=== PATIENT | female | born 1955 | race Caucasian/White ===

== ENCOUNTER → 2020-02-24 | Outpatient (CLI) | payer MEDICARE ==
--- NOTE | 2020-02-24 16:01 | NM ---
EXAMINATION TYPE: NM bone scan whole body DATE OF EXAM: 02/24/2020 COMPARISON: NONE HISTORY: Spondylosis with myelopathy Delayed whole-body scanning was performed following the injection of 23 mCi Tc 99m MDP. Images were acquired 3.5 hours post injection. FINDINGS: Ribs: There is focal uptake within the posterior left 10th rib in the posterior medial right 11th rib . Metastatic lesion should be considered. There is focal uptake within the T10 vertebral level. More focal uptake is present within the L1 and L2 levels posteriorly and within the right aspect of the L4 vertebral body. Findings are suspicious f or metastatic disease There is focal uptake within the anterior right iliac wing. Focal uptake is within the posterior sacr oiliac joints bilaterally. Distribution appears suggestive for metastatic disease. There is focal radiotracer within the left proximal diaphysis and left greater trochanter of the hip. There may be some focal uptake along the left aspect of the proximal sternum. IMPRESSION: 1. Multiple scattered areas of uptake suspicious for metastatic disease. Most prominent Include thora cic and lumbar spine, left proximal femur at the level of the trochanter, posterior lower ribs, and r ight iliac anterior wedging.
== END | disposition home or self-care (01) ==
LOC: RADNMMAIN 10:07
PROVIDERS: ATTEND Physical Medicine & Rehabilitation
DX: R59.0 Localized enlarged lymph nodes (principal); M48.062 Spinal stenosis, lumbar region with neurogenic claudication; M54.5 Low back pain; R20.2 Paresthesia of skin; Z87.19 Personal history of other diseases of the digestive system
CPT/HCPCS: 78306; A9503

== ENCOUNTER 2020-03-01 14:10 | Emergency (ER) | payer MEDICARE ==
[2020-03-01 14:21] VITALS: RESP 18
--- NOTE | 2020-03-01 15:03 | ED ---
General Adult HPI - General Chief complaint: Weakness Stated complaint: Back Pain Time Seen by Provider: 03/01/20 14:32 Source: patient, EMS Mode of arrival: EMS Limitations: no limitations - History of Present Illness Initial comments: Patient is 64-year-old female presenting to the emergency department with a chief complaint of back pain. 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 Patient reports since then she has developed increased back pain. States she is able to ambulate and has full range of motion bilateral upper and lower extremities. States the pain is only exacerbated in a sitting position and when standing for prolonged periods of time. States the pain feels like it is "inside her back". Patient reports seeing multiple times to order an MRI and a recent bone scan. States it month when he prescribed her a steroid pack and tramadol for the pain. Patient reports since the initial incident of the back pain, she's also developed paresthesias in the groin region. But doesn't have any of that at the moment. Patient reports decreased urinary frequency but states that is secondary to not drinking enough fluids. Denies any bowel incontinence. - Related Data Previous Rx's Medication Instructions Recorded Hydrocodone/Acetaminophen [[place] 1 tab PO Q6HR PRN #12 tab 03/01/20 5-325] Allergies Allergy/AdvReac Type Severity Reaction Status Date / Time No Known Allergies Allergy Verified 03/01/20 14:21 Review of Systems ROS Statement: Those systems with pertinent positive or pertinent negative responses have been documented in the HPI. ROS Other: All systems not noted in ROS Statement are negative. Past Medical History Past Medical History: Thyroid Disorder Additional Past Medical History / Comment(s): poor historian: states she used to take thyroid medicine, but doesnt anymore because she hasnt been to a doctor. History of Any Multi-Drug Resistant Organisms: None Reported Past Surgical History: Tonsillectomy Past Psychological History: No Psychological Hx Reported Smoking Status: Former smoker Past Alcohol Use History: Rare Past Drug Use History: None Reported General Exam Limitations: no limitations General appearance: alert, in no apparent distress Head exam: Present: atraumatic, normocephalic, normal inspection Eye exam: Present: normal appearance, PERRL, EOMI Pupils: Present: normal accommodation ENT exam: Present: normal exam, normal oropharynx, mucous membranes moist, TM's normal bilaterally, normal external ear exam Neck exam: Present: normal inspection, full ROM Respiratory exam: Present: normal lung sounds bilaterally. Absent: respiratory distress, wheezes Cardiovascular Exam: Present: regular rate, normal rhythm, normal heart sounds GI/Abdominal exam: Present: soft. Absent: distended Rectal exam: Present: normal inspection, normal rectal tone Extremities exam: Present: normal inspection, full ROM, normal capillary refill, other (Strength 5/5 in bilateral lower extremities with flexion and extension. +2 dorsalis pedis and posterior tibialis bilaterally.) Back exam: Present: normal inspection, full ROM, vertebral tenderness (Sacral tenderness, mild.) Neurological exam: Present: alert, oriented X3 Psychiatric exam: Present: normal affect, normal mood Skin exam: Present: warm, dry, intact, normal color Course Vital Signs 03/01/20 03/01/20 03/01/20 14:17 15:12 16:10 Temperature 98.6 F 98 F Pulse Rate 103 H 104 H 110 H Respiratory 18 18 18 Rate Blood Pressure 135/81 132/64 151/96 O2 Sat by Pulse 96 99 100 Oximetry Medical Decision Making - Medical Decision Making Patient is 64-year-old female presenting to emergency Department with chief complaint of back pain. Symptoms ongoing for the past few months. She is seeing for the back pain who recently ordered a bone scan. A revealed some bone marrow abnormalities suggesting metastatic disease. MRI results were obtained from the franchise specialist that reveal some osseous abnormality suggesting metastatic disease, multiple myeloma or other lymphoid conditions. Low suspicion for cauda equina. UA obtained was suggesting dehydration with +1 ketones. No signs of urinary tract infection. Initial bladder scan revealed 165 mL of urine. Post void residual volume of 29. Patient has good rectal tone. I suspect the possible fainting episodes, which the patient has history of, have increased in frequency secondary to decreased fluid intake. Case was thoroughly discussed with . He suggested the urinalysis and no further workup. Imaging results from the bone scan and MRI were also reviewed with him. He advised discharge. Patient is said to follow- up with her franchise specialist and primary care physician within this a week. Return parameters were thoroughly discussed with patient is understanding and agreeable. Case discussed with physician. - Lab Data Lab Results 03/01/20 Range/Units 15:22 Urine Color Yellow Urine Appearance Clear (Clear) Urine pH 5.5 (5.0-8.0) Ur Specific [place] 1.032 (1.001-1.035) Urine Protein Trace H (Negative) Urine Glucose (UA) Negative (Negative) Urine Ketones 1+ H (Negative) Urine Blood Negative (Negative) Urine Nitrite Negative (Negative) Urine Bilirubin Negative (Negative) Urine Urobilinogen 4.0 (<2.0) mg/dL Ur Leukocyte Esterase Moderate H (Negative) Urine RBC 2 (0-5) /hpf Urine WBC 2 (0-5) /hpf Ur Squamous Epith Cells 1 (0-4) /hpf Urine Mucus Rare H (None) /hpf Disposition Clinical Impression: Back pain Disposition: HOME SELF-CARE Condition: Good Additional Instructions: Take prescribed medication as directed. Follow up with her primary care and orthopedic doctor. Return to emergency department if symptoms worsen. Prescriptions: Hydrocodone/Acetaminophen [[place] 5-325] 1 tab PO Q6HR PRN #12 tab PRN Reason: Pain Is patient prescribed a controlled substance at d/c from ED?: No Referrals: Monica Perez MD [Primary Care Provider] - 1-2 days Time of Disposition: 16:00
[2020-03-01 15:30] LABS: Appearance,Urine Clear (Clear); Bilirubin,Urine Negative (Negative); Blood,Urine Negative (Negative); Color,Urine Yellow; Glucose,Urine (UA) Negative (Negative); Ketones,Urine 1+ (Negative); Leukocyte Esterase,Urine Moderate (Negative); Mucus,Urine Rare /hpf; Nitrite,Urine Negative (Negative); PH, Urine 5.5 (5.0-8.0); Protein,Urine Trace (Negative); RBC,Urine 2 /hpf (0-5); Specific Gravity,Urine 1.032 (1.001-1.035); Squamous Epithelial Cell,Urine 1 /hpf (0-4); WBC,Urine 2 /hpf (0-5)
[2020-03-01] MEDS ORDERED: HYDROcodone/APAP 10-325MG 1 EACH TAB PO ONE (15:56)
[2020-03-01 16:11] VITALS: BP 151/96; PULSE 110; TEMP 98
== END 2020-03-01 16:10 | disposition home or self-care (01) ==
LOC: EC 14:10
DX: M54.9 Dorsalgia, unspecified (principal); M89.9 Disorder of bone, unspecified; R39.198 Other difficulties with micturition; R20.2 Paresthesia of skin; E07.9 Disorder of thyroid, unspecified; Z87.891 Personal history of nicotine dependence
CPT/HCPCS: 51798; 81001; 99285

== ENCOUNTER 2020-03-05 16:17 | Inpatient (IN) | payer MEDICARE ==
[2020-03-05] MEDS ORDERED: SODIUM CHLORIDE 0.9% 500 ML 500 ML IV STA (17:06)
[2020-03-05] MEDS ORDERED: MORPHINE SULFATE 4 MG/ML SYRINGE IVP STA (17:06)
--- NOTE | 2020-03-05 17:32 | ED ---
General Adult HPI - General Chief complaint: Back Pain/Injury Stated complaint: Back Pain Time Seen by Provider: 03/05/20 16:52 Source: patient, EMS, RN notes reviewed Mode of arrival: EMS Limitations: no limitations - History of Present Illness Initial comments: 64-year-old female presents to the emergency department for a chief complaint of back and right leg pain. Patient reports that the symptoms have been ongoing for over 3 months now. Patient reports that she feels fine when lying down however when she has to sit or stand she has significant pain that radiates down the right leg. Patient states she has been seeing paint dipper Dr. Selby for this and has had several imaging studies such as a bone density scan, MRI. She was seen here 4 days ago and had no evidence of urinary retention with postvoid residual testing. She denies weakness in the legs. States she has had numbness of the groin area for several months but that her MRI did not indicate a cauda equina. Patient states today she called her doctor and he told her to come to the emergency department for admission to the hospital. Patient admits to constipation but denies any bladder or bowel changes otherwise. Denies fevers or chills. - Related Data Previous Rx's Medication Instructions Recorded Hydrocodone/Acetaminophen [[place] 1 tab PO Q6HR PRN #12 tab 03/01/20 5-325] Allergies Allergy/AdvReac Type Severity Reaction Status Date / Time No Known Allergies Allergy Verified 03/01/20 14:21 Review of Systems ROS Statement: Those systems with pertinent positive or pertinent negative responses have been documented in the HPI. ROS Other: All systems not noted in ROS Statement are negative. Past Medical History Past Medical History: Thyroid Disorder Additional Past Medical History / Comment(s): poor historian: states she used to take thyroid medicine, but doesnt anymore because she hasnt been to a doctor. History of Any Multi-Drug Resistant Organisms: None Reported Past Surgical History: Tonsillectomy Past Psychological History: No Psychological Hx Reported Smoking Status: Former smoker Past Alcohol Use History: Rare Past Drug Use History: None Reported General Exam Limitations: no limitations General appearance: alert, in no apparent distress Head exam: Present: atraumatic, normocephalic, normal inspection Eye exam: Present: normal appearance, PERRL, EOMI. Absent: scleral icterus, conjunctival injection, periorbital swelling ENT exam: Present: normal exam, mucous membranes moist Neck exam: Present: normal inspection, full ROM. Absent: tenderness, meningismus, lymphadenopathy Respiratory exam: Present: normal lung sounds bilaterally. Absent: respiratory distress, wheezes, rales, rhonchi, stridor Cardiovascular Exam: Present: regular rate GI/Abdominal exam: Present: soft, normal bowel sounds. Absent: distended, ten derness, guarding, rebound, rigid Extremities exam: Present: full ROM (Full range of motion of the right leg), normal capillary refill (Capillary refill less than 2 seconds, DP pulse 2+ in the right lower capm knee. Skin is dry and warm.) Back exam: Absent: paraspinal tenderness, vertebral tenderness Neurological exam: Absent: normal gait (Patient is able to ambulate but does so with antalgic gait.) Course Vital Signs 03/05/20 16:26 Temperature 98.6 F Pulse Rate 111 H Respiratory 18 Rate Blood Pressure 119/60 O2 Sat by Pulse 95 Oximetry Medical Decision Making - Medical Decision Making Patient presents for ongoing back pain for 3-4 months. States it is very painful to sit or stand. Neurovascular status intact in the right lower extremity. Patient has been following with Dr. Selby for this. Dr. Perez would like patient admitted. Patient recently had an MRI and bone scan. I do have the bone scan report which showed multiple scattered areas of uptake suspicious for metastatic disease most prominently including the thoracic and lumbar spine as well as the left proximal femur posterior lower ribs and right iliac anterior wedging. I did obtain laboratory evaluation. Patient is anemic with a hemoglobin of 8.3. Occult blood pending. This could be anemia of chronic disease. CMP is unremarkable. Patient will be admitted for further management. - Lab Data Result diagrams: 03/05/20 17:32 03/05/20 17:05 Lab Results 03/05/20 03/05/20 Range/Units 17:05 17:32 WBC 11.6 H (3.8-10.6) k/uL RBC 4.16 (3.80-5.40) m/uL Hgb 8.3 L (11.4-16.0) gm/dL Hct 28.2 L (34.0-46.0) % MCV 67.8 L (80.0-100.0) fL MCH 20.0 L (25.0-35.0) pg MCHC 29.5 L (31.0-37.0) g/dL RDW 16.5 H (11.5-15.5) % Plt Count 394 (150-450) k/uL Neutrophils % 73 % Lymphocytes % 14 % Monocytes % 6 % Eosinophils % 5 % Basophils % 0 % Neutrophils # 8.5 H (1.3-7.7) k/uL Lymphocytes # 1.6 (1.0-4.8) k/uL Monocytes # 0.7 (0-1.0) k/uL Eosinophils # 0.6 (0-0.7) k/uL Basophils # 0.0 (0-0.2) k/uL Hypochromasia Marked Poikilocytosis Slight Anisocytosis Slight Microcytosis Marked Sodium 136 L (137-145) mmol/L Potassium 4.2 (3.5-5.1) mmol/L Chloride 99 (98-107) mmol/L Carbon Dioxide 26 (22-30) mmol/L Anion Gap 11 mmol/L BUN 11 (7-17) mg/dL Creatinine 0.65 (0.52-1.04) mg/dL Est GFR (CKD-EPI)AfAm >90 (>60 ml/min/1.73 sqM) Est GFR (CKD-EPI)NonAf >90 (>60 ml/min/1.73 sqM) Glucose 105 H (74-99) mg/dL Calcium 9.2 (8.4-10.2) mg/dL Total Bilirubin 0.5 (0.2-1.3) mg/dL AST 27 (14-36) U/L ALT 15 (4-34) U/L Alkaline Phosphatase 176 H (38-126) U/L Total Protein 6.5 (6.3-8.2) g/dL Albumin 3.6 (3.5-5.0) g/dL Disposition Clinical Impression: Multiple lesions of metastatic malignancy, Back pain Disposition: ADMITTED IP TO THIS HOSP Condition: Fair Is patient prescribed a controlled substance at d/c from ED?: No Referrals: Monica Perez MD [Primary Care Provider] - 1-2 days Time of Disposition: 19:10
[2020-03-05 17:59] LABS: ALT 15 U/L (4-34); AST 27 U/L (14-36); African American GFR (CKD) >90 (>60 ml/min/1.73 sqM); Albumin 3.6 g/dL (3.5-5.0); Alkaline Phosphatase 176 U/L (38-126); Anion Gap 11 mmol/L; Blood Urea Nitrogen 11 mg/dL (7-17); Calcium 9.2 mg/dL (8.4-10.2); Carbon Dioxide 26 mmol/L (22-30); Chloride 99 mmol/L (98-107); Glucose 105 mg/dL (74-99); Non-African American GFR(CKD) >90 (>60 ml/min/1.73 sqM); Potassium 4.2 mmol/L (3.5-5.1); Sodium 136 mmol/L (137-145); Total Bilirubin 0.5 mg/dL (0.2-1.3); Total Protein 6.5 g/dL (6.3-8.2)
[2020-03-05 18:24] LABS: Anisocytosis Slight; Basophils % (A) 0 %; Eosinophils # (A) 0.6 k/uL (0-0.7); Eosinophils % (A) 5 %; HCT 28.2 % (34.0-46.0); HGB 8.3 gm/dL (11.4-16.0); Hypochromasia Marked; Lymphocytes # (A) 1.6 k/uL (1.0-4.8); Lymphocytes % (A) 14 %; MCHC 29.5 g/dL (31.0-37.0); MCV 67.8 fL (80.0-100.0); Mean Platelet Volume 7.1; Microcytosis Marked; Monocytes # (A) 0.7 k/uL (0-1.0); Monocytes % (A) 6 %; Neutrophils # (A) 8.5 k/uL (1.3-7.7); Neutrophils % (A) 73 %; Platelet Count 394 k/uL (150-450); Poikilocytosis Slight; RBC 4.16 m/uL (3.80-5.40); RDW 16.5 % (11.5-15.5); WBC 11.6 k/uL (3.8-10.6)
[2020-03-05] MEDS ORDERED: NALOXONE 0.4 MG/ML 1 ML VIAL IV PRN (19:10)
[2020-03-05] MEDS ORDERED: ONDANSETRON 4 MG/2 ML VIAL IVP PRN (19:10)
[2020-03-05] MEDS: SODIUM CHLORIDE 0.9% 1,000 ML IV SCH (19:29)
[2020-03-05] MEDS: MORPHINE SULFATE 4 MG/ML SYRINGE IV PRN (23:53)
[2020-03-06] MEDS: MORPHINE SULFATE 4 MG/ML SYRINGE IV PRN (05:07)
[2020-03-06 05:33] LABS: Appearance,Urine Clear (Clear); Bacteria,Urine Rare /hpf; Bilirubin,Urine Negative (Negative); Blood,Urine Negative (Negative); Color,Urine Yellow; Glucose,Urine (UA) Negative (Negative); Hyaline Casts,Urine 5 /lpf (0-2); Ketones,Urine Trace (Negative); Leukocyte Esterase,Urine Large (Negative); Mucus,Urine Rare /hpf; Nitrite,Urine Negative (Negative); Protein,Urine Negative (Negative); RBC,Urine 3 /hpf (0-5); Specific Gravity,Urine 1.013 (1.001-1.035); Squamous Epithelial Cell,Urine 2 /hpf (0-4); WBC,Urine 28 /hpf (0-5)
[2020-03-06] MEDS ORDERED: NAPROXEN 250 MG TAB PO PRN (07:50)
[2020-03-06] MEDS: PANTOPRAZOLE 40 MG TABLET PO SCH (08:49)
[2020-03-06] MEDS: ENOXAPARIN 40 MG/0.4 ML SYRINGE SQ SCH (08:49)
[2020-03-06] MEDS: SODIUM CHLORIDE 0.9% 1,000 ML IV SCH ×2 (08:50→20:59)
[2020-03-06] MEDS: IOPAMIDOL CONTRAST (ORAL USE) VIAL PO PRN ×2 (08:59→10:11)
--- NOTE | 2020-03-06 09:56 | P.HPIM ---
History of Present Illness H&P Date: 03/06/20 Chief Complaint: Back pain This is a 64-year-old patient with no primary care physician. She had previously been seen by Dr. Rausch but it has been seen in greater than 1 year and has requested to be established with Dr. Perez. She states that she has not had a full workup since she was 49 years old and at that time had a Pap smear and mammogram but no repeat testing since that time. She denies ever having a colonoscopy. Patient gives history of having hypothyroidism but stopped taking her medication as she could not get the prescription refilled. She gives history of lifting something onto a shelf and heard a pop in her lower back area in October of this year. She denied any numbness at that time down her legs. She states it has progressively worsened and she does have leg involvement including pain in her groin. She has numbness as well. She has difficulty initiating urination and difficulty with bowel movements possibly constipation versus dif ficulty defecating. She rates the pain as a 8-10 out of 10 with any movement which includes walking, sitting or standing. At rest pain is fairly well controlled. Patient also relates possible fainting episodes. Patient also complains of a constricted sensation around her chest but no significant rib pain. She denies any bloody or tarry stools. No vaginal bleeding. No hematuria. Patient has been under the care of Dr. Selby as she was initially planning to go to a chiropractor but her sister insisted that she go to [facility]. She did have an MRI bone scan and nerve testing done with Dr. Selby. Dr. Selby did give her a course of steroids and tramadol for pain. She came into [facility] emergency center on March 01 due to severe back pain. Her urinalysis was negative for UTI. Bladder scan showed 165 ML's. Post void residual 29. The patient was given a prescription for [place] and instructed to follow-up with PCP. She can return to [facility] emergency center on March 05 with continued back pain with radiation down the right leg along with numbness and tingling. She was afebrile, heart rate 111, blood pressure 119/60, pulse ox 95% on room air. WBC 11.6, hemoglobin 8.3, platelet count 394. Sodium 136, potassium 4.2, chloride 99, CO2 26, BUN 11 and creatinine 0.65. Blood sugar 105. Alkaline phosphatase 176. Patient admitted to the [facility] floor and consult requested with oncology, CAT scan of the chest abdomen and pelvis and cancer markers have been ordered. MRI of the lumbar spine revealed marked abnormal bone marrow throughout the axial skeleton with most significant involvement of the sacrum, L5, L1 and L3 vertebral bodies. Findings may represent a marrow infiltrative process such as metastatic disease, multiple myeloma or lymphoproliferative disorder. Suspect minor nondisplaced S1 sacral element fracture. L5/S1 level shallow left-sided disc protrusion/herniation and mild facet arthropathy. No substantial spinal canal nor foraminal stenosis. Nonspecific hepatic and right renal lesion as well as a 2.5 cm left adrenal mass. EMG revealed sensory nerve responses absent suggesting possible generalized peripheral neuropathy with paresthesia and numbness in the bilateral feet. Bone scan showed multiple scattered areas of uptake suspicious for metastatic disease most prominently including the thoracic and lumbar spine as well as the left proximal femur posterior lower ribs and right iliac anterior wedging. Review of Systems Constitutional: Reports chronic pain, Reports fatigue, Reports poor appetite, Reports weakness, Denies anorexia, Denies chills, Denies fever Eyes: denies blurred vision, denies pain Ears, nose, mouth and throat: Reports vertigo, Denies dysphagia, Denies headache, Denies nasal congestion, Denies nasal discharge, Denies sore throat Cardiovascular: Denies chest pain, Denies edema, Denies leg edema, Denies shortness of breath Respiratory: Denies cough, Denies cough with sputum, Denies dyspnea, Denies excessive sputum, Denies hemoptysis, Denies home oxygen, Denies respiratory infections, Denies wheezing Gastrointestinal: Reports abdominal pain, Reports constipation, Denies BRBPR, Denies coffee ground emesis, Denies diarrhea, Denies hematemesis, Denies hematochezia, Denies melena, Denies nausea, Denies vomiting Genitourinary: Reports difficulty voiding, Denies hematuria, Denies urinary frequency Menstruation: Reports postmenopausal, Denies post hysterectomy Musculoskeletal: Reports gait dysfunction, Reports leg numbness/tingling, Reports low back pain, Reports muscle weakness, Denies myalgias Integumentary: Denies pruritus, Denies rash, Denies wounds Neurological: Reports gait dysfunction, Denies change in mentation, Denies change in speech, Denies head injury, Denies seizures Psychiatric: Denies anxiety, Denies depression Endocrine: Denies fatigue, Denies weight change Past Medical History Past Medical History: Thyroid Disorder Additional Past Medical History / Comment(s): Hypothyroidism. History of Any Multi-Drug Resistant Organisms: None Reported Past Surgical History: Tonsillectomy Past Anesthesia/Blood Transfusion Reactions: No Reported Reaction Past Psychological History: No Psychological Hx Reported Smoking Status: Former smoker Past Alcohol Use History: Rare Additional Past Alcohol Use History / Comment(s): Patient was a smoker of one and half packs per day for 22 years and quit approximately 20 years ago. She has rare alcohol intake. She denies any marijuana or street drug use. Past Drug Use History: None Reported - Past Family History Mother Family Medical History: Cancer, CVA/TIA Additional Family Medical History / Comment(s): Mother at age 75 from some type of cancer outside the colon. Sister(s) Family Medical History: Cancer Additional Family Medical History / Comment(s): Patient has one sister with history of breast cancer, atrial fibrillation and hypertension. Father Additional Family Medical History / Comment(s): Father is alive at age 92 with history of coronary artery disease, hypertension, hyperlipidemia, benign prostatic hypertrophy. Brother(s) Additional Family Medical History / Comment(s): Patient has 2 brothers with no m ajor medical problems. Patient has 2 children: One son with hypothyroidism and one daughter with no major medical problems. Medications and Allergies Home Medications Medication Instructions Recorded Confirmed Type Hydrocodone/Acetaminophen [[place] 1 tab PO Q6HR PRN #12 tab 03/01/20 03/05/20 Rx 5-325] Acetaminophen [Tylenol Arthritis] 1,300 mg PO BID PRN 03/05/20 03/05/20 History Naproxen Sodium [Aleve] 440 mg PO BID PRN 03/05/20 03/05/20 History Pantoprazole [Protonix] 40 mg PO DAILY 03/05/20 03/05/20 History Allergies Allergy/AdvReac Type Severity Reaction Status Date / Time No Known Allergies Allergy Verified 03/05/20 19:27 Physical Exam Vitals: Vital Signs Temp Pulse Pulse Resp BP BP Pulse Ox 03/06/20 05:00 98.1 F 99 18 145/76 96 03/06/20 00:00 12 03/05/20 20:38 98.6 F 94 12 137/78 94 L 03/05/20 20:23 12 03/05/20 16:26 98.6 F 111 H 18 119/60 95 Intake and Output 03/05/20 03/06/20 03/06/20 22:59 06:59 14:59 Intake Total 250 600 Output Total 350 Balance 250 250 Intake: Intake, IV Titration 150 600 Amount Sodium Chloride 0.9% 1, 150 600 000 ml @ 75 mls/hr IV . [id number] [facility] Rx#:[id number] Oral 100 Output: Urine 350 Other: Voiding Method Bedside Commode Bedside Commode Weight 86.183 kg Physical Examination Gen: This is a 64-year-old female. Patient is resting in bed appears to be comfortable at rest. She does experience lumbar pain with minimal movement in bed. HEENT: Head is atraumatic, normocephalic. Pupils equal, round. Sclerae is anicteric. NECK: Supple. No JVD. No lymphadenopathy. No thyromegaly. LUNGS: Clear to auscultation. No wheezes or rhonchi. No intercostal retractions. HEART: Regular rate and rhythm. No murmur. ABDOMEN: Soft. Bowel sounds are present. No masses. Bilateral lower quadrant pain most severe at the right lower quadrant with palpable mass right lower quadrant. EXTREMITIES: No pedal edema. No calf tenderness. Dorsalis pedis +2 bilaterally. NEUROLOGICAL: Patient is awake, alert and oriented x3. Cranial nerves 2 through 12 are grossly intact. Results CBC & Chem 7: 03/05/20 17:32 03/05/20 17:05 Labs: Abnormal Lab Results - Last 24 Hours (Table) 03/05/20 03/05/20 03/06/20 Range/Units 17:05 17:32 05:10 WBC 11.6 H (3.8-10.6) k/uL Hgb 8.3 L (11.4-16.0) gm/dL Hct 28.2 L (34.0-46.0) % MCV 67.8 L (80.0-100.0) fL MCH 20.0 L (25.0-35.0) pg MCHC 29.5 L (31.0-37.0) g/dL RDW 16.5 H (11.5-15.5) % Neutrophils # 8.5 H (1.3-7.7) k/uL Sodium 136 L (137-145) mmol/L Glucose 105 H (74-99) mg/dL Alkaline Phosphatase 176 H (38-126) U/L Urine Ketones Trace H (Negative) Ur Leukocyte Esterase Large H (Negative) Urine WBC 28 H (0-5) /hpf Urine Bacteria Rare H (None) /hpf Hyaline Casts 5 H (0-2) /lpf Urine Mucus Rare H (None) /hpf Thrombosis Risk Factor Assmnt - DVT/VTE Prophylaxis DVT/VTE Prophylaxis: Pharmacologic Prophylaxis ordered - Choose All That Apply Any of the Below Risk Factors Present?: Yes Each Factor Represents 1 point: Medical pt on bed rest Other Risk Factors: Yes Each Risk Factor Represents 2 Points: Age 61-74 years Other congenital or acquired thrombophilia - If yes, enter type in comment: No Thrombosis Risk Factor Assessment Total Risk Factor Score: 3 Thrombosis Risk Factor Assessment Level: Moderate Risk Assessment and Plan Plan: 1. Metastatic disease to the thoracic and lumbar spine as well as the left proximal femur, posterior lower ribs and right iliac of unknown primary source. CAT scan of the chest abdomen and pelvis with contrast ordered. Consult with Dr. Alberts. CEA 125, CA 199, CEA ordered. Continue Dilaudid or morphine for pain. Patient will be resumed on [place] as well. Zofran for nausea. 2. History of hypothyroidism. TSH and free T4 ordered. 3. Anemia of unclear etiology. Stool for occult blood was negative. Most likely anemia of chronic disease. 4. Elevated alkaline phosphatase. Await CAT scan report. 5. Right lower quadrant pain with palpable mass. Possible colon cancer. Await CAT scan. Patient has never had a colonoscopy. 6. UTI. Patient will be started on ceftriaxone, await urine culture report. 7. Adrenal mass on MRI. 8. DVT prophylaxis. Lovenox 40 mg subcu daily. 9. GI prophylaxis. Protonix 40 mg daily. 10. COVID-19 infection not present. Patient will be admitted to the hospital for a minimum of 2 night stay. Discharge plan: Most likely subacute rehab. Will add and PT and OT evaluation. Impression and plan of care have been directed as dictated by the signing physician. Natalie Arango nurse practitioner acting as scribe for signing physician.
[2020-03-06 10:07] LABS: T4, Free (Free Thyroxine) 0.74 ng/dL (0.78-2.19)
[2020-03-06] MEDS: HYDROmorphone 0.5 MG/0.5 ML SYRINGE IVP PRN ×3 (10:10→21:41)
--- NOTE | 2020-03-06 12:39 | CT ---
EXAMINATION TYPE: CT ChestAbdPelvis w con DATE OF EXAM: 03/06/2020 COMPARISON: Correlation nuclear medicine bone scan 02/24/2020 HISTORY: 64-year-old male Metastatic bone disease. TECHNIQUE: Contiguous axial scanning of the chest, abdomen, and pelvis performed with IV Contrast, pa tient injected with 100 mL of Isovue M300. Delayed images through the kidneys were obtained. Coronal/ sagittal reconstructions performed. CT DLP: 854.4 mGycm Automated exposure control for dose reduction was used. FINDINGS: CHEST: Are normal size without pericardial effusion. Borderline size 9 mm right paratracheal lymph node. Otherwise, no thoracic lymphadenopathy by CT size criteria. There is abnormal soft tissue extending from the right suprahilar region towards the right apex incre asing segmental upper lobe bronchi measuring up to 6.6 cm craniocaudal, coronal image 51, 5.6 cm AP b y 6.5 cm wide. Additional focal satellite nodularity is present such as at the anterior right upper lobe measuring 2 .1 x 1.2 cm. 3 mm peripheral left lower lobe pulmonary nodule, axial image 43 is nonspecific. Otherwise, biapical pleural-parenchymal scarring. Trace right pleural effusion. ABDOMEN: Moderate sized hernia. Prominent contrast column within the esophagus could reflect dysmotility or ga stroesophageal reflux. Wedge-shaped hyper enhancement along the peripheral right hepatic dome likely vascular shunting as th ere is equilibration on the delayed kidney images. 1.4 cm gallstone is suspected and additional 1.7 cm gallstone, axial image 64. No biliary ductal dila tation. Portal venous system is patent. Right adrenal gland, kidneys, spleen, and pancreas appear within normal limits. Abnormal mass of the left adrenal gland measuring 3.3 x 2.5 cm. No dilated small bowel, free fluid, or free air. No mesenteric or retroperitoneal lymphadenopathy. Nonspecific soft tissue nodularity right inferior pararenal fat measuring 7 mm, axial image 90. Normal appendix. Oral contrast progressed into the cecum. Mild overall stool burden. Left-sided colon ic diverticulosis without acute diverticulitis. PELVIS: Prominent distention of the urinary bladder. Uterus anteverted. Both ovaries are visualized. No abnor mal fluid collection the pelvis or pelvic lymphadenopathy. Soft tissue nodule in the right perineum subcutaneous adipose, axial image 136. Tiny 6 mm nodule in t he right gluteal subcutaneous fat, axial image 138. BONES: Evaluation of the osseous structures shows permeative destruction of the right sacral ala. Soft tissu e infiltration involves the right S1-S2 neuroforamen. Lesser degree of permeative lucency within the left sacral ala. Some abnormal heterogeneity of the body of the sacrum and findings suspected to repr esent pathologic zone 2 sacral fractures on both sides. Permeative lucency involving the left L3 transverse process. Subtle lytic lesion involving the left T 12 posterior vertebral body. Abnormal soft tissue left paraspinal region extending into left T9-T10 neuroforamen and on the left l ateral spinal canal, reference axial image 44 and sagittal image 73. IMPRESSION: 1. LARGE RIGHT UPPER LOBE MASS WITH OPACITY MEASURING UP TO 6.6 CM EXTENDING FROM THE RIGHT SUPRAHILA R REGION UP TO THE LATERAL APEX. SOME SATELLITE NODULARITY MEASURING UP TO 2.1 CM. TRACE RIGHT PLEURA L EFFUSION. 2. NONSPECIFIC 3 MM LEFT LOWER LOBE PULMONARY NODULE. 3. METASTATIC DISEASE WITH A 3.3 CM LEFT ADRENAL MASS AND OSSEOUS METASTATIC DISEASE TO THE SACRUM (W ITH PERMEATIVE DESTRUCTION AND BILATERAL PATHOLOGIC ZONE 2 SACRAL ALAR FRACTURES), LYTIC SOFT TISSUE DESTRUCTION LEFT L3 TRANSVERSE PROCESS, LEFT T12 VERTEBRAL BODY. ALSO INVOLVING THE LEFT PARASPINAL R EGION WITH SOFT TISSUE EXTENDING INTO THE T9-T10 NEUROFORAMEN AND LATERAL LEFT SPINAL CANAL. 4. SCATTERED SOFT TISSUE NODULES SUCH IN THE INFERIOR RIGHT PERIRENAL SPACE, RIGHT PERINEUM, AND R IGHT GLUTEAL SUBCUTANEOUS ADIPOSE MEASURING UP TO 7 MM MAY REPRESENT METASTATIC DEPOSITS. 5. CHOLELITHIASIS, LEFT-SIDED COLONIC DIVERTICULOSIS, AND MODERATE-SIZED HILAR HERNIA. PROMINENT CONT RAST COLUMN IN THE ESOPHAGUS COULD REFLECT DYSMOTILITY OR GASTROESOPHAGEAL REFLUX DISEASE.
[2020-03-06] MEDS: dexAMETHasone 4 MG TAB PO SCH ×3 (15:01→21:33)
[2020-03-06 16:55] LABS: Carcinoembryonic Antigen 9.6 ng/mL (0.0-4.9)
[2020-03-06 17:25] LABS: Cancer Antigen 19-9 14.9 U/mL (0.0-34.9)
--- NOTE | 2020-03-06 17:30 | P.CONS ---
History of Present Illness - Reason for Consult Consult date: 03/06/20 bone lesions Requesting physician: Natalie Arango - Chief Complaint back pain - History of Present Illness Mrs. Beaulieu is a very pleasant 64-year-old female patient who we've been asked to see because of abnormalities noted on nuclear medicine bone scan 02/24/20. Pt states she had been having low back pain since about November, this was progressive, right hip became involved and was impacting her activity. She noted some groin numbness as well as changes in sensation regarding elimination "hard time going", denied any incontinence. She had initially been worked up with an MRI of the spine at which showed abnormalities which led to the rece nt bone scan. Patient denies a personal history of cancer, last mammogram was 15 years ago, she never had a colonoscopy, denied fevers, sweats, she has lost weight but not sure how much, she quit smoking more than 20 years ago, denies new cough or chest pain, she has had difficulty swallowing, denies nausea, vomiting, abdominal bloating, pain or cramping, no blood in the urine or stool. She had a sister with breast cancer. Review of Systems 14 point review of systems is negative except as stated in HPI Past Medical History Past Medical History: Thyroid Disorder Additional Past Medical History / Comment(s): Hypothyroidism. History of Any Multi-Drug Resistant Organisms: None Reported Past Surgical History: Tonsillectomy Past Anesthesia/Blood Transfusion Reactions: No Reported Reaction Past Psychological History: No Psychological Hx Reported Smoking Status: Former smoker Past Alcohol Use History: Rare Additional Past Alcohol Use History / Comment(s): Patient was a smoker of one and half packs per day for 22 years and quit approximately 20 years ago. She has rare alcohol intake. She denies any marijuana or street drug use. Past Drug Use History: None Reported - Past Family History Mother Family Medical History: Cancer, CVA/TIA Additional Family Medical History / Comment(s): Mother at age 75 from some type of cancer outside the colon. Sister(s) Family Medical History: Cancer Additional Family Medical History / Comment(s): Patient has one sister with history of breast cancer, atrial fibrillation and hypertension. Father Additional Family Medical History / Comment(s): Father is alive at age 92 with history of coronary artery disease, hypertension, hyperlipidemia, benign prostatic hypertrophy. Brother(s) Additional Family Medical History / Comment(s): Patient has 2 brothers with no major medical problems. Patient has 2 children: One son with hypothyroidism and one daughter with no major medical problems. Medications and Allergies Home Medications Medication Instructions Recorded Confirmed Type Hydrocodone/Acetaminophen [[place] 1 tab PO Q6HR PRN #12 tab 03/01/20 03/05/20 Rx 5-325] Acetaminophen [Tylenol Arthritis] 1,300 mg PO BID PRN 03/05/20 03/05/20 History Naproxen Sodium [Aleve] 440 mg PO BID PRN 03/05/20 03/05/20 History Pantoprazole [Protonix] 40 mg PO DAILY 03/05/20 03/05/20 History Allergies Allergy/AdvReac Type Severity Reaction Status Date / Time No Known Allergies Allergy Verified 03/05/20 19:27 Physical Exam Vitals: Vital Signs Temp Pulse Pulse Resp BP BP Pulse Ox 03/06/20 12:27 98.8 F 95 16 121/73 95 03/06/20 05:00 98.1 F 99 18 145/76 96 03/06/20 00:00 12 03/05/20 20:38 98.6 F 94 12 137/78 94 L 03/05/20 20:23 12 03/05/20 16:26 98.6 F 111 H 18 119/60 95 Intake and Output 03/05/20 03/06/20 03/06/20 22:59 06:59 14:59 Intake Total 250 600 Output Total 350 Balance 250 250 Intake: Intake, IV Titration 150 600 Amount Sodium Chloride 0.9% 1, 150 600 000 ml @ 75 mls/hr IV . [id number] [facility] Rx#:[id number] Oral 100 Output: Urine 350 Other: Voiding Method Bedside Commode Bedside Commode Weight 86.183 kg - Constitutional General appearance: average body habitus, cooperative, no acute distress - EENT Eyes: anicteric sclerae, EOMI ENT: hearing grossly normal, normal oropharynx - Neck Neck: lymphadenopathy (left axilla) - Respiratory Respiratory: bilateral: CTA - Cardiovascular Rhythm: regular Heart sounds: normal: S1, S2 Abnormal Heart Sounds: no systolic murmur, no diastolic murmur, no rub, no S3 Gallop, no S4 Gallop, no click, no other leg Peripheral Edema: bilateral: None - Gastrointestinal General gastrointestinal: no absent bowel sounds, no decreased bowel sounds, no distended, no hepatomegaly, no hyperactive bowel sounds, normal bowel sounds, no organomegaly, no rigid, no scaphoid, soft, no splenomegaly, no tenderness, no umbilical hernia, no ventral hernia - Integumentary Integumentary: pale - Neurologic Decreased perineal sensation to touch, right hip flexion weakness - Musculoskeletal Musculoskeletal: generalized weakness - Psychiatric Psychiatric: A&O x's 3, appropriate affect, intact judgment & insight Bilateral breast exam did not reveal any masses, skin changes, nipple inversion or drainage. Left axillary lymph node palpated Results CBC & Chem 7: 03/05/20 17:32 03/05/20 17:05 Labs: Abnormal Lab Results - Last 24 Hours (Table) 03/05/20 03/05/20 03/05/20 Range/Units 17:05 17:05 17:32 WBC 11.6 H (3.8-10.6) k/uL Hgb 8.3 L (11.4-16.0) gm/dL Hct 28.2 L (34.0-46.0) % MCV 67.8 L (80.0-100.0) fL MCH 20.0 L (25.0-35.0) pg MCHC 29.5 L (31.0-37.0) g/dL RDW 16.5 H (11.5-15.5) % Neutrophils # 8.5 H (1.3-7.7) k/uL Sodium 136 L (137-145) mmol/L Glucose 105 H (74-99) mg/dL Alkaline Phosphatase 176 H (38-126) U/L TSH 36.600 H (0.465-4.680) mIU/L Free T4 0.74 L (0.78-2.19) ng/dL Urine Ketones (Negative) Ur Leukocyte Esterase (Negative) Urine WBC (0-5) /hpf Urine Bacteria (None) /hpf Hyaline Casts (0-2) /lpf Urine Mucus (None) /hpf 03/06/20 Range/Units 05:10 WBC (3.8-10.6) k/uL Hgb (11.4-16.0) gm/dL Hct (34.0-46.0) % MCV (80.0-100.0) fL MCH (25.0-35.0) pg MCHC (31.0-37.0) g/dL RDW (11.5-15.5) % Neutrophils # (1.3-7.7) k/uL Sodium (137-145) mmol/L Glucose (74-99) mg/dL Alkaline Phosphatase (38-126) U/L TSH (0.465-4.680) mIU/L Free T4 (0.78-2.19) ng/dL Urine Ketones Trace H (Negative) Ur Leukocyte Esterase Large H (Negative) Urine WBC 28 H (0-5) /hpf Urine Bacteria Rare H (None) /hpf Hyaline Casts 5 H (0-2) /lpf Urine Mucus Rare H (None) /hpf Comments: nuclear medicine bone scan report reviewed abnormal MRI report reviewed last week Assessment and Plan (1) Bone lesion Narrative/Plan: Multiple bone lesions noted on nuclear medicine bone scan 02/24/20. MRI was performed last week and was abnormal. CT of the chest abdomen and pelvis has been ordered to see if there are any masses for biopsy target. Dr. Alberts did find a left axillary lymph node. He did review with the patient high concern for malignancy. It was also explained that a biopsy is necessary before a cancer diagnosis can be given or treatment can be discussed. Patient's decreased perineal sensation, started on 4 mg of dexamethasone every 6 hours. Will follow up. Current Visit: Yes Status: Acute Priority: High Code(s): M89.9 - DISORDER OF BONE, UNSPECIFIED SNOMED Code(s): 86422090 (2) Microcytic hypochromic anemia Narrative/Plan: Workup ordered. Transfusion for hemoglobin less than 7 or if symptomatic. If iron deficient, Gastroenterology consultation for endoscopy would be most appropriate to be done sooner then later. Patient has never had these age- related cancer screenings. Current Visit: Yes Status: Acute Priority: High Code(s): D50.9 - IRON DEFICIENCY ANEMIA, UNSPECIFIED SNOMED Code(s): 29193038 Plan: Doctor attests: I performed a history and physical examination of this patient, developed impression and plan of care, discussed with dictator. I agree with dictators note, documented as a scribe.
[2020-03-07] MEDS: HYDROmorphone 0.5 MG/0.5 ML SYRINGE IVP PRN ×3 (03:30→13:46)
[2020-03-07] MEDS: SODIUM CHLORIDE 0.9% 1,000 ML IV SCH (03:32)
[2020-03-07] MEDS ORDERED: LEVOTHYROXINE 25 MCG TAB PO SCH (06:30)
[2020-03-07 07:13] LABS: Anisocytosis Slight; HCT 26.1 % (34.0-46.0); HGB 7.6 gm/dL (11.4-16.0); Hypochromasia Marked; MCH 19.6 pg (25.0-35.0); MCHC 29.1 g/dL (31.0-37.0); MCV 67.5 fL (80.0-100.0); Mean Platelet Volume 6.7; Microcytosis Marked; Platelet Count 426 k/uL (150-450); Poikilocytosis Slight; RBC 3.87 m/uL (3.80-5.40); RDW 17.1 % (11.5-15.5); WBC 12.6 k/uL (3.8-10.6)
[2020-03-07 07:35] LABS: ALT 16 U/L (4-34); AST 22 U/L (14-36); African American GFR (CKD) >90 (>60 ml/min/1.73 sqM); Albumin 3.4 g/dL (3.5-5.0); Alkaline Phosphatase 172 U/L (38-126); Anion Gap 9 mmol/L; Blood Urea Nitrogen 10 mg/dL (7-17); Calcium 9.1 mg/dL (8.4-10.2); Carbon Dioxide 24 mmol/L (22-30); Chloride 105 mmol/L (98-107); Glucose 119 mg/dL (74-99); Non-African American GFR(CKD) >90 (>60 ml/min/1.73 sqM); Potassium 4.7 mmol/L (3.5-5.1); Sodium 138 mmol/L (137-145); Total Bilirubin 0.4 mg/dL (0.2-1.3); Total Protein 6.3 g/dL (6.3-8.2)
[2020-03-07] MEDS: dexAMETHasone 4 MG TAB PO SCH ×4 (08:10→21:10)
[2020-03-07] MEDS: PANTOPRAZOLE 40 MG TABLET PO SCH (08:10)
[2020-03-07] MEDS: ENOXAPARIN 40 MG/0.4 ML SYRINGE SQ SCH (08:10)
[2020-03-07 12:01] LABS: Ferritin 54.8 ng/mL (10.0-291.0)
[2020-03-07 12:39] LABS: Cancer Antigen 153 49.5 U/mL (0.0-32.3)
[2020-03-07 12:42] LABS: % Iron Saturation 5.94 (12.00-45.00); Iron 17 ug/dL (50-170); Total Iron Binding Capacity 286 ug/dL (228-460)
[2020-03-07] MEDS ORDERED: diazePAM 5 MG TAB PO STA (14:35)
--- NOTE | 2020-03-07 15:11 | P.PN ---
Subjective Progress Note Date: 03/07/20 This is a 64-year-old patient with no primary care physician. She had previously been seen by Dr. Rausch but it has been seen in greater than 1 year and has requested to be established with Dr. Perez. She states that she has not had a full workup since she was 49 years old and at that time had a Pap smear and mammogram but no repeat testing since that time. She denies ever having a colonoscopy. Patient gives history of having hypothyroidism but stopped taking her medication as she could not get the prescription refilled. She gives history of lifting something onto a shelf and heard a pop in her lower back area in October of this year. She denied any numbness at that time down her legs. She states it has progressively worsened and she does have leg involvement including pain in her groin. She has numbness as well. She has difficulty initiating urination and difficulty with bowel movements possibly constipation versus difficulty defecating. She rates the pain as a 8-10 out of 10 with any movement which includes walking, sitting or standing. At rest pain is fairly well contro lled. Patient also relates possible fainting episodes. Patient also complains of a constricted sensation around her chest but no significant rib pain. She denies any bloody or tarry stools. No vaginal bleeding. No hematuria. Patient has been under the care of Dr. Selby as she was initially planning to go to a chiropractor but her sister insisted that she go to [facility]. She did have an MRI bone scan and nerve testing done with Dr. Selby. Dr. Selby did give her a course of steroids and tramadol for pain. She came into [facility] emergency center on March 01 due to severe back pain. Her urinalysis was negative for UTI. Bladder scan showed 165 ML's. Post void residual 29. The patient was given a prescription for Dwight and instructed to follow-up with PCP. She can return to [facility] emergency center on March 05 with continued back pain with radiation down the right leg along with numbness and tingling. She was afebrile, heart rate 111, blood pressure 119/60, pulse ox 95% on room air. WBC 11.6, hemoglobin 8.3, platelet count 394. Sodium 136, potassium 4.2, chloride 99, CO2 26, BUN 11 and creatinine 0.65. Blood sugar 105. Alkaline phosphatase 176. Patient admitted to the [facility] floor and consult requested with oncology, CAT scan of the chest abdomen and pelvis and cancer markers have been ordered. MRI of the lumbar spine revealed marked abnormal bone marrow throughout the axial skeleton with most significant involvement of the sacrum, L5, L1 and L3 vertebral bodies. Findings may represent a marrow infiltrative process such as metastatic disease, multiple myeloma or lymphoproliferative disorder. Suspect minor nondisplaced S1 sacral element fracture. L5/S1 level shallow left-sided disc protrusion/herniation and mild facet arthropathy. No substantial spinal canal nor foraminal stenosis. Nonspecific hepatic and right renal lesion as well as a 2.5 cm left adrenal mass. EMG revealed sensory nerve responses absent suggesting possible generalized peripheral neuropathy with paresthesia and numbness in the bilateral feet. Bone scan showed multiple scattered areas of uptake suspicious for metastatic disease most prominently including the thoracic and lumbar spine as well as the left proximal femur posterior lower ribs and right iliac anterior wedging. 03/07: Patient has been evaluated by oncology and started on dexamethasone. CAT scan of the chest abdomen and pelvis with contrast revealed large right upper lobe mass with obesity measuring up to 6.6 cm extending from the right suprahilar region up to the lateral apex. Some satellite nodularity measuring up to 2.1 cm. Trace right pleural effusion. Nonspecific 3 mm left lower lobe pulmonary nodule. Metastatic disease with a 3.3 cm left adrenal mass and osseous metastasis to the sacrum, lytic soft tissue destruction left L3 transverse process, left T12 vertebral body. Also involving the left paraspinal region with soft tissue extending into T9/T10 neural foramen and lateral left spinal canal. Scattered soft tissue nodule such as in the inferior right perire nal space, right perineum, right gluteal subcutaneous adipose measuring up to 7 mm may reflect metastatic deposits. Cholelithiasis, left-sided colonic diverticulosis and moderate sized hilar hernia. Prominent contrast in the esophagus could reflect dysmotility or gastroesophageal reflux disease. We have added a consult with Dr. Coobs as we do need a biopsy. It appears primary source is most likely pulmonary. Patient denies having any cough, no bloody sputum. She did have a loose stool yesterday after contrast. No bowel movement today. Pain is improved and at rest its 2 out of 10. She has significant pain increased with movement. CA 153 is elevated at 49.5, CA 199 is 14.9, CA 2729 elevated at 80.2, CA-125 elevated at 106.6. Vitamin B-12 195. Renal function. Iron 17, TIBC 286, iron saturation 5.94, ferritin 54.8. Alkaline phosphatase 172. Oncology has ordered MRI of the brain and thoracic spine as well as methylmalonic acid and folate RBC. Consult with Dr. Caruso was added. Objective - Vital Signs Vital signs: Vital Signs Temp 97.6 F 03/07/20 05:00 Pulse 103 H 03/07/20 05:00 Resp 18 03/07/20 05:00 BP 129/72 03/07/20 05:00 Pulse Ox 95 03/07/20 05:00 Intake & Output 03/06/20 03/07/20 03/07/20 18:59 06:59 18:59 Intake Total 900 1770 Balance 900 1770 Intake: Intake, IV Titration 850 Amount Sodium Chloride 0.9% 1, 850 000 ml @ 75 mls/hr IV . [id number] [facility] Rx#:[id number] Oral 900 920 Other: Voiding Method Toilet Toilet Bedside Commode Bedside Commode # Voids 2 2 # Bowel Movements 1 - Exam Review of Systems Constitutional: Reports chronic pain, Reports fatigue, Reports poor appetite, Reports weakness, Denies anorexia, Denies chills, Denies fever Eyes: denies blurred vision, denies pain Ears, nose, mouth and throat: Reports vertigo, Denies dysphagia, Denies headach e, Denies nasal congestion, Denies nasal discharge, Denies sore throat Cardiovascular: Denies chest pain, Denies edema, Denies leg edema, Denies shortness of breath Respiratory: Denies cough, Denies cough with sputum, Denies dyspnea, Denies excessive sputum, Denies hemoptysis, Denies home oxygen, Denies respiratory infections, Denies wheezing Gastrointestinal: Reports abdominal pain, Reports constipation, Denies BRBPR, De nies coffee ground emesis, reports 1 episode of diarrhea, Denies hematemesis, Denies hematochezia, Denies melena, Denies nausea, Denies vomiting Genitourinary: Reports difficulty voiding, Denies hematuria, Denies urinary frequency Menstruation: Reports postmenopausal, Denies post hysterectomy Musculoskeletal: Reports gait dysfunction, Reports leg numbness/tingling, Reports low back pain, Reports muscle weakness, Denies myalgias Integumentary: Denies pruritus, Denies rash, Denies wounds Neurological: Reports gait dysfunction, Denies change in mentation, Denies change in speech, Denies head injury, Denies seizures Psychiatric: Denies anxiety, Denies depression Endocrine: Denies fatigue, Denies weight change Physical Examination Gen: This is a 64-year-old female. Patient is resting in bed appears to be comfortable at rest. HEENT: Head is atraumatic, normocephalic. Pupils equal, round. Sclerae is anicteric. NECK: Supple. No JVD. No lymphadenopathy. No thyromegaly. LUNGS: Clear to auscultation. No wheezes or rhonchi. No intercostal retractions. HEART: Regular rate and rhythm. No murmur. ABDOMEN: Soft. Bowel sounds are present. No masses. Bilateral lower quadrant tenderness improved. EXTREMITIES: No pedal edema. No calf tenderness. Dorsalis pedis +2 bilaterally. NEUROLOGICAL: Patient is awake, alert and oriented x3. Cranial nerves 2 through 12 are grossly intact. - Labs CBC & Chem 7: 03/07/20 06:26 03/07/20 06:26 Labs: Abnormal Lab Results - Last 24 Hours (Table) 03/05/20 03/05/20 03/05/20 Range/Units 17:05 17:05 17:05 WBC (3.8-10.6) k/uL Hgb (11.4-16.0) gm/dL Hct (34.0-46.0) % MCV (80.0-100.0) fL MCH (25.0-35.0) pg MCHC (31.0-37.0) g/dL RDW (11.5-15.5) % Carcinoembryonic Ag 9.6 H (0.0-4.9) ng/mL CA 125 Antigen 106.6 H (0.0-30.1) U/mL TSH 36.600 H (0.465-4.680) mIU/L Free T4 0.74 L (0.78-2.19) ng/dL 03/07/20 Range/Units 06:26 WBC 12.6 H (3.8-10.6) k/uL Hgb 7.6 L (11.4-16.0) gm/dL Hct 26.1 L (34.0-46.0) % MCV 67.5 L (80.0-100.0) fL MCH 19.6 L (25.0-35.0) pg MCHC 29.1 L (31.0-37.0) g/dL RDW 17.1 H (11.5-15.5) % Carcinoembryonic Ag (0.0-4.9) ng/mL CA 125 Antigen (0.0-30.1) U/mL TSH (0.465-4.680) mIU/L Free T4 (0.78-2.19) ng/dL Microbiology - Last 24 Hours (Table) 03/06/20 05:10 Urine Culture - Preliminary Urine,Clean Catch Assessment and Plan Plan: 1. Metastatic disease to the thoracic and lumbar spine as well as the left proximal femur, posterior lower ribs and right iliac of unknown primary source. CAT scan of the chest abdomen and pelvis as above. Consult with oncology appreciated. Dexamethasone was added Continue Dilaudid pain. Patient will be resumed on Dwight as well. Zofran for nausea. MRI of the brain and thoracic spine, methylmalonic acid and folate RBC ordered. Consult with radiation oncology. 2. History of hypothyroidism. Patient started on levothyroxine 50 g daily. 3. Anemia of unclear etiology. Stool for occult blood was negative. Most likely anemia of chronic disease. 4. Elevated alkaline phosphatase. 5. Right lower quadrant pain most likely secondary to referred pain, constipation. Patient has never had a colonoscopy. 6. UTI. Patient will be started on ceftriaxone, await urine culture report. 7. Adrenal mass most likely secondary to metastatic disease. 8. DVT prophylaxis. Lovenox 40 mg subcu daily. 9. GI prophylaxis. Protonix 40 mg daily. 10. COVID-19 infection not present. Discharge plan: Most likely subacute rehab. Will add and PT and OT evaluation. Impression and plan of care have been directed as dictated by the signing physician. Natalie Arango nurse practitioner acting as scribe for signing physician.
--- NOTE | 2020-03-07 15:27 | P.PN ---
Subjective Progress Note Date: 03/07/20 Principal diagnosis: bone lesions Pt denies any significant changes in her condition since admit, she was incontinent of stool last night, she had urinary urgency today. Pain in controlled Objective - Vital Signs Vital signs: Vital Signs Temp 98.8 F 03/07/20 13:00 Pulse 113 H 03/07/20 13:00 Resp 16 03/07/20 13:00 BP 148/69 03/07/20 13:00 Pulse Ox 96 03/07/20 13:00 Intake & Output 03/06/20 03/07/20 03/07/20 18:59 06:59 18:59 Intake Total 900 1770 Balance 900 1770 Intake: Intake, IV Titration 850 Amount Sodium Chloride 0.9% 1, 850 000 ml @ 75 mls/hr IV . [id number] [facility] Rx#:[id number] Oral 900 920 Other: Voiding Method Toilet Toilet Toilet Bedside Commode Bedside Commode Bedside Commode # Voids 2 2 # Bowel Movements 1 - Constitutional General appearance: Present: average body habitus, cooperative, mild distress - EENT Eyes: Present: anicteric sclerae, EOMI ENT: Present: hearing grossly normal - Respiratory Respiratory: bilateral: CTA - Cardiovascular Heart sounds: normal: S1, S2 - Peripheral edema leg Peripheral Edema: bilateral: None - Gastrointestinal General gastrointestinal: Present: normal bowel sounds - Neurologic Neurologic Comment(s): decreased perineal sensation, BLE weakness/unsteady - Psychiatric Psychiatric Comment(s): Alert, oriented to self, place and time. Her recall and response to questions is a bit slower then I would anticipate in her age group - Labs CBC & Chem 7: 03/07/20 06:26 03/07/20 06:26 Labs: Abnormal Lab Results - Last 24 Hours (Table) 03/05/20 03/05/20 03/07/20 Range/Units 17:05 17:05 06:26 WBC (3.8-10.6) k/uL Hgb (11.4-16.0) gm/dL Hct (34.0-46.0) % MCV (80.0-100.0) fL MCH (25.0-35.0) pg MCHC (31.0-37.0) g/dL RDW (11.5-15.5) % Glucose 119 H (74-99) mg/dL Iron 17 L (50-170) ug/dL % Saturation 5.94 L (12.00-45.00) Alkaline Phosphatase 172 H (38-126) U/L Albumin 3.4 L (3.5-5.0) g/dL Carcinoembryonic Ag 9.6 H (0.0-4.9) ng/mL CA 15-3 Antigen 49.5 H (0.0-32.3) U/mL CA 27-29 (0.0-38.5) U/mL CA 125 Antigen 106.6 H (0.0-30.1) U/mL Vitamin B12 1952.0 H (200.0-944.0) pg/mL 03/07/20 03/07/20 Range/Units 06:26 06:26 WBC 12.6 H (3.8-10.6) k/uL Hgb 7.6 L (11.4-16.0) gm/dL Hct 26.1 L (34.0-46.0) % MCV 67.5 L (80.0-100.0) fL MCH 19.6 L (25.0-35.0) pg MCHC 29.1 L (31.0-37.0) g/dL RDW 17.1 H (11.5-15.5) % Glucose (74-99) mg/dL Iron (50-170) ug/dL % Saturation (12.00-45.00) Alkaline Phosphatase (38-126) U/L Albumin (3.5-5.0) g/dL Carcinoembryonic Ag (0.0-4.9) ng/mL CA 15-3 Antigen (0.0-32.3) U/mL CA 27-29 80.2 H (0.0-38.5) U/mL CA 125 Antigen (0.0-30.1) U/mL Vitamin B12 (200.0-944.0) pg/mL Microbiology - Last 24 Hours (Table) 03/06/20 05:10 Urine Culture - Final Urine,Clean Catch - Imaging and Cardiology CT scan - abdomen: report reviewed CT scan - chest: report reviewed CT scan - pelvis: report reviewed Assessment and Plan (1) Bone lesion Narrative/Plan: Multiple bone lesions noted on nuclear medicine bone scan 6/26/20. MRI was performed last week and was abnormal. CT CAP showing lung and adrenal mass. Discussed case with Pulmonary and IR-adrenal mass is going to be biopsied. MRI of brain and thoracic spine ordered for neuro symptoms. Patient's decreased perineal sensation, 4 mg of dexamethasone every 6 hours, not progressive but not improved. Case discussed with Rad Onc, consult placed. Current Visit: Yes Status: Acute Priority: High Code(s): M89.9 - DISORDER OF BONE, UNSPECIFIED SNOMED Code(s): 28068631 (2) Microcytic hypochromic anemia Narrative/Plan: Iron deficiency-pareneteral iron ordered. Transfusion for hemoglobin less than 7 or if symptomatic. Iron deficient, dysphagia and pt has never had these age-related GI cancer screen. Will consult GI for their evaluation, opinion and recommendations. Current Visit: Yes Status: Acute Priority: High Code(s): D50.9 - IRON DEFI CIENCY ANEMIA, UNSPECIFIED SNOMED Code(s): 97583991 Plan: Doctor attests: I performed a history and physical examination of this patient, developed impression and plan of care, discussed with dictator. I agree with dictators note, documented as a scribe.
[2020-03-07] MEDS ORDERED: MAGNESIUM HYDROXIDE 2,400 MG/10 ML CUP PO PRN ×2 (15:28→18:02)
[2020-03-07] MEDS ORDERED: SODIUM FERRIC GLUCONAT-SUCROSE 125 MG in SODIUM CHLORIDE 0.9% 100 ML IVPB SCH (15:30)
--- NOTE | 2020-03-07 17:27 | CONS ---
CONSULTATION PULMONARY/CRITICAL CARE CONSULTATION: DATE OF SERVICE: 03/07/2020 This is a 64-year-old female who apparently presented to the emergency department on March 05 with complaints of back and leg pain. Apparently been going on for some time now. The patient states that her pain is better when she is lying down, but the pain is worse when she sits or stands or has significant movement. The pain seems to radiate down the right leg. She has been apparently seeing a pain specialist in the form of Dr. Rod and has had several imaging studies including bone density scan, MRI, etc. She apparently was recently told to come to the hospital to be evaluated and admitted to the hospital. She does complain of constipation and some abdominal issues as well. She was seen in the ER initially by one of the PAs. She was admitted to Dr. Perez's service. She subsequently saw their service as well as Medical Oncology with Dr. Alberts. Her CAT scan of the chest shows a significant lesion in the right upper lobe. It looks to be lung cancer. The patient also had a bone scan which showed multiple metastatic deposits and also she has a lesion in her adrenal gland as well. I did talk to the nurse practitioner working with Oncology about a biopsy of the adrenal gland to give us both a diagnosis and a stage. HOME MEDICATIONS: Reviewed. The only thing she really takes is [place] for pain and she does not have any allergies. At one point, she was taking thyroid hormone, but has not taken it recently. MEDICAL HISTORY: Includes hypothyroidism. She was to be taking thyroid replacement, but does not take it currently. PAST SURGICAL HISTORY: Positive for tonsillectomy. SOCIAL HISTORY: Positive for 27 years of tobacco use at 1 pack a day. She quit 20 years ago. She admits to rare alcohol use and no illicit drug use. FAMILY HISTORY: Noncontributory. Her typical primary care physician is Dr. Rausch. REVIEW OF SYSTEMS: CONSTITUTIONAL: Negative. NEUROLOGIC: Negative. HEENT: Negative. CARDIOVASCULAR Negative. PULMONARY: Negative. GI: Abdominal discomfort. : Urinary retention. RHEUMATOLOGIC: Diffuse bony pain and back pain. IMMUNOLOGIC: Negative. ENDOCRINOLOGIC: Negative. DERMATOLOGIC: Negative. Vital signs are reviewed, temperature is 98.4, heart rate is 82, respiratory rate 18, blood pressure 120/60, mean saturation on room air is 96%. Appears in no acute distress. HEENT: Examination is grossly unremarkable. No supplemental oxygen. NECK: Supple full range of motion. No adenopathy. CARDIOVASCULAR: Examination reveals regular rhythm and rate. S1, S2 normal. Heart rate about mid 70s. No murmur. LUNGS: Reveal clear breath sounds equal. ABDOMEN: Soft, bowel sounds are heard. No masses or tenderness. EXTREMITIES: Intact. She apparently does have a right axillary lymph node. It was apparently discovered by Oncology. I did not palpate for it. Extremities reveal no cyanosis, clubbing, or edema. SKIN: Without rash. NEUROLOGIC: Examination is nonfocal. Currently, white count 11.6, hemoglobin 8.3, hematocrit 28.2, platelet count 394,000, sodium 136, potassium 4.2, chloride 99, CO2 is 26, anion gap is 11. BUN and creatinine were 11 and 0.65, glucose 105. White count 11.6, hemoglobin 8.3, hematocrit 28.2, platelet count normal. Alkaline phosphatase 176, glucose 105, albumin 3.6. CT scanning of the chest, abdomen, and pelvis as well as a bone scan show a number of different abnormalities including a large right upper lobe mass with opacity measuring up to 6.6 cm extending from the right suprahilar region up to the lateral apex. Some satellite nodularity measuring up to 1 1 cm are noted as well. There is also trace right pleural effusion. There is nonspecific 3 mm left lower lobe pulmonary nodule. There is significant metastatic disease and a 3.3 cm left adrenal mass and osseous metastatic disease to the sacrum, left L3 transverse process, left T12 vertebral body, left paraspinal region and T9-T10 neuroforamen and lateral left spinal canal. In addition, there is scattered soft tissue nodules in the perineum and gluteal regions as well as other findings on CT scan. ASSESSMENT: 1. Suspected lung cancer involving the right lung with multiple metastatic lesions in the spine as well as a 3.3 cm left adrenal lesion. 2. History of hypothyroidism although patient has been noncompliant with thyroid hormone. 3. Prior history of tobacco use, 27 years of 1 pack a day, quit 20 years ago. 4. Acute on chronic back pain, likely related to metastatic spinal deposits. PLAN: I have talked to Oncology about interventional radiology doing a fine-needle biopsy of the left adrenal mass. In addition, apparently they are going to evaluate the lesion in the right axilla. If neither of these prove to be beneficial diagnostically, I would be happy to do a biopsy of the right upper lobe lesion. Biopsy in the adrenal gland would give us both a diagnosis and stage. Additional recommendations and suggestions are forthcoming. She should have a TSH. MMCECILIOL / IJN: [id number] /
[2020-03-07] MEDS ORDERED: diazePAM 5 MG TAB PO ONE (18:15)
[2020-03-07] MEDS: SODIUM FERRIC GLUCONAT-SUCROSE 125 MG in SODIUM CHLORIDE 0.9% 100 ML IVPB SCH (19:07)
[2020-03-07] MEDS ORDERED: SENNOSIDES-DOCUSATE SODIUM 1 EACH TAB PO SCH (21:00)
[2020-03-07] MEDS: SENNOSIDES-DOCUSATE SODIUM 1 EACH TAB PO SCH (21:10)
[2020-03-07] MEDS ORDERED: dexAMETHasone 4 MG TAB ONE ×2 (21:17)
[2020-03-07] MEDS ORDERED: HYDROmorphone 0.5 MG/0.5 ML SYRINGE ONE (21:17)
[2020-03-08] MEDS ORDERED: HYDROmorphone 0.5 MG/0.5 ML SYRINGE ONE (01:11)
[2020-03-08] MEDS: HYDROmorphone 0.5 MG/0.5 ML SYRINGE IVP PRN ×6 (06:08→23:07)
[2020-03-08] MEDS: LEVOTHYROXINE 50 MCG TAB PO SCH (06:10)
[2020-03-08] MEDS ORDERED: LEVOTHYROXINE 25 MCG TAB PO SCH (06:30)
[2020-03-08] MEDS: ENOXAPARIN 40 MG/0.4 ML SYRINGE SQ SCH (07:50)
[2020-03-08] MEDS: dexAMETHasone 4 MG TAB PO SCH ×4 (07:57→21:28)
[2020-03-08] MEDS: PANTOPRAZOLE 40 MG TABLET PO SCH (07:57)
--- NOTE | 2020-03-08 09:24 | P.PN ---
Subjective Progress Note Date: 03/08/20 This is a 64-year-old patient with no primary care physician. She had previously been seen by Dr. Rausch but it has been seen in greater than 1 year and has requested to be established with Dr. Perez. She states that she has not had a full workup since she was 49 years old and at that time had a Pap smear and mammogram but no repeat testing since that time. She denies ever having a colonoscopy. Patient gives history of having hypothyroidism but stopped taking her medication as she could not get the prescription refilled. She gives history of lifting something onto a shelf and heard a pop in her lower back area in October of this year. She denied any numbness at that time down her legs. She states it has progressively worsened and she does have leg involvement including pain in her groin. She has numbness as well. She has difficulty initiating urination and difficulty with bowel movements possibly constipation versus difficulty defecating. She rates the pain as a 8-10 out of 10 with any movement which includes walking, sitting or standing. At rest pain is fairly well contro lled. Patient also relates possible fainting episodes. Patient also complains of a constricted sensation around her chest but no significant rib pain. She denies any bloody or tarry stools. No vaginal bleeding. No hematuria. Patient has been under the care of Dr. Selby as she was initially planning to go to a chiropractor but her sister insisted that she go to [facility]. She did have an MRI bone scan and nerve testing done with Dr. Selby. Dr. Selby did give her a course of steroids and tramadol for pain. She came into [facility] emergency center on March 01 due to severe back pain. Her urinalysis was negative for UTI. Bladder scan showed 165 ML's. Post void residual 29. The patient was given a prescription for Sarcoxie and instructed to follow-up with PCP. She can return to [facility] emergency center on March 05 with continued back pain with radiation down the right leg along with numbness and tingling. She was afebrile, heart rate 111, blood pressure 119/60, pulse ox 95% on room air. WBC 11.6, hemoglobin 8.3, platelet count 394. Sodium 136, potassium 4.2, chloride 99, CO2 26, BUN 11 and creatinine 0.65. Blood sugar 105. Alkaline phosphatase 176. Patient admitted to the [facility] floor and consult requested with oncology, CAT scan of the chest abdomen and pelvis and cancer markers have been ordered. MRI of the lumbar spine revealed marked abnormal bone marrow throughout the axial skeleton with most significant involvement of the sacrum, L5, L1 and L3 vertebral bodies. Findings may represent a marrow infiltrative process such as metastatic disease, multiple myeloma or lymphoproliferative disorder. Suspect minor nondisplaced S1 sacral element fracture. L5/S1 level shallow left-sided disc protrusion/herniation and mild facet arthropathy. No substantial spinal canal nor foraminal stenosis. Nonspecific hepatic and right renal lesion as well as a 2.5 cm left adrenal mass. EMG revealed sensory nerve responses absent suggesting possible generalized peripheral neuropathy with paresthesia and numbness in the bilateral feet. Bone scan showed multiple scattered areas of uptake suspicious for metastatic disease most prominently including the thoracic and lumbar spine as well as the left proximal femur posterior lower ribs and right iliac anterior wedging. 03/07: Patient has been evaluated by oncology and started on dexamethasone. CAT scan of the chest abdomen and pelvis with contrast revealed large right upper lobe mass with obesity measuring up to 6.6 cm extending from the right suprahilar region up to the lateral apex. Some satellite nodularity measuring up to 2.1 cm. Trace right pleural effusion. Nonspecific 3 mm left lower lobe pulmonary nodule. Metastatic disease with a 3.3 cm left adrenal mass and osseous metastasis to the sacrum, lytic soft tissue destruction left L3 transverse process, left T12 vertebral body. Also involving the left paraspinal region with soft tissue extending into T9/T10 neural foramen and lateral left spinal canal. Scattered soft tissue nodule such as in the inferior right perire nal space, right perineum, right gluteal subcutaneous adipose measuring up to 7 mm may reflect metastatic deposits. Cholelithiasis, left-sided colonic diverticulosis and moderate sized hilar hernia. Prominent contrast in the esophagus could reflect dysmotility or gastroesophageal reflux disease. We have added a consult with Dr. Cobos as we do need a biopsy. It appears primary source is most likely pulmonary. Patient denies having any cough, no bloody sputum. She did have a loose stool yesterday after contrast. No bowel movement today. Pain is improved and at rest its 2 out of 10. She has significant pain increased with movement. CA 153 is elevated at 49.5, CA 199 is 14.9, CA 2729 elevated at 80.2, CA-125 elevated at 106.6. Vitamin B-12 1951. Renal function. Iron 17, TIBC 286, iron saturation 5.94, ferritin 54.8. Alkaline phosphatase 172. Oncology has ordered MRI of the brain and thoracic spine as well as methylmalonic acid and folate RBC. Consult with Dr. Caruso was added. 03/08: Patient is followed by oncology and pulmonary medicine. They have decided that adrenal mass will be biopsied. Interventional radiology consult has been added. We will also add in GI consult for possible colonoscopy. Patient states she has not had a bowel movement last 24 hours. She is able to control her urine. Numbness in the groin area is improved. She continues to have pain on the bilateral legs. She continues to have tenderness in the right lower quadrant abdominal. Patient has been started on Senokot and we will also and in lactulose for constipation. Discussed discharge planning with the patient. PT has recommended subacute rehab. Patient is reluctant but her father has been MR with and she may agreed to go to [facility] at the time of discharge. Patient has been afebrile, heart rate 79, blood pressure 148/81, pulse ox 95% on room air. Urine culture has been finalized with no growth after 18 hours. Objective - Vital Signs Vital signs: Vital Signs Temp 97.5 F L 03/08/20 05:20 Pulse 79 03/08/20 05:20 Resp 14 03/08/20 05:20 BP 148/81 03/08/20 05:20 Pulse Ox 95 03/08/20 05:20 Intake & Output 03/07/20 03/08/20 03/08/20 18:59 06:59 18:59 Intake Total 100 600 Balance 100 600 Intake: Intake, IV Titration 100 100 Amount Sodium Ferric Gluconat- 100 Sucrose 125 mg In Sodium Chloride 0.9% 100 ml @ 100 mls/hr IVPB DAILY [facility] Rx#:[id number] cefTRIAXone 1 gm In 100 Sodium Chloride 0.9% 50 ml @ 100 mls/hr IVPB Q24HR [facility] Rx#:[id number] Oral 0 500 Other: Voiding Method Toilet Bedside Commode Bedside Commode # Voids 3 1 - Exam Review of Systems Constitutional: Reports chronic pain, Reports fatigue, Reports poor appetite, Reports weakness, Denies anorexia, Denies chills, Denies fever Eyes: denies blurred vision, denies pain Ears, nose, mouth and throat: Reports vertigo, Denies dysphagia, Denies headache, Denies nasal congestion, Denies nasal discharge, Denies sore throat Cardiovascular: Denies chest pain, Denies edema, Denies leg edema, Denies shortness of breath Respiratory: Denies cough, Denies cough with sputum, Denies dyspnea, Denies excessive sputum, Denies hemoptysis, Denies home oxygen, Denies respiratory infections, Denies wheezing Gastrointestinal: Reports abdominal pain, Reports constipation, Denies BRBPR, Denies coffee ground emesis, reports 1 episode of diarrhea, Denies hematemesis, Denies hematochezia, Denies melena, Denies nausea, Denies vomiting Genitourinary: Reports difficulty voiding, Denies hematuria, Denies urinary frequency Menstruation: Reports postmenopausal, Denies post hysterectomy Musculoskeletal: Reports gait dysfunction, Reports groin numbness/tingling, Reports low back pain, Reports muscle weakness, Denies myalgias Integumentary: Denies pruritus, Denies rash, Denies wounds Neurological: Reports gait dysfunction, Denies change in mentation, Denies change in speech, Denies head injury, Denies seizures Psychiatric: Denies anxiety, Denies depression Endocrine: Denies fatigue, Denies weight change Physical Examination Gen: This is a 64-year-old female. Patient is resting in bed appears to be comfortable at rest. HEENT: Head is atraumatic, normocephalic. Pupils equal, round. Sclerae is anicteric. NECK: Supple. No JVD. No lymphadenopathy. No thyromegaly. LUNGS: Clear to auscultation. No wheezes or rhonchi. No intercostal retractions. HEART: Regular rate and rhythm. No murmur. ABDOMEN: Soft. Bowel sounds are present. No masses. Bilateral lower quadrant tenderness most significant in the right lower quadrant. EXTREMITIES: No pedal edema. No calf tenderness. Dorsalis pedis +2 bilaterally. NEUROLOGICAL: Patient is awake, alert and oriented x3. Cranial nerves 2 through 12 are grossly intact. - Labs CBC & Chem 7: 03/07/20 06:26 03/07/20 06:26 Labs: Abnormal Lab Results - Last 24 Hours (Table) 03/05/20 03/07/20 03/07/20 Range/Units 17:05 06:26 06:26 Glucose 119 H (74-99) mg/dL Iron 17 L (50-170) ug/dL % Saturation 5.94 L (12.00-45.00) Alkaline Phosphatase 172 H (38-126) U/L Albumin 3.4 L (3.5-5.0) g/dL CA 15-3 Antigen 49.5 H (0.0-32.3) U/mL CA 27-29 80.2 H (0.0-38.5) U/mL Vitamin B12 1952.0 H (200.0-944.0) pg/mL TSH 36.600 H (0.465-4.680) mIU/L Free T4 0.74 L (0.78-2.19) ng/dL Microbiology - Last 24 Hours (Table) 03/06/20 05:10 Urine Culture - Final Urine,Clean Catch Assessment and Plan Plan: 1. Metastatic disease to the thoracic and lumbar spine as well as the left proximal femur, posterior lower ribs and right iliac of unknown primary source. CAT scan of the chest abdomen and pelvis as above. Consult with oncology appre ciated. Dexamethasone was added Continue Dilaudid pain. Patient will be resumed on Sarcoxie as well. Zofran for nausea. MRI of the brain and thoracic spine, methylmalonic acid and folate RBC remain pending. Consult with radiation oncology. Consult with interventional radiology for adrenal mass biopsy. GI consult for colonoscopy. 2. History of hypothyroidism. Patient started on levothyroxine 50 g daily. 3. Anemia of unclear etiology. Stool for occult blood was negative. Most likely anemia of chronic disease. GI consult. 4. Elevated alkaline phosphatase. 5. Right lower quadrant pain most likely secondary to referred pain, constipation. Patient has never had a colonoscopy. 6. UTI. Continue ceftriaxone. 7. Adrenal mass most likely secondary to metastatic disease. Adrenal mass biopsy. 8. DVT prophylaxis. Lovenox 40 mg subcu daily. 9. GI prophylaxis. Protonix 40 mg daily. 10. COVID-19 infection not present. Discharge plan: Most likely subacute rehab. Will add and PT and OT evaluation. Patient may agree to subacute rehab at [facility]. Impression and plan of care have been directed as dictated by the signing physician. Natalie Arango nurse practitioner acting as scribe for signing physician.
--- NOTE | 2020-03-08 10:59 | P.PN ---
Subjective Progress Note Date: 03/08/20 Principal diagnosis: Suspected lung cancer involving the right lung with multiple metastatic lesions in the spine as well as 3.3 cm left adrenal lesion On 03/08/2020 patient seen in follow-up on medical oncology unit. She is awake and alert, in no acute distress, she is resting comfortably in bed, no complete shortness of breath, still having some pain in bilateral lower extremities, and numbness in the groin area. No loss of bowel or bladder control. Lung sounds are clear, patient is on room air, pulse ox is 95%, vital signs are stable. Patient is afebrile. Patient is awaiting biopsy by interventional radiology of the adrenal mass. She is going for MRI of the brain and the thoracic spine to rule out possibility of brain and spine metastasis. Patient is currently on oral dexamethasone at 4 mg 4 times daily, empiric antibiotics with Rocephin. Today's labs have been reviewed, showing white blood cell count of 12.6, hemoglobin of 7.6, electrolytes and renal profile were within normal limits. Coronavirus PCR was not detected, 2 for occult blood was negative, urinalysis showed possibility of UTI, with large amount of leuks, white blood cells and bacteria, however urine culture showed no growth. Patient is having no reports of dysuria. Objective - Vital Signs Vital signs: Vital Signs Temp 97.5 F L 03/08/20 05:20 Pulse 79 03/08/20 08:00 Resp 14 03/08/20 08:00 BP 148/81 03/08/20 05:20 Pulse Ox 95 03/08/20 05:20 Intake & Output 03/07/20 03/08/20 03/08/20 18:59 06:59 18:59 Intake Total 100 600 Balance 100 600 Intake: Intake, IV Titration 100 100 Amount Sodium Ferric Gluconat- 100 Sucrose 125 mg In Sodium Chloride 0.9% 100 ml @ 100 mls/hr IVPB DAILY [facility] Rx#:[id number] cefTRIAXone 1 gm In 100 Sodium Chloride 0.9% 50 ml @ 100 mls/hr IVPB Q24HR [facility] Rx#:[id number] Oral 0 500 Other: Voiding Method Toilet Bedside Commode Bedside Commode Bedside Commode # Voids 3 1 - Exam GENERAL EXAM: Alert, very pleasant, 64-year-old white female, on room air, with a pulse ox of 95% comfortable in no apparent distress. HEAD: Normocephalic/atraumatic. EYES: Normal reaction of pupils, equal size. Conjunctiva pink, sclera white. NOSE: Clear with pink turbinates. THROAT: No erythema or exudates. NECK: No masses, no JVD, no thyroid enlargement, no adenopathy. CHEST: No chest wall deformity. Symmetrical expansion. LUNGS: Equal air entry with no crackles, wheeze, rhonchi or dullness. CVS: Regular rate and rhythm, normal S1 and S2, no gallops, no murmurs, no rubs ABDOMEN: Soft, nontender. No hepatosplenomegaly, normal bowel sounds, no guarding or rigidity. EXTREMITIES: No clubbing, no edema, no cyanosis, 2+ pulses and upper and lower extremities. MUSCULOSKELETAL: Muscle strength and tone normal. SPINE: No scoliosis or deformity SKIN: No rashes CENTRAL NERVOUS SYSTEM: Alert and oriented -3. No focal deficits, tone is normal in all 4 extremities. PSYCHIATRIC: Alert and oriented -3. Appropriate affect. Intact judgment and insight. - Labs CBC & Chem 7: 03/07/20 06:26 03/07/20 06:26 Labs: Abnormal Lab Results - Last 24 Hours (Table) 03/05/20 03/07/20 03/07/20 Range/Units 17:05 06:26 06:26 Iron 17 L (50-170) ug/dL % Saturation 5.94 L (12.00-45.00) CA 15-3 Antigen 49.5 H (0.0-32.3) U/mL CA 27-29 80.2 H (0.0-38.5) U/mL Vitamin B12 1952.0 H (200.0-944.0) pg/mL TSH 36.600 H (0.465-4.680) mIU/L Free T4 0.74 L (0.78-2.19) ng/dL Microbiology - Last 24 Hours (Table) 03/06/20 05:10 Urine Culture - Final Urine,Clean Catch Assessment and Plan Plan: Assessment: #1. Suspected lung cancer involving the right lung with multiple metastatic lesions in the spine as well as a 3.3 cm left adrenal lesion #2. History of hypothyroidism, not on any thyroid hormone related to medical noncompliance #3. 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 Acute on chronic back pain, possibly related to metastatic spinal deposits #5. Anemia, of unclear etiology, GI consultation is pending #6. Possible urinary tract infection, urine culture showed no growth Plan: Patient is going for MRI of the brain and thoracic spine to rule out possibility of brain and spine metastasis. After that patient is going to have adrenal mass biopsy by interventional radiology. From pulmonary perspective patient denies any loss of breath, she is maintaining stable oxygenation on room air, no pulmonary complaints. We will follow for results of the biopsy. I performed a history & physical examination of the patient and discussed their management with my nurse practitioner, Jeanine Wilburn. I reviewed the nurse practitioner's note and agree with the documented findings and plan of care. Lung sounds are positive for clear breath sounds. The findings and the impression was discussed with the patient. I attest to the documentation by the nurse practitioner. Time with Patient: Less than 30
[2020-03-08 11:27] LABS: Mean Platelet Volume 6.7; Platelet Count 492 k/uL (150-450)
[2020-03-08 11:34] LABS: Prothrombin Time 10.6 sec (9.0-12.0)
[2020-03-08] MEDS: HYDROcodone/APAP 5-325MG 1 EACH TAB PO PRN ×2 (14:46→21:27)
--- NOTE | 2020-03-08 14:53 | P.PCN ---
Date of Procedure: 03/08/20 Preoperative Diagnosis: adrenal mass left Procedure(s) Performed: ct biopsy Anesthesia: local Estimated Blood Loss (ml): 0 Pathology: other (2 passes in formalin) Operative Findings: 2 x 20 ga core biopsy
[2020-03-08] MEDS: LACTULOSE 20 GM/30 ML CUP PO SCH ×2 (14:54→19:49)
[2020-03-08] MEDS ORDERED: PEG 3350-NA SULF,BICARB,CL/KCL 4,000 ML BOTTLE PO ONE (14:54)
[2020-03-08] MEDS: SENNOSIDES-DOCUSATE SODIUM 1 EACH TAB PO SCH ×2 (14:55→19:49)
--- NOTE | 2020-03-08 14:57 | CT ---
EXAMINATION TYPE: CT biopsy adrenal gland DATE OF EXAM: 03/08/2020 HISTORY: Left adrenal mass, lung mass COMPARISON: CT 03/06/2020 Maximal barrier technique was utilized, hand hygiene obtained with soap and water. The skin overlyin g a suitable path to the left adrenal mass was localized using CT and the overlying skin was prepped and draped. Lidocaine used for local anesthesia. A skin brayden made with a scalpel. Using CT guidanc e, access was gained to the lesion with a 19-gauge guide, coaxial placement of a 20-gauge core needle . Core specimen submitted to cytology. 2 pass(es) performed in all. Following the procedure no imm ediate complications. The patient is discharged in stable condition. Hemostasis achieved. IMPRESSION: SUCCESSFUL CT GUIDED LEFT ADRENAL MASS BIOPSY. PATHOLOGY PENDING. THIS PROCEDURE WAS PERFORMED BY Chelsi COREA[facility].
--- NOTE | 2020-03-08 16:49 | P.CONS ---
History of Present Illness - Reason for Consult Consult date: 03/08/20 low back pain, radiculopathy Requesting physician: Javi Alberts - Chief Complaint right leg pain, inability to walk - History of Present Illness The patient is a 64-year-old female with a 60-ynys-xtra smoking history presenting with progressive lower back pain and right lower extremity radicular symptoms. Imaging shows evidence of osseous metastatic disease involving the sa cassandra, and likely lung primary in the right upper lobe. The patient's oncologic history began this past November, when she noticed new- onset pain in her low back. She initially thought she had pulled a muscle, but this did not improve over time. She gradually developed significant right lower extremity pain. She noted this pain was relieved when lying flat, but exacerbated when sitting or standing. She also reports having some numbness along the perineum. She also reported having the urge to urinate frequently, but only being able to pass a small amount of urine each time. She also has had some difficulty with constipation. During outpatient workup, a bone scan performed on February 23 showed scattered uptake within multiple bones consistent with metastatic disease including the thoracic and lumbar spine, left proximal femur, right iliac bone and ribs. The patient's primary care recommended she proceed to the ER for further evaluation on March 05. She underwent a CT scan of the chest, abdomen and pelvis on March 06 revealing a 6.6 cm right suprahilar mass with a focal 2 cm satellite nodule. There is a 3 cm left adrenal mass, a lesion in the right sacral alar with significant destruction and soft tissue invasion of S1 and 2. There was also disease found in the T12 vertebral body on the left, as well as a paraspinal lesion along T9 to 10 and at the L3 transverse process. The patient denies headaches, but has noted some complaints of dizziness. Since her hospital stay, the patient is still complaining of severe back pain. She has been initiated on Decadron 4 mg 4 times a day. She reports she is having less numbness along the perineum. She did try to ambulate with physical therapy, but reported significant increase in pain after using a walker for several steps. She feels she may be emptying the bladder slightly better. Review of Systems Constitutional: Denies chills, Denies chronic headaches, Denies fever Eyes: denies blurred vision Cardiovascular: Denies chest pain, Denies dyspnea on exertion Respiratory: Denies cough Gastrointestinal: Reports change in bowel habits, Denies BRBPR Genitourinary: Denies flank pain Musculoskeletal: Reports low back pain, Denies arm numbness/tingling, Denies atrophy, Denies frequent falls, Denies leg numbness/tingling Integumentary: Denies rash Neurological: Denies aphasia, Denies confusion, Denies headaches Past Medical History Past Medical History: Thyroid Disorder Additional Past Medical History / Comment(s): Hypothyroidism. History of Any Multi-Drug Resistant Organisms: None Reported Past Surgical History: Tonsillectomy Past Anesthesia/Blood Transfusion Reactions: No Reported Reaction Past Psychological History: No Psychological Hx Reported Smoking Status: Former smoker Past Alcohol Use History: Rare Additional Past Alcohol Use History / Comment(s): Patient was a smoker of one and half packs per day for 22 years and quit approximately 20 years ago. She has rare alcohol intake. She denies any marijuana or street drug use. Past Drug Use History: None Reported - Past Family History Mother Family Medical History: Cancer, CVA/TIA Additional Family Medical History / Comment(s): Mother at age 75 from some type of cancer outside the colon. Sister(s) Family Medical History: Cancer Additional Family Medical History / Comment(s): Patient has one sister with his tory of breast cancer, atrial fibrillation and hypertension. Father Additional Family Medical History / Comment(s): Father is alive at age 92 with history of coronary artery disease, hypertension, hyperlipidemia, benign prostatic hypertrophy. Brother(s) Additional Family Medical History / Comment(s): Patient has 2 brothers with no major medical problems. Patient has 2 children: One son with hypothyroidism and one daughter with no major medical problems. Medications and Allergies Home Medications Medication Instructions Recorded Confirmed Type Hydrocodone/Acetaminophen [[place] 1 tab PO Q6HR PRN #12 tab 03/01/20 03/05/20 Rx 5-325] Acetaminophen [Tylenol Arthritis] 1,300 mg PO BID PRN 03/05/20 03/05/20 History Naproxen Sodium [Aleve] 440 mg PO BID PRN 03/05/20 03/05/20 History Pantoprazole [Protonix] 40 mg PO DAILY 03/05/20 03/05/20 History Allergies Allergy/AdvReac Type Severity Reaction Status Date / Time No Known Allergies Allergy Verified 03/05/20 19:27 Physical Exam Vitals: Vital Signs Temp Pulse Resp BP Pulse Ox 03/08/20 16:00 74 18 03/08/20 15:38 97.5 F L 70 18 122/70 98 03/08/20 15:23 98.0 F 74 18 120/67 96 03/08/20 15:08 98.0 F 78 18 121/67 98 03/08/20 14:53 98.2 F 64 18 119/75 98 03/08/20 14:10 76 18 163/88 03/08/20 12:27 97.8 F 74 16 137/71 95 03/08/20 08:00 79 14 03/08/20 05:20 97.5 F L 79 14 148/81 95 03/07/20 21:20 97.8 F 87 16 121/70 93 L Intake and Output 03/08/20 03/08/20 03/08/20 06:59 14:59 22:59 Intake Total 200 0 Output Total 400 600 Balance 200 -400 -600 Intake: Oral 200 0 Output: Urine 400 600 Other: Voiding Method Bedside Commode Bedside Commode Bedside Commode # Voids 1 Results CBC & Chem 7: 03/08/20 11:00 03/07/20 06:26 Labs: Abnormal Lab Results - Last 24 Hours (Table) 03/05/20 03/07/20 03/08/20 Range/Units 17:05 06:26 11:00 Plt Count 492 H (150-450) k/uL RBC Folate 1,107 H (280 - 791) ng/mL TSH 36.600 H (0.465-4.680) mIU/L Free T4 0.74 L (0.78-2.19) ng/dL Microbiology - Last 24 Hours (Table) 03/06/20 05:10 Urine Culture - Final Urine,Clean Catch CT scan - abdomen: report reviewed, image reviewed CT scan - chest: report reviewed, image reviewed CT scan - pelvis: report reviewed, image reviewed Assessment and Plan Plan: The patient is a 64-year-old female with a [id number]-[id number] smoking history presenting with progressive lower back pain and right lower extremity radicular symptoms. Imaging shows evidence of osseous metastatic disease involving the sacrum, and likely lung primary in the right upper lobe. 1. Right lower extremity/low back pain: I explained to the patient that her significant pain in the right lower extremity and low back likely relates to a large destructive lesion within the right tony-sacrum. I explained that this lesion is compressing the sacral nerves resulting in the symptoms, as well as likely her urinary difficulties. Agree with continuing 4 mg Decadron 3 times a day. I discussed with the patient that I would recommend she initiate an urgent course of radiation. I discussed that radiotherapy may help with these symptoms, but that typically it may take some time to have the full effect of radiation realized. I explained that possible side effects of this treatment include, but are not limited to; fatigue, skin irritation, alterations in bowel or bladder habit, and low risk of long-term toxicity. I discussed with the patient that I would like to move forward with radiotherapy even if her final pathology is not resulted. We will look to bring her down for CT simulation tomorrow AM after her MRI. 2. New metastatic malignancy - likely non-small cell lung cancer: The patient underwent adrenal biopsy today. Await final pathology. The patient is sched uled to undergo MRI of the brain tomorrow, and she has had some symptoms worrisome for brain metastases which will need to be ruled out. Unsure how much benefit EGD/Colonoscopy will be considering high likelihood of lung primary cancer. Time with Patient: Greater than 30
[2020-03-08] MEDS: SODIUM FERRIC GLUCONAT-SUCROSE 125 MG in SODIUM CHLORIDE 0.9% 100 ML IVPB SCH (17:54)
[2020-03-09] MEDS: HYDROmorphone 0.5 MG/0.5 ML SYRINGE IVP PRN ×6 (02:32→22:55)
[2020-03-09] MEDS: LEVOTHYROXINE 50 MCG TAB PO SCH (05:42)
[2020-03-09] MEDS ORDERED: diazePAM 5 MG TAB PO ONE (05:45)
--- NOTE | 2020-03-09 06:25 | P.CONS ---
History of Present Illness - Reason for Consult Consult date: 03/08/20 Endoscopic evaluation Requesting physician: Monica Perez - Chief Complaint Back pain - History of Present Illness 64-year-old female with a medical history significant for hypothyroidism and tobacco abuse who presented to the hospital for evaluation of worsening abdominal pain. Patient reports symptoms of lower back pain and worsening over the past few months. She reports associated right lower extremity pain. The patient's workup including extensive imaging studies has been suggestive of metastatic disease with suspected lung primary. GI service was consult as the patient has not had endoscopic evaluation in the past. She is status post adrenal biopsy today with pathology pending. She denies any change in bowel habits but does report some constipation. She also reports some vague abdominal discomfort. She is tolerating a diet with no nausea and vomiting. Review of Systems REVIEW OF SYSTEMS: CONSTITUTIONAL: Denies any fevers, chills, but she does report fatigue. CARDIOVASCULAR: Denies any chest pain, palpitations high or low blood pressures RESPIRATORY: Denies any shortness of breath, hemoptysis or cough. GENITOURINARY: No dysuria or hematuria, but the patient does report urinary urgency. MUSCULOSKELETAL: Patient does report lower back and right lower extremity pain SKIN: Denies any new rashes or lesions, jaundice or pallor. PSYCHIATRIC: Denies any depression or anxiety. NEUROLOGY: Denies headache, denies any new focal deficits. EARS/NOSE/THROAT: No recent hearing change, congestion, nasal discharge or sore throat. EYES: No pain in eyes, discharge or change in vision. GASTROINTESTINAL: As per HPI. Past Medical History Past Medical History: Thyroid Disorder Additional Past Medical History / Comment(s): Hypothyroidism. History of Any Multi-Drug Resistant Organisms: None Reported Past Surgical History: Tonsillectomy Past Anesthesia/Blood Transfusion Reactions: No Reported Reaction Past Psychological History: No Psychological Hx Reported Smoking Status: Former smoker Past Alcohol Use History: Rare Additional Past Alcohol Use History / Comment(s): Patient was a smoker of one and half packs per day for 22 years and quit approximately 20 years ago. She has rare alcohol intake. She denies any marijuana or street drug use. Past Drug Use History: None Reported - Past Family History Mother Family Medical History: Cancer, CVA/TIA Additional Family Medical History / Comment(s): Mother at age 75 from some type of cancer outside the colon. Sister(s) Family Medical History: Cancer Additional Family Medical History / Comment(s): Patient has one sister with h istory of breast cancer, atrial fibrillation and hypertension. Father Additional Family Medical History / Comment(s): Father is alive at age 92 with history of coronary artery disease, hypertension, hyperlipidemia, benign prostatic hypertrophy. Brother(s) Additional Family Medical History / Comment(s): Patient has 2 brothers with no major medical problems. Patient has 2 children: One son with hypothyroidism and one daughter with no major medical problems. Medications and Allergies Home Medications Medication Instructions Recorded Confirmed Type Hydrocodone/Acetaminophen [[place] 1 tab PO Q6HR PRN #12 tab 03/01/20 03/05/20 Rx 5-325] Acetaminophen [Tylenol Arthritis] 1,300 mg PO BID PRN 03/05/20 03/05/20 History Naproxen Sodium [Aleve] 440 mg PO BID PRN 03/05/20 03/05/20 History Pantoprazole [Protonix] 40 mg PO DAILY 03/05/20 03/05/20 History Allergies Allergy/AdvReac Type Severity Reaction Status Date / Time No Known Allergies Allergy Verified 03/05/20 19:27 Physical Exam Vitals: Vital Signs Temp Pulse Resp BP Pulse Ox 03/08/20 14:10 76 18 163/88 03/08/20 12:27 97.8 F 74 16 137/71 95 03/08/20 08:00 79 14 03/08/20 05:20 97.5 F L 79 14 148/81 95 03/07/20 21:20 97.8 F 87 16 121/70 93 L Intake and Output 03/07/20 03/08/20 03/08/20 22:59 06:59 14:59 Intake Total 400 200 0 Output Total 400 Balance 400 200 -400 Intake: Intake, IV Titration 100 Amount Sodium Ferric Gluconat- 100 Sucrose 125 mg In Sodium Chloride 0.9% 100 ml @ 100 mls/hr IVPB DAILY [facility] Rx#:[id number] Oral 300 200 0 Output: Urine 400 Other: Voiding Method Bedside Commode Bedside Commode # Voids 1 On physical examination, patient appears comfortable in no apparent distress. HEAD: Normocephalic, atraumatic. EYES: No scleral icterus. No conjunctival injection. MOUTH: No lesions, tongue midline. NECK: Trachea midline, no gross abnormalities. CHEST: Decreased air entry in all lung santos. HEART: Regular rate and rhythm. ABDOMEN: Soft, mildly tender to palpation. Bowel sounds are positive. No organomegaly. No guarding or rigidity. EXTREMITIES: No pedal edema. SKIN: No rashes, no jaundice. NEUROLOGIC: Alert and oriented x3. Results CBC & Chem 7: 03/08/20 11:00 03/07/20 06:26 Labs: Abnormal Lab Results - Last 24 Hours (Table) 03/05/20 03/07/20 03/08/20 Range/Units 17:05 06:26 11:00 Plt Count 492 H (150-450) k/uL RBC Folate 1,107 H (280 - 791) ng/mL TSH 36.600 H (0.465-4.680) mIU/L Free T4 0.74 L (0.78-2.19) ng/dL Microbiology - Last 24 Hours (Table) 03/06/20 05:10 Urine Culture - Final Urine,Clean Catch CT scan - chest: report reviewed Assessment and Plan (1) Multiple lesions of metastatic malignancy Narrative/Plan: 64-year-old female with a medical history of hypothyroidism and tobacco abuse who presented with lower back pain found on imaging to have diffusely metastatic disease with a lung primary felt to be most likely. She is status post adrenal biopsy with results pending. No prior endoscopic history. Does report some constipation. Denies any signs or symptoms of GI bleeding. She was noted to have a microcytic anemia, which is likely secondary to her metastatic disease. GI was consult is for endoscopic evaluation. Current Visit: Yes Status: Acute Code(s): C79.9 - SECONDARY MALIGNANT SANTIAGO PLASM OF UNSPECIFIED SITE SNOMED Code(s): 620125275 (2) Back pain Current Visit: Yes Status: Acute Code(s): M54.9 - DORSALGIA, UNSPECIFIED SNOMED Code(s): 655281029 (3) Microcytic hypochromic anemia Current Visit: Yes Status: Acute Priority: High Code(s): D50.9 - IRON DEFICIENCY ANEMIA, UNSPECIFIED SNOMED Code(s): 64737372 Plan: Supportive care Oncology and radiation oncology services consult to see the patient Okay for liquid diet Nothing by mouth after midnight Bowel prep ordered Plan for EGD and colonoscopy for evaluation tomorrow Continue IV fluid hydration Continue pain control Thank you for allowing us to participate in the care of the patient
[2020-03-09 06:28] LABS: Anisocytosis Slight; HCT 25.9 % (34.0-46.0); HGB 7.5 gm/dL (11.4-16.0); Hypochromasia Marked; MCH 19.2 pg (25.0-35.0); MCHC 28.8 g/dL (31.0-37.0); MCV 66.6 fL (80.0-100.0); Mean Platelet Volume 6.9; Microcytosis Marked; Platelet Count 468 k/uL (150-450); Poikilocytosis Slight; RBC 3.89 m/uL (3.80-5.40); WBC 16.2 k/uL (3.8-10.6)
[2020-03-09 06:37] LABS: ALT 16 U/L (4-34); AST 22 U/L (14-36); African American GFR (CKD) >90 (>60 ml/min/1.73 sqM); Albumin 3.2 g/dL (3.5-5.0); Alkaline Phosphatase 180 U/L (38-126); Anion Gap 6 mmol/L; Blood Urea Nitrogen 13 mg/dL (7-17); Calcium 8.9 mg/dL (8.4-10.2); Carbon Dioxide 29 mmol/L (22-30); Chloride 101 mmol/L (98-107); Glucose 100 mg/dL (74-99); Non-African American GFR(CKD) >90 (>60 ml/min/1.73 sqM); Sodium 136 mmol/L (137-145); Total Bilirubin 0.4 mg/dL (0.2-1.3); Total Protein 5.8 g/dL (6.3-8.2)
[2020-03-09] MEDS: ENOXAPARIN 40 MG/0.4 ML SYRINGE SQ SCH (07:12)
--- NOTE | 2020-03-09 08:23 | MR ---
EXAMINATION TYPE: MR brain wo/w con DATE OF EXAM: 03/09/2020 COMPARISON: None HISTORY: Gait dysfunction, perineal numbness, incontinence, Known Mets CONTRAST: Performed utilizing 8.5 mL intravenous Gadavist gadolinium contrast. TECHNIQUE: Multiplanar, multiecho imaging on a 3.0 Mandi magnet is performed through the brain. Stud y is performed within 24 hours of arrival to the hospital. The craniovertebral junction is normal. The pituitary is normal. Diffusion-weighted imaging is performed. No abnormal hyperintensity is present to suggest an acute i ntracranial infarct or acute ischemic change. There are couple of scattered punctate subcortical white matter changes which are nonspecific. Microv ascular ischemic change could be considered within the differential. Ventricles and sulci are appropriate for the patient age. Calvarium as visualized appears within normal limits. Some mucosal thickenings within ethmoid air ana ls. Remaining paranasal sinuses and mastoid air cells are clear. IMPRESSIONS: 1. No suspicious changes to suggest metastatic disease. 2. Few nonspecific deep white matter changes not out of proportion to the patient age. Microvascular ischemic change is within the differential.
--- NOTE | 2020-03-09 09:08 | MR ---
EXAMINATION TYPE: MR thoracic spine wo/w con DATE OF EXAM: 03/09/2020 COMPARISON: CT chest abdomen pelvis 03/06/2020 HISTORY: Gait dysfunction, perineal numbness, incontinence, Known Mets CONTRAST: Performed utilizing 8.5 mL intravenous Gadavist gadolinium contrast. TECHNIQUE: Multiplanar, multiecho imaging on a 3.0 Mandi magnet is performed through the thoracic spi ne. Spinal cord maintains normal signal through its visualized course. Vertebral body alignment is normal. Vertebral body heights are preserved. There appears to be a hemangioma present in the posterior T5 level. Disc heights are preserved. Disc desiccation is present throughout the thoracic spine. There are multiple areas suspicious for metastatic disease throughout the thoracic spine. This is bet ter visualized on the postcontrast T1-weighted images. This would include an anterior superior T6 les ion. There is diffuse involvement of the entire T9 vertebral body. T11 involvement is present anterio rly. At T12 vertebral body involvement extends into the right pedicle. More subtle smaller vertebral body involvement with enhancing lesions includes T8 and T9. There is some subtle left paracentral thecal sac compression from some soft tissue posterior to the T 9 and T10 levels. This appears to extend out of the left T9-10 foramen. Some left foraminal stenosis appears to be present on the sagittal plane images. This soft tissue has mild to moderate left parace ntral thecal sac compression. Some cord contact is evident without cord deformity. No spinal canal st enosis is present. The soft tissue has some mild enhancement Right foraminal stenosis at T10-11 appears to be present although soft tissue findings are not as ibeth dily apparent. No spinal canal stenosis is evident. IMPRESSIONS: 1. Soft tissue metastasis along the left paracentral region at T9-10 extending through the foramen ca using foraminal stenosis. No spinal canal stenosis or cord involvement is evident. 2. Extensive osseous metastasis throughout the thoracic spine best appreciated on postcontrast T1 ramez ges. Greatest involvement appears to be at T9.
[2020-03-09] MEDS: PANTOPRAZOLE 40 MG TABLET PO SCH (09:23)
[2020-03-09] MEDS: dexAMETHasone 4 MG TAB PO SCH ×4 (09:23→20:59)
[2020-03-09] MEDS: SENNOSIDES-DOCUSATE SODIUM 1 EACH TAB PO SCH ×2 (09:23→20:59)
[2020-03-09] MEDS: LACTULOSE 20 GM/30 ML CUP PO SCH ×2 (09:23→20:58)
[2020-03-09 09:38] LABS: Methylmalonic Acid 0.21 umol/L (<0.40)
[2020-03-09] MEDS ORDERED: HYDROmorphone 0.5 MG/0.5 ML SYRINGE IVP STA (10:31)
[2020-03-09] MEDS ORDERED: IV FLUID CONTINUATION 950 ML IV ONE (13:15)
[2020-03-09] MEDS ORDERED: PROPOFOL 10 MG/ML 20 ML VIAL IV ONE (13:15)
--- NOTE | 2020-03-09 13:37 | P.PCN ---
Date of Procedure: 03/09/20 Procedure(s) Performed: Brief history: Patient is a pleasant 64-year-old white female admitted hospital with abdominal pain and back pain. CT of the chest abdomen and pelvis revealed multiple lesions in the bone, right lung and abdominal and suspicious for metastasis. She'll also noted to have microcytic hypothermic anemia and hence scheduled for an elective upper endoscopy as well as colonoscopy. Procedure performed: Esophagogastroduodenoscopy Colonoscopy Preoperative diagnosis: Microcytic hypochromic anemia Anesthesia: MAC Procedure: After informed consent was obtained from the patient was brought into the endoscopy unit and IV sedation was administered by anesthesia under continuous monitoring. Initially upper endoscopy was done. The Olympus GF 160 video endoscope was inserted inserted into the mouth and esophagus intubated without any difficulty and was gradually advanced into the stomach and duodenum and carefully examined. The bulb and second part of the duodenum appeared normal. The scope was then withdrawn into the stomach adequately insufflated with air and upon careful examination the antrum and body, cardia and fundus appeared normal. The scope was then withdrawn into the esophagus. Small sliding type hiatal hernia noted. The GE junction was located at 40 cm to the incisors. It appeared regular with no erythema erosions or ulcerations. Rest of the esophagus appeared normal. Patient tolerated the procedure well. At this time the patient continued to remain sedation. Initial digital rectal examination was normal. Olympus CF 160 video colonoscope was then inserted into the rectum and gradually advanced to the cecum without any difficulty. Careful examination was performed as the scope was gradually being withdrawn. The prep was excellent. The cecum, ascending colon, transverse colon, descending colon, sigmoid colon and rectum appeared normal. Scattered sigmoidal mucosa seen. Retroflexion was performed in the rectum and no lesions were noted. Patient tolerated the procedure well. Impression: 1. Upper endoscopy revealed small hiatal hernia 2. Colonoscopy revealed scattered sigmoidal diverticulosis but no evidence of colorectal neoplasia Recommendations: Findings of this examination were discussed with the patient. Diet will be a dvanced as tolerated.
[2020-03-09] MEDS: HYDROcodone/APAP 5-325MG 1 EACH TAB PO PRN (14:04)
--- NOTE | 2020-03-09 14:17 | P.PN ---
Subjective Progress Note Date: 03/09/20 This is a 64-year-old patient with no primary care physician. She had previously been seen by Dr. Rausch but it has been seen in greater than 1 year and has requested to be established with Dr. Perez. She states that she has not had a full workup since she was 49 years old and at that time had a Pap smear and mammogram but no repeat testing since that time. She denies ever having a colonoscopy. Patient gives history of having hypothyroidism but stopped taking her medication as she could not get the prescription refilled. She gives history of lifting something onto a shelf and heard a pop in her lower back area in October of this year. She denied any numbness at that time down her legs. She states it has progressively worsened and she does have leg involvement including pain in her groin. She has numbness as well. She has difficulty initiating urination and difficulty with bowel movements possibly constipation versus difficulty defecating. She rates the pain as a 8-10 out of 10 with any movement which includes walking, sitting or standing. At rest pain is fairly well contro lled. Patient also relates possible fainting episodes. Patient also complains of a constricted sensation around her chest but no significant rib pain. She denies any bloody or tarry stools. No vaginal bleeding. No hematuria. Patient has been under the care of Dr. Selby as she was initially planning to go to a chiropractor but her sister insisted that she go to [facility]. She did have an MRI bone scan and nerve testing done with Dr. Selby. Dr. Selby did give her a course of steroids and tramadol for pain. She came into [facility] emergency center on March 01 due to severe back pain. Her urinalysis was negative for UTI. Bladder scan showed 165 ML's. Post void residual 29. The patient was given a prescription for [place] and instructed to follow-up with PCP. She can return to [facility] emergency center on March 05 with continued back pain with radiation down the right leg along with numbness and tingling. She was afebrile, heart rate 111, blood pressure 119/60, pulse ox 95% on room air. WBC 11.6, hemoglobin 8.3, platelet count 394. Sodium 136, potassium 4.2, chloride 99, CO2 26, BUN 11 and creatinine 0.65. Blood sugar 105. Alkaline phosphatase 176. [facility] floor and consult requested with oncology, CAT scan of the chest abdomen and pelvis and cancer markers have been ordered. MRI of the lumbar spine revealed marked abnormal bone marrow throughout the axial skeleton with most significant involvement of the sacrum, L5, L1 and L3 vertebral bodies. Findings may represent a marrow infiltrative process such as metastatic disease, multiple myeloma or lymphoproliferative disorder. Suspect minor nondisplaced S1 sacral element fracture. L5/S1 level shallow left-sided disc protrusion/herniation and mild facet arthropathy. No substantial spinal canal nor foraminal stenosis. Nonspecific hepatic and right renal lesion as well as a 2.5 cm left adrenal mass. EMG revealed sensory nerve responses absent suggesting possible generalized peripheral neuropathy with paresthesia and numbness in the bilateral feet. Bone scan showed multiple scattered areas of uptake suspicious for metastatic disease most prominently including the thoracic and lumbar spine as well as the left proximal femur posterior lower ribs and right iliac anterior wedging. 03/07: Patient has been evaluated by oncology and started on dexamethasone. CAT scan of the chest abdomen and pelvis with contrast revealed large right upper lobe mass with obesity measuring up to 6.6 cm extending from the right suprahilar region up to the lateral apex. Some satellite nodularity measuring up to 2.1 cm. Trace right pleural effusion. Nonspecific 3 mm left lower lobe pulmonary nodule. Metastatic disease with a 3.3 cm left adrenal mass and osseous metastasis to the sacrum, lytic soft tissue destruction left L3 transverse process, left T12 vertebral body. Also involving the left paraspinal region with soft tissue extending into T9/T10 neural foramen and lateral left spinal canal. Scattered soft tissue nodule such as in the inferior right perire nal space, right perineum, right gluteal subcutaneous adipose measuring up to 7 mm may reflect metastatic deposits. Cholelithiasis, left-sided colonic diverticulosis and moderate sized hilar hernia. Prominent contrast in the esophagus could reflect dysmotility or gastroesophageal reflux disease. We have added a consult with Dr. Cobos as we do need a biopsy. It appears primary source is most likely pulmonary. Patient denies having any cough, no bloody sputum. She did have a loose stool yesterday after contrast. No bowel movement today. Pain is improved and at rest its 2 out of 10. She has significant pain increased with movement. CA 153 is elevated at 49.5, CA 199 is 14.9, CA 2729 elevated at 80.2, CA-125 elevated at 106.6. Vitamin B-12 1951. Renal function. Iron 17, TIBC 286, iron saturation 5.94, ferritin 54.8. Alkaline phosphatase 172. Oncology has ordered MRI of the brain and thoracic spine as well as methylmalonic acid and folate RBC. Consult with Dr. Caruso was added. 03/08: Patient is followed by oncology and pulmonary medicine. They have decided that adrenal mass will be biopsied. Interventional radiology consult has been added. We will also add in GI consult for possible colonoscopy. Patient states she has not had a bowel movement last 24 hours. She is able to control her urine. Numbness in the groin area is improved. She continues to have pain on the bilateral legs. She continues to have tenderness in the right lower quadrant abdominal. Patient has been started on Senokot and we will also and in lactulose for constipation. Discussed discharge planning with the patient. PT has recommended subacute rehab. Patient is reluctant but her father has been MR with and she may agreed to go to [facility] at the time of discharge. Patient has been afebrile, heart rate 79, blood pressure 148/81, pulse ox 95% on room air. Urine culture has been finalized with no growth after 18 hours. 03/09: Left adrenal mass biopsy was performed yesterday by interventional radiology. Patient was seen yesterday by Dr. Caruso with plan for CAT scan simulation. MRI of the thoracic spine revealed soft tissue metastatic this along the left paracentral region at 18 910 extending through foramen causing foraminal stenosis. No spinal canal stenosis or cord involvement. Extensive osseous metastasis throughout the thoracic spine best appreciated at T1 images greatest involvement appears to be at T9. MRI of the brain revealed no suspicious changes to suggest metastatic disease. Few nonspecific deep white matter changes not out of proportion to patient's age. Microvascular ischemic change is within the differential. Patient underwent EGD that revealed small hiatal hernia and colonoscopy which revealed scattered sigmoidal diverticulosis but no evidence of colorectal neoplasia with Dr. Trujillo. Physical therapy is recommended subacute rehab. Patient is not sure that she would do this but has been extremely weak and will consider. She has been afebrile, heart rate 89, blood pressure 175/83, pulse ox 95% on room air. Repeat blood work reveals WBC 16.2, hemoglobin 7.5 and platelet count 468. Sodium 136 otherwise BMP is unremarkable. Alkaline phosphatase remains elevated at 180. Objective - Vital Signs Vital signs: Vital Signs Temp 98.2 F 03/09/20 04:59 Pulse 89 03/09/20 04:59 Resp 18 03/09/20 04:59 BP 175/83 03/09/20 04:59 Pulse Ox 95 03/09/20 04:59 Intake & Output 03/08/20 03/09/20 03/09/20 18:59 06:59 18:59 Intake Total 0 0 Output Total 1000 Balance -1000 0 Intake: Oral 0 0 Output: Urine 1000 Other: Voiding Method Bedside Commode Bedside Commode # Voids 1 2 # Bowel Movements 2 - Exam Review of Systems Constitutional: Reports chronic pain, Reports fatigue, Reports poor appetite, Reports weakness, Denies anorexia, Denies chills, Denies fever Eyes: denies blurred vision, denies pain Ears, nose, mouth and throat: Reports vertigo, Denies dysphagia, Denies headache, Denies nasal congestion, Denies nasal discharge, Denies sore throat Cardiovascular: Denies chest pain, Denies edema, Denies leg edema, Denies shortness of breath Respiratory: Denies cough, Denies cough with sputum, Denies dyspnea, Denies excessive sputum, Denies hemoptysis, Denies home oxygen, Denies respiratory infections, Denies wheezing Gastrointestinal: Reports abdominal pain, Reports constipation, Denies BRBPR, Denies coffee ground emesis, reports 1 episode of diarrhea, Denies hematemesis, Denies hematochezia, Denies melena, Denies nausea, Denies vomiting Genitourinary: Reports difficulty voiding, Denies hematuria, Denies urinary frequency Menstruation: Reports postmenopausal, Denies post hysterectomy Musculoskeletal: Reports gait dysfunction, Reports groin numbness/tingling- improved, Reports low back pain, Reports muscle weakness, Denies myalgias Integumentary: Denies pruritus, Denies rash, Denies wounds Neurological: Reports gait dysfunction, Denies change in mentation, Denies change in speech, Denies head injury, Denies seizures Psychiatric: Denies anxiety, Denies depression Endocrine: Denies fatigue, Denies weight change Physical Examination Gen: This is a 64-year-old female. Patient is resting in bed appears to be comfortable at rest. HEENT: Head is atraumatic, normocephalic. Pupils equal, round. Sclerae is anicteric. NECK: Supple. No JVD. No lymphadenopathy. No thyromegaly. LUNGS: Clear to auscultation. No wheezes or rhonchi. No intercostal retractions. HEART: Regular rate and rhythm. No murmur. ABDOMEN: Soft. Bowel sounds are present. No masses. Bilateral lower quadrant tenderness most significant in the right lower quadrant. EXTREMITIES: No pedal edema. No calf tenderness. Dorsalis pedis +2 bilaterally. NEUROLOGICAL: Patient is awake, alert and oriented x3. Cranial nerves 2 through 12 are grossly intact. - Labs CBC & Chem 7: 03/09/20 06:02 03/09/20 06:02 Labs: Abnormal Lab Results - Last 24 Hours (Table) 03/07/20 03/08/20 03/09/20 Range/Units 06:26 11:00 06:02 WBC 16.2 H (3.8-10.6) k/uL Hgb 7.5 L (11.4-16.0) gm/dL Hct 25.9 L (34.0-46.0) % MCV 66.6 L (80.0-100.0) fL MCH 19.2 L (25.0-35.0) pg MCHC 28.8 L (31.0-37.0) g/dL RDW 18.0 H (11.5-15.5) % Plt Count 492 H 468 H (150-450) k/uL Sodium (137-145) mmol/L Glucose (74-99) mg/dL Alkaline Phosphatase (38-126) U/L Total Protein (6.3-8.2) g/dL Albumin (3.5-5.0) g/dL RBC Folate 1,107 H (280 - 791) ng/mL 03/09/20 Range/Units 06:02 WBC (3.8-10.6) k/uL Hgb (11.4-16.0) gm/dL Hct (34.0-46.0) % MCV (80.0-100.0) fL MCH (25.0-35.0) pg MCHC (31.0-37.0) g/dL RDW (11.5-15.5) % Plt Count (150-450) k/uL Sodium 136 L (137-145) mmol/L Glucose 100 H (74-99) mg/dL Alkaline Phosphatase 180 H (38-126) U/L Total Protein 5.8 L (6.3-8.2) g/dL Albumin 3.2 L (3.5-5.0) g/dL RBC Folate (280 - 791) ng/mL Assessment and Plan Plan: 1. Metastatic disease to the thoracic and lumbar spine as well as the left proximal femur, posterior lower ribs and right iliac with primary most likely non-small cell lung cancer. CAT scan of the chest abdomen and pelvis as above. Consult with oncology and radiation oncology appreciated. Continue Dexamethasone and Dilaudid for pain. Patient will be resumed on [place] as well. Zofran for nausea. MRI of the brain and thoracic spine as above. She is status post adrenal mass biopsy. GI consult completed with EGD and colonoscopy. 2. History of hypothyroidism. Patient started on levothyroxine 50 g daily. 3. Anemia of unclear etiology. Stool for occult blood was negative. Most likely anemia of chronic disease. GI consult. 4. Elevated alkaline phosphatase. 5. Right lower quadrant pain most likely secondary to referred pain, constipation. Patient has never had a colonoscopy. 6. UTI. Continue ceftriaxone. 7. Adrenal mass most likely secondary to metastatic disease. Adrenal mass biopsy. 8. DVT prophylaxis. Lovenox 40 mg subcu daily. 9. GI prophylaxis. Protonix 40 mg daily. 10. COVID-19 infection not present. Discharge plan: Most likely subacute rehab or home care. Will add and PT and OT evaluation. Patient may agree to subacute rehab at [facility]. Impression and plan of care have been directed as dictated by the signing phys ician. Natalie Arango nurse practitioner acting as scribe for signing physician.
--- NOTE | 2020-03-09 16:21 | P.PN ---
Subjective Progress Note Date: 03/09/20 Principal diagnosis: metastatic picture Pain RLE, Reviewed consult note from radiation oncology Objective - Vital Signs Vital signs: Vital Signs Temp 98.2 F 03/09/20 04:59 Pulse 75 03/09/20 14:50 Resp 18 03/09/20 04:59 BP 145/77 03/09/20 14:50 Pulse Ox 95 03/09/20 04:59 Intake & Output 03/08/20 03/09/20 03/09/20 18:59 06:59 18:59 Intake Total 0 0 200 Output Total 1000 2 Balance -1000 0 198 Intake: IV 200 Oral 0 0 Output: Urine 1000 2 Other: Voiding Method Bedside Commode Bedside Commode Bedside Commode # Voids 1 2 # Bowel Movements 2 - Exam - Constitutional General appearance: Present: average body habitus, cooperative, mild distress - EENT Eyes: Present: anicteric sclerae, EOMI ENT: Present: hearing grossly normal - Respiratory Respiratory: bilateral: CTA - Cardiovascular Heart sounds: normal: S1, S2 - Peripheral edema leg Peripheral Edema: bilateral: None - Gastrointestinal General gastrointestinal: Present: normal bowel sounds - Neurologic Neurologic Comment(s): decreased perineal sensation, BLE weakness/unsteady - Psychiatric Psychiatric Comment(s): Alert, oriented to self, place and time. Her recall and response to questions is a bit slower then I would anticipate in her age group - Labs CBC & Chem 7: 03/09/20 06:02 03/09/20 06:02 Labs: Abnormal Lab Results - Last 24 Hours (Table) 03/09/20 03/09/20 Range/Units 06:02 06:02 WBC 16.2 H (3.8-10.6) k/uL Hgb 7.5 L (11.4-16.0) gm/dL Hct 25.9 L (34.0-46.0) % MCV 66.6 L (80.0-100.0) fL MCH 19.2 L (25.0-35.0) pg MCHC 28.8 L (31.0-37.0) g/dL RDW 18.0 H (11.5-15.5) % Plt Count 468 H (150-450) k/uL Sodium 136 L (137-145) mmol/L Glucose 100 H (74-99) mg/dL Alkaline Phosphatase 180 H (38-126) U/L Total Protein 5.8 L (6.3-8.2) g/dL Albumin 3.2 L (3.5-5.0) g/dL Assessment and Plan Plan: Comments: nuclear medicine bone scan report reviewed abnormal MRI report reviewed last week Assessment and Plan Bone lesion - Multiple bone lesions noted on nuclear medicine bone scan 02/24/20. MRI was performed last week and was abnormal. CT of the chest abdomen and pelvis has been ordered to see if there are any masses for biopsy target. - Dr. Alberts did find a left axillary lymph node. - He did review with the patient high concern for malignancy. - Status post biopsy - Pending - Patient's decreased perineal sensation, started on 4 mg of dexamethasone every 6 hours. Will follow up. Soft Tissue Mass Extending T9-T10: - Continue Dex AND ppi - Radiation Oncology on Consult Microcytic hypochromic anemia: - Workup ordered. Transfusion for hemoglobin less than 7 or if symptomatic. - If iron deficient, Gastroenterology consultation for endoscopy would be most appropriate to be done sooner then later. - Patient has never had these age-related cancer screenings. - Parental Iron Ordered x5 days for evidence of iron deficiency PLan: - Overall picture concerning for metastatic cancer - Await Biopsy - Daily CBC, CMP - Parental Iron - BLE Doppler - Status Post EGD and COlonoscopy, no mass identified per procedure note - MRI Brain reviewed no suspicious metastatic lesions Doctor attests: I performed a history and physical examination of this patient, developed impression and plan of care, discussed with dictator. I agree with dictators note, documented as a scribe.
--- NOTE | 2020-03-09 17:23 | US ---
EXAMINATION TYPE: US venous doppler duplex LE DATE OF EXAM: 03/09/2020 4:20 PM COMPARISON: NONE CLINICAL HISTORY: hypercoagulable and edema. SIDE PERFORMED: Bilateral TECHNIQUE: The lower extremity deep venous system is examined utilizing real time linear array sonog jackie with graded compression, doppler sonography and color-flow sonography. VESSELS IMAGED: External Iliac Vein (EIV) Common Femoral Vein Deep Femoral Vein Greater Saphenous Vein * Femoral Vein Popliteal Vein Small Saphenous Vein * Proximal Calf Veins (* superficial vessels) There is normal flow, compressibility, vascular waveforms. Right Leg: Negative for DVT Left Leg: Negative for DVT IMPRESSION: No evident deep venous thrombosis at or above the knees.
[2020-03-09] MEDS: SODIUM FERRIC GLUCONAT-SUCROSE 125 MG in SODIUM CHLORIDE 0.9% 100 ML IVPB SCH (20:15)
[2020-03-10] MEDS: HYDROmorphone 0.5 MG/0.5 ML SYRINGE IVP PRN ×2 (01:29→17:11)
[2020-03-10] MEDS: HYDROcodone/APAP 5-325MG 1 EACH TAB PO PRN ×2 (04:52→11:47)
[2020-03-10] MEDS: LEVOTHYROXINE 50 MCG TAB PO SCH (06:18)
[2020-03-10 07:35] LABS: ALT 15 U/L (4-34); AST 19 U/L (14-36); African American GFR (CKD) >90 (>60 ml/min/1.73 sqM); Albumin 3.3 g/dL (3.5-5.0); Alkaline Phosphatase 201 U/L (38-126); Anion Gap 9 mmol/L; Blood Urea Nitrogen 13 mg/dL (7-17); Calcium 8.7 mg/dL (8.4-10.2); Carbon Dioxide 26 mmol/L (22-30); Chloride 102 mmol/L (98-107); Glucose 110 mg/dL (74-99); LDH 711 U/L (313-618); Non-African American GFR(CKD) >90 (>60 ml/min/1.73 sqM); Potassium 4.5 mmol/L (3.5-5.1); Sodium 137 mmol/L (137-145); Total Bilirubin 0.4 mg/dL (0.2-1.3)
[2020-03-10 07:41] LABS: Anisocytosis Slight; HGB 8.3 gm/dL (11.4-16.0); Hypochromasia Marked; MCH 19.8 pg (25.0-35.0); MCHC 29.6 g/dL (31.0-37.0); MCV 66.9 fL (80.0-100.0); Mean Platelet Volume 6.9; Microcytosis Marked; Platelet Count 470 k/uL (150-450); Poikilocytosis Slight; RBC 4.19 m/uL (3.80-5.40); RDW 18.1 % (11.5-15.5)
[2020-03-10] MEDS: dexAMETHasone 4 MG TAB PO SCH ×4 (09:02→21:20)
[2020-03-10] MEDS: PANTOPRAZOLE 40 MG TABLET PO SCH (09:02)
[2020-03-10] MEDS: ENOXAPARIN 40 MG/0.4 ML SYRINGE SQ SCH (09:04)
[2020-03-10 09:21] LABS: Band Neutrophils % 1 %; Metamyelocytes % 3 %; Myelocytes % 4 %; Neutrophils % (M) 79 %; Nucleated Red Blood Cells 2 /100 WBC (0-0); Total Cells Counted 200
[2020-03-10 09:22] LABS: Lymphocytes # (M) 1.34 k/uL (1.0-4.8); Monocytes # (M) 0.54 k/uL (0-1.0); Myelocytes # (M) 0.54 k/uL (0); WBC 13.4 k/uL (3.8-10.6)
[2020-03-10] MEDS: LACTULOSE 20 GM/30 ML CUP PO SCH (09:34)
[2020-03-10] MEDS: SENNOSIDES-DOCUSATE SODIUM 1 EACH TAB PO SCH ×2 (09:34→19:29)
--- NOTE | 2020-03-10 11:47 | P.PN ---
Subjective Progress Note Date: 03/10/20 This is a 64-year-old patient with no primary care physician. She had previously been seen by Dr. Rausch but it has been seen in greater than 1 year and has requested to be established with Dr. Perez. She states that she has not had a full workup since she was 49 years old and at that time had a Pap smear and mammogram but no repeat testing since that time. She denies ever having a colonoscopy. Patient gives history of having hypothyroidism but stopped taking her medication as she could not get the prescription refilled. She gives history of lifting something onto a shelf and heard a pop in her lower back area in October of this year. She denied any numbness at that time down her legs. She states it has progressively worsened and she does have leg involvement including pain in her groin. She has numbness as well. She has difficulty initiating urination and difficulty with bowel movements possibly constipation versus difficulty defecating. She rates the pain as a 8-10 out of 10 with any movement which includes walking, sitting or standing. At rest pain is fairly well contro lled. Patient also relates possible fainting episodes. Patient also complains of a constricted sensation around her chest but no significant rib pain. She denies any bloody or tarry stools. No vaginal bleeding. No hematuria. Patient has been under the care of Dr. Selby as she was initially planning to go to a chiropractor but her sister insisted that she go to [facility]. She did have an MRI bone scan and nerve testing done with Dr. Selby. Dr. Selby did give her a course of steroids and tramadol for pain. She came into [facility] emergency center on March 01 due to severe back pain. Her urinalysis was negative for UTI. Bladder scan showed 165 ML's. Post void residual 29. The patient was given a prescription for Elrama and instructed to follow-up with PCP. She can return to [facility] emergency center on March 05 with continued back pain with radiation down the right leg along with numbness and tingling. She was afebrile, heart rate 111, blood pressure 119/60, pulse ox 95% on room air. WBC 11.6, hemoglobin 8.3, platelet count 394. Sodium 136, potassium 4.2, chloride 99, CO2 26, BUN 11 and creatinine 0.65. Blood sugar 105. Alkaline phosphatase 176. Patient admitted to the [facility] floor and consult requested with oncology, CAT scan of the chest abdomen and pelvis and cancer markers have been ordered. MRI of the lumbar spine revealed marked abnormal bone marrow throughout the axial skeleton with most significant involvement of the sacrum, L5, L1 and L3 vertebral bodies. Findings may represent a marrow infiltrative process such as metastatic disease, multiple myeloma or lymphoproliferative disorder. Suspect minor nondisplaced S1 sacral element fracture. L5/S1 level shallow left-sided disc protrusion/herniation and mild facet arthropathy. No substantial spinal canal nor foraminal stenosis. Nonspecific hepatic and right renal lesion as well as a 2.5 cm left adrenal mass. EMG revealed sensory nerve responses absent suggesting possible generalized peripheral neuropathy with paresthesia and numbness in the bilateral feet. Bone scan showed multiple scattered areas of uptake suspicious for metastatic disease most prominently including the thoracic and lumbar spine as well as the left proximal femur posterior lower ribs and right iliac anterior wedging. 03/07: Patient has been evaluated by oncology and started on dexamethasone. CAT scan of the chest abdomen and pelvis with contrast revealed large right upper lobe mass with obesity measuring up to 6.6 cm extending from the right suprahilar region up to the lateral apex. Some satellite nodularity measuring up to 2.1 cm. Trace right pleural effusion. Nonspecific 3 mm left lower lobe pulmonary nodule. Metastatic disease with a 3.3 cm left adrenal mass and osseous metastasis to the sacrum, lytic soft tissue destruction left L3 transverse process, left T12 vertebral body. Also involving the left paraspinal region with soft tissue extending into T9/T10 neural foramen and lateral left spinal canal. Scattered soft tissue nodule such as in the inferior right perire nal space, right perineum, right gluteal subcutaneous adipose measuring up to 7 mm may reflect metastatic deposits. Cholelithiasis, left-sided colonic diverticulosis and moderate sized hilar hernia. Prominent contrast in the esophagus could reflect dysmotility or gastroesophageal reflux disease. We have added a consult with Dr. Cobos as we do need a biopsy. It appears primary source is most likely pulmonary. Patient denies having any cough, no bloody sputum. She did have a loose stool yesterday after contrast. No bowel movement today. Pain is improved and at rest its 2 out of 10. She has significant pain increased with movement. CA 153 is elevated at 49.5, CA 199 is 14.9, CA 2729 elevated at 80.2, CA-125 elevated at 106.6. Vitamin B-12 1951. Renal function. Iron 17, TIBC 286, iron saturation 5.94, ferritin 54.8. Alkaline phosphatase 172. Oncology has ordered MRI of the brain and thoracic spine as well as methylmalonic acid and folate RBC. Consult with Dr. Caruso was added. 03/08: Patient is followed by oncology and pulmonary medicine. They have decided that adrenal mass will be biopsied. Interventional radiology consult has been added. We will also add in GI consult for possible colonoscopy. Patient states she has not had a bowel movement last 24 hours. She is able to control her urine. Numbness in the groin area is improved. She continues to have pain on the bilateral legs. She continues to have tenderness in the right lower quadrant abdominal. Patient has been started on Senokot and we will also and in lactulose for constipation. Discussed discharge planning with the patient. PT has recommended subacute rehab. Patient is reluctant but her father has been MR with and she may agreed to go to [facility] at the time of discharge. Patient has been afebrile, heart rate 79, blood pressure 148/81, pulse ox 95% on room air. Urine culture has been finalized with no growth after 18 hours. 03/09: Left adrenal mass biopsy was performed yesterday by interventional radiology. Patient was seen yesterday by Dr. Caruso with plan for CAT scan simulation. MRI of the thoracic spine revealed soft tissue metastatic this along the left paracentral region at 18 910 extending through foramen causing foraminal stenosis. No spinal canal stenosis or cord involvement. Extensive osseous metastasis throughout the thoracic spine best appreciated at T1 images greatest involvement appears to be at T9. MRI of the brain revealed no suspicious changes to suggest metastatic disease. Few nonspecific deep white matter changes not out of proportion to patient's age. Microvascular ischemic change is within the differential. Patient underwent EGD that revealed small hiatal hernia and colonoscopy which revealed scattered sigmoidal diverticulosis but no evidence of colorectal neoplasia with Dr. Trujillo. Physical therapy is recommended subacute rehab. Patient is not sure that she would do this but has been extremely weak and will consider. She has been afebrile, heart rate 89, blood pressure 175/83, pulse ox 95% on room air. Repeat blood work reveals WBC 16.2, hemoglobin 7.5 and platelet count 468. Sodium 136 otherwise BMP is unremarkable. Alkaline phosphatase remains elevated at 180. 03/10: Patient is laying down in bed she continues to have pain in her back, she continues to have some numbness around the groin area as well as the right lower extremity, we will adjust her pain management we will add the fentanyl patch 25 g every 72 hours, we will increase her Elrama 7.5/325 one every 4 hours as needed, patient underwent left adrenal mass biopsy by interventional radiology, she is maintained on Decadron as well as the receive 1 radiation yesterday, she will be maintained on same management, we will have deformity plan for the patie nt to continue with the radiation as well as chemotherapy and possible physical therapy and rehabilitation hopefully she will be able to accomplish all of these duties over the next 24-48 hours. Objective - Vital Signs Vital signs: Vital Signs Temp 98.1 F 03/10/20 05:10 Pulse 86 03/10/20 05:10 Resp 18 03/10/20 05:10 BP 149/79 03/10/20 05:10 Pulse Ox 94 L 03/10/20 05:10 Intake & Output 03/09/20 03/10/20 03/10/20 18:59 06:59 18:59 Intake Total 200 100 Output Total 2 Balance 198 100 Intake: IV 200 Intake, IV Titration 100 Amount Sodium Ferric Gluconat- 100 Sucrose 125 mg In Sodium Chloride 0.9% 100 ml @ 100 mls/hr IVPB Q24H [facility] Rx#:[id number] Output: Urine 2 Other: Voiding Method Bedside Commode Bedside Commode # Voids 2 1 - Exam - Exam Review of Systems Constitutional: Reports chronic pain, Reports fatigue, Reports poor appetite, Reports weakness, Denies anorexia, Denies chills, Denies fever Eyes: denies blurred vision, denies pain Ears, nose, mouth and throat: Reports vertigo, Denies dysphagia, Denies headache, Denies nasal congestion, Denies nasal discharge, Denies sore throat Cardiovascular: Denies chest pain, Denies edema, Denies leg edema, Denies shortness of breath Respiratory: Denies cough, Denies cough with sputum, Denies dyspnea, Denies excessive sputum, Denies hemoptysis, Denies home oxygen, Denies respiratory infections, Denies wheezing Gastrointestinal: Reports abdominal pain, Reports constipation, Denies BRBPR, Denies coffee ground emesis, reports 1 episode of diarrhea, Denies hematemesis, Denies hematochezia, Denies melena, Denies nausea, Denies vomiting Genitourinary: Reports difficulty voiding, Denies hematuria, Denies urinary frequency Menstruation: Reports postmenopausal, Denies post hysterectomy Musculoskeletal: Reports gait dysfunction, Reports groin numbness/tingling- improved, Reports low back pain, Reports muscle weakness, Denies myalgias Integumentary: Denies pruritus, Denies rash, Denies wounds Neurological: Reports gait dysfunction, Denies change in mentation, Denies change in speech, Denies head injury, Denies seizures Psychiatric: Denies anxiety, Denies depression Endocrine: Denies fatigue, Denies weight change Physical Examination Gen: This is a 64-year-old female. Patient is resting in bed appears to be comfortable at rest. HEENT: Head is atraumatic, normocephalic. Pupils equal, round. Sclerae is anicteric. NECK: Supple. No JVD. No lymphadenopathy. No thyromegaly. LUNGS: Clear to auscultation. No wheezes or rhonchi. No intercostal retractions. HEART: Regular rate and rhythm. No murmur. ABDOMEN: Soft. Bowel sounds are present. No masses. Bilateral lower quadrant tenderness most significant in the right lower quadrant. EXTREMITIES: No pedal edema. No calf tenderness. Dorsalis pedis +2 bilaterally. NEUROLOGICAL: Patient is awake, alert and oriented x3. Cranial nerves 2 through 12 are grossly intact. - Labs CBC & Chem 7: 03/10/20 06:31 03/10/20 06:31 Labs: Abnormal Lab Results - Last 24 Hours (Table) 03/10/20 03/10/20 Range/Units 06:31 06:31 WBC 13.4 H (3.8-10.6) k/uL Hgb 8.3 L (11.4-16.0) gm/dL Hct 28.0 L (34.0-46.0) % MCV 66.9 L (80.0-100.0) fL MCH 19.8 L (25.0-35.0) pg MCHC 29.6 L (31.0-37.0) g/dL RDW 18.1 H (11.5-15.5) % Plt Count 470 H (150-450) k/uL Neutrophils # (Manual) 10.70 H (1.3-7.7) k/uL Metamyelocytes # (Man) 0.40 H (0) k/uL Myelocytes # (Manual) 0.54 H (0) k/uL Nucleated RBCs 2 H (0-0) /100 WBC Glucose 110 H (74-99) mg/dL Alkaline Phosphatase 201 H (38-126) U/L Lactate Dehydrogenase 711 H (313-618) U/L Total Protein 6.0 L (6.3-8.2) g/dL Albumin 3.3 L (3.5-5.0) g/dL Assessment and Plan Assessment: Assessment and Plan Plan: 1. Metastatic disease to the thoracic and lumbar spine as well as the left proximal femur, posterior lower ribs and right iliac with primary most likely non-small cell lung cancer. CAT scan of the chest abdomen and pelvis as above. Consult with oncology and radiation oncology appreciated. Continue Dexamethasone and Dilaudid for pain we will adjust Elrama and add fentanyl patch for pain control.. Zofran for nausea. MRI of the brain and thoracic spine as a adriana. She is status post adrenal mass biopsy. GI consult completed with EGD and colonoscopy that was negative for colorectal neoplasia. 2. History of hypothyroidism. Patient started on levothyroxine 50 g daily. 3. Anemia of unclear etiology. Stool for occult blood was negative. Most likely anemia due to metastatic cancer. 4. Elevated alkaline phosphatase due to Bone mets. 5. Right lower quadrant pain most likely secondary to referred pain, constipation we will continue with current bowel regimen with Lactulose and Senokot-S. 6. UTI. Continue ceftriaxone, the culture so far is negative. 7. Adrenal mass most likely secondary to metastatic disease. Status post left adrenal mass biopsy. Results pending at the time of dictation. 8. DVT prophylaxis. Lovenox 40 mg subcu daily. 9. GI prophylaxis. Protonix 40 mg daily. 10. COVID-19 infection not present. 11. Medical debility. PT and OT consults likely will require subacute rehabilitation. 12. Overall prognosis is guarded. 13. Pain control. Start fentanyl patch 25 g every 72 hours, increase her Elrama to 7.5/325 one tablet every 4 hours as needed. 14. Diarrhea. Change lactulose to as needed.
--- NOTE | 2020-03-10 12:11 | PN ---
PROGRESS NOTE DATE OF SERVICE: 03/10/2020 INTERVAL HISTORY: This is a 64-year-old female with suspected lung cancer. She has a mass involving the right lung. She also was found to have multiple lesions, metastatically in the spine and also in the left adrenal gland. She is status post fine-needle aspiration of the left adrenal gland for both diagnosis and staging. Those results are currently pending. She has had a number of different procedures done including a number of different scans. In addition, she did receive radiation to the spine. She had a Doppler of the lower extremities which were negative for DVT. PHYSICAL EXAMINATION: GENERAL: Currently, she is resting comfortably. Appears in no acute distress. VITAL SIGNS: Current vital signs revealed a temperature 98.1, heart rate 86, respiratory rate 18, blood pressure 149/79, mean 102, room air saturation 94%. HEENT: Examination is grossly unremarkable. Neck is supple. Full range of motion. No adenopathy. Neck veins are flat. CARDIOVASCULAR: Examination reveals regular rhythm rate. Heart rate 75 beats per minute. S1, S2 normal. LUNGS: Lungs are clear, breath sounds equal. ABDOMEN: Soft, bowel sounds are heard. EXTREMITIES: Intact. No cyanosis, clubbing, or edema. SKIN: Without rash. NEUROLOGIC: Examination is brief but nonfocal. LABORATORY DATA: White count 13.4, hemoglobin 8.3, hematocrit 28.0, platelet count 470,000. Sodium, potassium, chloride and CO2 all normal. Anion gap is 9. BUN and creatinine were 13 and 0.69, alkaline phosphatase 201, LDH 711, total protein 6, albumin 3.3. Urine is noted. Microbiology is currently negative. Adrenal biopsy, CT, brain MRI, thoracic spine MRI, and venous Doppler studies were all reviewed. MEDICATIONS: Medications are reviewed. ASSESSMENT: 1. Suspected lung cancer involving the right lung, with multiple metastatic lesions in the spine as well as a 3.3 cm left adrenal lesion, status post fine-needle aspiration of the left adrenal lesion, currently pathology is pending. 2. History of hypothyroidism, but noncompliant with thyroid hormone medication. 3. Prior history of tobacco use for 27 years at 1-1/2 packs per day. 4. Acute on chronic back pain, likely related to metastatic spinal deposits. 5. Anemia of unclear etiology. 6. Possible urinary tract infection. PLAN: Currently, the patient is resting relatively comfortably. She is awaiting a biopsy. She did have radiation therapy to the spine yesterday by Dr. Davian Caruso. Additional recommendations and suggestions are forthcoming. Prognosis is guarded. Await pathology report. MMODL / IJN: [id number] /
[2020-03-10] MEDS: SODIUM FERRIC GLUCONAT-SUCROSE 125 MG in SODIUM CHLORIDE 0.9% 100 ML IVPB SCH (19:29)
[2020-03-10] MEDS: HYDROcodone/APAP 7.5-325MG 1 EACH TAB PO PRN (21:20)
--- NOTE | 2020-03-10 21:40 | PN ---
PROGRESS NOTE DATE OF SERVICE: 03/10/2020 Patient is a 64-year-old pleasant white female admitted to the hospital with severe abdominal pain and back pain. Underwent adrenal biopsy which is still pending. CT scan of the chest, abdomen and pelvis showed several lesions suspicious for metastases with a lung primary. She underwent EGD/colonoscopy yesterday because of macrocytic/hypochromic anemia which revealed antral gastritis but otherwise unremarkable. She denies any symptoms today except for severe cramping in the right lower extremity. PHYSICAL EXAMINATION: Appears comfortable, no apparent distress. VITAL SIGNS: Stable. Blood pressure is 112/77, pulse rate 80, temperature 97.7. HEENT examination unremarkable. Conjunctivae pink. Sclerae anicteric. Oral cavity no lesions. NECK: No JVD or lymph node enlargement. CHEST: Clear auscultation. HEART: Regular rate and rhythm. ABDOMEN: Soft. Bowel sounds are positive. No organomegaly. EXTREMITIES; No pedal edema. SKIN: No rashes. NEURO: She is alert and oriented x3. No focal deficits. LABS: WBC 13.4, hemoglobin 8.3, platelets 470. AST and ALT are normal. Alkaline phosphatase is 201, LDH is 7 1. IMPRESSION: 1. Microcytic, hypochromic anemia secondary to iron deficiency. She is status post EGD/colonoscopy yesterday which revealed mild gastritis, otherwise unremarkable. 2. Lung mass with multiple metastases, status post adrenal biopsy, results still pending. 3. History of hypothyroidism. 4. History of chronic smoker in the past. RECOMMENDATIONS: The findings of the EGD/colonoscopy were discussed with the patient yesterday. At this time we will continue to await the biopsy results. Will sign off. Please call us if needed. Thank you for this consultation. MMODL / IJN: [id number] /
[2020-03-11] MEDS: HYDROcodone/APAP 7.5-325MG 1 EACH TAB PO PRN ×3 (05:31→17:30)
[2020-03-11] MEDS: LEVOTHYROXINE 50 MCG TAB PO SCH (05:31)
[2020-03-11 07:10] LABS: ALT 18 U/L (4-34); AST 24 U/L (14-36); African American GFR (CKD) >90 (>60 ml/min/1.73 sqM); Albumin 3.7 g/dL (3.5-5.0); Alkaline Phosphatase 255 U/L (38-126); Anion Gap 12 mmol/L; Blood Urea Nitrogen 14 mg/dL (7-17); Carbon Dioxide 25 mmol/L (22-30); Chloride 102 mmol/L (98-107); Glucose 125 mg/dL (74-99); Non-African American GFR(CKD) >90 (>60 ml/min/1.73 sqM); Potassium 4.1 mmol/L (3.5-5.1); Sodium 139 mmol/L (137-145); Total Bilirubin 0.5 mg/dL (0.2-1.3); Total Protein 6.5 g/dL (6.3-8.2)
[2020-03-11 07:14] LABS: Anisocytosis Slight; HCT 31.1 % (34.0-46.0); HGB 9.2 gm/dL (11.4-16.0); Hypochromasia Marked; MCHC 29.6 g/dL (31.0-37.0); MCV 67.7 fL (80.0-100.0); Mean Platelet Volume 7.1; Microcytosis Marked; Platelet Count 527 k/uL (150-450); Poikilocytosis Slight; RDW 19.1 % (11.5-15.5)
[2020-03-11] MEDS: ENOXAPARIN 40 MG/0.4 ML SYRINGE SQ SCH (08:15)
[2020-03-11] MEDS: dexAMETHasone 4 MG TAB PO SCH ×4 (08:16→21:35)
[2020-03-11] MEDS: PANTOPRAZOLE 40 MG TABLET PO SCH (08:16)
[2020-03-11 08:20] LABS: Band Neutrophils % 1 %; Metamyelocytes # (M) 0.16 k/uL (0); Metamyelocytes % 1 %; Monocytes # (M) 0.64 k/uL (0-1.0); Myelocytes # (M) 0.64 k/uL (0); Myelocytes % 4 %; Neutrophils % (M) 79 %; Nucleated Red Blood Cells 1 /100 WBC (0-0); Total Cells Counted 200
[2020-03-11] MEDS: SENNOSIDES-DOCUSATE SODIUM 1 EACH TAB PO SCH ×2 (08:20→19:20)
[2020-03-11 08:21] LABS: Lymphocytes # (M) 1.91 k/uL (1.0-4.8); WBC 15.9 k/uL (3.8-10.6)
[2020-03-11 08:23] LABS: Polychromasia Present
--- NOTE | 2020-03-11 10:45 | P.PN ---
Subjective Progress Note Date: 03/11/20 This is a 64-year-old patient with no primary care physician. She had previously been seen by Dr. Rausch but it has been seen in greater than 1 year and has requested to be established with Dr. Perez. She states that she has not had a full workup since she was 49 years old and at that time had a Pap smear and mammogram but no repeat testing since that time. She denies ever having a colonoscopy. Patient gives history of having hypothyroidism but stopped taking her medication as she could not get the prescription refilled. She gives history of lifting something onto a shelf and heard a pop in her lower back area in October of this year. She denied any numbness at that time down her legs. She states it has progressively worsened and she does have leg involvement including pain in her groin. She has numbness as well. She has difficulty initiating urination and difficulty with bowel movements possibly constipation versus difficulty defecating. She rates the pain as a 8-10 out of 10 with any movement which includes walking, sitting or standing. At rest pain is fairly well contro lled. Patient also relates possible fainting episodes. Patient also complains of a constricted sensation around her chest but no significant rib pain. She denies any bloody or tarry stools. No vaginal bleeding. No hematuria. Patient has been under the care of Dr. Selby as she was initially planning to go to a chiropractor but her sister insisted that she go to [facility]. She did have an MRI bone scan and nerve testing done with Dr. Selby. Dr. Selby did give her a course of steroids and tramadol for pain. She came into [facility] emergency center on March 01 due to severe back pain. Her urinalysis was negative for UTI. Bladder scan showed 165 ML's. Post void residual 29. The patient was given a prescription for Ionia and instructed to follow-up with PCP. She can return to [facility] emergency center on March 05 with continued back pain with radiation down the right leg along with numbness and tingling. She was afebrile, heart rate 111, blood pressure 119/60, pulse ox 95% on room air. WBC 11.6, hemoglobin 8.3, platelet count 394. Sodium 136, potassium 4.2, chloride 99, CO2 26, BUN 11 and creatinine 0.65. Blood sugar 105. Alkaline phosphatase 176. Patient admitted to the [facility] floor and consult requested with oncology, CAT scan of the chest abdomen and pelvis and cancer markers have been ordered. MRI of the lumbar spine revealed marked abnormal bone marrow throughout the axial skeleton with most significant involvement of the sacrum, L5, L1 and L3 vertebral bodies. Findings may represent a marrow infiltrative process such as metastatic disease, multiple myeloma or lymphoproliferative disorder. Suspect minor nondisplaced S1 sacral element fracture. L5/S1 level shallow left-sided disc protrusion/herniation and mild facet arthropathy. No substantial spinal canal nor foraminal stenosis. Nonspecific hepatic and right renal lesion as well as a 2.5 cm left adrenal mass. EMG revealed sensory nerve responses absent suggesting possible generalized peripheral neuropathy with paresthesia and numbness in the bilateral feet. Bone scan showed multiple scattered areas of uptake suspicious for metastatic disease most prominently including the thoracic and lumbar spine as well as the left proximal femur posterior lower ribs and right iliac anterior wedging. 03/07: Patient has been evaluated by oncology and started on dexamethasone. CAT scan of the chest abdomen and pelvis with contrast revealed large right upper lobe mass with obesity measuring up to 6.6 cm extending from the right suprahilar region up to the lateral apex. Some satellite nodularity measuring up to 2.1 cm. Trace right pleural effusion. Nonspecific 3 mm left lower lobe pulmonary nodule. Metastatic disease with a 3.3 cm left adrenal mass and osseous metastasis to the sacrum, lytic soft tissue destruction left L3 transverse process, left T12 vertebral body. Also involving the left paraspinal region with soft tissue extending into T9/T10 neural foramen and lateral left spinal canal. Scattered soft tissue nodule such as in the inferior right perire nal space, right perineum, right gluteal subcutaneous adipose measuring up to 7 mm may reflect metastatic deposits. Cholelithiasis, left-sided colonic diverticulosis and moderate sized hilar hernia. Prominent contrast in the esophagus could reflect dysmotility or gastroesophageal reflux disease. We have added a consult with Dr. Cobos as we do need a biopsy. It appears primary source is most likely pulmonary. Patient denies having any cough, no bloody sputum. She did have a loose stool yesterday after contrast. No bowel movement today. Pain is improved and at rest its 2 out of 10. She has significant pain increased with movement. CA 153 is elevated at 49.5, CA 199 is 14.9, CA 2729 elevated at 80.2, CA-125 elevated at 106.6. Vitamin B-12 1951. Renal function. Iron 17, TIBC 286, iron saturation 5.94, ferritin 54.8. Alkaline phosphatase 172. Oncology has ordered MRI of the brain and thoracic spine as well as methylmalonic acid and folate RBC. Consult with Dr. Caruso was added. 03/08: Patient is followed by oncology and pulmonary medicine. They have decided that adrenal mass will be biopsied. Interventional radiology consult has been added. We will also add in GI consult for possible colonoscopy. Patient states she has not had a bowel movement last 24 hours. She is able to control her urine. Numbness in the groin area is improved. She continues to have pain on the bilateral legs. She continues to have tenderness in the right lower quadrant abdominal. Patient has been started on Senokot and we will also and in lactulose for constipation. Discussed discharge planning with the patient. PT has recommended subacute rehab. Patient is reluctant but her father has been MR with and she may agreed to go to [facility] at the time of discharge. Patient has been afebrile, heart rate 79, blood pressure 148/81, pulse ox 95% on room air. Urine culture has been finalized with no growth after 18 hours. 03/09: Left adrenal mass biopsy was performed yesterday by interventional radiology. Patient was seen yesterday by Dr. Caruso with plan for CAT scan simulation. MRI of the thoracic spine revealed soft tissue metastatic this along the left paracentral region at 18 910 extending through foramen causing foraminal stenosis. No spinal canal stenosis or cord involvement. Extensive osseous metastasis throughout the thoracic spine best appreciated at T1 images greatest involvement appears to be at T9. MRI of the brain revealed no suspicious changes to suggest metastatic disease. Few nonspecific deep white matter changes not out of proportion to patient's age. Microvascular ischemic change is within the differential. Patient underwent EGD that revealed small hiatal hernia and colonoscopy which revealed scattered sigmoidal diverticulosis but no evidence of colorectal neoplasia with Dr. Trujillo. Physical therapy is recommended subacute rehab. Patient is not sure that she would do this but has been extremely weak and will consider. She has been afebrile, heart rate 89, blood pressure 175/83, pulse ox 95% on room air. Repeat blood work reveals WBC 16.2, hemoglobin 7.5 and platelet count 468. Sodium 136 otherwise BMP is unremarkable. Alkaline phosphatase remains elevated at 180. 03/10: Patient is laying down in bed she continues to have pain in her back, she continues to have some numbness around the groin area as well as the right lower extremity, we will adjust her pain management we will add the fentanyl patch 25 g every 72 hours, we will increase her Ionia 7.5/325 one every 4 hours as needed, patient underwent left adrenal mass biopsy by interventional radiology, she is maintained on Decadron as well as the receive 1 radiation yesterday, she will be maintained on same management, we will have deformity plan for the patie nt to continue with the radiation as well as chemotherapy and possible physical therapy and rehabilitation hopefully she will be able to accomplish all of these duties over the next 24-48 hours. 03/11: Patient is laying down in bed she is feeling a bit better she continues to have some pain associated with the moving around, she denies any chest pain, shortness breath, she has no abdominal pain, nausea or vomiting, she tolerates her treatment as well as her medication very well, she is scheduled to go for radiation therapy tomorrow morning, we'll discuss with social problems specialist disposition plan for her hopefully subacute rehab versus home with home health care. Objective - Vital Signs Vital signs: Vital Signs Temp 98.1 F 03/11/20 04:18 Pulse 77 03/11/20 04:18 Resp 16 03/11/20 04:18 BP 160/76 03/11/20 04:18 Pulse Ox 96 03/11/20 04:18 Intake & Output 03/10/20 03/11/20 03/11/20 18:59 06:59 18:59 Intake Total 600 260 Balance 600 260 Intake: IV 160 ns@20 160 Intake, IV Titration 100 Amount Sodium Ferric Gluconat- 100 Sucrose 125 mg In Sodium Chloride 0.9% 100 ml @ 100 mls/hr IVPB Q24H [facility] Rx#:[id number] Oral 600 Other: Voiding Method Bedside Commode Bedside Commode # Voids 2 - Exam - Exam Review of Systems Constitutional: Reports chronic pain, Reports fatigue, Reports poor appetite, Reports weakness, Denies anorexia, Denies chills, Denies fever Eyes: denies blurred vision, denies pain Ears, nose, mouth and throat: Reports vertigo, Denies dysphagia, Denies headache, Denies nasal congestion, Denies nasal discharge, Denies sore throat Cardiovascular: Denies chest pain, Denies edema, Denies leg edema, Denies shortness of breath Respiratory: Denies cough, Denies cough with sputum, Denies dyspnea, Denies excessive sputum, Denies hemoptysis, Denies home oxygen, Denies respiratory infections, Denies wheezing Gastrointestinal: Reports abdominal pain, Reports constipation, Denies BRBPR, Denies coffee ground emesis, reports 1 episode of diarrhea, Denies hematemesis, Denies hematochezia, Denies melena, Denies nausea, Denies vomiting Genitourinary: Reports difficulty voiding, Denies hematuria, Denies urinary frequency Menstruation: Reports postmenopausal, Denies post hysterectomy Musculoskeletal: Reports gait dysfunction, Reports groin numbness/tingling- improved, Reports low back pain, Reports muscle weakness, Denies myalgias Integumentary: Denies pruritus, Denies rash, Denies wounds Neurological: Reports gait dysfunction, Denies change in mentation, Denies change in speech, Denies head injury, Denies seizures Psychiatric: Denies anxiety, Denies depression Endocrine: Denies fatigue, Denies weight change Physical Examination Gen: This is a 64-year-old female. Patient is resting in bed appears to be comfortable at rest. HEENT: Head is atraumatic, normocephalic. Pupils equal, round. Sclerae is anicteric. NECK: Supple. No JVD. No lymphadenopathy. No thyromegaly. LUNGS: Clear to auscultation. No wheezes or rhonchi. No intercostal retra ctions. HEART: Regular rate and rhythm. No murmur. ABDOMEN: Soft. Bowel sounds are present. No masses. Bilateral lower quadrant tenderness most significant in the right lower quadrant. EXTREMITIES: No pedal edema. No calf tenderness. Dorsalis pedis +2 bilaterally. NEUROLOGICAL: Patient is awake, alert and oriented x3. Cranial nerves 2 through 12 are grossly intact. - Labs CBC & Chem 7: 03/11/20 06:26 03/11/20 06:26 Labs: Abnormal Lab Results - Last 24 Hours (Table) 03/11/20 03/11/20 Range/Units 06:26 06:26 WBC 15.9 H (3.8-10.6) k/uL Hgb 9.2 L (11.4-16.0) gm/dL Hct 31.1 L (34.0-46.0) % MCV 67.7 L (80.0-100.0) fL MCH 20.0 L (25.0-35.0) pg MCHC 29.6 L (31.0-37.0) g/dL RDW 19.1 H (11.5-15.5) % Plt Count 527 H (150-450) k/uL Neutrophils # (Manual) 12.70 H (1.3-7.7) k/uL Metamyelocytes # (Man) 0.16 H (0) k/uL Myelocytes # (Manual) 0.64 H (0) k/uL Nucleated RBCs 1 H (0-0) /100 WBC Glucose 125 H (74-99) mg/dL Alkaline Phosphatase 255 H (38-126) U/L Assessment and Plan Assessment: Assessment and Plan Plan: 1. Metastatic disease to the thoracic and lumbar spine as well as the left proximal femur, posterior lower ribs and right iliac with primary most likely non-small cell lung cancer. CAT scan of the chest abdomen and pelvis as above. Consult with oncology and radiation oncology appreciated. Continue Dexamethasone and Dilaudid for pain along with Ionia and fentanyl patch, Zofran for nausea. MRI of the brain and thoracic spine as above. She is status post adrenal mass biopsy. GI consult completed with EGD and colonoscopy that was negative for colorectal neoplasia. 2. History of hypothyroidism. Patient started on levothyroxine 50 g daily. 3. Anemia of unclear etiology. Stool for occult blood was negative. Most l ikely anemia due to metastatic cancer. 4. Elevated alkaline phosphatase due to Bone mets. 5. Right lower quadrant pain most likely secondary to referred pain, constipation we will continue with current bowel regimen with Lactulose and Senokot-S. 6. UTI. Continue ceftriaxone, the culture so far is negative. 7. Adrenal mass most likely secondary to metastatic disease. Status post left adrenal mass biopsy. Results pending at the time of dictation. 8. DVT prophylaxis. Lovenox 40 mg subcu daily. 9. GI prophylaxis. Protonix 40 mg daily. 10. COVID-19 infection not present. 11. Medical debility. PT and OT consults likely will require subacute rehabilitation. 12. Overall prognosis is guarded. 13. Pain control. Start fentanyl patch 25 g every 72 hours, increase her Ionia to 7.5/325 one tablet every 4 hours as needed. 14. Diarrhea. Change lactulose to as needed. 15. Disposition subacute rehab Vs home with [facility].
--- NOTE | 2020-03-11 11:57 | P.PN ---
Subjective Progress Note Date: 03/11/20 Principal diagnosis: Suspected lung cancer involving the right lung with multiple metastatic lesions in the spine as well as left adrenal lesion The patient is seen today 03/11/2020 in follow-up on the oncology unit. She is currently resting flat in bed. Still having some ongoing pain issues with her lower back and right lower extremity. She currently denies any worsening s hortness of breath, cough or congestion. No hemoptysis. She is maintaining O2 saturations in the 90s on room air. She did receive one radiation treatment and the plan is to continue treatments tomorrow, MRI of the spine had revealed extensive osseous metastasis throughout the thoracic spine best appreciated on postcontrast T1 images. Greatest involvement appears to be at T9. Pathology from the biopsy of the left adrenal mass still pending. Objective - Vital Signs Vital signs: Vital Signs Temp 98.1 F 03/11/20 04:18 Pulse 77 03/11/20 04:18 Resp 16 03/11/20 04:18 BP 160/76 03/11/20 04:18 Pulse Ox 96 03/11/20 04:18 Intake & Output 03/10/20 03/11/20 03/11/20 18:59 06:59 18:59 Intake Total 600 260 Balance 600 260 Intake: IV 160 ns@20 160 Intake, IV Titration 100 Amount Sodium Ferric Gluconat- 100 Sucrose 125 mg In Sodium Chloride 0.9% 100 ml @ 100 mls/hr IVPB Q24H [facility] Rx#:[id number] Oral 600 Other: Voiding Method Bedside Commode Bedside Commode Bedside Commode # Voids 2 1 - Exam GENERAL EXAM: Alert, pleasant 64-year-old female patient, on room air, comfort able in no apparent distress. HEAD: Normocephalic. EYES: Normal reaction of pupils, equal size. NOSE: Clear with pink turbinates. THROAT: No erythema or exudates. NECK: No masses, no JVD. CHEST: No chest wall deformity. LUNGS: Equal air entry with no crackles, wheeze, rhonchi or dullness. CVS: S1 and S2 normal with no audible murmur, regular rhythm. ABDOMEN: No hepatosplenomegaly, normal bowel sounds, no guarding or rigidity. SPINE: No scoliosis or deformity SKIN: No rashes CENTRAL NERVOUS SYSTEM: No focal deficits, tone is normal in all 4 extremities. EXTREMITIES: There is no peripheral edema. No clubbing, no cyanosis. Peripheral pulses are intact. - Labs CBC & Chem 7: 03/11/20 06:26 03/11/20 06:26 Labs: Abnormal Lab Results - Last 24 Hours (Table) 03/11/20 03/11/20 Range/Units 06:26 06:26 WBC 15.9 H (3.8-10.6) k/uL Hgb 9.2 L (11.4-16.0) gm/dL Hct 31.1 L (34.0-46.0) % MCV 67.7 L (80.0-100.0) fL MCH 20.0 L (25.0-35.0) pg MCHC 29.6 L (31.0-37.0) g/dL RDW 19.1 H (11.5-15.5) % Plt Count 527 H (150-450) k/uL Neutrophils # (Manual) 12.70 H (1.3-7.7) k/uL Metamyelocytes # (Man) 0.16 H (0) k/uL Myelocytes # (Manual) 0.64 H (0) k/uL Nucleated RBCs 1 H (0-0) /100 WBC Glucose 125 H (74-99) mg/dL Alkaline Phosphatase 255 H (38-126) U/L Assessment and Plan Assessment: #1. Suspected lung cancer involving the right lung with multiple metastatic lesions in the spine as well as a 3.3 cm left adrenal lesion and is status post biopsy, pathology pending #2. History of hypothyroidism, not on any thyroid hormone related to medical noncompliance #3. 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 Acute on chronic back pain, related to metastatic spinal deposits #5. Anemia, of unclear etiology, GI consultation is pending #6. Possible urinary tract infection, urine culture showed no growth Plan: The patient was seen and evaluated by Dr. Cobos She remains stable from the pulmonary standpoint Left adrenal mass biopsy pathology results pending Receiving radiation to metastatic lesions of the spine We'll continue to follow I, the cosigning physician, performed a history & physical examination of the patient. Lungs sounds are clear. Maintaining good O2 saturations in the 90s on room air. I discussed the assessment and plan of care with my nurse practitioner, Polly Pham. I attest to the above note as dictated by her.
[2020-03-12] MEDS: HYDROcodone/APAP 7.5-325MG 1 EACH TAB PO PRN ×4 (00:31→18:13)
[2020-03-12 05:28] LABS: Anisocytosis Moderate; Basophils % (A) 0 %; Eosinophils # (A) 0.1 k/uL (0-0.7); Eosinophils % (A) 1 %; HCT 32.3 % (34.0-46.0); HGB 9.7 gm/dL (11.4-16.0); Hypochromasia Marked; Lymphocytes # (A) 1.2 k/uL (1.0-4.8); Lymphocytes % (A) 7 %; MCH 20.8 pg (25.0-35.0); MCHC 29.9 g/dL (31.0-37.0); MCV 69.4 fL (80.0-100.0); Mean Platelet Volume 6.9; Microcytosis Marked; Monocytes # (A) 0.6 k/uL (0-1.0); Monocytes % (A) 4 %; Neutrophils # (A) 15.1 k/uL (1.3-7.7); Neutrophils % (A) 88 %; Platelet Count 499 k/uL (150-450); Poikilocytosis Slight; RBC 4.65 m/uL (3.80-5.40); RDW 20.5 % (11.5-15.5); WBC 17.2 k/uL (3.8-10.6)
[2020-03-12] MEDS: LEVOTHYROXINE 50 MCG TAB PO SCH (05:58)
[2020-03-12 06:40] LABS: African American GFR (CKD) >90 (>60 ml/min/1.73 sqM); Anion Gap 9 mmol/L; Blood Urea Nitrogen 18 mg/dL (7-17); Calcium 9.2 mg/dL (8.4-10.2); Carbon Dioxide 26 mmol/L (22-30); Chloride 100 mmol/L (98-107); Glucose 123 mg/dL (74-99); Non-African American GFR(CKD) >90 (>60 ml/min/1.73 sqM); Potassium 5.2 mmol/L (3.5-5.1); Sodium 135 mmol/L (137-145)
[2020-03-12] MEDS: ENOXAPARIN 40 MG/0.4 ML SYRINGE SQ SCH (08:32)
[2020-03-12] MEDS: PANTOPRAZOLE 40 MG TABLET PO SCH (08:33)
[2020-03-12] MEDS: dexAMETHasone 4 MG TAB PO SCH ×4 (08:33→21:15)
[2020-03-12] MEDS: HYDROmorphone 0.5 MG/0.5 ML SYRINGE IVP PRN (08:33)
[2020-03-12 10:24] VITALS: BMI 28.8
[2020-03-12] MEDS: SENNOSIDES-DOCUSATE SODIUM 1 EACH TAB PO SCH ×2 (10:31→21:15)
--- NOTE | 2020-03-12 10:46 | P.DS ---
Providers Date of admission: 03/05/20 18:49 Expected date of discharge: 03/15/20 Attending physician: Monica Perez Consults: 03/06/20 07:53 Consult Physician Routine Consulting Provider: Javi Alberts Consult Reason/Comments: metastatic disease Do you want consulting provider notified?: Yes 03/07/20 07:41 Consult Physician Routine Consulting Provider: Fernando Cobos Consult Reason/Comments: Lung mass, mets, need biopsy Do you want consulting provider notified?: Yes 03/07/20 13:22 Consult Physician Routine Consulting Provider: Fernando Cobos Consult Reason/Comments: Lung mass, mets, need bx Do you want consulting provider notified?: Yes 03/07/20 14:30 Consult Physician Routine Consulting Provider: Davian Caruso Consult Reason/Comments: painful,symptomatic bone lesions Do you want consulting provider notified?: Already Contacted 03/08/20 07:34 Consult Physician Routine Consulting Provider: Casey Magallon Consult Reason/Comments: Colonscopy eval, metastatic disease Do you want consulting provider notified?: Yes Primary care physician: Monica Perez [facility] Course: This is a 64-year-old patient with no primary care physician. She had previously been seen by Dr. Rausch but it has been seen in greater than 1 year and has requested to be established with Dr. Perez. She states that she has not had a full workup since she was 49 years old and at that time had a Pap smear and mammogram but no repeat testing since that time. She denies ever having a colonoscopy. Patient gives history of having hypothyroidism but stopped taking her medication as she could not get the prescription refilled. She gives history of lifting something onto a shelf and heard a pop in her lower back area in October of this year. She denied any numbness at that time down her legs. She states it has progressively worsened and she does have leg involvement including pain in her groin. She has numbness as well. She has difficulty initiating urination and difficulty with bowel movements possibly constipation versus difficulty defecating. She rates the pain as a 8-10 out of 10 with any movement which includes walking, sitting or standing. At rest pain is fairly well controlled. Patient also relates possible fainting episodes. Patient also complains of a constricted sensation around her chest but no significant rib pain. She denies any bloody or tarry stools. No vaginal bleeding. No hematuria. Patient has been under the care of Dr. Selby as she was initially planning to go to a chiropractor but her sister insisted that she go to [facility]. She did have an MRI bone scan and nerve testing done with Dr. Selby. Dr. Selby did give her a course of steroids and tramadol for pain. She came into [facility] emergency center on March 01 due to severe back pain. Her urinalysis was negative for UTI. Bladder scan showed 165 ML's. Post void residual 29. The patient was given a prescription for [place] and instructed to follow-up with PCP. She can return to [facility] emergency center on March 05 with continued back pain with radiation down the right leg along with numbness and tingling. She was afebrile, heart rate 111, blood pressure 119/60, pulse ox 95% on room air. WBC 11.6, hemoglobin 8.3, platelet count 394. Sodium 136, potassium 4.2, chloride 99, CO2 26, BUN 11 and creatinine 0.65. Blood sugar 105. Alkaline phosphatase 176. Patient admitted to the [facility] floor and consult requested with oncology, CAT scan of the chest abdomen and pelvis and cancer markers have been ordered. MRI of the lumbar spine revealed marked abnormal bone marrow throughout the axial skeleton with most significant involvement of the sacrum, L5, L1 and L3 vertebral bodies. Findings may represent a marrow infiltrative process such as metastatic disease, multiple myeloma or lymphoproliferative disorder. Suspect minor nondisplaced S1 sacral element fracture. L5/S1 level shallow left-sided disc protrusion/herniation and mild facet arthropathy. No substantial spinal canal nor foraminal stenosis. Nonspecific hepatic and right renal lesion as well as a 2.5 cm left adrenal mass. EMG revealed sensory nerve responses absent suggesting possible generalized peripheral neuropathy with paresthesia and numbness in the bilateral feet. Bone scan showed multiple scattered areas of uptake suspicious for metastatic disease most prominently including the thoracic and lumbar spine as well as the left proximal femur posterior lower ribs and right iliac anterior wedging. 03/07: Patient has been evaluated by oncology and started on dexamethasone. CAT scan of the chest abdomen and pelvis with contrast revealed large right upper lobe mass with obesity measuring up to 6.6 cm extending from the right suprahilar region up to the lateral apex. Some satellite nodularity measuring up to 2.1 cm. Trace right pleural effusion. Nonspecific 3 mm left lower lobe pulmonary nodule. Metastatic disease with a 3.3 cm left adrenal mass and osseous metastasis to the sacrum, lytic soft tissue destruction left L3 transverse process, left T12 vertebral body. Also involving the left paraspinal region with soft tissue extending into T9/T10 neural foramen and lateral left spinal canal. Scattered soft tissue nodule such as in the inferior right perirenal space, right perineum, right gluteal subcutaneous adipose measuring up to 7 mm may reflect metastatic deposits. Cholelithiasis, left-sided colonic diverticulosis and moderate sized hilar hernia. Prominent contrast in the esophagus could reflect dysmotility or gastroesophageal reflux disease. We have added a consult with Dr. Cobos as we do need a biopsy. It appears primary source is most likely pulmonary. Patient denies having any cough, no bloody sputum. She did have a loose stool yesterday after contrast. No bowel movement today. Pain is improved and at rest its 2 out of 10. She has significant pain increased with movement. CA 153 is elevated at 49.5, CA 199 is 14.9, CA 2729 elevated at 80.2, CA-125 elevated at 106.6. Vitamin B-12 1952. Renal function. Iron 17, TIBC 286, iron saturation 5.94, ferritin 54.8. Alkaline phosphatase 172. Oncology has ordered MRI of the brain and thoracic spine as well as methylmalonic acid and folate RBC. Consult with Dr. Caruso was added. 03/08: Patient is followed by oncology and pulmonary medicine. They have decided that adrenal mass will be biopsied. Interventional radiology consult has been added. We will also add in GI consult for possible colonoscopy. Patient states she has not had a bowel movement last 24 hours. She is able to control her urine. Numbness in the groin area is improved. She continues to have pain on the bilateral legs. She continues to have tenderness in the right lower quadrant abdominal. Patient has been started on Senokot and we will also and in lactulose for constipation. Discussed discharge planning with the patient. PT has recommended subacute rehab. Patient is reluctant but her father has been MR with and she may agreed to go to [facility] at the time of discharge. Patient has been afebrile, heart rate 79, blood pressure 148/81, pulse ox 95% on room air. Urine culture has been finalized with no growth after 18 hours. 03/09: Left adrenal mass biopsy was performed yesterday by interventional radiology. Patient was seen yesterday by Dr. Caruso with plan for CAT scan simulation. MRI of the thoracic spine revealed soft tissue metastatic this along the left paracentral region at 18 910 extending through foramen causing foraminal stenosis. No spinal canal stenosis or cord involvement. Extensive osseous metastasis throughout the thoracic spine best appreciated at T1 images greatest involvement appears to be at T9. MRI of the brain revealed no suspicious changes to suggest metastatic disease. Few nonspecific deep white matter changes not out of proportion to patient's age. Microvascular ischemic change is within the differential. Patient underwent EGD that revealed small hiatal hernia and colonoscopy which revealed scattered sigmoidal diverticulosis but no evidence of colorectal neoplasia with Dr. Trujillo. Physical therapy is recommended subacute rehab. Patient is not sure that she would do this but has been extremely weak and will consider. She has been afebrile, heart rate 89, blood pressure 175/83, pulse ox 95% on room air. Repeat blood work reveals WBC 16.2, hemoglobin 7.5 and platelet count 468. Sodium 136 otherwise BMP is unremarkable. Alkaline phosphatase remains elevated at 180. 03/10: Patient is laying down in bed she continues to have pain in her back, she continues to have some numbness around the groin area as well as the right lower extremity, we will adjust her pain management we will add the fentanyl patch 25 g every 72 hours, we will increase her [place] 7.5/325 one every 4 hours as needed, patient underwent left adrenal mass biopsy by interventional radiology, she is maintained on Decadron as well as the receive 1 radiation yesterday, she will be maintained on same management, we will have deformity plan for the patient to continue with the radiation as well as chemotherapy and possible physical therapy and rehabilitation hopefully she will be able to accomplish all of these duties over the next 24-48 hours. 03/11: Patient is laying down in bed she is feeling a bit better she continues to have some pain associated with the moving around, she denies any chest pain, shortness breath, she has no abdominal pain, nausea or vomiting, she tolerates her treatment as well as her medication very well, she is scheduled to go for radiation therapy tomorrow morning, we'll discuss with social service technician disposition plan for her hopefully subacute rehab versus home with home health care. 03/12: Patient was started on a fentanyl patch over the weekend with improvement of her pain but is still present in the lower back and right leg. She is scheduled for radiation therapy today. Patient has been afebrile, heart rate 84, blood pressure 128/61, pulse ox 96% on room air. WBC 17.2, platelet count 987, platelet count 499. Sodium 135, potassium 5.2, chloride 100, CO2 26, BUN 18 creatinine 0.63 Pathology of the biopsy of the left adrenal mass remains pending. 03/13: Patient was given options yesterday of either rehab with no treatment for cancer, home with home care or hospice. Patient declined hospice immediately. At this point [facility] would not accept her. She does not really want to go home and she does not think she'll have enough help but her daughter who will be helping her. We will order a hospital bed which she will require with side rails as she has difficulty with any mobility. She is unable to move in bed without side rails. Pain is still quite excruciating and patient is requiring IV Dilaudid. Fentanyl patch will be increased to 50 g per hour. A walker is also been ordered by case management for home. Oncology has ordered Ferrlecit for 3 doses and will be completed tomorrow. She is continuing on radiation therapy. Patient has been afebrile, heart rate 79, blood pressure 132/78, pulse ox 98% on room air. Repeat blood work will be ordered for tomorrow. Pathology report is pending. 03/14: air export logistics manager and social work has developed plan for discharge home with [facility] care, hospital bed and walker are arranged. We increased her fentanyl patch to 50 g yesterday. 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 Possible primary sites include upper GI, breast or lung primary. Await further recommendations from oncology. Patient has been afebrile, heart rate 88, blood pressure 144/75, pulse ox 94% on room air. WBC 21.7, hemoglobin 10.2, platelet count 460. Sodium 135, potassium 5.6, chloride 98, CO2 27, BUN 25 and creatinine 0.68. AST 47, ALT 96, alkaline phosphatase 309. Patient's pain is improving and decreased numbness in the groin area. She states she can tolerate pain with ambulating or standing but becomes severe with sitting. She is complaining of constipation for which lactulose will be added once daily. Plan to monitor overnight and discharged home tomorrow. 03/15: Patient has been seen by orthopedist [facility] and recommended x-ray of the left hip. Patient initially refused but is agreeable after discussing this morning. LSO brace has been ordered and is at the patient's bedside. Patient understands she is to wear this when she is out of bed sitting or ambulating. Mostly her pain is now controlled but worse with any movement. Patient is rarely asking for pain pill. Patient has been instructed to take pain medication before pain is uncontrolled. She is requesting a commode chair for home which will be ordered and will be arranged by counseling case manager. Hospital bed is to be delivered today as well as patient has a walker already delivered. Patient is afebrile, heart rate 84, blood pressure 138/75, pulse ox 96% on room air. We will plan to discharge patient home today once all arrangements are completed and patient is cleared by oncology. Patient started talking form has been completed and patient understands items listed on the form. Discharge diagnoses: 1. Metastatic disease to the thoracic and lumbar spine as well as the left proximal femur, posterior lower ribs and right iliac with primary most likely non-small cell lung cancer. 2. Hypothyroidism. 3. Anemia secondary to cancer. 4. Elevated alkaline phosphatase due to Bone mets. 5. Right lower quadrant pain most likely secondary to referred pain, constipation. 6. UTI, treated. 7. Adrenal mass most likely secondary to metastatic disease. 8. COVID-19 infection not present. 9. Medical debility. 10. Pain control. 11. Diarrhea, secondary to lactulose. Discharge plan: Home with [facility] Impression and plan of care have been directed as dictated by the signing physician. Natalie Arango nurse practitioner acting as scribe for signing physician. Patient Condition at Discharge: Fair Plan - Discharge Summary Discharge Rx Participant: No New Discharge Prescriptions: New Dexamethasone [Hexadrol] 4 mg PO QID #120 tab Magnesium Hydroxide [Milk of Magnesia Concentrate] 2,400 mg PO ONCE PRN ml PRN Reason: CONSTIPATION HYDROcodone/APAP 7.5-325MG [[place] 7.5-325] 1 each PO Q6H PRN #12 tab PRN Reason: Pain Sennosides-Docusate Sodium [Senokot-S] 2 each PO BID tab Levothyroxine Sodium [Synthroid] 50 mcg PO DAILY@0630 #30 tab fentaNYL 50MCG/HR PATCH [Duragesic 50MCG/HR] 1 patch TRANSDERM Q72H 3 Days #1 patch Continue Pantoprazole [Protonix] 40 mg PO DAILY Naproxen Sodium [Aleve] 440 mg PO BID PRN PRN Reason: Pain Discontinued Hydrocodone/Acetaminophen [[place] 5-325] 1 tab PO Q6HR PRN #12 tab PRN Reason: Pain Acetaminophen [Tylenol Arthritis] 1,300 mg PO BID PRN PRN Reason: Pain Discharge Medication List Naproxen Sodium [Aleve] 440 mg PO BID PRN 03/05/20 [History] Pantoprazole [Protonix] 40 mg PO DAILY 03/05/20 [History] Dexamethasone [Hexadrol] 4 mg PO QID #120 tab 03/12/20 [Rx] HYDROcodone/APAP 7.5-325MG [[place] 7.5-325] 1 each PO Q6H PRN #12 tab 03/12/20 [Rx] Levothyroxine Sodium [Synthroid] 50 mcg PO DAILY@0630 #30 tab 03/12/20 [Rx] Magnesium Hydroxide [Milk of Magnesia Concentrate] 2,400 mg PO ONCE PRN ml 03/12/20 [Rx] Sennosides-Docusate Sodium [Senokot-S] 2 each PO BID tab 03/12/20 [Rx] fentaNYL 50MCG/HR PATCH [Duragesic 50MCG/HR] 1 patch TRANSDERM Q72H 3 Days #1 patch 03/15/20 [Rx] Follow up Appointment(s)/Referral(s): Javi Alberts MD [STAFF PHYSICIAN] - 1 Week Monica Perez MD [Primary Care Provider] - 1 Week (At [facility]) [facility] [NON-STAFF] - (Supplied bed and commode) Roberto Henriquez PAC [PHYSICIAN POWER TRANSFORMER REPAIRER] - 2 Weeks (Patient may follow-up with Roberto Henriquez PA-C or Dr. Buddy Kramer at [facility] in 2-3 weeks following discharge. ) Davian Caruso MD [STAFF PHYSICIAN] - (Schedule for Radiation Treatments are: , March 15, 2020 at 11:45am and Monday, March 16, 2020 at 11:45am. Last treatment is 03/16) Dolores Dimas [NON-STAFF] - As Needed (LSO back brace) Activity/Diet/Wound Care/Special Instructions: 1. Patient may wear LSO brace for comfort support during sitting upright, ambulation, and during activities as needed 2. Brace does not have to be worn while lying in bed or bathing 3. Patient should avoid excessive activities with her thoracic and lumbar spine; avoid heavy lifting Discharge Disposition: HOME WITH HOME HEALTH SERVICES
--- NOTE | 2020-03-12 11:57 | P.PN ---
Subjective Progress Note Date: 03/12/20 Principal diagnosis: Suspected lung cancer involving the right lung with multiple metastatic lesions in the spine as well as 3.3 cm left adrenal lesion On 03/08/2020 patient seen in follow-up on medical oncology unit. She is awake and alert, in no acute distress, she is resting comfortably in bed, no complete shortness of breath, still having some pain in bilateral lower extremities, and numbness in the groin area. No loss of bowel or bladder control. Lung sounds are clear, patient is on room air, pulse ox is 95%, vital signs are stable. Patient is afebrile. Patient is awaiting biopsy by interventional radiology of the adrenal mass. She is going for MRI of the brain and the thoracic spine to rule out possibility of brain and spine metastasis. Patient is currently on oral dexamethasone at 4 mg 4 times daily, empiric antibiotics with Rocephin. Today's labs have been reviewed, showing white blood cell count of 12.6, hemoglobin of 7.6, electrolytes and renal profile were within normal limits. Coronavirus PCR was not detected, 2 for occult blood was negative, urinalysis showed possibility of UTI, with large amount of leuks, white blood cells and bacteria, however urine culture showed no growth. Patient is having no reports of dysuria. On 03/12/2020 patient seen in follow-up on medical oncology floor. She is resting comfortably in bed, in no acute distress, she does complain of right hip pain especially with ambulation. Seems to be comfortable at the moment, no complaints of difficulty breathing, no cough, no hemoptysis, no congestion. Patient has started radiation treatments to the thoracic and lumbar spine as well as the left proximal femur last Thursday on 03/09/2020. Patient is status post left adrenal mass biopsy, still awaiting results of the biopsy. Room air pulse ox 96%, no fever or chills, vital signs are stable, lung sounds are clear. Patient is receiving pain medications controlled the back pain, and right hip pain. Patient is on oral, IV and transdermal narcotics, she also has been started on oral Decadron. His labs have been reviewed, showing white blood cell count of 17.2, hemoglobin of 9.7, sodium is 135, potassium is 5.2, chloride is 100, BUN is 18, creatinine 0.63. Objective - Vital Signs Vital signs: Vital Signs Temp 94.7 F L 03/12/20 05:00 Pulse 84 03/12/20 05:00 Resp 20 03/12/20 05:00 BP 128/71 03/12/20 05:00 Pulse Ox 96 03/12/20 05:00 Intake & Output 03/11/20 03/12/20 03/12/20 18:59 06:59 18:59 Intake Total 140 690 Balance 140 690 Weight 86.183 kg Intake: IV 140 ns@20 140 Oral 690 Other: Voiding Method Bedside Commode Bedside Commode Toilet Bedside Commode # Voids 1 1 - Exam GENERAL EXAM: Alert, very pleasant, 64-year-old white female, on room air, with a pulse ox of 96% comfortable in no apparent distress. HEAD: Normocephalic/atraumatic. EYES: Normal reaction of pupils, equal size. Conjunctiva pink, sclera white. NOSE: Clear with pink turbinates. THROAT: No erythema or exudates. NECK: No masses, no JVD, no thyroid enlargement, no adenopathy. CHEST: No chest wall deformity. Symmetrical expansion. LUNGS: Equal air entry with no crackles, wheeze, rhonchi or dullness. CVS: Regular rate and rhythm, normal S1 and S2, no gallops, no murmurs, no rubs ABDOMEN: Soft, nontender. No hepatosplenomegaly, normal bowel sounds, no guarding or rigidity. EXTREMITIES: No clubbing, no edema, no cyanosis, 2+ pulses and upper and lower extremities. MUSCULOSKELETAL: Muscle strength and tone normal. SPINE: No scoliosis or deformity SKIN: No rashes CENTRAL NERVOUS SYSTEM: Alert and oriented -3. No focal deficits, tone is normal in all 4 extremities. PSYCHIATRIC: Alert and oriented -3. Appropriate affect. Intact judgment and insight. - Labs CBC & Chem 7: 03/12/20 05:04 03/12/20 05:04 Labs: Abnormal Lab Results - Last 24 Hours (Table) 03/12/20 03/12/20 Range/Units 05:04 05:04 WBC 17.2 H (3.8-10.6) k/uL Hgb 9.7 L (11.4-16.0) gm/dL Hct 32.3 L (34.0-46.0) % MCV 69.4 L (80.0-100.0) fL MCH 20.8 L (25.0-35.0) pg MCHC 29.9 L (31.0-37.0) g/dL RDW 20.5 H (11.5-15.5) % Plt Count 499 H (150-450) k/uL Neutrophils # 15.1 H (1.3-7.7) k/uL Sodium 135 L (137-145) mmol/L Potassium 5.2 H (3.5-5.1) mmol/L BUN 18 H (7-17) mg/dL Glucose 123 H (74-99) mg/dL Assessment and Plan Plan: Assessment: #1. Suspected lung cancer involving the right lung with multiple metastatic lesions in the spine as well as a 3.3 cm left adrenal lesion, and posterior lower ribs and right iliac #2. Back and right hip pain related to metastatic disease #2. History of hypothyroidism, not on any thyroid hormone related to medical noncompliance #3. 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 Acute on chronic back pain, possibly related to metastatic spinal deposits #5. Anemia, of unclear etiology, GI consultation is pending #6. Possible urinary tract infection, urine culture showed no growth Plan: Denies any pulmonary complaints, stilll awaiting results of the adrenal mass biopsy, patient is on room air, denies shortness of breath or chest pain. She h as been started on radiation therapy last Thursday, she is on pain medications to control her pain, no acute events overnight, patient is being discharged to [facility] nursing and rehab. Patient will follow-up with pulmonary service as needed, if unable to obtain a diagnosis from the adrenal mass biopsy, patient will require bronchoscopy with biopsies I performed a history & physical examination of the patient and discussed their management with my nurse practitioner, Jeanine Wilburn. I reviewed the nurse practitioner's note and agree with the documented findings and plan of care. Lung sounds are positive for clear breath sounds. The findings and the impression was discussed with the patient. I attest to the documentation by the nurse practitioner. Time with Patient: Less than 30
--- NOTE | 2020-03-12 13:19 | P.PN ---
Subjective Progress Note Date: 03/12/20 This is a 64-year-old patient with no primary care physician. She had previously been seen by Dr. Rausch but it has been seen in greater than 1 year and has requested to be established with Dr. Perez. She states that she has not had a full workup since she was 49 years old and at that time had a Pap smear and mammogram but no repeat testing since that time. She denies ever having a colonoscopy. Patient gives history of having hypothyroidism but stopped taking her medication as she could not get the prescription refilled. She gives history of lifting something onto a shelf and heard a pop in her lower back area in October of this year. She denied any numbness at that time down her legs. She states it has progressively worsened and she does have leg involvement including pain in her groin. She has numbness as well. She has difficulty initiating urination and difficulty with bowel movements possibly constipation versus difficulty defecating. She rates the pain as a 8-10 out of 10 with any movement which includes walking, sitting or standing. At rest pain is fairly well contro lled. Patient also relates possible fainting episodes. Patient also complains of a constricted sensation around her chest but no significant rib pain. She denies any bloody or tarry stools. No vaginal bleeding. No hematuria. Patient has been under the care of Dr. Selby as she was initially planning to go to a chiropractor but her sister insisted that she go to [facility]. She did have an MRI bone scan and nerve testing done with Dr. Selby. Dr. Selby did give her a course of steroids and tramadol for pain. She came into [facility] emergency center on March 01 due to severe back pain. Her urinalysis was negative for UTI. Bladder scan showed 165 ML's. Post void residual 29. The patient was given a prescription for [place] and instructed to follow-up with PCP. She can return to [facility] emergency center on March 05 with continued back pain with radiation down the right leg along with numbness and tingling. She was afebrile, heart rate 111, blood pressure 119/60, pulse ox 95% on room air. WBC 11.6, hemoglobin 8.3, platelet count 394. Sodium 136, potassium 4.2, chloride 99, CO2 26, BUN 11 and creatinine 0.65. Blood sugar 105. Alkaline phosphatase 176. Patient admitted to the [facility] floor and consult requested with oncology, CAT scan of the chest abdomen and pelvis and cancer markers have been ordered. MRI of the lumbar spine revealed marked abnormal bone marrow throughout the axial skeleton with most significant involvement of the sacrum, L5, L1 and L3 vertebral bodies. Findings may represent a marrow infiltrative process such as metastatic disease, multiple myeloma or lymphoproliferative disorder. Suspect minor nondisplaced S1 sacral element fracture. L5/S1 level shallow left-sided disc protrusion/herniation and mild facet arthropathy. No substantial spinal canal nor foraminal stenosis. Nonspecific hepatic and right renal lesion as well as a 2.5 cm left adrenal mass. EMG revealed sensory nerve responses absent suggesting possible generalized peripheral neuropathy with paresthesia and numbness in the bilateral feet. Bone scan showed multiple scattered areas of uptake suspicious for metastatic disease most prominently including the thoracic and lumbar spine as well as the left proximal femur posterior lower ribs and right iliac anterior wedging. 03/07: Patient has been evaluated by oncology and started on dexamethasone. CAT scan of the chest abdomen and pelvis with contrast revealed large right upper lobe mass with obesity measuring up to 6.6 cm extending from the right suprahilar region up to the lateral apex. Some satellite nodularity measuring up to 2.1 cm. Trace right pleural effusion. Nonspecific 3 mm left lower lobe pulmonary nodule. Metastatic disease with a 3.3 cm left adrenal mass and osseous metastasis to the sacrum, lytic soft tissue destruction left L3 transverse process, left T12 vertebral body. Also involving the left paraspinal region with soft tissue extending into T9/T10 neural foramen and lateral left spinal canal. Scattered soft tissue nodule such as in the inferior right perire nal space, right perineum, right gluteal subcutaneous adipose measuring up to 7 mm may reflect metastatic deposits. Cholelithiasis, left-sided colonic diverticulosis and moderate sized hilar hernia. Prominent contrast in the esophagus could reflect dysmotility or gastroesophageal reflux disease. We have added a consult with Dr. Cobos as we do need a biopsy. It appears primary source is most likely pulmonary. Patient denies having any cough, no bloody sputum. She did have a loose stool yesterday after contrast. No bowel movement today. Pain is improved and at rest its 2 out of 10. She has significant pain increased with movement. CA 153 is elevated at 49.5, CA 199 is 14.9, CA 2729 elevated at 80.2, CA-125 elevated at 106.6. Vitamin B-12 1951. Renal function. Iron 17, TIBC 286, iron saturation 5.94, ferritin 54.8. Alkaline phosphatase 172. Oncology has ordered MRI of the brain and thoracic spine as well as methylmalonic acid and folate RBC. Consult with Dr. Caruso was added. 03/08: Patient is followed by oncology and pulmonary medicine. They have decided that adrenal mass will be biopsied. Interventional radiology consult has been added. We will also add in GI consult for possible colonoscopy. Patient states she has not had a bowel movement last 24 hours. She is able to control her urine. Numbness in the groin area is improved. She continues to have pain on the bilateral legs. She continues to have tenderness in the right lower quadrant abdominal. Patient has been started on Senokot and we will also and in lactulose for constipation. Discussed discharge planning with the patient. PT has recommended subacute rehab. Patient is reluctant but her father has been MR with and she may agreed to go to [facility] at the time of discharge. Patient has been afebrile, heart rate 79, blood pressure 148/81, pulse ox 95% on room air. Urine culture has been finalized with no growth after 18 hours. 03/09: Left adrenal mass biopsy was performed yesterday by interventional radiology. Patient was seen yesterday by Dr. Caruso with plan for CAT scan simulation. MRI of the thoracic spine revealed soft tissue metastatic this along the left paracentral region at 18 910 extending through foramen causing foraminal stenosis. No spinal canal stenosis or cord involvement. Extensive osseous metastasis throughout the thoracic spine best appreciated at T1 images greatest involvement appears to be at T9. MRI of the brain revealed no suspicious changes to suggest metastatic disease. Few nonspecific deep white matter changes not out of proportion to patient's age. Microvascular ischemic change is within the differential. Patient underwent EGD that revealed small hiatal hernia and colonoscopy which revealed scattered sigmoidal diverticulosis but no evidence of colorectal neoplasia with Dr. Trujillo. Physical therapy is recommended subacute rehab. Patient is not sure that she would do this but has been extremely weak and will consider. She has been afebrile, heart rate 89, blood pressure 175/83, pulse ox 95% on room air. Repeat blood work reveals WBC 16.2, hemoglobin 7.5 and platelet count 468. Sodium 136 otherwise BMP is unremarkable. Alkaline phosphatase remains elevated at 180. 03/10: Patient is laying down in bed she continues to have pain in her back, she continues to have some numbness around the groin area as well as the right lower extremity, we will adjust her pain management we will add the fentanyl patch 25 g every 72 hours, we will increase her [place] 7.5/325 one every 4 hours as needed, patient underwent left adrenal mass biopsy by interventional radiology, she is maintained on Decadron as well as the receive 1 radiation yesterday, she will be maintained on same management, we will have deformity plan for the patie nt to continue with the radiation as well as chemotherapy and possible physical therapy and rehabilitation hopefully she will be able to accomplish all of these duties over the next 24-48 hours. 03/11: Patient is laying down in bed she is feeling a bit better she continues to have some pain associated with the moving around, she denies any chest pain, shortness breath, she has no abdominal pain, nausea or vomiting, she tolerates her treatment as well as her medication very well, she is scheduled to go for radiation therapy tomorrow morning, we'll discuss with certified social workers in health care disposition plan for her hopefully subacute rehab versus home with home health care. 03/12: Patient was started on a fentanyl patch over the weekend with improvement of her pain but is still present in the lower back and right leg. She is scheduled for radiation therapy today. Patient has been afebrile, heart rate 84 , blood pressure 128/61, pulse ox 96% on room air. WBC 17.2, platelet count 987, platelet count 499. Sodium 135, potassium 5.2, chloride 100, CO2 26, BUN 18 creatinine 0.63 Pathology of the biopsy of the left adrenal mass remains pending. Objective - Vital Signs Vital signs: Vital Signs Temp 94.7 F L 03/12/20 05:00 Pulse 84 03/12/20 05:00 Resp 20 03/12/20 05:00 BP 128/71 03/12/20 05:00 Pulse Ox 96 03/12/20 05:00 Intake & Output 03/11/20 03/12/20 03/12/20 18:59 06:59 18:59 Intake Total 140 690 Balance 140 690 Intake: IV 140 ns@20 140 Oral 690 Other: Voiding Method Bedside Commode Bedside Commode # Voids 1 1 - Exam Review of Systems Constitutional: Reports chronic pain, Reports fatigue, Reports poor appetite, Reports weakness, Denies anorexia, Denies chills, Denies fever Eyes: denies blurred vision, denies pain Ears, nose, mouth and throat: Reports vertigo, Denies dysphagia, Denies headache, Denies nasal congestion, Denies nasal discharge, Denies sore throat Cardiovascular: Denies chest pain, Denies edema, Denies leg edema, Denies shortness of breath Respiratory: Denies cough, Denies cough with sputum, Denies dyspnea, Denies excessive sputum, Denies hemoptysis, Denies home oxygen, Denies respiratory infections, Denies wheezing Gastrointestinal: Reports abdominal pain, Reports constipation, Denies BRBPR, Denies coffee ground emesis, reports 1 episode of diarrhea, Denies hematemesis, Denies hematochezia, Denies melena, Denies nausea, Denies vomiting Genitourinary: Reports difficulty voiding, Denies hematuria, Denies urinary frequency Menstruation: Reports postmenopausal, Denies post hysterectomy Musculoskeletal: Reports gait dysfunction, Reports groin numbness/tingling- improved, Reports low back pain, Reports muscle weakness, Denies myalgias Integumentary: Denies pruritus, Denies rash, Denies wounds Neurological: Reports gait dysfunction, Denies change in mentation, Denies change in speech, Denies head injury, Denies seizures Psychiatric: Denies anxiety, Denies depression Endocrine: Reports fatigue, Denies weight change Physical Examination Gen: This is a 64-year-old female. Patient is resting in bed appears to be comfortable at rest. HEENT: Head is atraumatic, normocephalic. Pupils equal, round. Sclerae is anicteric. NECK: Supple. No JVD. No lymphadenopathy. No thyromegaly. LUNGS: Clear to auscultation. No wheezes or rhonchi. No intercostal retractions. HEART: Regular rate and rhythm. No murmur. ABDOMEN: Soft. Bowel sounds are present. No masses. Bilateral lower quadrant tenderness most significant in the right lower quadrant. Lumbar back tenderness. EXTREMITIES: No pedal edema. No calf tenderness. Dorsalis pedis +2 bilaterally. NEUROLOGICAL: Patient is awake, alert and oriented x3. Cranial nerves 2 through 12 are grossly intact. - Labs CBC & Chem 7: 03/12/20 05:04 03/12/20 05:04 Labs: Abnormal Lab Results - Last 24 Hours (Table) 03/11/20 03/12/20 03/12/20 Range/Units 06:26 05:04 05:04 WBC 15.9 H 17.2 H (3.8-10.6) k/uL Hgb 9.7 L (11.4-16.0) gm/dL Hct 32.3 L (34.0-46.0) % MCV 69.4 L (80.0-100.0) fL MCH 20.8 L (25.0-35.0) pg MCHC 29.9 L (31.0-37.0) g/dL RDW 20.5 H (11.5-15.5) % Plt Count 499 H (150-450) k/uL Neutrophils # 15.1 H (1.3-7.7) k/uL Neutrophils # (Manual) 12.70 H (1.3-7.7) k/uL Metamyelocytes # (Man) 0.16 H (0) k/uL Myelocytes # (Manual) 0.64 H (0) k/uL Nucleated RBCs 1 H (0-0) /100 WBC Sodium 135 L (137-145) mmol/L Potassium 5.2 H (3.5-5.1) mmol/L BUN 18 H (7-17) mg/dL Glucose 123 H (74-99) mg/dL Assessment and Plan Plan: 1. Metastatic disease to the thoracic and lumbar spine as well as the left proximal femur, posterior lower ribs and right iliac with primary most likely non-small cell lung cancer. CAT scan of the chest abdomen and pelvis as above. Consult with oncology and radiation oncology appreciated. Continue Dexamethasone and Dilaudid for pain. Patient will be resumed on [place] as well. Zofran for nausea. MRI of the brain and thoracic spine as above. She is status post adrenal mass biopsy. GI consult completed with EGD and colonoscopy. 2. History of hypothyroidism. Patient started on levothyroxine 50 g daily. 3. Anemia of unclear etiology. Stool for occult blood was negative. Most likely anemia of chronic disease. GI consult. 4. Elevated alkaline phosphatase secondary to bone metastasis. 5. Right lower quadrant pain most likely secondary to referred pain, constipation. Patient has never had a colonoscopy. 6. UTI. Continue ceftriaxone. 7. Adrenal mass most likely secondary to metastatic disease. Adrenal mass biopsy. 8. DVT prophylaxis. Lovenox 40 mg subcu daily. 9. GI prophylaxis. Protonix 40 mg daily. 10. COVID-19 infection not present. 11. Medical debility. PT and OT consults. 12. Overall prognosis is guarded. 13. Pain control. Start fentanyl patch 25 g every 72 hours, increase her [place] to 7.5/325 one tablet every 4 hours as needed. 14. Diarrhea. Change lactulose to as needed. Discharge plan: home care. Impression and plan of care have been directed as dictated by the signing physician. Natalie Arango nurse practitioner acting as scribe for signing physician.
--- NOTE | 2020-03-12 19:57 | P.PN ---
Subjective Progress Note Date: 03/12/20 Principal diagnosis: metastatic picture Reviewed Iron Studies and Still awaiting path, pain improved on fentanyl, and xrt to begin today Objective - Vital Signs Vital signs: Vital Signs Temp 98.0 F 03/12/20 13:00 Pulse 81 03/12/20 13:00 Resp 16 03/12/20 13:00 BP 128/71 03/12/20 05:00 Pulse Ox 95 03/12/20 13:00 Intake & Output 03/12/20 03/12/20 03/13/20 06:59 18:59 06:59 Intake Total 690 Balance 690 Weight 86.183 kg Intake: Oral 690 Other: Voiding Method Bedside Commode Toilet Bedside Commode # Voids 1 2 - Exam - Constitutional General appearance: Present: average body habitus, cooperative, mild distress - EENT Eyes: Present: anicteric sclerae, EOMI ENT: Present: hearing grossly normal - Respiratory Respiratory: bilateral: CTA - Cardiovascular Heart sounds: normal: S1, S2 - Peripheral edema leg Peripheral Edema: bilateral: None - Gastrointestinal General gastrointestinal: Present: normal bowel sounds - Neurologic Neurologic Comment(s): decreased perineal sensation, BLE weakness/unsteady - Psychiatric Psychiatric Comment(s): Alert, oriented to self, place and time. Her recall and response to questions is a bit slower then I would anticipate in her age group - Labs CBC & Chem 7: 03/12/20 05:04 03/12/20 05:04 Labs: Abnormal Lab Results - Last 24 Hours (Table) 03/12/20 03/12/20 Range/Units 05:04 05:04 WBC 17.2 H (3.8-10.6) k/uL Hgb 9.7 L (11.4-16.0) gm/dL Hct 32.3 L (34.0-46.0) % MCV 69.4 L (80.0-100.0) fL MCH 20.8 L (25.0-35.0) pg MCHC 29.9 L (31.0-37.0) g/dL RDW 20.5 H (11.5-15.5) % Plt Count 499 H (150-450) k/uL Neutrophils # 15.1 H (1.3-7.7) k/uL Sodium 135 L (137-145) mmol/L Potassium 5.2 H (3.5-5.1) mmol/L BUN 18 H (7-17) mg/dL Glucose 123 H (74-99) mg/dL Assessment and Plan Plan: Comments: nuclear medicine bone scan report reviewed abnormal MRI report reviewed last week Assessment and Plan Bone lesion - Multiple bone lesions noted on nuclear medicine bone scan 02/24/20. MRI was performed last week and was abnormal. CT of the chest abdomen and pelvis has been ordered to see if there are any masses for biopsy target. - Dr. Alberts did find a left axillary lymph node. - He did review with the patient high concern for malignancy. - Status post biopsy - Pending - Patient's decreased perineal sensation, started on 4 mg of dexamethasone every 6 hours. Will follow up. Soft Tissue Mass Extending T9-T10: - Continue Dex AND ppi - Radiation Oncology on Consult - Status Post EGD and COlonoscopy, no mass identified per procedure note - MRI Brain reviewed no suspicious metastatic lesions Microcytic hypochromic anemia: - Workup ordered. Transfusion for hemoglobin less than 7 or if symptomatic. - If iron deficient, Gastroenterology consultation for endoscopy would be most appropriate to be done sooner then later. - Patient has never had these age-related cancer screenings. - Parental Iron Ordered x5 days for evidence of iron deficiency PLan: - Overall picture concerning for metastatic cancer - Await Biopsy - Daily CBC, CMP - Continue Parental Iron - Still awaiting Path, further recs when path returns
[2020-03-12] MEDS: SODIUM FERRIC GLUCONAT-SUCROSE 125 MG in SODIUM CHLORIDE 0.9% 100 ML IVPB SCH (21:15)
[2020-03-13] MEDS: HYDROcodone/APAP 7.5-325MG 1 EACH TAB PO PRN ×4 (02:21→21:58)
[2020-03-13] MEDS: LEVOTHYROXINE 50 MCG TAB PO SCH (05:47)
[2020-03-13] MEDS: PANTOPRAZOLE 40 MG TABLET PO SCH (08:09)
[2020-03-13] MEDS: ENOXAPARIN 40 MG/0.4 ML SYRINGE SQ SCH (08:09)
[2020-03-13] MEDS: dexAMETHasone 4 MG TAB PO SCH ×4 (08:09→21:58)
[2020-03-13] MEDS: SENNOSIDES-DOCUSATE SODIUM 1 EACH TAB PO SCH ×2 (08:09→21:58)
[2020-03-13] MEDS: HYDROmorphone 0.5 MG/0.5 ML SYRINGE IVP PRN ×2 (08:09→11:34)
[2020-03-13] MEDS: SODIUM FERRIC GLUCONAT-SUCROSE 125 MG in SODIUM CHLORIDE 0.9% 100 ML IVPB SCH (11:34)
--- NOTE | 2020-03-13 11:52 | P.PN ---
Subjective Progress Note Date: 03/13/20 This is a 64-year-old patient with no primary care physician. She had previously been seen by Dr. Rausch but it has been seen in greater than 1 year and has requested to be established with Dr. Perez. She states that she has not had a full workup since she was 49 years old and at that time had a Pap smear and mammogram but no repeat testing since that time. She denies ever having a colonoscopy. Patient gives history of having hypothyroidism but stopped taking her medication as she could not get the prescription refilled. She gives history of lifting something onto a shelf and heard a pop in her lower back area in October of this year. She denied any numbness at that time down her legs. She states it has progressively worsened and she does have leg involvement including pain in her groin. She has numbness as well. She has difficulty initiating urination and difficulty with bowel movements possibly constipation versus difficulty defecating. She rates the pain as a 8-10 out of 10 with any movement which includes walking, sitting or standing. At rest pain is fairly well contro lled. Patient also relates possible fainting episodes. Patient also complains of a constricted sensation around her chest but no significant rib pain. She denies any bloody or tarry stools. No vaginal bleeding. No hematuria. Patient has been under the care of Dr. Selby as she was initially planning to go to a chiropractor but her sister insisted that she go to [facility]. She did have an MRI bone scan and nerve testing done with Dr. Selby. Dr. Selby did give her a course of steroids and tramadol for pain. She came into [facility] emergency center on March 01 due to severe back pain. Her urinalysis was negative for UTI. Bladder scan showed 165 ML's. Post void residual 29. The patient was given a prescription for Abington and instructed to follow-up with PCP. She can return to [facility] emergency center on March 05 with continued back pain with radiation down the right leg along with numbness and tingling. She was afebrile, heart rate 111, blood pressure 119/60, pulse ox 95% on room air. WBC 11.6, hemoglobin 8.3, platelet count 394. Sodium 136, potassium 4.2, chloride 99, CO2 26, BUN 11 and creatinine 0.65. Blood sugar 105. Alkaline phosphatase 176. Patient admitted to the [facility] floor and consult requested with oncology, CAT scan of the chest abdomen and pelvis and cancer markers have been ordered. MRI of the lumbar spine revealed marked abnormal bone marrow throughout the axial skeleton with most significant involvement of the sacrum, L5, L1 and L3 vertebral bodies. Findings may represent a marrow infiltrative process such as metastatic disease, multiple myeloma or lymphoproliferative disorder. Suspect minor nondisplaced S1 sacral element fracture. L5/S1 level shallow left-sided disc protrusion/herniation and mild facet arthropathy. No substantial spinal canal nor foraminal stenosis. Nonspecific hepatic and right renal lesion as well as a 2.5 cm left adrenal mass. EMG revealed sensory nerve responses absent suggesting possible generalized peripheral neuropathy with paresthesia and numbness in the bilateral feet. Bone scan showed multiple scattered areas of uptake suspicious for metastatic disease most prominently including the thoracic and lumbar spine as well as the left proximal femur posterior lower ribs and right iliac anterior wedging. 03/07: Patient has been evaluated by oncology and started on dexamethasone. CAT scan of the chest abdomen and pelvis with contrast revealed large right upper lobe mass with obesity measuring up to 6.6 cm extending from the right suprahilar region up to the lateral apex. Some satellite nodularity measuring up to 2.1 cm. Trace right pleural effusion. Nonspecific 3 mm left lower lobe pulmonary nodule. Metastatic disease with a 3.3 cm left adrenal mass and osseous metastasis to the sacrum, lytic soft tissue destruction left L3 transverse process, left T12 vertebral body. Also involving the left paraspinal region with soft tissue extending into T9/T10 neural foramen and lateral left spinal canal. Scattered soft tissue nodule such as in the inferior right perire nal space, right perineum, right gluteal subcutaneous adipose measuring up to 7 mm may reflect metastatic deposits. Cholelithiasis, left-sided colonic diverticulosis and moderate sized hilar hernia. Prominent contrast in the esophagus could reflect dysmotility or gastroesophageal reflux disease. We have added a consult with Dr. Cobos as we do need a biopsy. It appears primary source is most likely pulmonary. Patient denies having any cough, no bloody sputum. She did have a loose stool yesterday after contrast. No bowel movement today. Pain is improved and at rest its 2 out of 10. She has significant pain increased with movement. CA 153 is elevated at 49.5, CA 199 is 14.9, CA 2729 elevated at 80.2, CA-125 elevated at 106.6. Vitamin B-12 1951. Renal function. Iron 17, TIBC 286, iron saturation 5.94, ferritin 54.8. Alkaline phosphatase 172. Oncology has ordered MRI of the brain and thoracic spine as well as methylmalonic acid and folate RBC. Consult with Dr. Caruso was added. 03/08: Patient is followed by oncology and pulmonary medicine. They have decided that adrenal mass will be biopsied. Interventional radiology consult has been added. We will also add in GI consult for possible colonoscopy. Patient states she has not had a bowel movement last 24 hours. She is able to control her urine. Numbness in the groin area is improved. She continues to have pain on the bilateral legs. She continues to have tenderness in the right lower quadrant abdominal. Patient has been started on Senokot and we will also and in lactulose for constipation. Discussed discharge planning with the patient. PT has recommended subacute rehab. Patient is reluctant but her father has been MR with and she may agreed to go to [facility] at the time of discharge. Patient has been afebrile, heart rate 79, blood pressure 148/81, pulse ox 95% on room air. Urine culture has been finalized with no growth after 18 hours. 03/09: Left adrenal mass biopsy was performed yesterday by interventional radiology. Patient was seen yesterday by Dr. Caruso with plan for CAT scan simulation. MRI of the thoracic spine revealed soft tissue metastatic this along the left paracentral region at 18 910 extending through foramen causing foraminal stenosis. No spinal canal stenosis or cord involvement. Extensive osseous metastasis throughout the thoracic spine best appreciated at T1 images greatest involvement appears to be at T9. MRI of the brain revealed no suspicious changes to suggest metastatic disease. Few nonspecific deep white matter changes not out of proportion to patient's age. Microvascular ischemic change is within the differential. Patient underwent EGD that revealed small hiatal hernia and colonoscopy which revealed scattered sigmoidal diverticulosis but no evidence of colorectal neoplasia with Dr. Trujillo. Physical therapy is recommended subacute rehab. Patient is not sure that she would do this but has been extremely weak and will consider. She has been afebrile, heart rate 89, blood pressure 175/83, pulse ox 95% on room air. Repeat blood work reveals WBC 16.2, hemoglobin 7.5 and platelet count 468. Sodium 136 otherwise BMP is unremarkable. Alkaline phosphatase remains elevated at 180. 03/10: Patient is laying down in bed she continues to have pain in her back, she continues to have some numbness around the groin area as well as the right lower extremity, we will adjust her pain management we will add the fentanyl patch 25 g every 72 hours, we will increase her Abington 7.5/325 one every 4 hours as needed, patient underwent left adrenal mass biopsy by interventional radiology, she is maintained on Decadron as well as the receive 1 radiation yesterday, she will be maintained on same management, we will have deformity plan for the patie nt to continue with the radiation as well as chemotherapy and possible physical therapy and rehabilitation hopefully she will be able to accomplish all of these duties over the next 24-48 hours. 03/11: Patient is laying down in bed she is feeling a bit better she continues to have some pain associated with the moving around, she denies any chest pain, shortness breath, she has no abdominal pain, nausea or vomiting, she tolerates her treatment as well as her medication very well, she is scheduled to go for radiation therapy tomorrow morning, we'll discuss with social service coordinator disposition plan for her hopefully subacute rehab versus home with home health care. 03/12: Patient was started on a fentanyl patch over the weekend with improvement of her pain but is still present in the lower back and right leg. She is scheduled for radiation therapy today. Patient has been afebrile, heart rate 84 , blood pressure 128/61, pulse ox 96% on room air. WBC 17.2, platelet count 987, platelet count 499. Sodium 135, potassium 5.2, chloride 100, CO2 26, BUN 18 creatinine 0.63 Pathology of the biopsy of the left adrenal mass remains pending. 03/13: Patient was given options yesterday of either rehab with no treatment for cancer, home with home care or hospice. Patient declined hospice immediately. At this point [facility] would not accept her. She does not really want to go home and she does not think she'll have enough help but her daughter who will be helping her. We will order a hospital bed which she will require with side rails as she has difficulty with any mobility. She is unable to move in bed without side rails. Pain is still quite excruciating and patient is requiring IV Dilaudid. Fentanyl patch will be increased to 50 g per hour. A walker is also been ordered by case management for home. Oncology has ordered Ferrlecit for 3 doses and will be completed tomorrow. She is continuing on radiation therapy. Patient has been afebrile, heart rate 79, blood pressure 132/78, pulse ox 98% on room air. Repeat blood work will be ordered for tomorrow. Pathology report is pending. Objective - Vital Signs Vital signs: Vital Signs Temp 97.8 F 03/13/20 05:00 Pulse 79 03/13/20 05:00 Resp 18 03/13/20 05:00 BP 132/78 03/13/20 05:00 Pulse Ox 98 03/13/20 05:00 Intake & Output 03/12/20 03/13/20 03/13/20 18:59 06:59 18:59 Intake Total 850 Balance 850 Weight 86.183 kg Intake: Oral 850 Other: Voiding Method Toilet Toilet Toilet Bedside Commode Bedside Commode Bedside Commode # Voids 2 3 - Exam Review of Systems Constitutional: Reports chronic pain, Reports fatigue, Reports poor appetite, Reports weakness, Denies anorexia, Denies chills, Denies fever. Severe pain with any movement, generalized weakness Eyes: denies blurred vision, denies pain Ears, nose, mouth and throat: Reports vertigo, Denies dysphagia, Denies headache, Denies nasal congestion, Denies nasal discharge, Denies sore throat Cardiovascular: Denies chest pain, Denies edema, Denies leg edema, Denies shortness of breath Respiratory: Denies cough, Denies cough with sputum, Denies dyspnea, Denies excessive sputum, Denies hemoptysis, Denies home oxygen, Denies respiratory infections, Denies wheezing Gastrointestinal: Reports abdominal pain, Reports constipation, Denies BRBPR, Denies coffee ground emesis, reports 1 episode of diarrhea, Denies hematemesis, Denies hematochezia, Denies melena, Denies nausea, Denies vomiting Genitourinary: Reports difficulty voiding, Denies hematuria, Denies urinary frequency Menstruation: Reports postmenopausal, Denies post hysterectomy Musculoskeletal: Reports gait dysfunction, Reports groin numbness/tingling- improved, Reports low back pain, Reports muscle weakness, Denies myalgias Integumentary: Denies pruritus, Denies rash, Denies wounds Neurological: Reports gait dysfunction, Denies change in mentation, Denies change in speech, Denies head injury, Denies seizures Psychiatric: Denies anxiety, Denies depression Endocrine: Reports fatigue, Denies weight change Physical Examination Gen: This is a 64-year-old female. Patient is resting in bed appears to be comfortable at rest. HEENT: Head is atraumatic, normocephalic. Pupils equal, round. Sclerae is anicteric. NECK: Supple. No JVD. No lymphadenopathy. No thyromegaly. LUNGS: Clear to auscultation. No wheezes or rhonchi. No intercostal retractions. HEART: Regular rate and rhythm. No murmur. ABDOMEN: Soft. Bowel sounds are present. No masses. Lumbar back tenderness. EXTREMITIES: No pedal edema. No calf tenderness. Dorsalis pedis +2 bilaterally. NEUROLOGICAL: Patient is awake, alert and oriented x3. Cranial nerves 2 through 12 are grossly intact. - Labs CBC & Chem 7: 03/12/20 05:04 03/12/20 05:04 Assessment and Plan Plan: 1. Metastatic disease to the thoracic and lumbar spine as well as the left proximal femur, posterior lower ribs and right iliac with primary most likely non-small cell lung cancer. CAT scan of the chest abdomen and pelvis as above. Consult with oncology and radiation oncology appreciated. Continue Dexamethasone and Dilaudid for pain. Patient will be resumed on Abington as well. Zofran for nausea. MRI of the brain and thoracic spine as above. She is status post adrenal mass biopsy. GI consult completed with EGD and colonoscopy. 2. History of hypothyroidism. Patient started on levothyroxine 50 g daily. 3. Anemia of unclear etiology. Stool for occult blood was negative. Most likely anemia of chronic disease. GI consult. 4. Elevated alkaline phosphatase secondary to bone metastasis. 5. Right lower quadrant pain most likely secondary to referred pain, constipation. Patient has never had a colonoscopy. 6. UTI. Continue ceftriaxone. 7. Adrenal mass most likely secondary to metastatic disease. Adrenal mass biopsy. 8. DVT prophylaxis. Lovenox 40 mg subcu daily. 9. GI prophylaxis. Protonix 40 mg daily. 10. COVID-19 infection not present. 11. Medical debility. PT and OT consults. 12. Overall prognosis is guarded. 13. Pain control. Increase fentanyl patch to 50 g every 72 hours, continue Abington 7.5/325 one tablet every 4 hours as needed. 14. Diarrhea. Change lactulose to as needed. Discharge plan: Home with home care on Thursday. Hospital bed and walker have been ordered by wrapper caser. Impression and plan of care have been directed as dictated by the signing physician. Natalie Arango nurse practitioner acting as scribe for signing physician.
--- NOTE | 2020-03-13 13:01 | P.PN ---
Subjective Progress Note Date: 03/13/20 Principal diagnosis: Suspected lung cancer involving the right lung with multiple metastatic lesions in the spine as well as 3.3 cm left adrenal lesion On 03/08/2020 patient seen in follow-up on medical oncology unit. She is awake and alert, in no acute distress, she is resting comfortably in bed, no complete shortness of breath, still having some pain in bilateral lower extremities, and numbness in the groin area. No loss of bowel or bladder control. Lung sounds are clear, patient is on room air, pulse ox is 95%, vital signs are stable. Patient is afebrile. Patient is awaiting biopsy by interventional radiology of the adrenal mass. She is going for MRI of the brain and the thoracic spine to rule out possibility of brain and spine metastasis. Patient is currently on oral dexamethasone at 4 mg 4 times daily, empiric antibiotics with Rocephin. Today's labs have been reviewed, showing white blood cell count of 12.6, hemoglobin of 7.6, electrolytes and renal profile were within normal limits. Coronavirus PCR was not detected, 2 for occult blood was negative, urinalysis showed possibility of UTI, with large amount of leuks, white blood cells and bacteria, however urine culture showed no growth. Patient is having no reports of dysuria. On 03/12/2020 patient seen in follow-up on medical oncology floor. She is resting comfortably in bed, in no acute distress, she does complain of right hip pain especially with ambulation. Seems to be comfortable at the moment, no complaints of difficulty breathing, no cough, no hemoptysis, no congestion. Patient has started radiation treatments to the thoracic and lumbar spine as well as the left proximal femur last Thursday on 03/09/2020. Patient is status post left adrenal mass biopsy, still awaiting results of the biopsy. Room air pulse ox 96%, no fever or chills, vital signs are stable, lung sounds are clear. Patient is receiving pain medications controlled the back pain, and right hip pain. Patient is on oral, IV and transdermal narcotics, she also has been started on oral Decadron. His labs have been reviewed, showing white blood cell count of 17.2, hemoglobin of 9.7, sodium is 135, potassium is 5.2, chloride is 100, BUN is 18, creatinine 0.63. On 03/13/2020 patient seen in follow-up on general medical oncology floor. She is laying in bed, in no acute distress, she still has back pain and right hip pain, she states as long as she is laying flat in bed she is comfortable, but if she sits up or bears weight the pain becomes much worse. She started radiation treatments, she is on oral dexamethasone and Dilantin as well as Oxford for pain. She is receiving Zofran for nausea. From pulmonary perspective she denies any pulmonary complaints, no chest pain, no cough or congestion, she is on room air, lung sounds are clear. Surgical biopsy from the adrenal mass is still pending at this time. Discharge planning is in progress for discharge home, apparently ECF placement was not possible because ECF declined an admission of a patient on radiation therapy. It is planned that the patient will go home with her daughter who will be providing transportation and necessary support at home. Objective - Vital Signs Vital signs: Vital Signs Temp 97.8 F 03/13/20 05:00 Pulse 79 03/13/20 05:00 Resp 18 03/13/20 05:00 BP 132/78 03/13/20 05:00 Pulse Ox 98 03/13/20 05:00 Intake & Output 03/12/20 03/13/20 03/13/20 18:59 06:59 18:59 Intake Total 850 Balance 850 Weight 86.183 kg Intake: Oral 850 Other: Voiding Method Toilet Toilet Toilet Bedside Commode Bedside Commode Bedside Commode # Voids 2 3 - Exam GENERAL EXAM: Alert, very pleasant, 64-year-old white female, on room air, with a pulse ox of 98% comfortable in no apparent distress. Patient is lying flat in bed, due to increased back and right hip pain HEAD: Normocephalic/atraumatic. EYES: Normal reaction of pupils, equal size. Conjunctiva pink, sclera white. NOSE: Clear with pink turbinates. THROAT: No erythema or exudates. NECK: No masses, no JVD, no thyroid enlargement, no adenopathy. CHEST: No chest wall deformity. Symmetrical expansion. LUNGS: Equal air entry with no crackles, wheeze, rhonchi or dullness. CVS: Regular rate and rhythm, normal S1 and S2, no gallops, no murmurs, no rubs ABDOMEN: Soft, nontender. No hepatosplenomegaly, normal bowel sounds, no guarding or rigidity. EXTREMITIES: No clubbing, no edema, no cyanosis, 2+ pulses and upper and lower extremities. MUSCULOSKELETAL: Muscle strength and tone normal. SPINE: No scoliosis or deformity SKIN: No rashes CENTRAL NERVOUS SYSTEM: Alert and oriented -3. No focal deficits, tone is normal in all 4 extremities. PSYCHIATRIC: Alert and oriented -3. Appropriate affect. Intact judgment and insight. - Labs CBC & Chem 7: 03/12/20 05:04 03/12/20 05:04 Assessment and Plan Plan: Assessment: #1. Suspected lung cancer involving the right lung with multiple metastatic lesions in the spine as well as a 3.3 cm left adrenal lesion, and posterior lower ribs and right iliac #2. Back and right hip pain related to metastatic disease, patient started on radiation treatments, patient is also on dexamethasone oral Oxford and Dilaudid #2. History of hypothyroidism, not on any thyroid hormone related to medical noncompliance #3. 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 Acute on chronic back pain, possibly related to metastatic spinal deposits #5. Anemia, of unclear etiology, GI consultation is pending #6. Possible urinary tract infection, urine culture showed no growth Plan: Adrenal mass biopsy results are still pending at this time, patient continues on radiation therapy, she is receiving combination of dexamethasone Dilaudid and Oxford for pain control. Denies any pulmonary complaints at this time, she is anticipated to be discharged home today today or possibly tomorrow with her daughter who will be providing transportation and support at home. If diagnosis is not achieved through the adrenal mass biopsy, pulmonary service is on standby for bronchoscopy with biopsies I performed a history & physical examination of the patient and discussed their management with my nurse practitioner, Jeanine Wilburn. I reviewed the nurse practitioner's note and agree with the documented findings and plan of care. Lung sounds are positive for clear breath sounds. The findings and the impression was discussed with the patient. I attest to the documentation by the nurse practitioner. Time with Patient: Less than 30
--- NOTE | 2020-03-13 14:38 | P.PN ---
Subjective Progress Note Date: 03/13/20 Principal diagnosis: metastatic picture Continuing to await on path, pain is still difficulot to tolerate especially with any movement. Fentanyl increased to 50mcg today. Receiving palliative radiation day 2 Objective - Vital Signs Vital signs: Vital Signs Temp 97.9 F 03/13/20 13:00 Pulse 83 03/13/20 13:00 Resp 16 03/13/20 13:00 BP 116/58 03/13/20 13:00 Pulse Ox 97 03/13/20 13:00 Intake & Output 03/12/20 03/13/20 03/13/20 18:59 06:59 18:59 Intake Total 850 Balance 850 Weight 86.183 kg Intake: Oral 850 Other: Voiding Method Toilet Toilet Toilet Bedside Commode Bedside Commode Bedside Commode # Voids 2 3 - Exam - Constitutional General appearance: Present: average body habitus, cooperative, mild distress - EENT Eyes: Present: anicteric sclerae, EOMI ENT: Present: hearing grossly normal - Respiratory Respiratory: bilateral: CTA - Cardiovascular Heart sounds: normal: S1, S2 - Peripheral edema leg Peripheral Edema: bilateral: None - Gastrointestinal General gastrointestinal: Present: normal bowel sounds - Neurologic Neurologic Comment(s): decreased perineal sensation, BLE weakness/unsteady - Psychiatric Psychiatric Comment(s): Alert, oriented to self, place and time. Her recall and response to questions is a bit slower then I would anticipate in her age group - Labs CBC & Chem 7: 03/12/20 05:04 03/12/20 05:04 Assessment and Plan Plan: Comments: nuclear medicine bone scan report reviewed abnormal MRI report reviewed last week Assessment and Plan Bone lesion - Multiple bone lesions noted on nuclear medicine bone scan 02/24/20. MRI was performed last week and was abnormal. CT of the chest abdomen and pelvis has been ordered to see if there are any masses for biopsy target. - Dr. Alberts did find a left axillary lymph node. - He did review with the patient high concern for malignancy. - Status post biopsy - Pending - Patient's decreased perineal sensation, started on 4 mg of dexamethasone every 6 hours. Will follow up. Soft Tissue Mass Extending T9-T10: - Continue Dex AND ppi - Radiation Oncology on Consult - Status Post EGD and COlonoscopy, no mass identified per procedure note - MRI Brain reviewed no suspicious metastatic lesions Microcytic hypochromic anemia: - Workup ordered. Transfusion for hemoglobin less than 7 or if symptomatic. - If iron deficient, Gastroenterology consultation for endoscopy would be most appropriate to be done sooner then later. - Patient has never had these age-related cancer screenings. - Parental Iron Ordered x5 days for evidence of iron deficiency Neoplastic related pain: - Increase fentanyl patch 50mcg - Continue prn norco and dilaudid - Bowel protocol for narcotic induced constipation PLan: - Overall picture concerning for metastatic cancer - Await Biopsypath to result - COntinue radiation - Increased fentanyl - Agree
[2020-03-14] MEDS: LEVOTHYROXINE 50 MCG TAB PO SCH (05:46)
[2020-03-14] MEDS: HYDROcodone/APAP 7.5-325MG 1 EACH TAB PO PRN (05:55)
[2020-03-14 08:13] LABS: Anisocytosis Moderate; HCT 34.4 % (34.0-46.0); HGB 10.2 gm/dL (11.4-16.0); Hypochromasia Marked; MCH 21.4 pg (25.0-35.0); MCHC 29.8 g/dL (31.0-37.0); MCV 71.9 fL (80.0-100.0); Mean Platelet Volume 6.7; Microcytosis Marked; Platelet Count 460 k/uL (150-450); Poikilocytosis Slight; RBC 4.79 m/uL (3.80-5.40); RDW 23.9 % (11.5-15.5); WBC 21.7 k/uL (3.8-10.6)
[2020-03-14 08:18] LABS: ALT 96 U/L (4-34); AST 47 U/L (14-36); African American GFR (CKD) >90 (>60 ml/min/1.73 sqM); Albumin 3.9 g/dL (3.5-5.0); Alkaline Phosphatase 309 U/L (38-126); Anion Gap 10 mmol/L; Blood Urea Nitrogen 25 mg/dL (7-17); Calcium 9.3 mg/dL (8.4-10.2); Carbon Dioxide 27 mmol/L (22-30); Chloride 98 mmol/L (98-107); Glucose 108 mg/dL (74-99); Non-African American GFR(CKD) >90 (>60 ml/min/1.73 sqM); Potassium 5.6 mmol/L (3.5-5.1); Sodium 135 mmol/L (137-145); Total Bilirubin 0.4 mg/dL (0.2-1.3); Total Protein 6.7 g/dL (6.3-8.2)
[2020-03-14] MEDS: SENNOSIDES-DOCUSATE SODIUM 1 EACH TAB PO SCH ×2 (08:43→19:50)
[2020-03-14] MEDS: PANTOPRAZOLE 40 MG TABLET PO SCH (08:43)
[2020-03-14] MEDS: ENOXAPARIN 40 MG/0.4 ML SYRINGE SQ SCH (08:43)
[2020-03-14] MEDS: dexAMETHasone 4 MG TAB PO SCH ×4 (08:43→19:49)
[2020-03-14] MEDS: HYDROmorphone 0.5 MG/0.5 ML SYRINGE IVP PRN (11:04)
[2020-03-14] MEDS: SODIUM FERRIC GLUCONAT-SUCROSE 125 MG in SODIUM CHLORIDE 0.9% 100 ML IVPB SCH (12:23)
[2020-03-14] MEDS ORDERED: LACTULOSE 20 GM/30 ML CUP PO SCH (13:15)
--- NOTE | 2020-03-14 14:16 | P.PN ---
Subjective Progress Note Date: 03/14/20 This is a 64-year-old patient with no primary care physician. She had previously been seen by Dr. Rausch but it has been seen in greater than 1 year and has requested to be established with Dr. Perez. She states that she has not had a full workup since she was 49 years old and at that time had a Pap smear and mammogram but no repeat testing since that time. She denies ever having a colonoscopy. Patient gives history of having hypothyroidism but stopped taking her medication as she could not get the prescription refilled. She gives history of lifting something onto a shelf and heard a pop in her lower back area in October of this year. She denied any numbness at that time down her legs. She states it has progressively worsened and she does have leg involvement including pain in her groin. She has numbness as well. She has difficulty initiating urination and difficulty with bowel movements possibly constipation versus difficulty defecating. She rates the pain as a 8-10 out of 10 with any movement which includes walking, sitting or standing. At rest pain is fairly well contro lled. Patient also relates possible fainting episodes. Patient also complains of a constricted sensation around her chest but no significant rib pain. She denies any bloody or tarry stools. No vaginal bleeding. No hematuria. Patient has been under the care of Dr. Selby as she was initially planning to go to a chiropractor but her sister insisted that she go to [facility]. She did have an MRI bone scan and nerve testing done with Dr. Selby. Dr. Selby did give her a course of steroids and tramadol for pain. She came into [facility] emergency center on March 01 due to severe back pain. Her urinalysis was negative for UTI. Bladder scan showed 165 ML's. Post void residual 29. The patient was given a prescription for Atlantic and instructed to follow-up with PCP. She can return to [facility] emergency center on March 05 with continued back pain with radiation down the right leg along with numbness and tingling. She was afebrile, heart rate 111, blood pressure 119/60, pulse ox 95% on room air. WBC 11.6, hemoglobin 8.3, platelet count 394. Sodium 136, potassium 4.2, chloride 99, CO2 26, BUN 11 and creatinine 0.65. Blood sugar 105. Alkaline phosphatase 176. Patient admitted to the [facility] floor and consult requested with oncology, CAT scan of the chest abdomen and pelvis and cancer markers have been ordered. MRI of the lumbar spine revealed marked abnormal bone marrow throughout the axial skeleton with most significant involvement of the sacrum, L5, L1 and L3 vertebral bodies. Findings may represent a marrow infiltrative process such as metastatic disease, multiple myeloma or lymphoproliferative disorder. Suspect minor nondisplaced S1 sacral element fracture. L5/S1 level shallow left-sided disc protrusion/herniation and mild facet arthropathy. No substantial spinal canal nor foraminal stenosis. Nonspecific hepatic and right renal lesion as well as a 2.5 cm left adrenal mass. EMG revealed sensory nerve responses absent suggesting possible generalized peripheral neuropathy with paresthesia and numbness in the bilateral feet. Bone scan showed multiple scattered areas of uptake suspicious for metastatic disease most prominently including the thoracic and lumbar spine as well as the left proximal femur posterior lower ribs and right iliac anterior wedging. 03/07: Patient has been evaluated by oncology and started on dexamethasone. CAT scan of the chest abdomen and pelvis with contrast revealed large right upper lobe mass with obesity measuring up to 6.6 cm extending from the right suprahilar region up to the lateral apex. Some satellite nodularity measuring up to 2.1 cm. Trace right pleural effusion. Nonspecific 3 mm left lower lobe pulmonary nodule. Metastatic disease with a 3.3 cm left adrenal mass and osseous metastasis to the sacrum, lytic soft tissue destruction left L3 transverse process, left T12 vertebral body. Also involving the left paraspinal region with soft tissue extending into T9/T10 neural foramen and lateral left spinal canal. Scattered soft tissue nodule such as in the inferior right perire nal space, right perineum, right gluteal subcutaneous adipose measuring up to 7 mm may reflect metastatic deposits. Cholelithiasis, left-sided colonic diverticulosis and moderate sized hilar hernia. Prominent contrast in the esophagus could reflect dysmotility or gastroesophageal reflux disease. We have added a consult with Dr. Cobos as we do need a biopsy. It appears primary source is most likely pulmonary. Patient denies having any cough, no bloody sputum. She did have a loose stool yesterday after contrast. No bowel movement today. Pain is improved and at rest its 2 out of 10. She has significant pain increased with movement. CA 153 is elevated at 49.5, CA 199 is 14.9, CA 2729 elevated at 80.2, CA-125 elevated at 106.6. Vitamin B-12 1951. Renal function. Iron 17, TIBC 286, iron saturation 5.94, ferritin 54.8. Alkaline phosphatase 172. Oncology has ordered MRI of the brain and thoracic spine as well as methylmalonic acid and folate RBC. Consult with Dr. Caruso was added. 03/08: Patient is followed by oncology and pulmonary medicine. They have decided that adrenal mass will be biopsied. Interventional radiology consult has been added. We will also add in GI consult for possible colonoscopy. Patient states she has not had a bowel movement last 24 hours. She is able to control her urine. Numbness in the groin area is improved. She continues to have pain on the bilateral legs. She continues to have tenderness in the right lower quadrant abdominal. Patient has been started on Senokot and we will also and in lactulose for constipation. Discussed discharge planning with the patient. PT has recommended subacute rehab. Patient is reluctant but her father has been MR with and she may agreed to go to [facility] at the time of discharge. Patient has been afebrile, heart rate 79, blood pressure 148/81, pulse ox 95% on room air. Urine culture has been finalized with no growth after 18 hours. 03/09: Left adrenal mass biopsy was performed yesterday by interventional radiology. Patient was seen yesterday by Dr. Caruso with plan for CAT scan simulation. MRI of the thoracic spine revealed soft tissue metastatic this along the left paracentral region at 18 910 extending through foramen causing foraminal stenosis. No spinal canal stenosis or cord involvement. Extensive osseous metastasis throughout the thoracic spine best appreciated at T1 images greatest involvement appears to be at T9. MRI of the brain revealed no suspicious changes to suggest metastatic disease. Few nonspecific deep white matter changes not out of proportion to patient's age. Microvascular ischemic change is within the differential. Patient underwent EGD that revealed small hiatal hernia and colonoscopy which revealed scattered sigmoidal diverticulosis but no evidence of colorectal neoplasia with Dr. Trujillo. Physical therapy is recommended subacute rehab. Patient is not sure that she would do this but has been extremely weak and will consider. She has been afebrile, heart rate 89, blood pressure 175/83, pulse ox 95% on room air. Repeat blood work reveals WBC 16.2, hemoglobin 7.5 and platelet count 468. Sodium 136 otherwise BMP is unremarkable. Alkaline phosphatase remains elevated at 180. 03/10: Patient is laying down in bed she continues to have pain in her back, she continues to have some numbness around the groin area as well as the right lower extremity, we will adjust her pain management we will add the fentanyl patch 25 g every 72 hours, we will increase her Atlantic 7.5/325 one every 4 hours as needed, patient underwent left adrenal mass biopsy by interventional radiology, she is maintained on Decadron as well as the receive 1 radiation yesterday, she will be maintained on same management, we will have deformity plan for the patie nt to continue with the radiation as well as chemotherapy and possible physical therapy and rehabilitation hopefully she will be able to accomplish all of these duties over the next 24-48 hours. 03/11: Patient is laying down in bed she is feeling a bit better she continues to have some pain associated with the moving around, she denies any chest pain, shortness breath, she has no abdominal pain, nausea or vomiting, she tolerates her treatment as well as her medication very well, she is scheduled to go for radiation therapy tomorrow morning, we'll discuss with social media director disposition plan for her hopefully subacute rehab versus home with home health care. 03/12: Patient was started on a fentanyl patch over the weekend with improvement of her pain but is still present in the lower back and right leg. She is scheduled for radiation therapy today. Patient has been afebrile, heart rate 84 , blood pressure 128/61, pulse ox 96% on room air. WBC 17.2, platelet count 987, platelet count 499. Sodium 135, potassium 5.2, chloride 100, CO2 26, BUN 18 creatinine 0.63 Pathology of the biopsy of the left adrenal mass remains pending. 03/13: Patient was given options yesterday of either rehab with no treatment for cancer, home with home care or hospice. Patient declined hospice immediately. At this point [facility] would not accept her. She does not really want to go home and she does not think she'll have enough help but her daughter who will be helping her. We will order a hospital bed which she will require with side rails as she has difficulty with any mobility. She is unable to move in bed without side rails. Pain is still quite excruciating and patient is requiring IV Dilaudid. Fentanyl patch will be increased to 50 g per hour. A walker is also been ordered by case management for home. Oncology has ordered Ferrlecit for 3 doses and will be completed tomorrow. She is continuing on radiation therapy. Patient has been afebrile, heart rate 79, blood pressure 132/78, pulse ox 98% on room air. Repeat blood work will be ordered for tomorrow. Pathology report is pending. 03/14: event manager and social work has developed plan for discharge home with [facility], hospital bed and walker are arranged. We increased her fentanyl patch to 50 g yesterday. 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 Possible primary sites include upper GI, breast or lung primary. Await further recommendations from oncology. Patient has been afebrile, heart rate 88, blood pressure 144/75, pulse ox 94% on room air. WBC 21.7, hemoglobin 10.2, platelet count 460. Sodium 135, potassium 5.6, chloride 98, CO2 27, BUN 25 and creatinine 0.68. AST 47, ALT 96, alkaline phosphatase 309. Patient's pain is improving and decreased numbness in the groin area. She states she can tolerate pain with ambulating or standing but becomes severe with sitting. She is complaining of constipation for which lactulose will be added once daily. Plan to monitor overnight and discharged home tomorrow. Objective - Vital Signs Vital signs: Vital Signs Temp 98 F 03/14/20 05:00 Pulse 88 03/14/20 05:00 Resp 18 03/14/20 05:00 BP 144/75 03/14/20 05:00 Pulse Ox 94 L 03/14/20 05:00 Intake & Output 03/13/20 03/14/20 03/14/20 18:59 06:59 18:59 Intake Total 800 Balance 800 Intake: Oral 800 Other: Voiding Method Toilet Bedside Commode Bedside Commode Bedside Commode # Voids 2 4 - Exam Review of Systems Constitutional: Reports chronic pain, Reports fatigue, Reports poor appetite, Reports weakness, Denies anorexia, Denies chills, Denies fever. Severe pain with any movement, generalized weakness Eyes: denies blurred vision, denies pain Ears, nose, mouth and throat: Reports vertigo, Denies dysphagia, Denies headache, Denies nasal congestion, Denies nasal discharge, Denies sore throat Cardiovascular: Denies chest pain, Denies edema, Denies leg edema, Denies shortness of breath Respiratory: Denies cough, Denies cough with sputum, Denies dyspnea, Denies excessive sputum, Denies hemoptysis, Denies home oxygen, Denies respiratory infections, Denies wheezing Gastrointestinal: Reports abdominal pain, Reports constipation, Denies BRBPR, Denies coffee ground emesis, denies diarrhea, Denies hematemesis, Denies hematochezia, Denies melena, Denies nausea, Denies vomiting Genitourinary: Reports difficulty voiding, Denies hematuria, Denies urinary frequency Menstruation: Reports postmenopausal, Denies post hysterectomy Musculoskeletal: Reports gait dysfunction, Reports groin numbness/tingling- improved, Reports low back pain, Reports muscle weakness, Denies myalgias Integumentary: Denies pruritus, Denies rash, Denies wounds Neurological: Reports gait dysfunction, Denies change in mentation, Denies change in speech, Denies head injury, Denies seizures Psychiatric: Denies anxiety, Denies depression Endocrine: Reports fatigue, Denies weight change Physical Examination Gen: This is a 64-year-old female. Patient is resting in bed appears to be comfortable at rest. HEENT: Head is atraumatic, normocephalic. Pupils equal, round. Sclerae is anicteric. NECK: Supple. No JVD. No lymphadenopathy. No thyromegaly. LUNGS: Clear to auscultation. No wheezes or rhonchi. No intercostal retractions. HEART: Regular rate and rhythm. No murmur. ABDOMEN: Soft. Bowel sounds are present. No masses. EXTREMITIES: No pedal edema. No calf tenderness. Dorsalis pedis +2 bilaterally. NEUROLOGICAL: Patient is awake, alert and oriented x3. Cranial nerves 2 through 12 are grossly intact. - Labs CBC & Chem 7: 03/14/20 07:42 03/14/20 07:42 Labs: Abnormal Lab Results - Last 24 Hours (Table) 03/14/20 03/14/20 Range/Units 07:42 07:42 WBC 21.7 H (3.8-10.6) k/uL Hgb 10.2 L (11.4-16.0) gm/dL MCV 71.9 L (80.0-100.0) fL MCH 21.4 L (25.0-35.0) pg MCHC 29.8 L (31.0-37.0) g/dL RDW 23.9 H (11.5-15.5) % Plt Count 460 H (150-450) k/uL Sodium 135 L (137-145) mmol/L Potassium 5.6 H (3.5-5.1) mmol/L BUN 25 H (7-17) mg/dL Glucose 108 H (74-99) mg/dL AST 47 H (14-36) U/L ALT 96 H (4-34) U/L Alkaline Phosphatase 309 H (38-126) U/L Assessment and Plan Plan: 1. Metastatic disease to the thoracic and lumbar spine as well as the left proximal femur, posterior lower ribs and right iliac with primary most likely non-small cell lung cancer. CAT scan of the chest abdomen and pelvis as above. Consult with oncology and radiation oncology appreciated. Patient is to continue radiation therapy. Continue fentanyl patch 50 g per hour, Atlantic 7.5 every 6 hours as needed. Patient will be resumed on Atlantic as well. Zofran for nausea. MRI of the brain and thoracic spine as above. She is status post adrenal mass biopsy, report as above. GI consult completed with EGD and colonoscopy. 2. History of hypothyroidism. Patient started on levothyroxine 50 g daily. 3. Anemia of unclear etiology. Stool for occult blood was negative. Most likely anemia of chronic disease. GI consult. 4. Elevated alkaline phosphatase secondary to bone metastasis. 5. Right lower quadrant pain most likely secondary to referred pain, constipation. 6. UTI. Completed course of ceftriaxone. 7. Adrenal mass most likely secondary to metastatic disease. Adrenal mass biopsy. 8. DVT prophylaxis. Lovenox 40 mg subcu daily. 9. GI prophylaxis. Protonix 40 mg daily. 10. COVID-19 infection not present. 11. Medical debility. PT and OT consults. 12. Overall prognosis is guarded. 13. Pain control. Increase fentanyl patch to 50 g every 72 hours, continue Atlantic 7.5/325 one tablet every 4 hours as needed. 14. Constipation. Lactulose daily scheduled. Discharge plan: To her daughter's home with home care on . Hospital bed and walker have been ordered by family preservation caseworker. Impression and plan of care have been directed as dictated by the signing physician. Natalie Arango nurse practitioner acting as scribe for signing physician.
--- NOTE | 2020-03-14 14:29 | P.PN ---
Subjective Progress Note Date: 03/14/20 Principal diagnosis: metastatic picture Path report resulted withMetastatic poorly differentiated adenocarcinoma in a desmoplastic background. from biopsy of left adrenal mass. Difficult to differentiate. We will send path for further evaluation.will await Breast cancer molecular studies ER/OK/ and HER2 stainings. Also have asked for ortho to evaluate for stabilization while ambulatory in anticipation for discharge. Unfortunetly path was not resulted when seen earlier today by dr. Alberts. Objective - Vital Signs Vital signs: Vital Signs Temp 96.4 F L 03/14/20 12:55 Pulse 76 03/14/20 12:55 Resp 18 03/14/20 12:55 BP 135/63 03/14/20 12:55 Pulse Ox 95 03/14/20 12:55 Intake & Output 03/13/20 03/14/20 03/14/20 18:59 06:59 18:59 Intake Total 800 100 Balance 800 100 Intake: Intake, IV Titration 100 Amount Sodium Ferric Gluconat- 100 Sucrose 125 mg In Sodium Chloride 0.9% 100 ml @ 100 mls/hr IVPB DAILY@ 1200 COUNT INCLUDES THE [facility] Rx#:[id number] Oral 800 Other: Voiding Method Toilet Bedside Commode Bedside Commode Bedside Commode # Voids 2 4 3 - Exam - Constitutional General appearance: Present: average body habitus, cooperative, mild distress - EENT Eyes: Present: anicteric sclerae, EOMI ENT: Present: hearing grossly normal - Respiratory Respiratory: bilateral: CTA - Cardiovascular Heart sounds: normal: S1, S2 - Peripheral edema leg Peripheral Edema: bilateral: None - Gastrointestinal General gastrointestinal: Present: normal bowel sounds - Neurologic Neurologic Comment(s): decreased perineal sensation, BLE weakness/unsteady - Psychiatric Psychiatric Comment(s): Alert, oriented to self, place and time. Her recall and response to questions is a bit slower then I would anticipate in her age group - Labs CBC & Chem 7: 03/14/20 07:42 03/14/20 07:42 Labs: Abnormal Lab Results - Last 24 Hours (Table) 03/14/20 03/14/20 Range/Units 07:42 07:42 WBC 21.7 H (3.8-10.6) k/uL Hgb 10.2 L (11.4-16.0) gm/dL MCV 71.9 L (80.0-100.0) fL MCH 21.4 L (25.0-35.0) pg MCHC 29.8 L (31.0-37.0) g/dL RDW 23.9 H (11.5-15.5) % Plt Count 460 H (150-450) k/uL Sodium 135 L (137-145) mmol/L Potassium 5.6 H (3.5-5.1) mmol/L BUN 25 H (7-17) mg/dL Glucose 108 H (74-99) mg/dL AST 47 H (14-36) U/L ALT 96 H (4-34) U/L Alkaline Phosphatase 309 H (38-126) U/L Assessment and Plan Plan: Comments: nuclear medicine bone scan report reviewed abnormal MRI report reviewed last week Assessment and Plan Bone lesion - Multiple bone lesions noted on nuclear medicine bone scan 02/24/20. MRI was performed last week and was abnormal. CT of the chest abdomen and pelvis has been ordered to see if there are any masses for biopsy target. - Dr. Alberts did find a left axillary lymph node. - He did review with the patient high concern for malignancy. - Status post biopsy - Pending - Patient's decreased perineal sensation, started on 4 mg of dexamethasone every 6 hours. Will follow up. Soft Tissue Mass Extending T9-T10: - Continue Dex AND ppi - Radiation Oncology on Consult - Status Post EGD and COlonoscopy, no mass identified per procedure note - MRI Brain reviewed no suspicious metastatic lesions Microcytic hypochromic anemia: - Workup ordered. Transfusion for hemoglobin less than 7 or if symptomatic. - If iron deficient, Gastroenterology consultation for endoscopy would be most appropriate to be done sooner then later. - Patient has never had these age-related cancer screenings. - Parental Iron Ordered x5 days for evidence of iron deficiency Neoplastic related pain: - Increase fentanyl patch 50mcg - Continue prn norco and dilaudid - Bowel protocol for narcotic induced constipation PLan: - Review of path with metastatic poorly differentiated adenocarcinoma - await breast molecualr tests (ER/OK/HER2). Path was not resulted when patient was seen earlier this am. - Ask orth to evaluate for stabilization prior to discharge left leg weakness - Will see patient in the office within 1-2 weeks for treatment plan options and further molecular testing - Continue Fentanyl and PRN Pain medication Physician attest: I have completed the full history and physical and agree with above dictation, dictated as a scribe/
--- NOTE | 2020-03-14 15:28 | P.PN ---
Subjective Progress Note Date: 03/14/20 Principal diagnosis: Suspected lung cancer involving the right lung with multiple metastatic lesions in the spine as well as 3.3 cm left adrenal lesion On 03/08/2020 patient seen in follow-up on medical oncology unit. She is awake and alert, in no acute distress, she is resting comfortably in bed, no complete shortness of breath, still having some pain in bilateral lower extremities, and numbness in the groin area. No loss of bowel or bladder control. Lung sounds are clear, patient is on room air, pulse ox is 95%, vital signs are stable. Patient is afebrile. Patient is awaiting biopsy by interventional radiology of the adrenal mass. She is going for MRI of the brain and the thoracic spine to rule out possibility of brain and spine metastasis. Patient is currently on oral dexamethasone at 4 mg 4 times daily, empiric antibiotics with Rocephin. Today's labs have been reviewed, showing white blood cell count of 12.6, hemoglobin of 7.6, electrolytes and renal profile were within normal limits. Coronavirus PCR was not detected, 2 for occult blood was negative, urinalysis showed possibility of UTI, with large amount of leuks, white blood cells and bacteria, however urine culture showed no growth. Patient is having no reports of dysuria. On 03/12/2020 patient seen in follow-up on medical oncology floor. She is resting comfortably in bed, in no acute distress, she does complain of right hip pain especially with ambulation. Seems to be comfortable at the moment, no complaints of difficulty breathing, no cough, no hemoptysis, no congestion. Patient has started radiation treatments to the thoracic and lumbar spine as well as the left proximal femur last Thursday on 03/09/2020. Patient is status post left adrenal mass biopsy, still awaiting results of the biopsy. Room air pulse ox 96%, no fever or chills, vital signs are stable, lung sounds are clear. Patient is receiving pain medications controlled the back pain, and right hip pain. Patient is on oral, IV and transdermal narcotics, she also has been started on oral Decadron. His labs have been reviewed, showing white blood cell count of 17.2, hemoglobin of 9.7, sodium is 135, potassium is 5.2, chloride is 100, BUN is 18, creatinine 0.63. On 03/13/2020 patient seen in follow-up on general medical oncology floor. She is laying in bed, in no acute distress, she still has back pain and right hip pain, she states as long as she is laying flat in bed she is comfortable, but if she sits up or bears weight the pain becomes much worse. She started radiation treatments, she is on oral dexamethasone and Dilantin as well as Cleveland for pain. She is receiving Zofran for nausea. From pulmonary perspective she denies any pulmonary complaints, no chest pain, no cough or congestion, she is on room air, lung sounds are clear. Surgical biopsy from the adrenal mass is still pending at this time. Discharge planning is in progress for discharge home, apparently ECF placement was not possible because ECF declined an admission of a patient on radiation therapy. It is planned that the patient will go home with her daughter who will be providing transportation and necessary support at home. On 03/14/2020 patient seen in follow-up on general medical oncology floor. She is resting comfortably in bed, she was up walking with a walker in the physical therapist, tolerated activity fairly well. She states she does fairly well with pain control when she is laying flat up walking, but sitting position is difficult for her, she denies any pulmonary complaints, no shortness of breath, no cough or congestion, no chest pain, no hemoptysis. Patient is on termination of Duragesic patch, Cleveland, and IV Dilaudid for pain control. Adrenal mass biopsy showed metastatic poorly differentiated adenocarcinoma in the desmoplastic background, with possible primary sites including upper GI, breast or lung primary. patient is anticipated to be discharged home today, and continue radiation therapy to her lumbar spine Objective - Vital Signs Vital signs: Vital Signs Temp 96.4 F L 03/14/20 12:55 Pulse 76 03/14/20 12:55 Resp 18 03/14/20 12:55 BP 135/63 03/14/20 12:55 Pulse Ox 95 03/14/20 12:55 Intake & Output 03/13/20 03/14/20 03/14/20 18:59 06:59 18:59 Intake Total 800 100 Balance 800 100 Intake: Intake, IV Titration 100 Amount Sodium Ferric Gluconat- 100 Sucrose 125 mg In Sodium Chloride 0.9% 100 ml @ 100 mls/hr IVPB DAILY@ 1200 [facility] Rx#:[id number] Oral 800 Other: Voiding Method Toilet Bedside Commode Bedside Commode Bedside Commode # Voids 2 4 3 - Exam GENERAL EXAM: Alert, very pleasant, 64-year-old white female, on room air, with a pulse ox of 98% comfortable in no apparent distress. Patient is lying flat in bed, due to increased back and right hip pain HEAD: Normocephalic/atraumatic. EYES: Normal reaction of pupils, equal size. Conjunctiva pink, sclera white. NOSE: Clear with pink turbinates. THROAT: No erythema or exudates. NECK: No masses, no JVD, no thyroid enlargement, no adenopathy. CHEST: No chest wall deformity. Symmetrical expansion. LUNGS: Equal air entry with no crackles, wheeze, rhonchi or dullness. CVS: Regular rate and rhythm, normal S1 and S2, no gallops, no murmurs, no rubs ABDOMEN: Soft, nontender. No hepatosplenomegaly, normal bowel sounds, no guarding or rigidity. EXTREMITIES: No clubbing, no edema, no cyanosis, 2+ pulses and upper and lower extremities. MUSCULOSKELETAL: Muscle strength and tone normal. SPINE: No scoliosis or deformity SKIN: No rashes CENTRAL NERVOUS SYSTEM: Alert and oriented -3. No focal deficits, tone is normal in all 4 extremities. PSYCHIATRIC: Alert and oriented -3. Appropriate affect. Intact judgment and insight. - Labs CBC & Chem 7: 03/14/20 07:42 03/14/20 07:42 Labs: Abnormal Lab Results - Last 24 Hours (Table) 03/14/20 03/14/20 Range/Units 07:42 07:42 WBC 21.7 H (3.8-10.6) k/uL Hgb 10.2 L (11.4-16.0) gm/dL MCV 71.9 L (80.0-100.0) fL MCH 21.4 L (25.0-35.0) pg MCHC 29.8 L (31.0-37.0) g/dL RDW 23.9 H (11.5-15.5) % Plt Count 460 H (150-450) k/uL Sodium 135 L (137-145) mmol/L Potassium 5.6 H (3.5-5.1) mmol/L BUN 25 H (7-17) mg/dL Glucose 108 H (74-99) mg/dL AST 47 H (14-36) U/L ALT 96 H (4-34) U/L Alkaline Phosphatase 309 H (38-126) U/L Assessment and Plan Plan: Assessment: #1. Metastatic poorly differentiated adenocarcinoma, with possible primary sites including upper GI, breast or lung, #2. Right suprahilar soft tissue mass extending towards the right apex showing up to 6.6 cm by 6.5 cm, with additional focal satellite nodularity in the anterior right upper lobe measuring 2.1 cm x 1.2 cm, and 3 mm peripheral left lower lobe pulmonary nodule, with multiple metastatic lesions in the spine as well as a 3.3 cm left adrenal lesion, and posterior lower ribs and right iliac #3. Back and right hip pain related to metastatic disease, patient started on radiation treatments, patient is also on dexamethasone oral [place] and Dilaudid #4. History of hypothyroidism, not on any thyroid hormone related to medical noncompliance #5. Prior history of tobacco use, 27 years of 1-1 a half packs per day, in remission for last 20 years #6. Acute on chronic back pain, possibly related to metastatic spinal deposits #7. Anemia, of unclear etiology, GI consultation is pending #8. Possible urinary tract infection, urine culture showed no growth Plan: biopsy results have been noted, patient has been started on radiation therapy. Discharge planning is in progress for discharge home today with a walker, and home care, hospital bed has been arranged. patient will have outpatient follow- up with medical and radiation oncology. I performed a history & physical examination of the patient and discussed their management with my nurse practitioner, Jeanine Wilburn. I reviewed the nurse practitioner's note and agree with the documented findings and plan of care. Lung sounds are positive for clear breath sounds. The findings and the impression was discussed with the patient. I attest to the documentation by the nurse practitioner. Time with Patient: Less than 30
--- NOTE | 2020-03-14 23:31 | P.CNOR ---
History of Present Illness - [facility] Consult date: 03/14/20 Requesting physician: Manuela Thacker Consult reason: low back pain, other (Right lower extremity radiculopathy; metas tatic disease to spine) History of present illness: Patient is a pleasant 64-year-old female who is seen and examined at bedside for further evaluation after consultation was placed by oncology in regards to patient's low back pain and lower extremity with known metastatic cancer. Patient states she has some low back pain but her pain is most severe radiating down the right posterior thigh exacerbated while sitting upright. Her pain is controlled while lying in bed. Her pain improves during ambulation. She denies any lower extremity weakness bilaterally. She denies the left lower extremity radiculopathy. She is not currently experiencing any significant thoracic or lumbar back pain. She denies any thoracic radiculopathy radiating around the ribs. Patient continues to be seen and examined by oncology. She has undergone an adrenal biopsy which resulted today with metastatic poorly differentiated adenocarcinoma. Patient is currently waiting for breast molecular testing results. Patient has been undergoing radiation treatment. She originally followed with Dr. Selby in pain management at [facility] who ordered an MRI of the lumbar spine which showed some abnormalities which led to a recent bone scan. Patient does have a sister with known breast cancer. Past Medical History Past Medical History: Thyroid Disorder Additional Past Medical History / Comment(s): Hypothyroidism. History of Any Multi-Drug Resistant Organisms: None Reported Past Surgical History: Tonsillectomy Past Anesthesia/Blood Transfusion Reactions: No Reported Reaction Past Psychological History: No Psychological Hx Reported Past Alcohol Use History: Rare Additional Past Alcohol Use History / Comment(s): Patient was a smoker of one and half packs per day for 22 years and quit approximately 20 years ago. She has rare alcohol intake. She denies any marijuana or street drug use. Past Drug Use History: None Reported - Past Family History Mother Family Medical History: Cancer, CVA/TIA Additional Family Medical History / Comment(s): Mother at age 75 from some type of cancer outside the colon. Sister(s) Family Medical History: Cancer Additional Family Medical History / Comment(s): Patient has one sister with history of breast cancer, atrial fibrillation and hypertension. Father Additional Family Medical History / Comment(s): Father is alive at age 92 with history of coronary artery disease, hypertension, hyperlipidemia, benign prostatic hypertrophy. Brother(s) Additional Family Medical History / Comment(s): Patient has 2 brothers with no major medical problems. Patient has 2 children: One son with hypothyroidism and one daughter with no major medical problems. Medications and Allergies Home Medications Medication Instructions Recorded Confirmed Type RX: Naproxen Sodium [Aleve] 440 mg PO BID PRN 03/05/20 03/05/20 History RX: Pantoprazole [Protonix] 40 mg PO DAILY 03/05/20 03/05/20 History RX: Dexamethasone [Hexadrol] 4 mg PO QID #120 tab 03/12/20 Rx RX: HYDROcodone/APAP 7.5-325MG 1 each PO Q6H PRN #12 tab 03/12/20 Rx [Eagle 7.5-325] RX: Levothyroxine Sodium 50 mcg PO DAILY@0630 #30 tab 03/12/20 Rx [Synthroid] RX: Magnesium Hydroxide [Milk of 2,400 mg PO ONCE PRN ml 03/12/20 Rx Magnesia Concentrate] RX: Sennosides-Docusate Sodium 2 each PO BID tab 03/12/20 Rx [Senokot-S] RX: fentaNYL 25MCG/HR PATCH 1 patch TRANSDERM Q72H #1 patch 03/12/20 Rx [Duragesic 25MCG/HR] Allergies Allergy/AdvReac Type Severity Reaction Status Date / Time No Known Allergies Allergy Verified 03/05/20 19:27 Physical Examination Physical exam: Patient is awake, alert, and oriented 3 Vital signs stable Good chest excursion with deep inspiration and expiration Abdomen soft nontender Examination of lumbar spine reveals skin is intact with no abrasions, lacerations, or bruises; no erythema, purulence or signs of infection palpation of the lumbar spine Dorsiflexion, plantarflexion, and extensor hallucis longus positive sustained bilaterally Lower extremity strength 5/5 bilaterally Patellar reflex 2+ bilaterally and Achilles reflexes 2+ bilaterally No lower extremity hyperreflexia bilaterally Straight leg test negative bilateral lower extremities Negative Lasegue's test bilaterally No signs or symptoms of DVT; no calf pain No pain with internal and external rotation of the hips bilaterally Neurovascularly intact Results Pertinent studies: MRI thoracic spine taken on 03/09/2020: Evidence of soft tissue metastasis along the left paracentral region at T9-10 extending to the foramen causing foraminal stenosis; no evidence of spinal canal stenosis or cord involvement evident; extensive osseous metastasis to the thoracic spine including T6, T9, T11, and T12 with greatest involvement appearing to be at T9 CT of the chest abdomen and pelvis taken on 03/09/2020: Evaluation of osseous structure shows permeative destruction of the right sacral alar, soft tissue infiltration as well as the right S1-S2 neural foramen; lesser degree of permeative lucency within the left sacroiliac; some abnormal heterogeneity of the body of the sacrum and findings suspected to represent pathological zone 2 sacral fractures; permeative lucency involving the left L3 transverse process; subtle lytic lesion involving the left T12 posterior vertebral body; abnormal soft tissue left paraspinal region extending to the left T9 and 10 neural foramen and on the left lateral spine canal; large right upper lobe mass with opacity; metastatic disease with left adrenal mass Nuclear medicine whole-body bone scan performed on 02/24/2020: Multiple scattered areas of uptake suspicious for metastatic disease most prominent at the thoracic and lumbar spine, left proximal femur at the level of the trochanter, posterior lower ribs, and right iliac - Labs Labs: Abnormal Lab Results - Last 24 Hours (Table) 03/14/20 03/14/20 Range/Units 07:42 07:42 WBC 21.7 H (3.8-10.6) k/uL Hgb 10.2 L (11.4-16.0) gm/dL MCV 71.9 L (80.0-100.0) fL MCH 21.4 L (25.0-35.0) pg MCHC 29.8 L (31.0-37.0) g/dL RDW 23.9 H (11.5-15.5) % Plt Count 460 H (150-450) k/uL Sodium 135 L (137-145) mmol/L Potassium 5.6 H (3.5-5.1) mmol/L BUN 25 H (7-17) mg/dL Glucose 108 H (74-99) mg/dL AST 47 H (14-36) U/L ALT 96 H (4-34) U/L Alkaline Phosphatase 309 H (38-126) U/L H & H 03/05/20 03/07/20 03/09/20 Range/Units 17:32 06:26 06:02 Hgb 8.3 L 7.6 L 7.5 L (11.4-16.0) gm/dL Hct 28.2 L 26.1 L 25.9 L (34.0-46.0) % 03/10/20 03/11/20 03/12/20 Range/Units 06:31 06:26 05:04 Hgb 8.3 L 9.2 L 9.7 L (11.4-16.0) gm/dL Hct 28.0 L 31.1 L 32.3 L (34.0-46.0) % 03/14/20 Range/Units 07:42 Hgb 10.2 L (11.4-16.0) gm/dL Hct 34.4 (34.0-46.0) % Coagulation 03/08/20 Range/Units 11:00 INR 1.0 (<1.2) Result Diagrams: 03/14/20 07:42 03/14/20 07:42 Assessment and Plan Assessment: Assessment: Low back pain Positional right lower extremity radiculopathy, left L3 transverse process, and T12 vertebral body Increased uptake suspicious for metastatic disease at the left proximal femur at the level of the trochanter Metastatic disease to the spine with bony changes at the sacral ala Metastatic disease to the spine throughout the thoracic spine seen at the vertebral bodiesof T6, T9, T11, & T12 Soft tissue metastasis along the left paracentral region of the T9-10 Large right upper lobe mass Metastatic disease with left adrenal mass Metastatic poorly differentiated adenocarcinoma (1) Low back pain Current Visit: Yes Status: Acute Code(s): M54.5 - LOW BACK PAIN SNOMED Code(s): 423516257 (2) Lumbar back pain with radiculopathy affecting right lower extremity Current Visit: Yes Status: Acute Code(s): M54.16 - RADICULOPATHY, LUMBAR REGION SNOMED Code(s): 162425490 (3) Mass of upper lobe of right lung Current Visit: Yes Status: Acute Code(s): R91.8 - OTHER NONSPECIFIC ABNORMAL FINDING OF LUNG FIELD SNOMED Code(s): 241905937 (4) Adrenal mass Current Visit: Yes Status: Acute Code(s): E27.8 - OTHER SPECIFIED DISORDERS OF ADRENAL GLAND SNOMED Code(s): 137540665 (5) Adenocarcinoma Current Visit: Yes Status: Acute Code(s): C80.1 - MALIGNANT (PRIMARY) NEOPLASM, UNSPECIFIED SNOMED Code(s): 414343727 (6) Bone metastasis Current Visit: Yes Status: Acute Code(s): C79.51 - SECONDARY MALIGNANT NEOPLASM OF BONE SNOMED Code(s): 86420235 (7) Family history of breast cancer Current Visit: Yes Status: Acute Code(s): Z80.3 - FAMILY HISTORY OF MALIGNANT NEOPLASM OF BREAST SNOMED Code(s): 518192992 (8) Multiple lesions of metastatic malignancy Current Visit: Yes Status: Acute Code(s): C79.9 - SECONDARY MALIGNANT NEOPLASM OF UNSPECIFIED SITE SNOMED Code(s): 165155503 (9) Microcytic hypochromic anemia Current Visit: Yes Status: Acute Priority: High Code(s): D50.9 - IRON DEFICIENCY ANEMIA, UNSPECIFIED SNOMED Code(s): 72005468 Plan: Plan: 1. Imaging has been reviewed by myself and Dr. Buddy Kramer. After further discussion with the patient, discussing imaging, and physical examination the patient, we will currently plan to continue conservative treatment at this time. Patient is experiencing some low back pain with pain radiating down the right posterior lateral thigh to the knee which is exacerbated while sitting upright. She feels her pain is adequately controlled while lying in bed and with ambulation. She does state her pain is debilitating while sitting upright. She does have multiple areas of bony change in her thoracic spine as well as her sacrum most likely due to metastatic disease. She is currently undergoing further workup with oncology. She is known to have a right upper lobe mass and a the left adrenal mass. Patient would like to continue working through conservative treatment options. We discussed she could benefit from bracing. At this time a prescription is written, signed, provided to case management for an Exos LSO brace. We discussed once this brace is delivered and fitted appropriately, she may wear this brace for comfort support while sitting upright and during other increase activities. Brace does not have to be worn while lying in bed or while bathing. We discussed patient will be cleared for discharge from an orthopedic spine standpoint. She has recently undergone lumbar MRI imaging performed at [facility]. We will plan to review this imaging in detail at her follow-up appointment. At this time patient would like to continue conservative treatment we will continue to manage her in the outpatient setting. We did discuss the importance of continuing to follow with oncology and radiation oncology for further treatment and evaluation. Once her brace is delivered and fitted appropriately, patient is clear for discharge from an orthopedic spine standpoint. Patient may follow up with Roberto Monsivais PA-C or Dr. Buddy Mosley at [facility] in approximately 2 weeks for further evaluation. Prior to her discharge, we will plan to obtain X-rays of the left hip for further evaluation as previous bone scan imaging did show increased uptake suspicious for metastatic disease at the left proximal femur at the level of the trochanter. We will obtain X-rays to further evaluated the significance of the bony change seen on bone scan testing. 2. Patient will continue recently examined by other medical providers including oncology and medicine Time with Patient: Greater than 30 (Including obtaining history, physical examination, reviewing of imaging, and dictation.)
[2020-03-15] MEDS: LEVOTHYROXINE 50 MCG TAB PO SCH (05:43)
[2020-03-15] MEDS: PANTOPRAZOLE 40 MG TABLET PO SCH (05:45)
[2020-03-15] MEDS: HYDROcodone/APAP 7.5-325MG 1 EACH TAB PO PRN ×2 (07:39→13:34)
[2020-03-15] MEDS: SENNOSIDES-DOCUSATE SODIUM 1 EACH TAB PO SCH (08:46)
[2020-03-15] MEDS: dexAMETHasone 4 MG TAB PO SCH ×2 (08:50→13:34)
[2020-03-15] MEDS: ENOXAPARIN 40 MG/0.4 ML SYRINGE SQ SCH (10:32)
--- NOTE | 2020-03-15 11:21 | P.PN ---
Progress Note - Text Progress Note Date: 03/15/20 Orthopedic spine: History of present illness: Patient is a pleasant 64-year-old female who is seen and examined at bedside for follow-up evaluation after consultation was placed by oncology in regards to patient's low back pain and lower extremity with known metastatic cancer. Patient has not had any change in her symptoms since being seen and examined yesterday. Patient states she has some low back pain but her pain is most severe radiating down the right posterior thigh exacerbated while sitting upright. Her pain is controlled while lying in bed. Her pain improves during ambulation. She denies any lower extremity weakness bilaterally. She denies the left lower extremity radiculopathy. She is not currently experiencing any significant thoracic or lumbar back pain. She denies any thoracic radiculopathy radiating around the ribs. She denies any pain at the left hip. Patient continues to be seen and examined by oncology. She has undergone an adrenal biopsy which resulted today with metastatic poorly differentiated fortino nocarcinoma. Patient is currently waiting for breast molecular testing results. Patient has been undergoing radiation treatment. She is scheduled for radiation treatment today. She originally followed with Dr. Selby in pain management at [facility] who ordered an MRI of the lumbar spine which showed some abnormalities which led to a recent bone scan. Patient does have a sister with known breast cancer. X-rays were also ordered yesterday of the left hip which are scheduled to be performed this morning prior to her radiation treatment. An LSO brace was prescribed yesterday which was delivered and fitted yesterday. Patient has not tried wearing this brace while sitting upright. She did try to wear this brace during ambulation which did support her lumbar spine but some pain towards the right hip due to positioning. Physical exam: Patient is awake, alert, and oriented 3 Vital signs stable Good chest excursion with deep inspiration and expiration Abdomen soft nontender Examination of lumbar spine reveals skin is intact with no abrasions, lacerations, or bruises; no erythema, purulence or signs of infection palpation of the lumbar spine Dorsiflexion, plantarflexion, and extensor hallucis longus positive sustained bilaterally Lower extremity strength 5/5 bilaterally Patellar reflex 2+ bilaterally and Achilles reflexes 2+ bilaterally No lower extremity hyperreflexia bilaterally Straight leg test negative bilateral lower extremities Negative Lasegue's test bilaterally No signs or symptoms of DVT; no calf pain No pain with internal and external rotation of the hips bilaterally Neurovascularly intact Pertinent studies: MRI thoracic spine taken on 03/09/2020: Evidence of soft tissue metastasis along the left paracentral region at T9-10 extending to the foramen causing foraminal stenosis; no evidence of spinal canal stenosis or cord involvement evident; extensive osseous metastasis to the thoracic spine including T6, T9, T11, and T12 with greatest involvement appearing to be at T9 CT of the chest abdomen and pelvis taken on 03/09/2020: Evaluation of osseous structure shows permeative destruction of the right sacral alar, soft tissue infiltration as well as the right S1-S2 neural foramen; lesser degree of permeative lucency within the left sacroiliac; some abnormal heterogeneity of the body of the sacrum and findings suspected to represent pathological zone 2 sacral fractures; permeative lucency involving the left L3 transverse process; subtle lytic lesion involving the left T12 posterior vertebral body; abnormal soft tissue left paraspinal region extending to the left T9 and 10 neural foramen and on the left lateral spine canal; large right upper lobe mass with opacity; metastatic disease with left adrenal mass Nuclear medicine whole-body bone scan performed on 02/24/2020: Multiple scattered areas of uptake suspicious for metastatic disease most prominent at the thoracic and lumbar spine, left proximal femur at the level of the trochanter, posterior lower ribs, and right iliac Assessment: Low back pain Positional right lower extremity radiculopathy, left L3 transverse process, and T12 vertebral body Increased uptake suspicious for metastatic disease at the left proximal femur at the level of the trochanter Metastatic disease to the spine with bony changes at the sacral ala Metastatic disease to the spine throughout the thoracic spine seen at the vertebral bodiesof T6, T9, T11, & T12 Soft tissue metastasis along the left paracentral region of the T9-10 Large right upper lobe mass Metastatic disease with left adrenal mass Metastatic poorly differentiated adenocarcinoma Plan: 1. We will continue conservative treatment at this time as set forth yesterday in regards to her thoracic and lumbosacral spines. Previous imaging has been reviewed by myself and Dr. Buddy Kramer. After further discussion with the patient, discussing imaging, and physical examination the patient, we will currently plan to continue conservative treatment at this time. Patient is experiencing some low back pain with pain radiating down the right posterior lateral thigh to the knee which is exacerbated while sitting upright. She feels her pain is adequately controlled while lying in bed and with ambulation. She does state her pain is debilitating while sitting upright. She does have multiple areas of bony change in her thoracic spine as well as her sacrum most likely due to metastatic disease. She is currently undergoing further workup with oncology. She is known to have a right upper lobe mass and a the left adrenal mass. Patient would like to continue working through conservative treatment options. We discussed she could benefit from bracing. Yesterday a prescription was written, signed, provided to case management for an Exos LSO brace. This brace has been delivered and fitted for the patient. We discussed she may wear r this brace for comfort and support while sitting upright and during other increase activities. Brace does not have to be worn while lying in bed or while bathing. She has recently undergone lumbar MRI imaging performed at [facility]. We will plan to review this imaging in detail at her follow-up appointment. At this time patient would like to continue conservative treatment we will continue to manage her in the outpatient setting. We did discuss the importance of continuing to follow with oncology and radiation oncology for further treatment and evaluation. Once her brace is delivered and fitted appropriately, patient is clear for discharge from an orthopedic spine standpoint. Patient may follow up with Roberto Henriquez PA-C or Dr. Buddy Kramer at [facility] in approximately 2 weeks for further evaluation. Prior to her discharge, we will plan to obtain X-rays of the left hip for further evaluation as previous bone scan imaging did show increased uptake suspicious for metastatic disease at the left proximal femur at the level of the trochanter. We will obtain X-rays to further evaluated the significance of the bony change seen on bone scan testing. If there are no significant findings on her x-ray imaging, patient will be cleared for discharge today. Patient not currently experiencing any pain at the left hip. She does not experience any pain in the left hip with active or passive range of motion of the left hip. 2. Patient will continue recently examined by other medical providers including oncology and medicine
--- NOTE | 2020-03-15 12:19 | P.PN ---
Subjective Progress Note Date: 03/15/20 Principal diagnosis: Suspected lung cancer involving the right lung with multiple metastatic lesions in the spine as well as 3.3 cm left adrenal lesion On 03/08/2020 patient seen in follow-up on medical oncology unit. She is awake and alert, in no acute distress, she is resting comfortably in bed, no complete shortness of breath, still having some pain in bilateral lower extremities, and numbness in the groin area. No loss of bowel or bladder control. Lung sounds are clear, patient is on room air, pulse ox is 95%, vital signs are stable. Patient is afebrile. Patient is awaiting biopsy by interventional radiology of the adrenal mass. She is going for MRI of the brain and the thoracic spine to rule out possibility of brain and spine metastasis. Patient is currently on oral dexamethasone at 4 mg 4 times daily, empiric antibiotics with Rocephin. Today's labs have been reviewed, showing white blood cell count of 12.6, hemoglobin of 7.6, electrolytes and renal profile were within normal limits. Coronavirus PCR was not detected, 2 for occult blood was negative, urinalysis showed possibility of UTI, with large amount of leuks, white blood cells and bacteria, however urine culture showed no growth. Patient is having no reports of dysuria. On 03/12/2020 patient seen in follow-up on medical oncology floor. She is resting comfortably in bed, in no acute distress, she does complain of right hip pain especially with ambulation. Seems to be comfortable at the moment, no complaints of difficulty breathing, no cough, no hemoptysis, no congestion. Patient has started radiation treatments to the thoracic and lumbar spine as well as the left proximal femur last Thursday on 03/09/2020. Patient is status post left adrenal mass biopsy, still awaiting results of the biopsy. Room air pulse ox 96%, no fever or chills, vital signs are stable, lung sounds are clear. Patient is receiving pain medications controlled the back pain, and right hip pain. Patient is on oral, IV and transdermal narcotics, she also has been started on oral Decadron. His labs have been reviewed, showing white blood cell count of 17.2, hemoglobin of 9.7, sodium is 135, potassium is 5.2, chloride is 100, BUN is 18, creatinine 0.63. On 03/13/2020 patient seen in follow-up on general medical oncology floor. She is laying in bed, in no acute distress, she still has back pain and right hip pain, she states as long as she is laying flat in bed she is comfortable, but if she sits up or bears weight the pain becomes much worse. She started radiation treatments, she is on oral dexamethasone and Dilantin as well as [place] for pain. She is receiving Zofran for nausea. From pulmonary perspective she denies any pulmonary complaints, no chest pain, no cough or congestion, she is on room air, lung sounds are clear. Surgical biopsy from the adrenal mass is still pending at this time. Discharge planning is in progress for discharge home, apparently ECF placement was not possible because ECF declined an admission of a patient on radiation therapy. It is planned that the patient will go home with her daughter who will be providing transportation and necessary support at home. On 03/14/2020 patient seen in follow-up on general medical oncology floor. She is resting comfortably in bed, she was up walking with a walker in the physical therapist, tolerated activity fairly well. She states she does fairly well with pain control when she is laying flat up walking, but sitting position is difficult for her, she denies any pulmonary complaints, no shortness of breath, no cough or congestion, no chest pain, no hemoptysis. Patient is on termination of Duragesic patch, [place], and IV Dilaudid for pain control. Adrenal mass biopsy showed metastatic poorly differentiated adenocarcinoma in the desmoplastic background, with possible primary sites including upper GI, breast or lung primary. patient is anticipated to be discharged home today, and continue radiation therapy to her lumbar spine On 03/15/2020 patient seen in follow-up on general medical oncology floor, she is being taken down for her radiation treatment today, she is awake and alert, resting on the gurney, he is laying flat, room air pulse ox is 96%, she denies any shortness of breath, she is afebrile, lung sounds are clear, diminished at the bases, no rhonchi or wheezing. She was evaluated by orthopedic surgery in regards to the treatment for her thoracic and lumbar sacral spine metastatic disease in the plan is conservative treatment at this time and to continue with radiation treatments. Vital signs are stable, patient is afebrile, breathing is nonlabored, no cough or congestion. Patient is on oral Decadron, fentanyl patch, hydrocodone and IV Dilaudid for breakthrough pain. Discharge planning is in progress for discharge home today, discharge planning is following. Objective - Vital Signs Vital signs: Vital Signs Temp 97.4 F L 03/15/20 05:00 Pulse 84 03/15/20 08:00 Resp 18 03/15/20 08:00 BP 138/75 03/15/20 05:00 Pulse Ox 96 03/15/20 05:00 Intake & Output 03/14/20 03/15/20 03/15/20 18:59 06:59 18:59 Intake Total 100 1040 Balance 100 1040 Intake: Intake, IV Titration 100 Amount Sodium Ferric Gluconat- 100 Sucrose 125 mg In Sodium Chloride 0.9% 100 ml @ 100 mls/hr IVPB DAILY@ 1200 MARY JANE Rx#:[id number] Oral 1040 Other: Voiding Method Bedside Commode Bedside Commode Bedside Commode # Voids 3 2 3 # Bowel Movements 2 - Exam GENERAL EXAM: Alert, very pleasant, 64-year-old white female, on room air, with a pulse ox of 96% comfortable in no apparent distress. Patient is lying flat in bed, due to increased back and right hip pain HEAD: Normocephalic/atraumatic. EYES: Normal reaction of pupils, equal size. Conjunctiva pink, sclera white. NOSE: Clear with pink turbinates. THROAT: No erythema or exudates. NECK: No masses, no JVD, no thyroid enlargement, no adenopathy. CHEST: No chest wall deformity. Symmetrical expansion. LUNGS: Equal air entry with no crackles, wheeze, rhonchi or dullness. CVS: Regular rate and rhythm, normal S1 and S2, no gallops, no murmurs, no rubs ABDOMEN: Soft, nontender. No hepatosplenomegaly, normal bowel sounds, no guarding or rigidity. EXTREMITIES: No clubbing, no edema, no cyanosis, 2+ pulses and upper and lower extremities. MUSCULOSKELETAL: Muscle strength and tone normal. SPINE: No scoliosis or deformity SKIN: No rashes CENTRAL NERVOUS SYSTEM: Alert and oriented -3. No focal deficits, tone is normal in all 4 extremities. PSYCHIATRIC: Alert and oriented -3. Appropriate affect. Intact judgment and insight. - Labs CBC & Chem 7: 03/14/20 07:42 03/14/20 07:42 Assessment and Plan Plan: Assessment: #1. Metastatic poorly differentiated adenocarcinoma, likely related to primary lung adenocarcinoma #2. Right suprahilar soft tissue mass extending towards the right apex showing up to 6.6 cm by 6.5 cm, with additional focal satellite nodularity in the anterior right upper lobe measuring 2.1 cm x 1.2 cm, and 3 mm peripheral left lower lobe pulmonary nodule, with multiple metastatic lesions in the spine as well as a 3.3 cm left adrenal lesion, and posterior lower ribs and right iliac #3. Back and right hip pain related to metastatic disease, patient started on radiation treatments, patient is also on dexamethasone oral [place] and Dilaudid #4. History of hypothyroidism, not on any thyroid hormone related to medical noncompliance #5. Prior history of tobacco use, 27 years of 1-1 a half packs per day, in remission for last 20 years #6. Acute on chronic back pain, possibly related to metastatic spinal deposits #7. Anemia, of unclear etiology, GI consultation is pending #8. Possible urinary tract infection, urine culture showed no growth Plan: Maintain pain control, patient continues on radiation treatments, vital signs are stable, no worsening shortness of breath, patient is going for radiation treatment today, discharge planning is in progress for discharge home today. I performed a history & physical examination of the patient and discussed their management with my nurse practitioner, Jeanine Wilburn. I reviewed the nurse practitioner's note and agree with the documented findings and plan of care. Lung sounds are positive for clear breath sounds. The findings and the impress ion was discussed with the patient. I attest to the documentation by the nurse practitioner. Time with Patient: Less than 30
--- NOTE | 2020-03-15 12:51 | XR ---
Left hip HISTORY: Left hip pain 2 views of the left hip Correlation to CT scan dated 03/06/2020 Bone mineralization, joint spaces and alignment are maintained. No fracture or dislocation. IMPRESSION: Normal left hip
[2020-03-15 14:15] VITALS: BP 129/77; PULSE 95; RESP 17; TEMP 97.6
--- NOTE | 2020-03-15 15:15 | P.PN ---
Subjective Progress Note Date: 03/15/20 Principal diagnosis: metastatic picture Dr. Alberts seen and evaluated patient this am. She had no acute events overnight. Planning for discharge today. Ortho has seen patient and brace ordered Objective - Vital Signs Vital signs: Vital Signs Temp 97.6 F 03/15/20 14:13 Pulse 95 03/15/20 14:13 Resp 17 03/15/20 14:13 BP 129/77 03/15/20 14:13 Pulse Ox 95 03/15/20 14:13 Intake & Output 03/14/20 03/15/20 03/15/20 18:59 06:59 18:59 Intake Total 100 1040 Balance 100 1040 Intake: Intake, IV Titration 100 Amount Sodium Ferric Gluconat- 100 Sucrose 125 mg In Sodium Chloride 0.9% 100 ml @ 100 mls/hr IVPB DAILY@ 1200 MARY JANE Rx#:[id number] Oral 1040 Other: Voiding Method Bedside Commode Bedside Commode Bedside Commode # Voids 3 2 3 # Bowel Movements 2 - Exam - Constitutional General appearance: Present: average body habitus, cooperative, mild distress - EENT Eyes: Present: anicteric sclerae, EOMI ENT: Present: hearing grossly normal - Respiratory Respiratory: bilateral: CTA - Cardiovascular Heart sounds: normal: S1, S2 - Peripheral edema leg Peripheral Edema: bilateral: None - Gastrointestinal General gastrointestinal: Present: normal bowel sounds - Neurologic Neurologic Comment(s): decreased perineal sensation, BLE weakness/unsteady - Psychiatric Psychiatric Comment(s): Alert, oriented to self, place and time. Her recall and response to questions is a bit slower then I would anticipate in her age group - Labs CBC & Chem 7: 03/14/20 07:42 03/14/20 07:42 Assessment and Plan Plan: Comments: nuclear medicine bone scan report reviewed abnormal MRI report reviewed last week Assessment and Plan Bone lesion - Multiple bone lesions noted on nuclear medicine bone scan 02/24/20. MRI was performed last week and was abnormal. CT of the chest abdomen and pelvis has been ordered to see if there are any masses for biopsy target. - Dr. Alberts did find a left axillary lymph node. - He did review with the patient high concern for malignancy. - Status post biopsy - Pending - Patient's decreased perineal sensation, Currentlu 4 mg of dexamethasone every 6 hours. Discharge on 4mg po BID Soft Tissue Mass Extending T9-T10: - Continue Dex AND ppi - Radiation Oncology on Consult - Status Post EGD and COlonoscopy, no mass identified per procedure note - MRI Brain reviewed no suspicious metastatic lesions Microcytic hypochromic anemia: - Workup ordered. Transfusion for hemoglobin less than 7 or if symptomatic. - If iron deficient, Gastroenterology consultation for endoscopy would be most appropriate to be done sooner then later. - Patient has never had these age-related cancer screenings. - Parental Iron Ordered x5 days for evidence of iron deficiency Neoplastic related pain: - Increase fentanyl patch 50mcg - Continue prn norco and dilaudid - Bowel protocol for narcotic induced constipation PLan: - Review of path with metastatic poorly differentiated adenocarcinoma - await breast molecualr tests (ER/VT/HER2).These have been ordered. Will await these results and then consider if repeat biopsy of lung mass versus liquid biopsy will be obtained. Will also send for NGS and PDL1. - Discharge on Dex and PPI - Will see patient in the office within 1-2 weeks for treatment plan options and further molecular testing - Continue Fentanyl and PRN Pain medication at discharge Physician attest: I have completed the full history and physical and agree with above dictation, dictated as a scribe/
== END 2020-03-15 15:10 | disposition home health service (06) | DRG 543 ==
LOC: EC 16:17 → 5NMEDONC 18:49
PROVIDERS: ADMIT Internal Medicine; ATTEND Internal Medicine
PROC: 0GB23ZX Excision of Left Adrenal Gland, Percutaneous Approach, Diagnostic (ICD-10-PCS; 2020-03-08)
PROC: 0DJD8ZZ Inspection of Lower Intestinal Tract, Via Natural or Artificial Opening Endoscopic (ICD-10-PCS; principal; 2020-03-09 07:45)
PROC: 0DJ08ZZ Inspection of Upper Intestinal Tract, Via Natural or Artificial Opening Endoscopic (ICD-10-PCS; principal; 2020-03-09 07:45)
DX: C79.51 Secondary malignant neoplasm of bone (principal); C34.11 Malignant neoplasm of upper lobe, right bronchus or lung; C34.01 Malignant neoplasm of right main bronchus; C79.72 Secondary malignant neoplasm of left adrenal gland; N39.0 Urinary tract infection, site not specified; Z87.891 Personal history of nicotine dependence; G89.3 Neoplasm related pain (acute) (chronic); R91.8 Other nonspecific abnormal finding of lung field; D63.0 Anemia in neoplastic disease; D53.9 Nutritional anemia, unspecified; D50.9 Iron deficiency anemia, unspecified; E03.9 Hypothyroidism, unspecified; K29.70 Gastritis, unspecified, without bleeding; K44.9 Diaphragmatic hernia without obstruction or gangrene; K57.30 Diverticulosis of large intestine without perforation or abscess without bleeding; K59.00 Constipation, unspecified; K80.20 Calculus of gallbladder without cholecystitis without obstruction; M48.04 Spinal stenosis, thoracic region; M51.17 Intervertebral disc disorders with radiculopathy, lumbosacral region; N28.9 Disorder of kidney and ureter, unspecified; R13.10 Dysphagia, unspecified; Z11.59 Encounter for screening for other viral diseases; Z79.890 Hormone replacement therapy; Z79.899 Other long term (current) drug therapy; Z80.3 Family history of malignant neoplasm of breast; Z82.49 Family history of ischemic heart disease and other diseases of the circulatory system; T38.1X6A Underdosing of thyroid hormones and substitutes, initial encounter; Z91.128 Patient's intentional underdosing of medication regimen for other reason; R53.81 Other malaise; Z91.19 Patient's noncompliance with other medical treatment and regimen
CPT/HCPCS: 36415; 43235; 60699; 70553; 71260; 72157; 73502; 74177; 77012; 77280; 77290; 77307; 77332; 77334; 77336; 77387; 77412; 77427; 80048; 80053; 81001; 82272; 82378; 82607; 82728; 82747; 83540; 83550; 83615; 83921; 84439; 84443; 85025; 85027; 85049; 85610; 86300; 86301; 86304; 87086; 88307; 88341; 88342; 93970; 96361; 96374; 99285

== ENCOUNTER → 2020-03-23 | Outpatient (CLI) | payer MEDICARE ==
--- NOTE | 2020-03-25 16:11 | PE ---
Nuclear medicine PET/CT HISTORY: Lung cancer, initial Patient received 11.3 mCi F-18 FDG intravenously in delayed scanning was performed from the skull bas e through the mid thighs. Localization and attenuation correction CT scan was performed. Correlation to CT 03/06/2020 Chest and neck: Patient's right upper lobe lung mass shows associated hypermetabolic uptake. There is no cervical or supraclavicular adenopathy. Superior mediastinal node shows uptake in the right. Righ t hilar uptake is present. Partial intrathoracic stomach is noted, hiatal hernia. Incidental gallston e noted. No pleural or pericardial effusion. Liver shows multiple foci of abnormal hypermetabolic uptake. Left adrenal mass shows associated hyper metabolic uptake. There is no ascites. Uptake along the colon may be physiologic. No pelvic adenopath y.2 Osseous structures show diffuse metastatic disease involving the spine, ribs, sternum, proximal right upper extremity, pelvis, proximal lower extremities. Soft tissue uptake noted within the right gluteal soft tissue nodule, right peroneal nodule, soft tis camilo subcutaneous nodule in the proximal left lower extremity IMPRESSION: Metastatic disease to the left adrenal gland, bones, liver and soft tissues, additional f indings above
== END | disposition home or self-care (01) ==
LOC: RADPETMAIN 14:13
PROVIDERS: ATTEND Internal Medicine Hematology & Oncology
DX: C79.51 Secondary malignant neoplasm of bone (principal); C78.7 Secondary malignant neoplasm of liver and intrahepatic bile duct; C79.72 Secondary malignant neoplasm of left adrenal gland; R91.8 Other nonspecific abnormal finding of lung field; K44.9 Diaphragmatic hernia without obstruction or gangrene; R93.2 Abnormal findings on diagnostic imaging of liver and biliary tract; C79.89 Secondary malignant neoplasm of other specified sites; E27.8 Other specified disorders of adrenal gland; C34.82 Malignant neoplasm of overlapping sites of left bronchus and lung
CPT/HCPCS: 78815; A9552

== ENCOUNTER 2020-04-22 16:55 | Inpatient (IN) | payer MEDICARE ==
[2020-04-22] MEDS ORDERED: ASPIRIN 81 MG PO STA (17:13)
--- NOTE | 2020-04-22 17:22 | ED ---
General Adult HPI - General Chief complaint: Shortness of Breath Stated complaint: LIZZ Time Seen by Provider: 04/22/20 17:07 Source: patient, EMS, RN notes reviewed, old records reviewed Mode of arrival: EMS Limitations: no limitations - History of Present Illness Initial comments: 64-year-old female patient with recent lung cancer diagnosis presents to ED for evaluation of shortness of breath. Patient reports that she's had a little bit of shortness of breath for last few days however today it got a lot worse. Patient reports that she is having a small amount of pain in the center of her chest and she is having difficulty catching her breath. Denies pain anywhere else. Denies any other complaints. Systemic: Pt denies fatigue, fever/chills, rash. Pt denies weakness, night sweats, weight loss. Neuro: Pt denies headache, visual disturbances, syncope or pre-syncope. HEENT: Pt denies ocular discharge or irritation, otalgia, rhinorrhea, pharyn gitis or notable lymphadenopathy. Cardiopulmonary: Pt denies heart palpitations, dyspnea on exertion. Abdominal/GI: Pt denies abdominal pain, n/v/d. : Pt denies dysuria, burning w/ urination, frequency/urgency. Denies new onset urinary or bowel incontinence. MSK: Pt denies myalgia, loss of strength or function in extremities. Neuro: Pt denies new onset weakness, paresthesias. - Related Data Home Medications Medication Instructions Recorded Confirmed Naproxen Sodium [Aleve] 440 mg PO BID PRN 03/05/20 04/22/20 HYDROcodone/APAP 7.5-325MG [[place] 1 tab PO Q6H PRN 04/22/20 04/22/20 7.5-325] Magnesium Hydroxide [Milk of 2,400 mg PO ONCE PRN 04/22/20 04/22/20 Magnesia Concentrate] Sennosides-Docusate Sodium 2 tab PO BID 04/22/20 04/22/20 [Senokot-S] Tamsulosin [Flomax] 0.4 mg PO DAILY 04/22/20 04/22/20 dexAMETHasone [Hexadrol] 4 mg PO TID 04/22/20 04/22/20 fentaNYL 25MCG/HR PATCH [Durages[place] 1 patch TRANSDERM Q72H 04/22/20 04/22/20 25MCG/HR] Previous Rx's Medication Instructions Recorded Levothyroxine Sodium [Synthroid] 50 mcg PO DAILY@0630 #30 tab 03/12/20 Pantoprazole [Protonix] 40 mg PO DAILY #30 tab 03/15/20 fentaNYL 50MCG/HR PATCH [Durages[place] 1 patch TRANSDERM Q72H 3 Days #1 03/15/20 50MCG/HR] patch Allergies Allergy/AdvReac Type Severity Reaction Status Date / Time No Known Allergies Allergy Verified 04/22/20 17:04 Review of Systems ROS Statement: Those systems with pertinent positive or pertinent negative responses have been documented in the HPI. ROS Other: All systems not noted in ROS Statement are negative. Past Medical History Past Medical History: Cancer, Thyroid Disorder Additional Past Medical History / Comment(s): Hypothyroidism. stage 4 lung cancer History of Any Multi-Drug Resistant Organisms: None Reported Past Surgical History: Tonsillectomy Past Anesthesia/Blood Transfusion Reactions: No Reported Reaction Past Psychological History: No Psychological Hx Reported Smoking Status: Never smoker Past Alcohol Use History: Rare Past Drug Use History: None Reported - Past Family History Mother Family Medical History: Cancer, CVA/TIA Additional Family Medical History / Comment(s): Mother at age 75 from some type of cancer outside the colon. Sister(s) Family Medical History: Cancer Additional Family Medical History / Comment(s): Patient has one sister with history of breast cancer, atrial fibrillation and hypertension. Father Additional Family Medical History / Comment(s): Father is alive at age 92 with history of coronary artery disease, hypertension, hyperlipidemia, benign prostatic hypertrophy. Brother(s) Additional Family Medical History / Comment(s): Patient has 2 brothers with no major medical problems. Patient has 2 children: One son with hypothyroidism and one daughter with no major medical problems. General Exam - General Exam Comments Initial Comments: Constitutional: NAD, AOX3, Pt has pleasant affect. HEENT: NC/AT, trachea midline, neck supple, no lymphadenopathy. External ears appear normal, without discharge. Mucous membranes moist. Eyes PERRLA, EOM intact. There is no scleral icterus. No pallor noted. Cardiopulmonary: RRR, no murmurs, rubs or gallops, no JVD noted. Mild rhonchi are noted. No peripheral edema. Abdominal exam: Abdomen soft and non-distended. Abdomen non-tender to palpation in all 4 quadrants. Bowel sounds active in LLQ. No hepatosplenomegaly. No ecchymosis Neuro: CN II-XII grossly intact. No nuchal rigidity. MSK: No posterior calf tenderness bilaterally, homans sign negative bilaterally. Posterior tibialis and radial pulse +2 bilaterally. Sensation intact in upper and lower extremities. Full active ROM in upper and lower extremities, 5/5 stregnth. Limitations: no limitations Course Vital Signs 04/22/20 04/22/20 04/22/20 16:58 17:03 18:03 Temperature 98.0 F 99 F Pulse Rate 136 H Respiratory 22 Rate Blood Pressure 117/75 O2 Sat by Pulse 96 96 95 Oximetry 04/22/20 04/22/20 04/22/20 18:22 18:36 19:03 Temperature 97.9 F Pulse Rate 130 H 132 H Respiratory 19 Rate Blood Pressure O2 Sat by Pulse 96 Oximetry 04/22/20 19:45 Temperature Pulse Rate 117 H Respiratory 17 Rate Blood Pressure 107/56 O2 Sat by Pulse 97 Oximetry Medical Decision Making - Medical Decision Making 54-year-old female patient recent diagnosis of metastatic lung cancer, initiating chemotherapy on Thursday. Presents to ED for shortness of breath. Physical exam displayed some rhonchi. Vital signs slight tachycardia. Laboratory investigations displayed neutropenia lactic acid elevated, CTA display extensive bilateral pulmonary infiltrates and increased compared to old exam. Related to progression of tumor and bilateral pneumonia. Bilateral pleural effusions. Patient initiated on cefepime and vancomycin. Blood cultures were obtained. Patient be admitted for further evaluation. Patient is resting comfortably oxygen saturations are in the high 90s will be admitted on Ventimask.Accepting physician Dr. Perez is requesting cefepime and vancomycin. Case discussed with Dr. Grimaldo. - Lab Data Result diagrams: 04/22/20 18:01 04/22/20 18:01 Lab Results 04/22/20 04/22/20 04/22/20 Range/Units 18:01 18:01 18:01 WBC 0.5 L* (3.8-10.6) k/uL RBC 4.08 (3.80-5.40) m/uL Hgb 10.4 L (11.4-16.0) gm/dL Hct 32.2 L (34.0-46.0) % MCV 79.0 L (80.0-100.0) fL MCH 25.5 (25.0-35.0) pg MCHC 32.3 (31.0-37.0) g/dL RDW 28.6 H (11.5-15.5) % Plt Count 22 L D (150-450) k/uL Differential Comment P Manual Slide Review Performed Hypochromasia Slight Poikilocytosis (manual Present Anisocytosis Marked Microcytosis Marked PT 9.8 (9.0-12.0) sec INR 0.9 (<1.2) APTT 23.0 (22.0-30.0) sec Sodium 123 L (137-145) mmol/L Potassium 4.5 (3.5-5.1) mmol/L Chloride 91 L (98-107) mmol/L Carbon Dioxide 22 (22-30) mmol/L Anion Gap 10 mmol/L BUN 12 (7-17) mg/dL Creatinine 0.41 L (0.52-1.04) mg/dL Est GFR (CKD-EPI)AfAm >90 (>60 ml/min/1.73 sqM) Est GFR (CKD-EPI)NonAf >90 (>60 ml/min/1.73 sqM) Glucose 271 H (74-99) mg/dL Plasma Lactic Acid Isac (0.7-2.0) mmol/L Calcium 6.8 L (8.4-10.2) mg/dL Total Bilirubin 1.5 H (0.2-1.3) mg/dL AST 138 H (14-36) U/L ALT 212 H (4-34) U/L Alkaline Phosphatase 359 H (38-126) U/L Troponin I (0.000-0.034) ng/mL NT-Pro-B Natriuret Pep pg/mL Total Protein 4.5 L (6.3-8.2) g/dL Albumin 2.2 L (3.5-5.0) g/dL 04/22/20 04/22/20 04/22/20 Range/Units 18:01 18:01 18:01 WBC (3.8-10.6) k/uL RBC (3.80-5.40) m/uL Hgb (11.4-16.0) gm/dL Hct (34.0-46.0) % MCV (80.0-100.0) fL MCH (25.0-35.0) pg MCHC (31.0-37.0) g/dL RDW (11.5-15.5) % Plt Count (150-450) k/uL Differential Comment Manual Slide Review Hypochromasia Poikilocytosis (manual Anisocytosis Microcytosis PT (9.0-12.0) sec INR (<1.2) APTT (22.0-30.0) sec Sodium (137-145) mmol/L Potassium (3.5-5.1) mmol/L Chloride (98-107) mmol/L Carbon Dioxide (22-30) mmol/L Anion Gap mmol/L BUN (7-17) mg/dL Creatinine (0.52-1.04) mg/dL Est GFR (CKD-EPI)AfAm (>60 ml/min/1.73 sqM) Est GFR (CKD-EPI)NonAf (>60 ml/min/1.73 sqM) Glucose (74-99) mg/dL Plasma Lactic Acid Isac 3.7 H* (0.7-2.0) mmol/L Calcium (8.4-10.2) mg/dL Total Bilirubin (0.2-1.3) mg/dL AST (14-36) U/L ALT (4-34) U/L Alkaline Phosphatase (38-126) U/L Troponin I 0.021 (0.000-0.034) ng/mL NT-Pro-B Natriuret Pep 1360 pg/mL Total Protein (6.3-8.2) g/dL Albumin (3.5-5.0) g/dL - EKG Data -: EKG Interpreted by Me (and Dr. Grimaldo ) EKG Comments: Ventricular rate 137, [place] interval 116, QRS 72, QT/QTC 290/47. Sinus tachycardia, otherwise normal EKG. Disposition Clinical Impression: Neutropenic sepsis, Pneumonia Disposition: ADMITTED IP TO THIS HOSP Condition: Serious Is patient prescribed a controlled substance at d/c from ED?: No Referrals: Monica Perez MD [Primary Care Provider] - 1-2 days
[2020-04-22] MEDS ORDERED: IPRATROPIUM-ALBUTEROL 3 ML NEB INHALATION STA (17:55)
--- NOTE | 2020-04-22 18:11 | CT ---
EXAMINATION TYPE: CT chest angio for PE DATE OF EXAM: 04/22/2020 COMPARISON: 03/06/2020 HISTORY: SOB, pt hx lung/thyroid ca. CT DLP: 441.1 mGycm Automated exposure control for dose reduction was used. CONTRAST: Performed with IV Contrast, patient injected with 100 mL of Isovue 370. There are 3-D post processed images. There is moderate-sized right pleural effusion. There is smaller left pleural effusion. There is cons olidation and atelectasis in the right lower lobe. There is moderate-sized hiatal hernia. Heart size is normal. There is patchy infiltrates and atelectasis in both upper lobes. There is more extensive c onsolidation in the right upper lobe. There is 3 x 2 cm area of air in the anterior aspect of the rig ht lung apex. This could be emphysematous bulla. Thoracic aorta is atheromatous. There is no aneurysm or dissection. I see no filling defects in the p ulmonary arteries. The sternum is intact. Thoracic spine shows no compression fracture. There is some osteosclerosis in the L1 vertebral body. There are some patchy areas of osteosclerosis in the thorac ic vertebra. IMPRESSION: No evidence of pulmonary embolism. Extensive bilateral pulmonary infiltrates significantly increased compared to old exam. Previous exam shows consolidation right upper lobe. There is now more extensive infiltrate in the right lower lobe and in the left lung upper and lower lobe. This could relate to progression of tumor and bilateral p neumonia in this patient with a history of lung cancer. There are new bilateral pleural effusions. There is patchy osteosclerosis in the spine suggestive of metastatic disease similar to old exam.
[2020-04-22] MEDS ORDERED: SODIUM CHLORIDE 0.9% 1,000 ML IV ONE (18:21)
[2020-04-22] MEDS ORDERED: AZITHROMYCIN 500 MG in SODIUM CHLORIDE 0.9% 250 ML IVPB STA (18:21)
[2020-04-22 18:25] LABS: INR 0.9 (<1.2); Prothrombin Time 9.8 sec (9.0-12.0)
[2020-04-22 18:26] LABS: ALT 212 U/L (4-34); AST 138 U/L (14-36); African American GFR (CKD) >90 (>60 ml/min/1.73 sqM); Albumin 2.2 g/dL (3.5-5.0); Alkaline Phosphatase 359 U/L (38-126); Anion Gap 10 mmol/L; Blood Urea Nitrogen 12 mg/dL (7-17); Calcium 6.8 mg/dL (8.4-10.2); Carbon Dioxide 22 mmol/L (22-30); Chloride 91 mmol/L (98-107); Glucose 271 mg/dL (74-99); Non-African American GFR(CKD) >90 (>60 ml/min/1.73 sqM); Potassium 4.5 mmol/L (3.5-5.1); Sodium 123 mmol/L (137-145); Total Bilirubin 1.5 mg/dL (0.2-1.3); Total Protein 4.5 g/dL (6.3-8.2)
[2020-04-22 18:30] LABS: Anisocytosis Marked; HCT 32.2 % (34.0-46.0); HGB 10.4 gm/dL (11.4-16.0); Hypochromasia Slight; MCH 25.5 pg (25.0-35.0); MCHC 32.3 g/dL (31.0-37.0); Mean Platelet Volume 6.7; Microcytosis Marked; RBC 4.08 m/uL (3.80-5.40)
[2020-04-22 18:33] LABS: RDW 28.6 % (11.5-15.5)
[2020-04-22] MEDS ORDERED: LEVOFLOXACIN 750MG-D5W PMX 750 MG in DEXTROSE/WATER 1 150ML.BAG IVPB STA (18:34)
[2020-04-22] MEDS ORDERED: PIPERACILLIN-TAZOBACTAM 3.375 GM in SODIUM CHLORIDE 0.9% 100 ML IVPB STA (18:34)
[2020-04-22 18:35] LABS: WBC 0.5 k/uL (3.8-10.6)
[2020-04-22 18:47] LABS: Platelet Count 22 k/uL (150-450); Poikilocytosis (M) Present
[2020-04-22] MEDS ORDERED: VANCOMYCIN IV PER PHARMACY 1 EACH MISC MISCELLANE PRN (18:58)
[2020-04-22] MEDS ORDERED: CEFEPIME 2 GM in SODIUM CHLORIDE 0.9% 100 ML IVPB STA (19:18)
[2020-04-22] MEDS ORDERED: VANCOMYCIN 1,250 MG in SODIUM CHLORIDE 0.9% 250 ML IVPB ONE (20:00)
[2020-04-22] MEDS ORDERED: ACETAMINOPHEN TAB 325 MG TAB PO PRN (20:08)
[2020-04-22] MEDS ORDERED: NALOXONE 0.4 MG/ML 1 ML VIAL IV PRN (20:08)
[2020-04-22] MEDS ORDERED: IBUPROFEN 400 MG TAB PO PRN (20:08)
[2020-04-23] MEDS: CEFEPIME 2 GM in SODIUM CHLORIDE 0.9% 100 ML IVPB SCH ×4 (00:02→23:08)
[2020-04-23] MEDS ORDERED: VANCOMYCIN 1,000 MG in SODIUM CHLORIDE 0.9% 250 ML IVPB SCH ×4 (04:00)
[2020-04-23] MEDS: IPRATROPIUM-ALBUTEROL 3 ML NEB INHALATION PRN ×2 (05:13→22:49)
[2020-04-23] MEDS ORDERED: MAGNESIUM HYDROXIDE 2,400 MG/10 ML CUP PO PRN (06:18)
[2020-04-23] MEDS ORDERED: NAPROXEN 250 MG TAB PO PRN (06:18)
[2020-04-23] MEDS ORDERED: HYDROcodone/APAP 7.5-325MG 1 EACH TAB PO PRN (06:18)
[2020-04-23] MEDS: PANTOPRAZOLE 40 MG TABLET PO SCH (06:56)
[2020-04-23] MEDS: LEVOTHYROXINE 50 MCG TAB PO SCH (06:56)
[2020-04-23] MEDS: IPRATROPIUM-ALBUTEROL 3 ML NEB INHALATION SCH ×4 (08:36→19:01)
[2020-04-23] MEDS: BUDESONIDE 0.5 MG/2 ML NEBU INHALATION SCH ×2 (08:36→19:01)
[2020-04-23] MEDS: SENNOSIDES-DOCUSATE SODIUM 1 EACH TAB PO SCH ×2 (08:42→20:27)
[2020-04-23] MEDS ORDERED: dexAMETHasone 4 MG TAB PO SCH (09:00)
[2020-04-23 09:34] LABS: Anisocytosis Marked; HCT 28.2 % (34.0-46.0); Hypochromasia Slight; MCH 25.2 pg (25.0-35.0); MCHC 31.4 g/dL (31.0-37.0); MCV 80.3 fL (80.0-100.0); Mean Platelet Volume 7.2; Microcytosis Marked; RBC 3.52 m/uL (3.80-5.40)
[2020-04-23 09:36] LABS: RDW 29.3 % (11.5-15.5); WBC 0.5 k/uL (3.8-10.6)
[2020-04-23 09:37] LABS: HGB 8.9 gm/dL (11.4-16.0)
[2020-04-23 09:39] LABS: Platelet Count 15 k/uL (150-450)
[2020-04-23 10:00] LABS: Calcium 6.2 mg/dL (8.4-10.2)
[2020-04-23 10:11] LABS: African American GFR (CKD) >90 (>60 ml/min/1.73 sqM); Anion Gap 9 mmol/L; Blood Urea Nitrogen 16 mg/dL (7-17); Carbon Dioxide 21 mmol/L (22-30); Chloride 98 mmol/L (98-107); Glucose 218 mg/dL (74-99); Non-African American GFR(CKD) >90 (>60 ml/min/1.73 sqM); Potassium 4.1 mmol/L (3.5-5.1); Sodium 128 mmol/L (137-145)
[2020-04-23 10:26] LABS: Mixed Population RBC Present; Poikilocytosis (M) Present
[2020-04-23 10:59] VITALS: BMI 21.2
[2020-04-23] MEDS: VANCOMYCIN 1,250 MG in SODIUM CHLORIDE 0.9% 250 ML IVPB SCH ×2 (11:04→20:26)
[2020-04-23] MEDS: FILGRASTIM-SNDZ 300 MCG/0.5 ML SYRINGE SQ SCH (11:04)
--- NOTE | 2020-04-23 12:09 | P.CNPUL ---
History of Present Illness Consult date: 04/23/20 Reason for consult: dyspnea, hypoxemia, pneumonia History of present illness: 64-year-old female patient with a recent diagnosis of metastatic adenocarcinoma of the lung will receive systemic chemotherapy approximately 6 days ago at the oncology office on outpatient basis. This did not go well and the patient became progressively more short of breath over the past 48 hours and she developed increased dyspnea and cough and congestion and she continued to have skeletal pain which is related to her bony metastases. She was having difficulties in breathing and she became progressively more hypoxic and she end up being admitted to the hospital. Note that the patient was on room air prior to this admission. The patient is currently off of the liters of oxygen by nasal cannula. She has neutropenia with a white cell count of 0.5. He is on high flow oxygen at 15 L. Pulse is around 91-92%. She is afebrile for now. Hemodynamically stable on no pressors. Slightly tachycardic heart rate max is at 108 beats per minute. She also is thrombocytopenic with a platelet count as low as 15. Lactic acid level was at 3.7 max on that I dropped down to 2.3. The patient was hyponatremic at sodium level of 123 and the patient's sodium level is up to 128 and the patient is receiving normal saline infusion. She was covered with antibiotics and the patient is currently on a combination of cefepime and vancomycin. Computed tomography scan of the chest was done and the computed tomography scan showed extensive bilateral pulmonary infiltrates significant worse compared to the previous CAT scan of the chest. The patient has more extensive infiltration of the right lower lobe and the left upper lobe and left lower lobe. There is also new right-sided pleural effusion bilaterally right more than left. There is background emphysematous changes and the patient has patchy also sclerotic changes in the spine suggestive of metastatic disease as no nausea. The calcium level was low at 6.2. LFTs were also abnormal. This patient has a recent diagnosis of metastatic adenocarcinoma of the lung. Diagnosis established by biopsying a adrenal mass. The patient had significant debility and weakness and pain in lower extremities pressure on the right. She also lost motor function and sensory function and she lost her ability to walk. She was having some numbness along the perineum. She hasn't lost completed the bowel and bladder control. She has been having some constipation related to narcotic medication use for pain control. The patient's CAT scan of the chest abdomen and pelvis that was done on 03/06/2020 showed a 6.6 cm right suprahilar mass with a focal 2 cm satellite lesion. There was also a 3 cm left adrenal mass, lesion in the right sacral alar with significant dissection and soft tissue invasion of the S1-S2. The patient also had disease involving T12 vertebral body on the left as well as the paraspinal lesion at the level of T9 and T10 and involvement of the L3 transverse process. She continues to have severe back pain. She was placed on Decadron outpatient basis. She was also subjected to radiation therapy by Dr. Davian Caruso. Review of Systems Constitutional: Reports anorexia, Reports fatigue, Reports fever, Reports poor appetite, Reports weakness, Reports weight loss Eyes: denies as per HPI, denies blurred vision, denies bulging eye, denies decreased vision, denies diplopia, denies discharge, denies dry eye, denies irr itation, denies itching, denies pain, denies photophobia, denies loss of peripheral vision, denies loss of vision, denies tunnel vision/blind spots Ears: deny: decreased hearing, ear discharge, earache, tinnitus Ears, nose, mouth and throat: Denies headache, Denies sore throat Breasts: absent: as per HPI, change in shape, gynecomastia, masses, nipple discharge, pain, skin changes, swelling Cardiovascular: Reports decreased exercise tolerance, Reports dyspnea on exertion Respiratory: Reports cough, Reports dyspnea, Reports wheezing Gastrointestinal: Reports as per HPI, Reports constipation Genitourinary: Reports as per HPI Menstruation: Reports as per HPI Musculoskeletal: Reports arm numbness/tingling, Reports gait dysfunction, Reports limitation of motion, Reports low back pain, Reports muscle weakness Musculoskeletal: absent: ankle pain, ankle stiffness, ankle swelling Integumentary: Reports as per HPI Neurological: Reports balance difficulties, Reports gait dysfunction, Reports motor disturbance, Reports numbness, Reports paralysis, Reports weakness Psychiatric: Reports as per HPI Endocrine: Reports as per HPI Hematologic/Lymphatic: Reports as per HPI Allergic/Immunologic: Reports as per HPI Past Medical History Past Medical History: Cancer, Thyroid Disorder Additional Past Medical History / Comment(s): Hypothyroidism. stage 4 lung cancer History of Any Multi-Drug Resistant Organisms: None Reported Past Surgical History: Tonsillectomy Past Anesthesia/Blood Transfusion Reactions: No Reported Reaction Past Psychological History: No Psychological Hx Reported Smoking Status: Never smoker Past Alcohol Use History: Rare Additional Past Alcohol Use History / Comment(s): Patient was a smoker of one and half packs per day for 22 years and quit approximately 20 years ago. She has rare alcohol intake. She denies any marijuana or street drug use. Past Drug Use History: None Reported - Past Family History Mother Family Medical History: Cancer, CVA/TIA Additional Family Medical History / Comment(s): Mother at age 75 from some type of cancer outside the colon. Sister(s) Family Medical History: Cancer Additional Family Medical History / Comment(s): Patient has one sister with history of breast cancer, atrial fibrillation and hypertension. Father Additional Family Medical History / Comment(s): Father is alive at age 92 with history of coronary artery disease, hypertension, hyperlipidemia, benign prostatic hypertrophy. Brother(s) Additional Family Medical History / Comment(s): Patient has 2 brothers with no major medical problems. Patient has 2 children: One son with hypothyroidism and one daughter with VSD. Medications and Allergies Home Medications Medication Instructions Recorded Confirmed Type Naproxen Sodium [Aleve] 440 mg PO BID PRN 03/05/20 04/22/20 History Levothyroxine Sodium [Synthroid] 50 mcg PO DAILY@0630 #30 tab 03/12/20 04/22/20 Rx Pantoprazole [Protonix] 40 mg PO DAILY #30 tab 03/15/20 04/22/20 Rx fentaNYL 50MCG/HR PATCH [Duragesic 1 patch TRANSDERM Q72H 3 Days #1 03/15/20 04/22/20 Rx 50MCG/HR] patch HYDROcodone/APAP 7.5-325MG [[place] 1 tab PO Q6H PRN 04/22/20 04/22/20 History 7.5-325] Magnesium Hydroxide [Milk of 2,400 mg PO ONCE PRN 04/22/20 04/22/20 History Magnesia Concentrate] Sennosides-Docusate Sodium 2 tab PO BID 04/22/20 04/22/20 History [Senokot-S] Tamsulosin [Flomax] 0.4 mg PO DAILY 04/22/20 04/22/20 History dexAMETHasone [Hexadrol] 4 mg PO TID 04/22/20 04/22/20 History fentaNYL 25MCG/HR PATCH [Duragesic 1 patch TRANSDERM Q72H 04/22/20 04/22/20 History 25MCG/HR] Allergies Allergy/AdvReac Type Severity Reaction Status Date / Time No Known Allergies Allergy Verified 04/22/20 17:04 Physical Exam Vitals: Vital Signs Temp Pulse Pulse Resp BP BP Pulse Ox 04/23/20 11:52 108 H 04/23/20 11:40 106 H 04/23/20 08:49 103 H 04/23/20 08:36 102 H 89 L 04/23/20 08:00 98.3 F 103 H 18 91/50 92 L 04/23/20 05:16 112 H 04/23/20 04:00 98.8 F 122 H 22 105/53 91 L 04/23/20 00:00 98.2 F 109 H 20 117/56 93 L 04/22/20 21:27 98.2 F 107 H 22 111/56 94 L 04/22/20 20:35 102/57 04/22/20 20:19 98 F 109 H 17 93 L 04/22/20 19:45 117 H 17 107/56 97 04/22/20 19:03 97.9 F 19 96 04/22/20 18:36 132 H 04/22/20 18:22 130 H 04/22/20 18:03 99 F 95 04/22/20 17:03 96 04/22/20 16:58 98.0 F 136 H 22 117/75 96 Intake and Output 04/22/20 04/23/20 04/23/20 22:59 06:59 14:59 Other: Voiding Method Diaper # Voids 1 Weight 66.678 kg 63.5 kg 63.5 kg Gen. appearance the patient is in mild pain. There are no signs of any significant respiratory distress and currently some high flow oxygen at 15 L per minute nasal cannula. Head exam was generally normal. There was no scleral icterus or corneal arcus. Mucous membranes were moist. Neck was supple and without jugular venous distension, thyromegaly, or carotid bruits. Carotids were easily palpable bilaterally. There was no adenopathy. Lungs sounds are diminished and the patient has scattered rhonchi heard throughout the lung santos bilaterally Cardiac exam revealed the PMI to be normally situated and sized. The rhythm was regular and no extrasystoles were noted during several minutes of auscultation. The first and second heart sounds were normal and physiologic splitting of the second heart sound was noted. There were no murmurs, rubs, clicks, or gallops. Abdominal exam revealed normal bowel sounds. The abdomen was soft, non-tender, and without masses, organomegaly, or appreciable enlargement of the abdominal ao rta. Extremities revealed motor weakness and numbness in the lower extremities bilaterally. She is unable to raise her legs against gravity. Sensory functions are diminished quite a bit in the lower extremities. No Babinski. No clonus. Reflexes are also diminished. Examination of the skin revealed no evidence of significant rashes, suspicious appearing nevi or other concerning lesions. Results - Laboratory Findings CBC and BMP: 04/23/20 08:14 04/23/20 08:14 PT/INR, D-dimer PT 9.8 sec (9.0-12.0) 04/22/20 18:01 INR 0.9 (<1.2) 04/22/20 18:01 Abnormal lab findings: Abnormal Labs 04/22/20 04/22/20 04/22/20 18:01 18:01 18:01 WBC 0.5 L* RBC Hgb 10.4 L Hct 32.2 L MCV 79.0 L RDW 28.6 H Plt Count 22 L D Sodium 123 L Chloride 91 L Carbon Dioxide Creatinine 0.41 L Glucose 271 H Plasma Lactic Acid Isac 3.7 H* Calcium 6.8 L Total Bilirubin 1.5 H AST 138 H ALT 212 H Alkaline Phosphatase 359 H Total Protein 4.5 L Albumin 2.2 L 04/22/20 04/23/20 04/23/20 22:15 01:42 04:27 WBC RBC Hgb Hct MCV RDW Plt Count Sodium Chloride Carbon Dioxide Creatinine Glucose Plasma Lactic Acid Isac 2.6 H* 2.2 H* 2.6 H* Calcium Total Bilirubin AST ALT Alkaline Phosphatase Total Protein Albumin 04/23/20 04/23/20 04/23/20 08:14 08:14 08:14 WBC 0.5 L* RBC 3.52 L Hgb 8.9 L D Hct 28.2 L MCV RDW 29.3 H Plt Count 15 L* Sodium 128 L Chloride Carbon Dioxide 21 L Creatinine 0.51 L Glucose 218 H Plasma Lactic Acid Isac 2.3 H* Calcium 6.2 L* Total Bilirubin AST ALT Alkaline Phosphatase Total Protein Albumin - Diagnostic Findings Chest x-ray: image reviewed CT scan - chest: image reviewed Assessment and Plan Plan: 1 metastatic poorly differentiated adenocarcinoma of the lung, receiving systemic chemotherapy and palliative radiation therapy to the spine. 2 acute hypoxic respiratory failure with bilateral pulmonary infiltrates in addition to underlying neutropenia. Consider hospital-acquired pneumonia/gram- negative pneumonia. Less likely to be related to any form of vital such as covid 19 infection.. 3 severe neutropenia, chemotherapy induced 4 thrombocytopenia, chemotherapy induced 5 right suprahilar mass measuring 6.6 x 6.5 cm in size in addition to Satellite pulmonary lesions and smaller left lower lobe pulmonary nodules in addition to multiple metastatic lesions involving the spine and adrenal gland in addition to posterior lower ribs and right iliac. 6 right lower extremity radiculopathy along with metastatic involvement of the left L3 transverse process and T12 vertebral body resulting in chronic back pain 7 soft tissue metastasis involving the left paracentral region at the level of T9-T10 8 bronchospastic disease involving the thoracic spine involving the vertebral bodies of T6, T9, T11 and T12 9 metastatic disease involving the spine with bony changes of the sacral alar 10 left metastases 11 COPD 12 hypothyroidism 13 motor deficits in the lower extremities related to the above Plan The patient with broad-spectrum antibiotics. Cefepime and vancomycin is adequate for now awaiting the padron virus Covid 19 nasal swab by PCR Keep oxygen at 15 L per minute nasal cannula and attempts to wean if possible to maintain a saturation above 90% Continue Decadron [place] for pain control Sputum Gram stain and culture Blood culture Filgrastim for underlying neutropenia Prognosis poor based on the above-mentioned comorbidities. We'll continue to follow.
--- NOTE | 2020-04-23 13:10 | P.CONS ---
History of Present Illness - Reason for Consult Consult date: 04/23/20 s/p 1 cycle of treatment for lung ca, neutropenia Requesting physician: Monica Perez - Chief Complaint SOB - History of Present Illness Mrs. Beaulieu is a very pleasant 64-year-old female patient who saw him initially on consult 03/06/20 for abnormalities noted on nuclear medicine bone scan 02/24/20. Pt states she had been having progressive low back pain since about November, right hip became involved and was impacting her activity, associated with groin numbness as well as changes in sensation regarding elimination, denying any incontinence. She had initially been worked up with an MRI of the spine at which showed abnormalities, led to bone scan. Multiple lesions were found. CT chest abdomen and pelvis showed paratracheal lymph node, right suprahilar mass, right upper lobe nodule, left lower lobe nodule, bilateral pleural and parenchymal scarring in the left adrenal mass. Sacral ala destruction, S1-S2 soft tissue infiltrate, T9-T10 also paraspinal mass. MRI of the spine showed no cord compression. 03/08/20 core biopsy of left adrenal mass, 2 core biopsies showing primary malignancy either GI, breast or lung primary. Patient did have PDL 1 positivity as well as MET mutation. She is status post 1 cycle of carbo, Alimta and immunotherapy, treating as a lung primary. She states that she started becoming short of breath yesterday evening, it did not improve, she denied sputum production, palpitations or chest pains, no fevers, c hills, nausea, vomiting, she has not had a bowel movement in over a week. She is no longer walking. She still has sensation that she has to go to the bathroom, there is urgency. Denies numbness or tingling. Review of Systems 14 point review of systems is negative except as stated in HPI Past Medical History Past Medical History: Cancer, Thyroid Disorder Additional Past Medical History / Comment(s): Hypothyroidism. stage 4 lung cancer History of Any Multi-Drug Resistant Organisms: None Reported Past Surgical History: Tonsillectomy Past Anesthesia/Blood Transfusion Reactions: No Reported Reaction Past Psychological History: No Psychological Hx Reported Smoking Status: Former smoker Past Alcohol Use History: Rare Additional Past Alcohol Use History / Comment(s): Patient was a smoker of one and half packs per day for 22 years and quit approximately 20 years ago. She has rare alcohol intake. She denies any marijuana or street drug use. Past Drug Use History: None Reported - Past Family History Mother Family Medical History: Cancer, CVA/TIA Additional Family Medical History / Comment(s): Mother at age 75 from some type of cancer outside the colon. Sister(s) Family Medical History: Cancer Additional Family Medical History / Comment(s): Patient has one sister with history of breast cancer, atrial fibrillation and hypertension. Father Additional Family Medical History / Comment(s): Father is alive at age 92 with history of coronary artery disease, hypertension, hyperlipidemia, benign prostatic hypertrophy. Brother(s) Additional Family Medical History / Comment(s): Patient has 2 brothers with no major medical problems. Patient has 2 children: One son with hypothyroidism and one daughter with VSD. Medications and Allergies Home Medications Medication Instructions Recorded Confirmed Type Naproxen Sodium [Aleve] 440 mg PO BID PRN 03/05/20 04/22/20 History Levothyroxine Sodium [Synthroid] 50 mcg PO DAILY@0630 #30 tab 03/12/20 04/22/20 Rx Pantoprazole [Protonix] 40 mg PO DAILY #30 tab 03/15/20 04/22/20 Rx fentaNYL 50MCG/HR PATCH [Duragesic 1 patch TRANSDERM Q72H 3 Days #1 03/15/20 04/22/20 Rx 50MCG/HR] patch HYDROcodone/APAP 7.5-325MG [[place] 1 tab PO Q6H PRN 04/22/20 04/22/20 History 7.5-325] Magnesium Hydroxide [Milk of 2,400 mg PO ONCE PRN 04/22/20 04/22/20 History Magnesia Concentrate] Sennosides-Docusate Sodium 2 tab PO BID 04/22/20 04/22/20 History [Senokot-S] Tamsulosin [Flomax] 0.4 mg PO DAILY 04/22/20 04/22/20 History dexAMETHasone [Hexadrol] 4 mg PO TID 04/22/20 04/22/20 History fentaNYL 25MCG/HR PATCH [Duragesic 1 patch TRANSDERM Q72H 04/22/20 04/22/20 History 25MCG/HR] Allergies Allergy/AdvReac Type Severity Reaction Status Date / Time No Known Allergies Allergy Verified 04/22/20 17:04 Physical Exam Vitals: Vital Signs Temp Pulse Pulse Resp BP BP Pulse Ox 04/23/20 11:58 98.1 F 114 H 22 102/51 92 L 04/23/20 11:52 108 H 04/23/20 11:40 106 H 04/23/20 08:49 103 H 04/23/20 08:36 102 H 89 L 04/23/20 08:00 98.3 F 103 H 18 91/50 92 L 04/23/20 05:16 112 H 04/23/20 04:00 98.8 F 122 H 22 105/53 91 L 04/23/20 00:00 98.2 F 109 H 20 117/56 93 L 04/22/20 21:27 98.2 F 107 H 22 111/56 94 L 04/22/20 20:35 102/57 04/22/20 20:19 98 F 109 H 17 93 L 04/22/20 19:45 117 H 17 107/56 97 04/22/20 19:03 97.9 F 19 96 04/22/20 18:36 132 H 04/22/20 18:22 130 H 04/22/20 18:03 99 F 95 04/22/20 17:03 96 04/22/20 16:58 98.0 F 136 H 22 117/75 96 Intake and Output 04/22/20 04/23/20 04/23/20 22:59 06:59 14:59 Other: Voiding Method Diaper # Voids 1 Weight 66.678 kg 63.5 kg 63.5 kg - Constitutional General appearance: cooperative, mild distress, thin - EENT Dry mucous membranes Eyes: anicteric sclerae, EOMI ENT: hearing grossly normal - Neck Neck: no lymphadenopathy - Respiratory Labored breathing on high flow O2 Respiratory: bilateral: diminished - Cardiovascular Mild tachycardia, regular rhythm Heart sounds: normal: S1, S2 Abnormal Heart Sounds: no systolic murmur, no diastolic murmur, no rub, no S3 Gallop, no S4 Gallop, no click, no other leg Peripheral Edema: bilateral: Trace - Gastrointestinal Fullness in the right upper quadrant, mild tenderness in the epigastric area, bowel sounds are positive, abdomen is soft - Integumentary Integumentary: pale - Musculoskeletal Strength 2/5 in the lower extremities, unable to move much against resistance of any kind, patient has difficulty positioning her lower body and legs - Psychiatric Psychiatric: A&O x's 3, appropriate affect, intact judgment & insight Results CBC & Chem 7: 04/23/20 08:14 04/23/20 08:14 Labs: Abnormal Lab Results - Last 24 Hours (Table) 04/22/20 04/22/20 04/22/20 Range/Units 18:01 18:01 18:01 WBC 0.5 L* (3.8-10.6) k/uL RBC (3.80-5.40) m/uL Hgb 10.4 L (11.4-16.0) gm/dL Hct 32.2 L (34.0-46.0) % MCV 79.0 L (80.0-100.0) fL RDW 28.6 H (11.5-15.5) % Plt Count 22 L D (150-450) k/uL Sodium 123 L (137-145) mmol/L Chloride 91 L (98-107) mmol/L Carbon Dioxide (22-30) mmol/L Creatinine 0.41 L (0.52-1.04) mg/dL Glucose 271 H (74-99) mg/dL Plasma Lactic Acid Isac 3.7 H* (0.7-2.0) mmol/L Calcium 6.8 L (8.4-10.2) mg/dL Total Bilirubin 1.5 H (0.2-1.3) mg/dL AST 138 H (14-36) U/L ALT 212 H (4-34) U/L Alkaline Phosphatase 359 H (38-126) U/L Total Protein 4.5 L (6.3-8.2) g/dL Albumin 2.2 L (3.5-5.0) g/dL 04/22/20 04/23/20 04/23/20 Range/Units 22:15 01:42 04:27 WBC (3.8-10.6) k/uL RBC (3.80-5.40) m/uL Hgb (11.4-16.0) gm/dL Hct (34.0-46.0) % MCV (80.0-100.0) fL RDW (11.5-15.5) % Plt Count (150-450) k/uL Sodium (137-145) mmol/L Chloride (98-107) mmol/L Carbon Dioxide (22-30) mmol/L Creatinine (0.52-1.04) mg/dL Glucose (74-99) mg/dL Plasma Lactic Acid Isac 2.6 H* 2.2 H* 2.6 H* (0.7-2.0) mmol/L Calcium (8.4-10.2) mg/dL Total Bilirubin (0.2-1.3) mg/dL AST (14-36) U/L ALT (4-34) U/L Alkaline Phosphatase (38-126) U/L Total Protein (6.3-8.2) g/dL Albumin (3.5-5.0) g/dL 04/23/20 04/23/20 04/23/20 Range/Units 08:14 08:14 08:14 WBC 0.5 L* (3.8-10.6) k/uL RBC 3.52 L (3.80-5.40) m/uL Hgb 8.9 L D (11.4-16.0) gm/dL Hct 28.2 L (34.0-46.0) % MCV (80.0-100.0) fL RDW 29.3 H (11.5-15.5) % Plt Count 15 L* (150-450) k/uL Sodium 128 L (137-145) mmol/L Chloride (98-107) mmol/L Carbon Dioxide 21 L (22-30) mmol/L Creatinine 0.51 L (0.52-1.04) mg/dL Glucose 218 H (74-99) mg/dL Plasma Lactic Acid Isac 2.3 H* (0.7-2.0) mmol/L Calcium 6.2 L* (8.4-10.2) mg/dL Total Bilirubin (0.2-1.3) mg/dL AST (14-36) U/L ALT (4-34) U/L Alkaline Phosphatase (38-126) U/L Total Protein (6.3-8.2) g/dL Albumin (3.5-5.0) g/dL Microbiology - Last 24 Hours (Table) 04/22/20 19:40 Urine Culture - Preliminary Urine,Voided 08/23/20 18:57 Blood Culture - Final Blood CT scan - chest: report reviewed Assessment and Plan (1) Adenocarcinoma Current Visit: Yes Status: Acute Priority: High Code(s): C80.1 - MALIGNANT (PRIMARY) NEOPLASM, UNSPECIFIED SNOMED Code(s): 082371947 (2) Bone metastasis Current Visit: Yes Status: Acute Priority: High Code(s): C79.51 - SECONDARY MALIGNANT NEOPLASM OF BONE SNOMED Code(s): 92174004 (3) Pain of metastatic malignancy Current Visit: Yes Status: Acute Priority: High Code(s): G89.3 - NEOPLASM RELATED PAIN (ACUTE) (CHRONIC) SNOMED Code(s): 419368219 (4) Antineoplastic chemotherapy induced pancytopenia Current Visit: Yes Status: Acute Priority: High Code(s): D61.810 - ANTINEOPLASTIC CHEMOTHERAPY INDUCED PANCYTOPENIA; T45.1X5A - ADVERSE EFFECT OF ANTINEOPLASTIC AND IMMUNOSUP DRUGS, INIT SNOMED Code(s): 838167120624634 (5) Constipation due to opioid therapy Current Visit: Yes Status: Acute Priority: High Code(s): K59.03 - DRUG INDUCED CONSTIPATION; T40.2X5A - ADVERSE EFFECT OF OTHER OPIOIDS, INITIAL ENCOUNTER SNOMED Code(s): 719630921359554 Plan: Patient is status post first cycle of carbo/Alimta/immunotherapy. I discussed with the patient that I wanted her to clarify her goals for care. Patient is having a very difficult time getting to and from appointments, she required ambulance transport to her first treatment. Tumor does have PDL-1 positivity making her a perfect candidate for immunotherapy but, immunotherapy can take several months to achieve maximum potential. That is the reason for the addition of chemotherapy at the onset of treatment. Unfortunately, patient's counts were certainly effected significantly by chemotherapy. She has been started on G-CSF, continue until ANC greater than 1000 and based on patient improvement in condition. Currently she does not need transfusion of platelets but, all antiplatelet therapies, anticoagulation and NSAIDs have been discontinued. Transfuse for acute bleeding or platelet count less than 10,000. Dexamethasone was ordered, on a tapering schedule, at last visit for pain and bone/vertebral metastases. Hold for now. Patient also had radiation to painful bone metastases 1 dose. Continue current pain meds as prescribed. CT a reviewed with Dr. Alberts. Based on the bilateral infiltrates concern is for immunotherapy induced pneumonitis. Solumadrol initiated. Multiple medications ordered for the treatment of narcotic-induced constipation. Patient states no bowel movement 5days.
[2020-04-23] MEDS: methylPREDNISolone SOD SUCCI 125 MG/2 ML VIAL IV SCH ×3 (13:35→23:08)
[2020-04-23 17:08] LABS: Glucose,Whole Blood 359 mg/dL (75-99)
[2020-04-23] MEDS ORDERED: INSULIN ASPART (NovoLOG) 100 UNIT/ML VIAL SQ ONE ×2 (17:09→19:35)
[2020-04-23] MEDS: INSULIN ASPART (NovoLOG) 100 UNIT/ML VIAL SQ SCH ×2 (17:09→21:59)
--- NOTE | 2020-04-23 17:45 | P.HPIM ---
History of Present Illness H&P Date: 04/23/20 Chief Complaint: Bilateral pneumonia/ metastatic lung cancer/Febrile Neutropenia This is a 64 year old female who was recently diagnosed with metastatic non -small lung cancer to the thoracic, lumbar spine, left femur and right iliac and sacral area, who finished radiation therapy and was started on chemotherapy awaiting the result of check points for her cancer treatment , was brought into the ememergency department at [facility] because of increased shortness of breath and coughing, patient underwent CTA was negative for pulmonary embolism but showed bilateral pneumonic infiltrates in both upper lobes, also right lower lobes, and moderate right sided pleural effusion and small left sided pleural effusion, she was found to have WBCs at 0.5 abd she was started on IV Cefepime 2 gr IVPB Q 8 hours and Vancomycin pharmacy to dose peak and trough, along with pulmonary consult and ID consult Dr. Law, I spoke to the Nurse to move her to the ICU. Review of Systems Constitutional: Reports chronic pain, Reports fatigue, Reports malaise, Reports weakness, Denies anorexia Eyes: denies blurred vision, denies bulging eye, denies decreased vision Ears, nose, mouth and throat: Denies dysphagia, Denies neck lump, Denies sore throat Cardiovascular: Reports decreased exercise tolerance, Reports dyspnea on exertion, Reports shortness of breath, Denies chest pain, Denies lightheadedness, Denies phlebitis, Denies rapid heart beat, Denies syncope Respiratory: Reports congestion, Reports cough, Reports cough with sputum, Reports dyspnea, Reports respiratory infections, Reports wheezing, Denies sleep apnea, Denies snoring Gastrointestinal: Reports constipation, Reports loss of appetite, Reports nausea, Denies abdominal pain, Denies bloating, Denies excessive gas, Denies m liliana, Denies vomiting Genitourinary: Denies dysuria, Denies nocturia Musculoskeletal: Reports gait dysfunction, Reports leg numbness/tingling, Report s low back pain, Reports muscle cramps, Reports muscle weakness, Reports myalgias Musculoskeletal: absent: ankle pain, ankle stiffness, ankle swelling, elbow pain, elbow stiffness, elbow swelling, foot pain, foot stiffness, foot swelling, hand pain, hand stiffness, hand swelling, hip pain, hip stiffness, hip swelling, knee pain, knee stiffness, knee swelling, shoulder pain, shoulder stiffness, shoulder swelling, wrist pain, wrist stiffness, wrist swelling Integumentary: Denies pruritus, Denies rash Neurological: Reports weakness Psychiatric: Reports anxiety, Reports depression, Reports sleep disturbances, Denies suicidal ideation Endocrine: Denies fatigue, Denies weight change Past Medical History Past Medical History: Cancer, Thyroid Disorder Additional Past Medical History / Comment(s): Hypothyroidism. stage 4 lung cancer History of Any Multi-Drug Resistant Organisms: None Reported Past Surgical History: Tonsillectomy Past Anesthesia/Blood Transfusion Reactions: No Reported Reaction Past Psychological History: No Psychological Hx Reported Smoking Status: Never smoker Past Alcohol Use History: Rare Additional Past Alcohol Use History / Comment(s): Patient was a smoker of one and half packs per day for 22 years and quit approximately 20 years ago. She has rare alcohol intake. She denies any marijuana or street drug use. Past Drug Use History: None Reported - Past Family History Mother Family Medical History: Cancer, CVA/TIA Additional Family Medical History / Comment(s): Mother at age 75 from some type of cancer outside the colon. Sister(s) Family Medical History: Cancer Additional Family Medical History / Comment(s): Patient has one sister with history of breast cancer, atrial fibrillation and hypertension. Father Additional Family Medical History / Comment(s): Father is alive at age 92 with history of coronary artery disease, hypertension, hyperlipidemia, benign prostatic hypertrophy. Brother(s) Additional Family Medical History / Comment(s): Patient has 2 brothers with no major medical problems. Patient has 2 children: One son with hypothyroidism and one daughter with VSD. Medications and Allergies Home Medications Medication Instructions Recorded Confirmed Type Naproxen Sodium [Aleve] 440 mg PO BID PRN 03/05/20 04/22/20 History Levothyroxine Sodium [Synthroid] 50 mcg PO DAILY@0630 #30 tab 03/12/20 04/22/20 Rx Pantoprazole [Protonix] 40 mg PO DAILY #30 tab 03/15/20 04/22/20 Rx fentaNYL 50MCG/HR PATCH [Duragesic 1 patch TRANSDERM Q72H 3 Days #1 03/15/20 04/22/20 Rx 50MCG/HR] patch HYDROcodone/APAP 7.5-325MG [[place] 1 tab PO Q6H PRN 04/22/20 04/22/20 History 7.5-325] Magnesium Hydroxide [Milk of 2,400 mg PO ONCE PRN 04/22/20 04/22/20 History Magnesia Concentrate] Sennosides-Docusate Sodium 2 tab PO BID 04/22/20 04/22/20 History [Senokot-S] Tamsulosin [Flomax] 0.4 mg PO DAILY 04/22/20 04/22/20 History dexAMETHasone [Hexadrol] 4 mg PO TID 04/22/20 04/22/20 History fentaNYL 25MCG/HR PATCH [Duragesic 1 patch TRANSDERM Q72H 04/22/20 04/22/20 History 25MCG/HR] Allergies Allergy/AdvReac Type Severity Reaction Status Date / Time No Known Allergies Allergy Verified 04/22/20 17:04 Physical Exam Vitals: Vital Signs Temp Pulse Pulse Resp BP BP Pulse Ox 04/23/20 05:16 112 H 04/23/20 04:00 98.8 F 122 H 22 105/53 91 L 04/23/20 00:00 98.2 F 109 H 20 117/56 93 L 04/22/20 21:27 98.2 F 107 H 22 111/56 94 L 04/22/20 20:35 102/57 04/22/20 20:19 98 F 109 H 17 93 L 04/22/20 19:45 117 H 17 107/56 97 04/22/20 19:03 97.9 F 19 96 04/22/20 18:36 132 H 04/22/20 18:22 130 H 04/22/20 18:03 99 F 95 04/22/20 17:03 96 04/22/20 16:58 98.0 F 136 H 22 117/75 96 Intake and Output 04/22/20 04/22/20 04/23/20 14:59 22:59 06:59 Other: Voiding Method Diaper # Voids 1 Weight 66.678 kg 63.5 kg Physical examination: HEENT: head is atraumatic normocephalic pupils were equal round reactive to light and accommodations extra ocular muscle movements were intact, mucous membranes of the mouth are somewhat dry. Neck: supple, no JVP. Chest: decrease breath sounds at the bases with decreased tactile fremitus, t here is egophony and expiratory wheezes and moderate intercostal retractions. Heart: first heart sound is depressed, second heart sound is normal there is no gallop or murmur. Abdomen: soft non tender non distended positive bowel sounds. Extremities: there is no edema no calf tenderness DP + 2 Bilaterally. Neurologic examination: patient is awake alert and oriented X 3 CN II-XII are grossly intact, there is weakness to the right lower extremity and muscle power 1/5 in the right lower extremity, 4/5 in bilateral upper and left lower extremity. Results CBC & Chem 7: 04/22/20 18:04/22/20 18:01 Labs: Abnormal Lab Results - Last 24 Hours (Table) 04/22/20 04/22/20 04/22/20 Range/Units 18:01 18:01 18:01 WBC 0.5 L* (3.8-10.6) k/uL Hgb 10.4 L (11.4-16.0) gm/dL Hct 32.2 L (34.0-46.0) % MCV 79.0 L (80.0-100.0) fL RDW 28.6 H (11.5-15.5) % Plt Count 22 L D (150-450) k/uL Sodium 123 L (137-145) mmol/L Chloride 91 L (98-107) mmol/L Creatinine 0.41 L (0.52-1.04) mg/dL Glucose 271 H (74-99) mg/dL Plasma Lactic Acid Isac 3.7 H* (0.7-2.0) mmol/L Calcium 6.8 L (8.4-10.2) mg/dL Total Bilirubin 1.5 H (0.2-1.3) mg/dL AST 138 H (14-36) U/L ALT 212 H (4-34) U/L Alkaline Phosphatase 359 H (38-126) U/L Total Protein 4.5 L (6.3-8.2) g/dL Albumin 2.2 L (3.5-5.0) g/dL 04/22/20 04/23/20 04/23/20 Range/Units 22:15 01:42 04:27 WBC (3.8-10.6) k/uL Hgb (11.4-16.0) gm/dL Hct (34.0-46.0) % MCV (80.0-100.0) fL RDW (11.5-15.5) % Plt Count (150-450) k/uL Sodium (137-145) mmol/L Chloride (98-107) mmol/L Creatinine (0.52-1.04) mg/dL Glucose (74-99) mg/dL Plasma Lactic Acid Isac 2.6 H* 2.2 H* 2.6 H* (0.7-2.0) mmol/L Calcium (8.4-10.2) mg/dL Total Bilirubin (0.2-1.3) mg/dL AST (14-36) U/L ALT (4-34) U/L Alkaline Phosphatase (38-126) U/L Total Protein (6.3-8.2) g/dL Albumin (3.5-5.0) g/dL Thrombosis Risk Factor Assmnt - DVT/VTE Prophylaxis DVT/VTE Prophylaxis: Mechanical Prophylaxis ordered - Choose All That Apply Each Factor Represents 1 point: Medical pt on bed rest Each Risk Factor Represents 2 Points: Age 61-74 years, Malignancy Thrombosis Risk Factor Assessment Total Risk Factor Score: 5 Thrombosis Risk Factor Assessment Level: High Risk Assessment and Plan Assessment: Assessment and plan: 1. Acute hypoxemic respiratory failure due to bilateral possibly gram negative pneumonia with bilateral pleural effusion. we ill move to the ICU, continue with O2 support and we will continue with Vancomycin pharmacy to dose its peak and trough, Cefepime 2 gr IVPB Q 8 hours, we will continue with Duoneb 3 ml nebulization QID, Pulmicort 1 mg nebulization bid, Pulmonary consult , and ID consult , blood cultures and sputum cultures. 2. Bilateral pneumonia and pleural effusion. continue treatment as in paragraph#1. 3. Neutropenia due to chemotherapy we will continue with IV Cefepime and Vancomycin, we will continue with monitoring CBC. 4. Metastatic non-small lung cancer to the bones and spine post radiation and first cysle of chemotherapy.consult onclogy. 5. Hypothyroidism. we will continue with Synthroid 50 mcg orally daily. 6. Constipation. we will continue with current bowel care. 7. Pnacytopenia. due to chemotherapy. we will continue with monitoring and consult Oncology. 8. Chronic pain. we will continnue with Fentanyl patch 75 mcg Q 72 H and NOrco for breakthrough pain. 9. Metastatic disease to the spine . we will continue with Decadron 4 mg po tid. 10. DVT prophylaxis. we will apply knee-high Guillermo Hose no Lovenox due to severe thombocytopenia. 11. GI prophylaxis. we will continue with Protonix 40 mg orally daily. 12, Full code. 13. Admits to inpatient, estimated length of stay 2 midnights. 14. Very guarded prognosis.
[2020-04-23 19:36] LABS: Glucose,Whole Blood 307 mg/dL (75-99)
[2020-04-23 20:57] LABS: Glucose,Whole Blood 286 mg/dL (75-99)
[2020-04-23] MEDS ORDERED: DEXAMETHASONE ORAL 4 MG/ML VIAL PO SCH (21:00)
[2020-04-23] MEDS: INSULIN DETEMIR (LEVEMIR) 100 UNIT/ML SYR SQ SCH (22:38)
--- NOTE | 2020-04-23 23:04 | P.CONS ---
History of Present Illness - Reason for Consult Consult date: 04/23/20 Sepsis and pneumonia Requesting physician: Monica Perez - Chief Complaint Shortness of breath times few days - History of Present Illness Patient is a 64 year female with recent diagnosis of metastatic non- small cell lung cancer with metastases to the thoracic and lumbar spine as well as left femur and sacral area for the patient has completed her radiation thera py and has been started on chemo patient presented to [facility] ER yesterday with a chief complaints of increasing shortness of breath patient breathing has been getting worse for the last few days and measuring it was hard for her to take a deep breath patient also have a cough which is moderate in intensity but not bringing up significant amount of sputum no hemoptysis denies having any nausea no vomiting and no choking on the food no abdominal pain or any diarrhea with these symptoms the patient has been evaluated by the ER physician on arrival to the ER the patient has been afebrile however she was noticed to be neutropenic with a white count of 0.5, the patient also have a CT angiogram of the chest which was negative for PE today shows bilateral infiltrates suggestive of pneumonia patient has been started on cefepime 2 g every 12 and vancomycin she has been admitted to the hospital infectious disease was consulted for further management of antibiotic therapy Review of Systems Positive point has been mentioned in the HPI rest of the systems are negative Past Medical History Past Medical History: Cancer, Thyroid Disorder Additional Past Medical History / Comment(s): Hypothyroidism. stage 4 lung cancer History of Any Multi-Drug Resistant Organisms: None Reported Past Surgical History: Tonsillectomy Past Anesthesia/Blood Transfusion Reactions: No Reported Reaction Past Psychological History: No Psychological Hx Reported Smoking Status: Former smoker Past Alcohol Use History: Rare Additional Past Alcohol Use History / Comment(s): Patient was a smoker of one and half packs per day for 22 years and quit approximately 20 years ago. She has rare alcohol intake. She denies any marijuana or street drug use. Past Drug Use History: None Reported - Past Family History Mother Family Medical History: Cancer, CVA/TIA Additional Family Medical History / Comment(s): Mother at age 75 from some type of cancer outside the colon. Sister(s) Family Medical History: Cancer Additional Family Medical History / Comment(s): Patient has one sister with history of breast cancer, atrial fibrillation and hypertension. Father Additional Family Medical History / Comment(s): Father is alive at age 92 with history of coronary artery disease, hypertension, hyperlipidemia, benign prostatic hypertrophy. Brother(s) Additional Family Medical History / Comment(s): Patient has 2 brothers with no major medical problems. Patient has 2 children: One son with hypothyroidism and one daughter with VSD. Medications and Allergies Home Medications Medication Instructions Recorded Confirmed Type Naproxen Sodium [Aleve] 440 mg PO BID PRN 03/05/20 04/22/20 History Levothyroxine Sodium [Synthroid] 50 mcg PO DAILY@0630 #30 tab 03/12/20 04/22/20 Rx Pantoprazole [Protonix] 40 mg PO DAILY #30 tab 03/15/20 04/22/20 Rx fentaNYL 50MCG/HR PATCH [Duragesic 1 patch TRANSDERM Q72H 3 Days #1 03/15/20 04/22/20 Rx 50MCG/HR] patch HYDROcodone/APAP 7.5-325MG [Hamler 1 tab PO Q6H PRN 04/22/20 04/22/20 History 7.5-325] Magnesium Hydroxide [Milk of 2,400 mg PO ONCE PRN 04/22/20 04/22/20 History Magnesia Concentrate] Sennosides-Docusate Sodium 2 tab PO BID 04/22/20 04/22/20 History [Senokot-S] Tamsulosin [Flomax] 0.4 mg PO DAILY 04/22/20 04/22/20 History dexAMETHasone [Hexadrol] 4 mg PO TID 04/22/20 04/22/20 History fentaNYL 25MCG/HR PATCH [Duragesic 1 patch TRANSDERM Q72H 04/22/20 04/22/20 History 25MCG/HR] Allergies Allergy/AdvReac Type Severity Reaction Status Date / Time No Known Allergies Allergy Verified 04/22/20 17:04 Physical Exam Vitals: Vital Signs Temp Pulse Pulse Resp BP BP Pulse Ox 04/23/20 12:00 114 H 22 04/23/20 11:58 98.1 F 114 H 22 102/51 92 L 04/23/20 11:52 108 H 04/23/20 11:40 106 H 04/23/20 08:49 103 H 04/23/20 08:36 102 H 89 L 04/23/20 08:00 98.3 F 103 H 18 91/50 92 L 04/23/20 05:16 112 H 04/23/20 04:00 98.8 F 122 H 22 105/53 91 L 04/23/20 00:00 98.2 F 109 H 20 117/56 93 L 04/22/20 21:27 98.2 F 107 H 22 111/56 94 L 04/22/20 20:35 102/57 04/22/20 20:19 98 F 109 H 17 93 L 04/22/20 19:45 117 H 17 107/56 97 04/22/20 19:03 97.9 F 19 96 04/22/20 18:36 132 H 04/22/20 18:22 130 H 04/22/20 18:03 99 F 95 04/22/20 17:03 96 04/22/20 16:58 98.0 F 136 H 22 117/75 96 Intake and Output 04/22/20 04/23/20 04/23/20 22:59 06:59 14:59 Intake Total 120 Balance 120 Intake: Oral 120 Other: Voiding Method Diaper # Voids 1 Weight 66.678 kg 63.5 kg 63.5 kg GENERAL DESCRIPTION: An elderly female lying in bed, no distress. No tachypnea or accessory muscle of respiration use. HEENT: Shows Pallor , no scleral icterus. Oral mucous membrane is dry. No pharyngeal erythema or thrush NECK: Trachea central, no thyromegaly. LUNGS: Unlabored breathing. Decreased breath sound at the base. No wheeze or crackle. HEART: S1, S2, regular rate and rhythm. No loud murmur ABDOMEN: Soft, no tenderness , guarding or rigidity, no organomegaly EXTREMITIES: No edema of feet. SKIN: No rash, no masses palpable. NEUROLOGICAL: The patient is awake, alert, oriented x3, mood and affect normal. Results CBC & Chem 7: 04/23/20 08:14 04/23/20 08:14 Labs: Abnormal Lab Results - Last 24 Hours (Table) 04/22/20 04/22/20 04/22/20 Range/Units 18:01 18:01 18:01 WBC 0.5 L* (3.8-10.6) k/uL RBC (3.80-5.40) m/uL Hgb 10.4 L (11.4-16.0) gm/dL Hct 32.2 L (34.0-46.0) % MCV 79.0 L (80.0-100.0) fL RDW 28.6 H (11.5-15.5) % Plt Count 22 L D (150-450) k/uL Sodium 123 L (137-145) mmol/L Chloride 91 L (98-107) mmol/L Carbon Dioxide (22-30) mmol/L Creatinine 0.41 L (0.52-1.04) mg/dL Glucose 271 H (74-99) mg/dL Plasma Lactic Acid Isac 3.7 H* (0.7-2.0) mmol/L Calcium 6.8 L (8.4-10.2) mg/dL Total Bilirubin 1.5 H (0.2-1.3) mg/dL AST 138 H (14-36) U/L ALT 212 H (4-34) U/L Alkaline Phosphatase 359 H (38-126) U/L Total Protein 4.5 L (6.3-8.2) g/dL Albumin 2.2 L (3.5-5.0) g/dL 04/22/20 04/23/20 04/23/20 Range/Units 22:15 01:42 04:27 WBC (3.8-10.6) k/uL RBC (3.80-5.40) m/uL Hgb (11.4-16.0) gm/dL Hct (34.0-46.0) % MCV (80.0-100.0) fL RDW (11.5-15.5) % Plt Count (150-450) k/uL Sodium (137-145) mmol/L Chloride (98-107) mmol/L Carbon Dioxide (22-30) mmol/L Creatinine (0.52-1.04) mg/dL Glucose (74-99) mg/dL Plasma Lactic Acid Isac 2.6 H* 2.2 H* 2.6 H* (0.7-2.0) mmol/L Calcium (8.4-10.2) mg/dL Total Bilirubin (0.2-1.3) mg/dL AST (14-36) U/L ALT (4-34) U/L Alkaline Phosphatase (38-126) U/L Total Protein (6.3-8.2) g/dL Albumin (3.5-5.0) g/dL 04/23/20 04/23/20 04/23/20 Range/Units 08:14 08:14 08:14 WBC 0.5 L* (3.8-10.6) k/uL RBC 3.52 L (3.80-5.40) m/uL Hgb 8.9 L D (11.4-16.0) gm/dL Hct 28.2 L (34.0-46.0) % MCV (80.0-100.0) fL RDW 29.3 H (11.5-15.5) % Plt Count 15 L* (150-450) k/uL Sodium 128 L (137-145) mmol/L Chloride (98-107) mmol/L Carbon Dioxide 21 L (22-30) mmol/L Creatinine 0.51 L (0.52-1.04) mg/dL Glucose 218 H (74-99) mg/dL Plasma Lactic Acid Isac 2.3 H* (0.7-2.0) mmol/L Calcium 6.2 L* (8.4-10.2) mg/dL Total Bilirubin (0.2-1.3) mg/dL AST (14-36) U/L ALT (4-34) U/L Alkaline Phosphatase (38-126) U/L Total Protein (6.3-8.2) g/dL Albumin (3.5-5.0) g/dL 04/23/20 Range/Units 12:22 WBC (3.8-10.6) k/uL RBC (3.80-5.40) m/uL Hgb (11.4-16.0) gm/dL Hct (34.0-46.0) % MCV (80.0-100.0) fL RDW (11.5-15.5) % Plt Count (150-450) k/uL Sodium (137-145) mmol/L Chloride (98-107) mmol/L Carbon Dioxide (22-30) mmol/L Creatinine (0.52-1.04) mg/dL Glucose (74-99) mg/dL Plasma Lactic Acid Isac 4.8 H* (0.7-2.0) mmol/L Calcium (8.4-10.2) mg/dL Total Bilirubin (0.2-1.3) mg/dL AST (14-36) U/L ALT (4-34) U/L Alkaline Phosphatase (38-126) U/L Total Protein (6.3-8.2) g/dL Albumin (3.5-5.0) g/dL Microbiology - Last 24 Hours (Table) 04/22/20 19:40 Urine Culture - Preliminary Urine,Voided 04/22/20 18:57 Blood Culture - Final Blood Assessment and Plan Assessment: 1- patient presented to the hospital with sepsis in this patient who did have a neutropenia and elevated lactic acid source is likely pneumonia in this patient did have extensive infiltrate on the CT angiogram with a history of lung cancer and chemo therapy will need to cover for the gram-negative to the likely pathogen responsible for this pneumonia underlying gram-positive bacteria less l ikely but not entirely excluded (1) Neutropenic sepsis Current Visit: Yes Status: Acute Code(s): A41.9 - SEPSIS, UNSPECIFIED ORGANISM; D70.9 - NEUTROPENIA, UNSPECIFIED SNOMED Code(s): 882703719 (2) Pneumonia Current Visit: Yes Status: Acute Code(s): J18.9 - PNEUMONIA, UNSPECIFIED OR GANISM SNOMED Code(s): 244083026 Plan: 1- cefepime 2 g every 8 hours 2-Vancomycin pharmacy to dose target trough of 15 while watching her kidney function and Vanco trough closely 3-obtained sputum for Gram stain and culture We will follow on clinical condition and cultures to further adjust medication if needed Thank you for this consultation will follow this patient with you Time with Patient: Greater than 30
[2020-04-24] MEDS: IPRATROPIUM-ALBUTEROL 3 ML NEB INHALATION PRN (03:20)
[2020-04-24] MEDS: VANCOMYCIN 1,250 MG in SODIUM CHLORIDE 0.9% 250 ML IVPB SCH (03:38)
[2020-04-24 06:14] LABS: Glucose,Whole Blood 125 mg/dL (75-99)
[2020-04-24] MEDS: LEVOTHYROXINE 50 MCG TAB PO SCH (06:30)
[2020-04-24] MEDS: PANTOPRAZOLE 40 MG TABLET PO SCH (06:30)
[2020-04-24] MEDS: methylPREDNISolone SOD SUCCI 125 MG/2 ML VIAL IV SCH (06:30)
[2020-04-24] MEDS: INSULIN ASPART (NovoLOG) 100 UNIT/ML VIAL SQ SCH ×4 (06:35→23:13)
[2020-04-24 06:53] LABS: Anisocytosis Marked; HCT 27.7 % (34.0-46.0); HGB 8.6 gm/dL (11.4-16.0); Hypochromasia Slight; MCV 80.7 fL (80.0-100.0); Mean Platelet Volume 7.8; Microcytosis Marked; RBC 3.43 m/uL (3.80-5.40)
[2020-04-24 06:55] LABS: RDW 29.9 % (11.5-15.5); WBC 0.3 k/uL (3.8-10.6)
[2020-04-24 06:56] LABS: Platelet Count 7 k/uL (150-450)
[2020-04-24 07:20] LABS: African American GFR (CKD) >90 (>60 ml/min/1.73 sqM); Anion Gap 6 mmol/L; Blood Urea Nitrogen 21 mg/dL (7-17); Calcium 6.9 mg/dL (8.4-10.2); Carbon Dioxide 21 mmol/L (22-30); Chloride 103 mmol/L (98-107); Glucose 134 mg/dL (74-99); Non-African American GFR(CKD) >90 (>60 ml/min/1.73 sqM); Potassium 4.4 mmol/L (3.5-5.1); Sodium 130 mmol/L (137-145)
[2020-04-24] MEDS ORDERED: DILTIAZEM DRIP BOLUS FROM BAG 1 MG SOLN IV ONE (07:27)
[2020-04-24] MEDS ORDERED: DILTIAZEM 125 MG in SODIUM CHLORIDE 0.9% 100 ML IV SCH (07:30)
[2020-04-24] MEDS: IPRATROPIUM-ALBUTEROL 3 ML NEB INHALATION SCH ×4 (07:49→18:37)
[2020-04-24] MEDS: BUDESONIDE 0.5 MG/2 ML NEBU INHALATION SCH ×2 (07:49→18:37)
[2020-04-24] MEDS: SENNOSIDES-DOCUSATE SODIUM 1 EACH TAB PO SCH ×2 (07:59→22:54)
[2020-04-24 08:04] LABS: Mixed Population RBC Present
[2020-04-24] MEDS: CEFEPIME 2 GM in SODIUM CHLORIDE 0.9% 100 ML IVPB SCH ×3 (08:09→23:05)
[2020-04-24] MEDS: FILGRASTIM-SNDZ 300 MCG/0.5 ML SYRINGE SQ SCH (08:13)
[2020-04-24] MEDS ORDERED: DIGOXIN 250 MCG/ML 2 ML AMP IVP ONE ×2 (10:01→14:00)
[2020-04-24 10:15] LABS: Glucose,Whole Blood 101 mg/dL (75-99)
[2020-04-24] MEDS ORDERED: VANCOMYCIN TROUGH DUE 1 EACH MISC MISCELLANE ONE (11:00)
--- NOTE | 2020-04-24 11:04 | P.PN ---
Subjective Progress Note Date: 04/24/20 64-year-old female patient with a recent diagnosis of metastatic adenocarcinoma of the lung will receive systemic chemotherapy approximately 6 days ago at the oncology office on outpatient basis. This did not go well and the patient became progressively more short of breath over the past 48 hours and she developed increased dyspnea and cough and congestion and she continued to have skeletal pain which is related to her bony metastases. She was having difficulties in breathing and she became progressively more hypoxic and she end up being admitted to the hospital. Note that the patient was on room air prior to this admission. The patient is currently off of the liters of oxygen by nasal cannula. She has neutropenia with a white cell count of 0.5. He is on high flow oxygen at 15 L. Pulse is around 91-92%. She is afebrile for now. Hemodynamically stable on no pressors. Slightly tachycardic heart rate max is at 108 beats per minute. She also is thrombocytopenic with a platelet count as low as 15. Lactic acid level was at 3.7 max on that I dropped down to 2.3. The patient was hyponatremic at sodium level of 123 and the patient's sodium level is up to 128 and the patient is receiving normal saline infusion. She was covered with antibiotics and the patient is currently on a combination of cefepime and vancomycin. Computed tomography scan of the chest was done and the computed tomography scan showed extensive bilateral pulmonary infiltrates significant worse compared to the previous CAT scan of the chest. The patient has more extensive infiltration of the right lower lobe and the left upper lobe and left lower lobe. There is also new right-sided pleural effusion bilaterally right more than left. There is background emphysematous changes and the patient has patchy also sclerotic changes in the spine suggestive of metastatic disease as no nausea. The calcium level was low at 6.2. LFTs were also abnormal. This patient has a recent diagnosis of metastatic adenocarcinoma of the lung. Diagnosis established by biopsying a adrenal mass. The patient had significant debility and weakness and pain in lower extremities pressure on the right. She also lost motor function and sensory function and she lost her ability to walk. She was having some numbness along the perineum. She hasn't lost completed the bowel and bladder control. She has been having some constipation related to narcotic medication use for pain control. The patient's CAT scan of the chest abdomen and pelvis that was done on 03/06/2020 showed a 6.6 cm right suprahilar mass with a focal 2 cm satellite lesion. There was also a 3 cm left adrenal mass, lesion in the right sacral alar with significant dissection and soft tissue invasion of the S1-S2. The patient also had disease involving T12 vertebral body on the left as well as the paraspinal lesion at the level of T9 and T10 and involvement of the L3 transverse process. She continues to have severe back pain. She was placed on Decadron outpatient basis. She was also subjected to radiation therapy by Dr. Davian Caruso. 04/24/2020, the patient was seen in the medical floor and the patient was quite hypoxic and overnight the patient was placed on high flow oxygen at 60 L with an FiO2 of 94%. Current pulse ox is 93%. The patient is calm and comfortable. She is struggling slightly with her breathing gets she is not using excessive muscle breathing and she is able to speak. Earlier this morning, the patient went into atrial fibrillation with rapid ventricular response and the patient was started on Cardizem drip which is currently running at 10 mg an hour. No significant cough or sputum production. No chest tightness. She is covered with broad-spectrum antibiotics and she is on accommodation of cefepime and vancomycin. The blood culture came back positive for Serratia marcescens. The white cell count today's at 0.3. Platelet count is down to 7 and a platelet transfusion was requested. Hemoglobin stable at 8.6. The lactic acid level is improved and is down to 1.9. Calcium level at 6.9. The patient has ongoing back pain and weakness in lower extremities. She is essentially bedbound. No altered mentation. An order was given to transfer this patient to the intensive care unit. A follow-up chest x-ray still pending for now. Echocardiogram is also pending. Objective - Vital Signs Vital signs: Vital Signs Temp 98 F 04/24/20 10:20 Pulse 144 H 04/24/20 10:40 Resp 36 H 04/24/20 10:40 BP 90/59 04/24/20 10:40 Pulse Ox 88 L 04/24/20 10:40 Intake & Output 04/23/20 04/24/20 04/24/20 18:59 06:59 18:59 Intake Total 120 120 Balance 120 120 Weight 63.5 kg 73 kg Intake: Oral 120 120 Other: Voiding Method Bedpan Bedpan Bedpan # Voids 1 # Bowel Movements 0 - Exam Gen. appearance the patient is in mild pain. There are no signs of any significant respiratory distress and currently some high flow oxygen at 60 L of oxygen by nasal cannula and this is high flow oxygen with an FiO2 of 94%. Head exam was generally normal. There was no scleral icterus or corneal arcus. Mucous membranes were moist. Neck was supple and without jugular venous distension, thyromegaly, or carotid bruits. Carotids were easily palpable bilaterally. There was no adenopathy. Lungs sounds are diminished and the patient has scattered rhonchi heard t hroughout the lung santos bilaterally Cardiac exam revealed the PMI to be normally situated and sized. The rhythm was irregular and tachycardic and no extrasystoles were noted during several minutes of auscultation. The first and second heart sounds were normal and physiologic splitting of the second heart sound was noted. There were no murmurs, rubs, clicks, or gallops. Abdominal exam revealed normal bowel sounds. The abdomen was soft, non-tender, and without masses, organomegaly, or appreciable enlargement of the abdominal aorta. Extremities revealed motor weakness and numbness in the lower extremities bilaterally. She is unable to raise her legs against gravity. Sensory functions are diminished quite a bit in the lower extremities. No Babinski. No clonus. Reflexes are also diminished. Examination of the skin revealed no evidence of significant rashes, suspicious appearing nevi or other concerning lesions. - Labs CBC & Chem 7: 04/24/20 04:30 04/24/20 04:30 Labs: Abnormal Lab Results - Last 24 Hours (Table) 04/23/20 04/23/20 04/23/20 Range/Units 08:14 12:22 13:20 WBC (3.8-10.6) k/uL RBC (3.80-5.40) m/uL Hgb (11.4-16.0) gm/dL Hct (34.0-46.0) % RDW (11.5-15.5) % Plt Count (150-450) k/uL Sodium (137-145) mmol/L Carbon Dioxide (22-30) mmol/L BUN (7-17) mg/dL Glucose (74-99) mg/dL POC Glucose (mg/dL) (75-99) mg/dL Plasma Lactic Acid Isac 4.8 H* (0.7-2.0) mmol/L Calcium (8.4-10.2) mg/dL C-Reactive Protein 684.7 H (<10.0) mg/L Procalcitonin 6.66 H (0.02-0.09) ng/mL 04/23/20 04/23/20 04/23/20 Range/Units 15:41 17:03 18:37 WBC (3.8-10.6) k/uL RBC (3.80-5.40) m/uL Hgb (11.4-16.0) gm/dL Hct (34.0-46.0) % RDW (11.5-15.5) % Plt Count (150-450) k/uL Sodium (137-145) mmol/L Carbon Dioxide (22-30) mmol/L BUN (7-17) mg/dL Glucose (74-99) mg/dL POC Glucose (mg/dL) 359 H (75-99) mg/dL Plasma Lactic Acid Isac 3.5 H* 3.9 H* (0.7-2.0) mmol/L Calcium (8.4-10.2) mg/dL C-Reactive Protein (<10.0) mg/L Procalcitonin (0.02-0.09) ng/mL 04/23/20 04/23/20 04/23/20 Range/Units 19:30 20:54 21:46 WBC (3.8-10.6) k/uL RBC (3.80-5.40) m/uL Hgb (11.4-16.0) gm/dL Hct (34.0-46.0) % RDW (11.5-15.5) % Plt Count (150-450) k/uL Sodium (137-145) mmol/L Carbon Dioxide (22-30) mmol/L BUN (7-17) mg/dL Glucose (74-99) mg/dL POC Glucose (mg/dL) 307 H 286 H (75-99) mg/dL Plasma Lactic Acid Isac 3.9 H* (0.7-2.0) mmol/L Calcium (8.4-10.2) mg/dL C-Reactive Protein (<10.0) mg/L Procalcitonin (0.02-0.09) ng/mL 04/24/20 04/24/20 04/24/20 Range/Units 04:30 04:30 06:12 WBC 0.3 L* (3.8-10.6) k/uL RBC 3.43 L (3.80-5.40) m/uL Hgb 8.6 L (11.4-16.0) gm/dL Hct 27.7 L (34.0-46.0) % RDW 29.9 H (11.5-15.5) % Plt Count 7 L* D (150-450) k/uL Sodium 130 L (137-145) mmol/L Carbon Dioxide 21 L (22-30) mmol/L BUN 21 H (7-17) mg/dL Glucose 134 H (74-99) mg/dL POC Glucose (mg/dL) 125 H (75-99) mg/dL Plasma Lactic Acid Isac (0.7-2.0) mmol/L Calcium 6.9 L (8.4-10.2) mg/dL C-Reactive Protein (<10.0) mg/L Procalcitonin (0.02-0.09) ng/mL 04/24/20 Range/Units 10:12 WBC (3.8-10.6) k/uL RBC (3.80-5.40) m/uL Hgb (11.4-16.0) gm/dL Hct (34.0-46.0) % RDW (11.5-15.5) % Plt Count (150-450) k/uL Sodium (137-145) mmol/L Carbon Dioxide (22-30) mmol/L BUN (7-17) mg/dL Glucose (74-99) mg/dL POC Glucose (mg/dL) 101 H (75-99) mg/dL Plasma Lactic Acid Isac (0.7-2.0) mmol/L Calcium (8.4-10.2) mg/dL C-Reactive Protein (<10.0) mg/L Procalcitonin (0.02-0.09) ng/mL Microbiology - Last 24 Hours (Table) 04/22/20 19:40 Urine Culture - Preliminary Urine,Voided 04/22/20 18:57 Blood Culture Gram Stain - Preliminary Blood Blood Culture - Preliminary Serratia marcescens 04/22/20 18:57 Blood Culture - Final Blood Assessment and Plan Plan: 1 metastatic poorly differentiated adenocarcinoma of the lung, receiving systemic chemotherapy and palliative radiation therapy to the spine. 2 acute hypoxic respiratory failure with bilateral pulmonary infiltrates in addition to underlying neutropenia. Consider hospital-acquired pneumonia/gram- negative pneumonia. The patient has a possible culture with Serratia and this is likely the source and the microorganism of infection in the lungs. The patient has gotten worse in terms of her oxygenation and the patient is currently on 6 L of oxygen by nasal cannula. She is also on 94% FiO2. 3 sepsis secondary to Serratia marcescens. The blood cultures positive for Serratia the patient will be kept on IV cefepime for now. 4 severe neutropenia, chemotherapy induced, hrombocytopenia, chemotherapy induced, the patient is currently on filgrastim and the patient will be also receiving a platelet transfusion. 5 right suprahilar mass measuring 6.6 x 6.5 cm in size in addition to Satellite pulmonary lesions and smaller left lower lobe pulmonary nodules in addition to multiple metastatic lesions involving the spine and adrenal gland in addition to posterior lower ribs and right iliac. 6 right lower extremity radiculopathy along with metastatic involvement of the left L3 transverse process and T12 vertebral body resulting in chronic back pain 7 soft tissue metastasis involving the left paracentral region at the level of T9-T10 8 bronchospastic disease involving the thoracic spine involving the vertebral bodies of T6, T9, T11 and T12 9 metastatic disease involving the spine with bony changes of the sacral alar 10 left metastases 11 COPD 12 hypothyroidism 13 motor deficits in the lower extremities related to the above 14 new-onset atrial fibrillation with rapid ventricular response currently on a Cardizem drip Plan We'll transfer the patient to the intensive care unit Continue Cardizem drip at 10 L an hour Monitor the cardiac rhythm and a heart rate and necessary adjustments on the medication will be done Obtain echocardiogram and thyroid function tests Continue his IV cefepime Blood culture results were noted IV Solu-Medrol IV fluids No need for pressors at this point in time Adequate pain control Kelly virus Covid 19 nasal swab by PCR was negative Repeat chest x-ray in the ICU Continue with filgrastim and monitor the white cell count Platelet transfusion Prognosis poor based on the above-mentioned comorbidities. We'll continue to follow.
--- NOTE | 2020-04-24 11:07 | P.CRDCN ---
History of Present Illness Consult date: 04/24/20 History of present illness: CHIEF COMPLAINT: A. fib with RVR HISTORY OF PRESENT ILLNESS: 64-year-old female with a history of stage IV lung cancer who was admitted to the hospital secondary to pneumonia, shortness of breath, and neutropenia. Patient went into A. fib with RVR and cardiology consult was requested. Patient remains in Afib. She received a 10mg Cardizem bolus and was started on a Cardizem infusion at 10 mg hour. Her initial heart rate was close to 200. It has improved since initiation of Cardizem and is now in the 120-130s. Patient examined this morning at the bedside. She denies any previous cardiac history. She has never seen a photographer motion picture in the past. She denies previous history of atrial fibrillation. She denies chest pain. She reports shortness of breath this morning. She denies palpitations. DIAGNOSTICS: Initial EKG reveals sinus tachycardia. Current telemetry shows A. fib with RVR Chest CTA: No evidence of pulmonary embolism. Extensive bilateral pulmonary i nfiltrate significantly increased compared to old exam. No bilateral pleural effusions. Laboratory data: WBC 0.3. Hemoglobin 8.6. Platelet count 7. Sodium 130. Potassium 4.4. BUN 21. Creatinine 0.55. Lactic acid 3.9. Repeat 1.9. Current home cardiac medications include: none REVIEW OF SYSTEMS: CONSTITUTIONAL: Denies fever or chills. HEENT: Denies blurred vision, vision changes, or eye pain. Denies hemoptysis CARDIOVASCULAR: Denies chest pain, orthopnea, PND or palpitations RESPIRATORY: Reports shortness of breath. GASTROINTESTINAL: Denies abdominal pain. Denies nausea or vomiting. HEMATOLOGIC: Denies bleeding disorders. GENITOURINARY: Denies any blood in urine. SKIN: Denies pruitis. Denies rash. PHYSICAL EXAM: VITAL SIGNS: Reviewed. GENERAL: Well-developed in mild distress. HEENT: Head is normocephalic. Pupils are equal, round. Sclerae anicteric. Mucous membranes of the mouth are moist. Neck supple. No JVD or thyromegaly LUNGS: Respirations even. Mild accessory use. Tachypneic. Lung sounds diminished with scattered rhonchi. HEART: Tachycardic. Irregular rate and rhythm. S1 and S2 heard. ABDOMEN: Soft. Nontender. EXTREMITIES: Normal range of motion. No clubbing or cyanosis. Peripheral pulses intact. No lower extremity edema NEUROLOGIC: Awake and alert. Oriented x 3. ASSESSMENT: 1. New onset A. fib with RVR 2. Stage IV lung cancer 3. Pancytopenia, on chemotherapy, last chemotherapy 04/17/2020 4. Pneumonia PLAN: -Continue Cardizem drip at 10mg/hr -Digoxin 250mcg now. Repeat in 6 hours with 125mcg. -Check TSH -Obtain 2D echo to assess cardiac structure and function Nurse practitioner note has been reviewed by physician. Signing provider agrees with the documented findings, assessment, and plan of care. Past Medical History Past Medical History: Cancer, Thyroid Disorder Additional Past Medical History / Comment(s): Hypothyroidism. stage 4 lung cancer History of Any Multi-Drug Resistant Organisms: None Reported Past Surgical History: Tonsillectomy Past Anesthesia/Blood Transfusion Reactions: No Reported Reaction Past Psychological History: No Psychological Hx Reported Smoking Status: Former smoker Past Alcohol Use History: Rare Additional Past Alcohol Use History / Comment(s): Patient was a smoker of one and half packs per day for 22 years and quit approximately 20 years ago. She has rare alcohol intake. She denies any marijuana or street drug use. Past Drug Use History: None Reported - Past Family History Mother Family Medical History: Cancer, CVA/TIA Additional Family Medical History / Comment(s): Mother at age 75 from some type of cancer outside the colon. Sister(s) Family Medical History: Cancer Additional Family Medical History / Comment(s): Patient has one sister with history of breast cancer, atrial fibrillation and hypertension. Father Additional Family Medical History / Comment(s): Father is alive at age 92 with history of coronary artery disease, hypertension, hyperlipidemia, benign prostatic hypertrophy. Brother(s) Additional Family Medical History / Comment(s): Patient has 2 brothers with no major medical problems. Patient has 2 children: One son with hypothyroidism and one daughter with VSD. Medications and Allergies Home Medications Medication Instructions Recorded Confirmed Type Naproxen Sodium [Aleve] 440 mg PO BID PRN 03/05/20 04/22/20 History Levothyroxine Sodium [Synthroid] 50 mcg PO DAILY@0630 #30 tab 03/12/20 04/22/20 Rx Pantoprazole [Protonix] 40 mg PO DAILY #30 tab 03/15/20 04/22/20 Rx fentaNYL 50MCG/HR PATCH [Duragesic 1 patch TRANSDERM Q72H 3 Days #1 03/15/20 04/22/20 Rx 50MCG/HR] patch HYDROcodone/APAP 7.5-325MG [Mccalla 1 tab PO Q6H PRN 04/22/20 04/22/20 History 7.5-325] Magnesium Hydroxide [Milk of 2,400 mg PO ONCE PRN 04/22/20 04/22/20 History Magnesia Concentrate] Sennosides-Docusate Sodium 2 tab PO BID 04/22/20 04/22/20 History [Senokot-S] Tamsulosin [Flomax] 0.4 mg PO DAILY 04/22/20 04/22/20 History dexAMETHasone [Hexadrol] 4 mg PO TID 04/22/20 04/22/20 History fentaNYL 25MCG/HR PATCH [Duragesic 1 patch TRANSDERM Q72H 04/22/20 04/22/20 History 25MCG/HR] Allergies Allergy/AdvReac Type Severity Reaction Status Date / Time No Known Allergies Allergy Verified 04/22/20 17:04 Physical Exam Vitals: Vital Signs Temp Pulse Pulse Resp BP Pulse Ox 04/24/20 09:01 102 H 20 92 L 04/24/20 08:13 142 H 20 92 L 04/24/20 08:05 137 H 04/24/20 08:03 157 H 32 H 118/58 89 L 04/24/20 07:53 88 L 04/24/20 07:49 125 H 04/24/20 07:40 133 H 120/70 87 L 04/24/20 07:39 98.4 F 114 H 120/70 90 L 04/24/20 07:34 164 H 30 H 127/59 90 L 04/24/20 07:10 160 H 28 H 116/73 92 L 04/24/20 07:05 160 H 28 H 120/53 93 L 04/24/20 04:00 101 H 26 H 04/24/20 03:45 98.5 F 101 H 24 116/55 97 04/24/20 03:35 104 H 04/24/20 03:21 104 H 96 04/24/20 02:10 105 H 26 H 97 04/24/20 00:00 114 H 26 H 04/23/20 23:24 94 L 04/23/20 22:55 126 H 04/23/20 22:48 91 L 04/23/20 22:45 125 H 04/23/20 22:37 125 H 32 H 92 L 04/23/20 22:05 123 H 32 H 88 L 04/23/20 20:00 97.5 F L 121 H 22 122/60 90 L 04/23/20 19:01 108 H 20 04/23/20 16:12 105 H 20 04/23/20 16:01 102 H 20 04/23/20 16:00 97.9 F 110 H 22 109/53 93 L 04/23/20 12:00 114 H 22 04/23/20 11:58 98.1 F 114 H 22 102/51 92 L 04/23/20 11:52 108 H 04/23/20 11:40 106 H Intake and Output 04/23/20 04/24/20 04/24/20 22:59 06:59 14:59 Intake Total 120 Balance 120 Intake: Oral 120 Other: Voiding Method Bedpan Bedpan # Voids 1 1 # Bowel Movements 0 Weight 73 kg Results 04/24/20 04:30 04/24/20 04:30 CBC 04/23/20 04/24/20 Range/Units 08:14 04:30 WBC 0.5 L* 0.3 L* (3.8-10.6) k/uL RBC 3.52 L 3.43 L (3.80-5.40) m/uL Hgb 8.9 L D 8.6 L (11.4-16.0) gm/dL Hct 28.2 L 27.7 L (34.0-46.0) % Plt Count 15 L* 7 L* D (150-450) k/uL Comprehensive Metabolic Panel 04/23/20 04/24/20 Range/Units 08:14 04:30 Sodium 128 L 130 L (137-145) mmol/L Potassium 4.1 4.4 (3.5-5.1) mmol/L Chloride 98 103 (98-107) mmol/L Carbon Dioxide 21 L 21 L (22-30) mmol/L BUN 16 21 H (7-17) mg/dL Creatinine 0.51 L 0.55 (0.52-1.04) mg/dL Glucose 218 H 134 H (74-99) mg/dL Calcium 6.2 L* 6.9 L (8.4-10.2) mg/dL Current Medications Generic Name Dose Route Start Last Admin Trade Name Freq PRN Reason Stop Dose Admin Acetaminophen 650 mg 04/22/20 20:08 04/23/20 04:39 Tylenol Tab PO 650 mg Q6HR PRN Administration Mild Pain or Fever > 100.5 Hydrocodone Bitart/Acetaminophen 1 each 04/23/20 06:18 04/23/20 21:57 Mccalla 7.5-325 PO 1 each Q6H PRN Administration Pain Albuterol/Ipratropium 3 ml 04/23/20 05:01 04/24/20 03:20 Duoneb 0.5 Mg-3 Mg/3 Ml Soln INHALATION 3 ml RT-QID PRN Administration Shortness Of Breath Or Wheezing Albuterol/Ipratropium 3 ml 04/23/20 08:00 04/24/20 07:49 Duoneb 0.5 Mg-3 Mg/3 Ml Soln INHALATION 3 ml RT-QID MARY JANE Administration Budesonide 0.5 mg 04/23/20 08:00 04/24/20 07:49 Pulmicort INHALATION 0.5 mg RT-BID MARY JANE Administration Fentanyl 1 patch 04/23/20 07:00 04/23/20 06:56 Duragesic 75mcg/Hr Patch TRANSDERM 1 patch Q72H MARY JANE Administration Filgrastim-Sndz 300 mcg 04/23/20 10:00 04/24/20 08:13 Zarxio SQ 300 mcg DAILY MARY JANE Administration Cefepime HCl 2 gm/ Sodium 100 mls @ 25 mls/hr 04/23/20 00:00 04/24/20 08:09 Chloride IVPB 25 mls/hr Q8HR MARY JANE Administration Vancomycin HCl 1,250 mg/ 250 mls @ 125 mls/hr 04/23/20 12:00 04/24/20 03:38 Sodium Chloride IVPB 125 mls/hr Q8H MARY JANE Administration Diltiazem HCl 125 mg/ Sodium 125 mls @ 10 mls/hr 04/24/20 07:30 04/24/20 07:35 Chloride IV 10 mg/hr .[id number] MARY JANE 10 mls/hr Administration 10 MG/HR Insulin Aspart 0 unit 04/23/20 17:30 04/24/20 06:35 Novolog SQ Not Given ACHS [facility] Protocol Insulin Detemir 18 unit 04/23/20 22:00 04/23/20 22:38 Levemir SQ 18 unit HS MARY JANE Administration Levothyroxine Sodium 50 mcg 04/23/20 06:30 04/24/20 06:30 Synthroid PO 50 mcg DAILY@0630 MARY JANE Administration Magnesium Hydroxide 2,400 mg 04/23/20 06:18 Milk Of Magnesia PO ONCE PRN Constipation Methylprednisolone Sodium Succinate 60 mg 04/23/20 13:00 04/24/20 06:30 Solu-Medrol IV 60 mg Q6HR MARY JANE Administration Miscellaneous Information 0 each 04/24/20 11:00 Vancomycin Trough Due MISCELLANE 04/24/20 11:01 DIRECTED ONE Naloxone HCl 0.2 mg 04/22/20 20:08 Narcan IV Q2M PRN Opioid Reversal Pantoprazole Sodium 40 mg 04/23/20 07:30 04/24/20 06:30 Protonix PO 40 mg [id number] MARY JANE Administration Senna/Docusate Sodium 2 each 04/23/20 09:00 04/24/20 07:59 Senokot-S PO Not Given BID MARY JANE Intake and Output 04/23/20 04/24/20 04/24/20 22:59 06:59 14:59 Intake Total 120 Balance 120 Intake: Oral 120 Other: Voiding Method Bedpan Bedpan # Voids 1 1 # Bowel Movements 0 Weight 73 kg 04/24/20 04:30 04/24/20 04:30
[2020-04-24] MEDS ORDERED: VANCOMYCIN IV PER PHARMACY 1 EACH MISC MISCELLANE PRN (11:27)
--- NOTE | 2020-04-24 11:55 | XR ---
EXAMINATION TYPE: XR chest 1V DATE OF EXAM: 04/24/2020 HISTORY: Shortness of breath. COMPARISON: None. TECHNIQUE: Single view of the chest is submitted. FINDINGS: Demonstrated are scattered senescent parenchymal change. Moderate to severe bilateral airspace infiltrates are noted right greater than left felt to reflect u nderlying pneumonia until proven otherwise. Follow-up until resolution is advised. The heart is stable. Hilar and mediastinal structures are within normal limits. Degenerative changes are seen of the dorsal spine. IMPRESSION: 1. Moderate to severe bilateral airspace infiltrates are noted right greater than left felt to refle ct underlying pneumonia until proven otherwise. Follow-up until resolution is advised.
[2020-04-24] MEDS ORDERED: DEXTROSE 5% IN WATER 100 ML with AMIODARONE 150 MG IV ONE ×2 (12:00→15:45)
[2020-04-24] MEDS ORDERED: AMIODARONE 360 MG in DEXTROSE 5% IN WATER 200 ML IV ONE ×2 (12:10)
--- NOTE | 2020-04-24 12:31 | P.PN ---
Subjective Progress Note Date: 04/24/20 Principal diagnosis: neutropenic pneumonia In follow-up today patient continues to generally not feel well, denies current nausea, vomiting, fevers, diarrhea, she actually has not had a bowel movement in over a week, no dysuria or bleeding, the weakness in her legs is moderate/s evere, she is requiring high flow oxygen to be comfortable Objective - Vital Signs Vital signs: Vital Signs Temp 98.2 F 04/24/20 11:00 Pulse 124 H 04/24/20 12:10 Resp 38 H 04/24/20 12:10 BP 103/46 04/24/20 12:10 Pulse Ox 87 L 04/24/20 11:46 Intake & Output 04/23/20 04/24/20 04/24/20 18:59 06:59 18:59 Intake Total 120 120 Balance 120 120 Weight 63.5 kg 73 kg Intake: Oral 120 120 Other: Voiding Method Bedpan Bedpan Bedpan # Voids 1 1 # Bowel Movements 0 - Constitutional General appearance: Present: cooperative, mild distress, thin - EENT Eyes: Present: anicteric sclerae, EOMI ENT: Present: hearing grossly normal - Respiratory Respiratory: bilateral: diminished, rhonchi - Cardiovascular Heart sounds: normal: S1, S2 - Peripheral edema leg Peripheral Edema: bilateral: None - Gastrointestinal General gastrointestinal: Present: normal bowel sounds, soft - Musculoskeletal Musculoskeletal Comment(s): bilateral lower extremity weakness, 2/5 - Psychiatric Psychiatric: Present: A&O x's 3, appropriate affect, intact judgment & insight - Labs CBC & Chem 7: 04/24/20 04:30 04/24/20 04:30 Labs: Abnormal Lab Results - Last 24 Hours (Table) 04/23/20 04/23/20 04/23/20 Range/Units 08:14 12:22 13:20 WBC (3.8-10.6) k/uL RBC (3.80-5.40) m/uL Hgb (11.4-16.0) gm/dL Hct (34.0-46.0) % RDW (11.5-15.5) % Plt Count (150-450) k/uL Sodium (137-145) mmol/L Carbon Dioxide (22-30) mmol/L BUN (7-17) mg/dL Glucose (74-99) mg/dL POC Glucose (mg/dL) (75-99) mg/dL Plasma Lactic Acid Isac 4.8 H* (0.7-2.0) mmol/L Calcium (8.4-10.2) mg/dL C-Reactive Protein 684.7 H (<10.0) mg/L Procalcitonin 6.66 H (0.02-0.09) ng/mL Vancomycin Trough ug/mL 04/23/20 04/23/20 04/23/20 Range/Units 15:41 17:03 18:37 WBC (3.8-10.6) k/uL RBC (3.80-5.40) m/uL Hgb (11.4-16.0) gm/dL Hct (34.0-46.0) % RDW (11.5-15.5) % Plt Count (150-450) k/uL Sodium (137-145) mmol/L Carbon Dioxide (22-30) mmol/L BUN (7-17) mg/dL Glucose (74-99) mg/dL POC Glucose (mg/dL) 359 H (75-99) mg/dL Plasma Lactic Acid Isac 3.5 H* 3.9 H* (0.7-2.0) mmol/L Calcium (8.4-10.2) mg/dL C-Reactive Protein (<10.0) mg/L Procalcitonin (0.02-0.09) ng/mL Vancomycin Trough ug/mL 04/23/20 04/23/20 04/23/20 Range/Units 19:30 20:54 21:46 WBC (3.8-10.6) k/uL RBC (3.80-5.40) m/uL Hgb (11.4-16.0) gm/dL Hct (34.0-46.0) % RDW (11.5-15.5) % Plt Count (150-450) k/uL Sodium (137-145) mmol/L Carbon Dioxide (22-30) mmol/L BUN (7-17) mg/dL Glucose (74-99) mg/dL POC Glucose (mg/dL) 307 H 286 H (75-99) mg/dL Plasma Lactic Acid Isac 3.9 H* (0.7-2.0) mmol/L Calcium (8.4-10.2) mg/dL C-Reactive Protein (<10.0) mg/L Procalcitonin (0.02-0.09) ng/mL Vancomycin Trough ug/mL 04/24/20 04/24/20 04/24/20 Range/Units 04:30 04:30 06:12 WBC 0.3 L* (3.8-10.6) k/uL RBC 3.43 L (3.80-5.40) m/uL Hgb 8.6 L (11.4-16.0) gm/dL Hct 27.7 L (34.0-46.0) % RDW 29.9 H (11.5-15.5) % Plt Count 7 L* D (150-450) k/uL Sodium 130 L (137-145) mmol/L Carbon Dioxide 21 L (22-30) mmol/L BUN 21 H (7-17) mg/dL Glucose 134 H (74-99) mg/dL POC Glucose (mg/dL) 125 H (75-99) mg/dL Plasma Lactic Acid Isac (0.7-2.0) mmol/L Calcium 6.9 L (8.4-10.2) mg/dL C-Reactive Protein (<10.0) mg/L Procalcitonin (0.02-0.09) ng/mL Vancomycin Trough ug/mL 04/24/20 04/24/20 Range/Units 09:15 10:12 WBC (3.8-10.6) k/uL RBC (3.80-5.40) m/uL Hgb (11.4-16.0) gm/dL Hct (34.0-46.0) % RDW (11.5-15.5) % Plt Count (150-450) k/uL Sodium (137-145) mmol/L Carbon Dioxide (22-30) mmol/L BUN (7-17) mg/dL Glucose (74-99) mg/dL POC Glucose (mg/dL) 101 H (75-99) mg/dL Plasma Lactic Acid Isac (0.7-2.0) mmol/L Calcium (8.4-10.2) mg/dL C-Reactive Protein (<10.0) mg/L Procalcitonin (0.02-0.09) ng/mL Vancomycin Trough 34.9 H* ug/mL Microbiology - Last 24 Hours (Table) 04/22/20 19:40 Urine Culture - Preliminary Urine,Voided 04/22/20 18:57 Blood Culture Gram Stain - Preliminary Blood Blood Culture - Preliminary Serratia marcescens 04/22/20 18:57 Blood Culture - Final Blood - Imaging and Cardiology Chest x-ray: report reviewed (bilateral infiltrates right greater than left) Assessment and Plan (1) Adenocarcinoma Current Visit: Yes Status: Acute Priority: High Code(s): C80.1 - MALIGNANT (PRIMARY) NEOPLASM, UNSPECIFIED SNOMED Code(s): 561597852 (2) Bone metastasis Current Visit: Yes Status: Acute Priority: High Code(s): C79.51 - SECONDARY MALIGNANT NEOPLASM OF BONE SNOMED Code(s): 10584733 (3) Pain of metastatic malignancy Current Visit: Yes Status: Acute Priority: High Code(s): G89.3 - NEOPLASM RELATED PAIN (ACUTE) (CHRONIC) SNOMED Code(s): 337117949 Plan: Patient is status post first cycle of carbo/Alimta/immunotherapy. Treatment on hold for now. May require chemotherapy dose reduction. Immunotherapy pneumonitis versus a bilateral pneumonia. Reduced dose Solu- Medrol to 60 twice a day, we will defer to Pulmonary/Critical Care for treatment of the same Severe chemotherapy induced panyctopenia. She has been started on G-CSF, dose increased, continue until ANC greater than 1000 and based on patient improvement in condition. Transfuse for platelet count less than 10,000 or if symptomatic. All antiplatelet therapies, anticoagulation and NSAIDs have been discontinued while plt <50,000. Transfuse for hemoglobin less than 7 Patient has had radiation to painful bone metastases 1 dose. Continue current pain meds as prescribed. Multiple medications ordered for the treatment of narcotic-induced constipation. Patient states no bowel movement > 5 days. Doctor attests: I performed a history and physical examination of this patient, developed impression and plan of care, discussed with dictator. I agree with dictators note, documented as a scribe.
[2020-04-24 12:40] LABS: Amorphous Sediment,Urine Rare /hpf; Appearance,Urine Turbid (Clear); Bacteria,Urine Few /hpf; Bilirubin,Urine Negative (Negative); Blood,Urine Moderate (Negative); Color,Urine Yellow; Glucose,Urine (UA) Trace (Negative); Ketones,Urine Negative (Negative); Leukocyte Esterase,Urine Negative (Negative); Nitrite,Urine Negative (Negative); Protein,Urine 1+ (Negative); RBC,Urine 10 /hpf (0-5); Specific Gravity,Urine 1.018 (1.001-1.035); Squamous Epithelial Cell,Urine 2 /hpf (0-4); Urobilinogen,Urine <2.0 mg/dL (<2.0); WBC,Urine 12 /hpf (0-5)
[2020-04-24] MEDS ORDERED: propofoL 0 ML IV ONE (13:38)
[2020-04-24] MEDS ORDERED: CISATRACURIUM 2 MG/ML 5 ML VIAL IV ONE (13:39)
[2020-04-24 13:49] LABS: ABG Base Excess -6.6 mmol/L; ABG HCO3 19 mmol/L (21-25); ABG Oxygen Saturation 86.6 % (94-97); ABG PCO2 34 mmHg (35-45); ABG PH 7.36 (7.35-7.45); ABG TCO2 20 mmol/L (19-24); Allen Test Performed? Yes
[2020-04-24 13:52] LABS: ABG PO2 53 mmHg (83-108)
[2020-04-24] MEDS ORDERED: MORPHINE SULFATE 2 MG/ML SYRINGE IVP PRN (15:32)
--- NOTE | 2020-04-24 16:47 | PN ---
PROGRESS NOTE DATE OF SERVICE: 04/24/2020 REASON FOR FOLLOWUP: Pneumonia with serratia bacteremia. INTERVAL HISTORY: Patient is currently afebrile. The patient has been transferred down to the ICU because of atrial fibrillation with RVR. She has boluses. Patient denies having any chest pain, shortness of breath. She did have a cough, not bringing up sputum. No nausea, no vomiting. No abdominal pain, no diarrhea. PHYSICAL EXAMINATION: Blood pressure 100/80, pulse of 74, temperature 98. She is on high-flow oxygen. General description is an elderly female, lying in bed in no distress. RESPIRATORY SYSTEM: Unlabored breathing, coarse breath sounds at the base bilaterally, no wheeze. HEART: S1, S2. Regular rate and rhythm. ABDOMEN: Soft. No tenderness. LABS: Hemoglobin 8.2, white count 0.3, BUN of 21, creatinine 0.55, blood culture serratia marcescens. Blood culture so far negative. DIAGNOSTIC IMPRESSION AND PLAN: Patient with pneumonia, likely gram-negative with blood culture positive for Serratia and the patient is currently covered with cefazolin to continue and monitor clinical course closely. MMODL / IJN: [id number] /
[2020-04-24] MEDS: AMIODARONE 300 MG in DEXTROSE 5% IN WATER 250 ML IV SCH ×2 (18:28)
[2020-04-24 18:33] LABS: Glucose,Whole Blood 116 mg/dL (75-99)
[2020-04-24] MEDS ORDERED: methylPREDNISolone SOD SUCCI 125 MG/2 ML VIAL IV SCH (21:00)
[2020-04-24] MEDS: INSULIN DETEMIR (LEVEMIR) 100 UNIT/ML SYR SQ SCH (23:14)
[2020-04-24 23:15] LABS: Glucose,Whole Blood 120 mg/dL (75-99)
[2020-04-25] MEDS: AMIODARONE 300 MG in DEXTROSE 5% IN WATER 250 ML IV SCH ×2 (04:09)
[2020-04-25 04:50] LABS: Anisocytosis Marked; HCT 31.6 % (34.0-46.0); HGB 9.4 gm/dL (11.4-16.0); Hypochromasia Marked; MCH 24.9 pg (25.0-35.0); MCHC 29.9 g/dL (31.0-37.0); MCV 83.2 fL (80.0-100.0); Macrocytosis Slight; Microcytosis Marked; RBC 3.79 m/uL (3.80-5.40)
[2020-04-25 04:54] LABS: Calcium 6.9 mg/dL (8.4-10.2); Platelet Count 7 k/uL (150-450); Potassium 5.4 mmol/L (3.5-5.1); RDW 30.4 % (11.5-15.5); WBC 0.3 k/uL (3.8-10.6)
[2020-04-25 04:59] LABS: Vancomycin,Random 21.6 ug/mL
[2020-04-25 05:26] LABS: Ovalocytes Present
[2020-04-25 06:15] VITALS: BP 88/45; PULSE 120; RESP 33
[2020-04-25 06:16] VITALS: TEMP 97.4
--- NOTE | 2020-04-25 06:35 | P.PN ---
Subjective Progress Note Date: 04/24/20 This is a 64 year old female who was recently diagnosed with metastatic non -small lung cancer to the thoracic, lumbar spine, left femur and right iliac and sacral area, who finished radiation therapy and was started on chemotherapy awaiting the result of check points for her cancer treatment , was brought into the ememergency department at [facility] because of increased shortness of breath and coughing, patient underwent CTA was negative for pulmonary embolism but showed bilateral pneumonic infiltrates in both upper lobes, also right lower lobes, and moderate right sided pleural effusion and small left sided pleural effusion, she was found to have WBCs at 0.5 abd she was started on IV Cefepime 2 gr IVPB Q 8 hours and Vancomycin pharmacy to dose peak and trough, along with pulmonary consult and ID consult Dr. Law, I spoke to the Nurse to move her to the ICU. 04/24: patient developed to have atrial fibrillation with RVR and she was started on cardizem drip and amiodarone drip and was moved to the ICU due to respiratory decompensation and was seen by pulmonary and cardiology and she appeared very ill looking with sever dyspnea at rest, she is saying few words before she gets very short of breath, her code status was changed and I spoke with both daughter and son at the bed side also called her sister and asked her to come and see her as her prognosis is very dismal. Objective - Vital Signs Vital signs: Vital Signs Temp 98.5 F 04/24/20 03:45 Pulse 101 H 04/24/20 04:00 Resp 26 H 04/24/20 04:00 BP 116/55 04/24/20 03:45 Pulse Ox 97 04/24/20 03:45 Intake & Output 04/23/20 04/23/20 04/24/20 06:59 18:59 06:59 Intake Total 120 120 Balance 120 120 Weight 63.5 kg 63.5 kg 73 kg Intake: Oral 120 120 Other: Voiding Method Diaper Bedpan Bedpan # Voids 1 1 # Bowel Movements 0 - Exam Review of Systems Constitutional: Reports chronic pain, Reports fatigue, Reports malaise, Reports weakness, Denies anorexia Eyes: denies blurred vision, denies bulging eye, denies decreased vision Ears, nose, mouth and throat: Denies dysphagia, Denies neck lump, Denies sore throat Cardiovascular: Reports decreased exercise tolerance, Reports dyspnea on exertion, Reports shortness of breath, Denies chest pain, Denies lightheadedness, Denies phlebitis, Denies rapid heart beat, Denies syncope Respiratory: Reports congestion, Reports cough, Reports cough with sputum, Reports dyspnea, Reports respiratory infections, Reports wheezing, Denies sleep apnea, Denies snoring Gastrointestinal: Reports constipation, Reports loss of appetite, Reports nausea, Denies abdominal pain, Denies bloating, Denies excessive gas, Denies melena, Denies vomiting Genitourinary: Denies dysuria, Denies nocturia Musculoskeletal: Reports gait dysfunction, Reports leg numbness/tingling, Reports low back pain, Reports muscle cramps, Reports muscle weakness, Reports myalgias Musculoskeletal: absent: ankle pain, ankle stiffness, ankle swelling, elbow pain, elbow stiffness, elbow swelling, foot pain, foot stiffness, foot swelling, hand pain, hand stiffness, hand swelling, hip pain, hip stiffness, hip swelling, knee pain, knee stiffness, knee swelling, shoulder pain, shoulder stiffness, shoulder swelling, wrist pain, wrist stiffness, wrist swelling Integumentary: Denies pruritus, Denies rash Neurological: Reports weakness Psychiatric: Reports anxiety, Reports depression, Reports sleep disturbances, Denies suicidal ideation Endocrine: Denies fatigue, Denies weight change Physical examination: HEENT: head is atraumatic normocephalic pupils were equal round reactive to ligh t and accommodations extra ocular muscle movements were intact, mucous membranes of the mouth are somewhat dry. Neck: supple, no JVP. Chest: decrease breath sounds at the bases with decreased tactile fremitus, there is egophony and expiratory wheezes and moderate intercostal retractions. Heart: first heart sound is depressed, second heart sound is normal there is no gallop or murmur. Abdomen: soft non tender non distended positive bowel sounds. Extremities: there is no edema no calf tenderness DP + 2 Bilaterally. Neurologic examination: patient is awake alert and oriented X 3 CN II-XII are grossly intact, there is weakness to the right lower extremity and muscle power 1/5 in the right lower extremity, 4/5 in bilateral upper and left lower extremity. - Labs CBC & Chem 7: 04/25/20 04:07 04/25/20 04:07 Labs: Abnormal Lab Results - Last 24 Hours (Table) 04/23/20 04/23/20 04/23/20 Range/Units 08:14 08:14 08:14 WBC 0.5 L* (3.8-10.6) k/uL RBC 3.52 L (3.80-5.40) m/uL Hgb 8.9 L D (11.4-16.0) gm/dL Hct 28.2 L (34.0-46.0) % RDW 29.3 H (11.5-15.5) % Plt Count 15 L* (150-450) k/uL Sodium 128 L (137-145) mmol/L Carbon Dioxide 21 L (22-30) mmol/L Creatinine 0.51 L (0.52-1.04) mg/dL Glucose 218 H (74-99) mg/dL POC Glucose (mg/dL) (75-99) mg/dL Plasma Lactic Acid Isac 2.3 H* (0.7-2.0) mmol/L Calcium 6.2 L* (8.4-10.2) mg/dL C-Reactive Protein (<10.0) mg/L Procalcitonin (0.02-0.09) ng/mL 04/23/20 04/23/20 04/23/20 Range/Units 08:14 12:22 13:20 WBC (3.8-10.6) k/uL RBC (3.80-5.40) m/uL Hgb (11.4-16.0) gm/dL Hct (34.0-46.0) % RDW (11.5-15.5) % Plt Count (150-450) k/uL Sodium (137-145) mmol/L Carbon Dioxide (22-30) mmol/L Creatinine (0.52-1.04) mg/dL Glucose (74-99) mg/dL POC Glucose (mg/dL) (75-99) mg/dL Plasma Lactic Acid Isac 4.8 H* (0.7-2.0) mmol/L Calcium (8.4-10.2) mg/dL C-Reactive Protein 684.7 H (<10.0) mg/L Procalcitonin 6.66 H (0.02-0.09) ng/mL 04/23/20 04/23/20 04/23/20 Range/Units 15:41 17:03 18:37 WBC (3.8-10.6) k/uL RBC (3.80-5.40) m/uL Hgb (11.4-16.0) gm/dL Hct (34.0-46.0) % RDW (11.5-15.5) % Plt Count (150-450) k/uL Sodium (137-145) mmol/L Carbon Dioxide (22-30) mmol/L Creatinine (0.52-1.04) mg/dL Glucose (74-99) mg/dL POC Glucose (mg/dL) 359 H (75-99) mg/dL Plasma Lactic Acid Isac 3.5 H* 3.9 H* (0.7-2.0) mmol/L Calcium (8.4-10.2) mg/dL C-Reactive Protein (<10.0) mg/L Procalcitonin (0.02-0.09) ng/mL 04/23/20 04/23/20 04/23/20 Range/Units 19:30 20:54 21:46 WBC (3.8-10.6) k/uL RBC (3.80-5.40) m/uL Hgb (11.4-16.0) gm/dL Hct (34.0-46.0) % RDW (11.5-15.5) % Plt Count (150-450) k/uL Sodium (137-145) mmol/L Carbon Dioxide (22-30) mmol/L Creatinine (0.52-1.04) mg/dL Glucose (74-99) mg/dL POC Glucose (mg/dL) 307 H 286 H (75-99) mg/dL Plasma Lactic Acid Isac 3.9 H* (0.7-2.0) mmol/L Calcium (8.4-10.2) mg/dL C-Reactive Protein (<10.0) mg/L Procalcitonin (0.02-0.09) ng/mL 04/24/20 Range/Units 06:12 WBC (3.8-10.6) k/uL RBC (3.80-5.40) m/uL Hgb (11.4-16.0) gm/dL Hct (34.0-46.0) % RDW (11.5-15.5) % Plt Count (150-450) k/uL Sodium (137-145) mmol/L Carbon Dioxide (22-30) mmol/L Creatinine (0.52-1.04) mg/dL Glucose (74-99) mg/dL POC Glucose (mg/dL) 125 H (75-99) mg/dL Plasma Lactic Acid Isac (0.7-2.0) mmol/L Calcium (8.4-10.2) mg/dL C-Reactive Protein (<10.0) mg/L Procalcitonin (0.02-0.09) ng/mL Microbiology - Last 24 Hours (Table) 04/22/20 18:57 Blood Culture Gram Stain - Preliminary Blood Blood Culture - Preliminary Serratia marcescens 04/22/20 19:40 Urine Culture - Preliminary Urine,Voided 04/22/20 18:57 Blood Culture - Final Blood Assessment and Plan Assessment: Assessment and Plan Assessment: Assessment and plan: 1. Acute hypoxemic respiratory failure due to bilateral possibly gram negative pneumonia with bilateral pleural effusion. we ill move to the ICU, continue with O2 support and we will continue with Vancomycin pharmacy to dose its peak and trough, Cefepime 2 gr IVPB Q 8 hours, we will continue with Duoneb 3 ml nebulization QID, Pulmicort 1 mg nebulization bid. currently decomensated very much with worsening pneumonia . 2. New onset atrial fibrillation with RVR. we will continue with cardizem drip and amiodrone drip, no anticoagulation due to very low platelets. 3. Thrombocytopenia. S/P platelets transfusion. 4. Bilateral pneumonia and pleural effusion. continue treatment as in paragraph#1. 5. Neutropenia due to chemotherapy we will continue with IV Cefepime and Vancomycin, we will continue with monitoring CBC. 6. Metastatic non-small lung cancer to the bones and spine post radiation and first cysle of chemotherapy.consult onclogy. 7. Hypothyroidism. we will continue with Synthroid 50 mcg orally daily. 8. Constipation. we will continue with current bowel care. 9. Pnacytopenia. due to chemotherapy. we will continue with monitoring and consult Oncology. 10. Chronic pain. we will continnue with Fentanyl patch 75 mcg Q 72 H and NOrco for breakthrough pain. 11. 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 12. DVT prophylaxis. we will apply knee-high Guillermo Hose no Lovenox due to severe thombocytopenia. 13. GI prophylaxis. we will continue with Protonix 40 mg orally daily. 14. Overall prognosis is dismal and her code status was switched to DNR.
[2020-04-25] MEDS: BUDESONIDE 0.5 MG/2 ML NEBU INHALATION SCH (07:42)
[2020-04-25] MEDS: IPRATROPIUM-ALBUTEROL 3 ML NEB INHALATION SCH (07:42)
--- NOTE | 2020-04-25 07:56 | XR ---
EXAMINATION TYPE: XR chest 1V DATE OF EXAM: 04/25/2020 COMPARISON: 04/24/2020 INDICATION: Increased oxygen demand TECHNIQUE: Single frontal view of the chest is obtained. FINDINGS: The heart size is normal. The pulmonary vasculature is indistinct. There is diffuse opacity throughout the bilateral lungs. This is greater on the right. Some spurring of the lateral left lower lobe may be present. Findings appear to be worsening over the interval. IMPRESSION: 1. Worsening bilateral lung infiltrates. Correlate for pneumonia. ARDS should be considered. Continue d follow-up is recommended.
[2020-04-25] MEDS ORDERED: VANCOMYCIN 1,250 MG in SODIUM CHLORIDE 0.9% 250 ML IVPB ONE (08:00)
--- NOTE | 2020-04-25 08:06 | P.PN ---
Progress Note - Text Progress Note Date: 04/25/20 The patient and the family was seen again this morning and follow-up was done. Note that yesterday, the patient was having significant respiratory insufficiency and she was having major decompensation terms of her breathing. She got chested to the intensive care unit. She was placed on high flow oxygen with 60 liters on high level of FiO2 and order of 95%. She went also into atrial fibrillation with rapid ventricular response. She was started initially on Cardizem drip and subsequently an amiodarone drip. She was quite pancytopenic with major leukopenia and thrombocytopenia. Following the transplant in intensive care unit, the blood cultures came back positive for Serratia. The patient was continued on the same antibiotic coverage. Nevertheless, she was obviously decompensated with increased tachypnea, increased respiratory distress, difficulties in controlling her atrial fi brillation and ongoing signs of respiratory failure. At that point, I elected discussion with the daughter who was at the bedside and with the patient. Based on her advanced stage IV adenocarcinoma of the lungs and very poor baseline performance and functional status, we thought that she was not a candidate for any further treatment and she will be better served with a DNR/DNI CODE STATUS. We will continue the medical treatment overnight and the patient was holding on her own till around 6:00 this morning when she became progressively more hypoxic and ultimately she went into respiratory arrest. The patient at around 6:45 AM this morning. Family is at the bedside. Noted the patient remains in atrial fibrillation overnight despite being on amiodarone drip. She was given a treated since January yesterday in the morning grams still shows evidence of leukopenia and thrombocytopenia. Her prognosis was extremely poor and the patient suffers from complications of stage IV lung cancer and sepsis secondary to Serratia pneumonia in the setting of chemotherapy-induced neutropenia. Family is aware. The necessary arrangements will be done done.
--- NOTE | 2020-04-25 08:24 | P.DS ---
Providers Date of admission: 04/22/20 19:15 Expected date of discharge: 04/25/20 Attending physician: Monica Perez Consults: 04/22/20 20:05 Consult Physician Stat Consulting Provider: Liset Arriola Consult Reason/Comments: metastatic lung cancer, bilateral pneumonia, neutropenia Do you want consulting provider notified?: Yes Consult Physician Stat Consulting Provider: Yenny Law Consult Reason/Comments: metstatic lung cancer, bilateral pneumonia, neutropenia Do you want consulting provider notified?: Yes 04/23/20 05:02 Consult Physician Routine Consulting Provider: Liset Arriola Consult Reason/Comments: Dyspnea, Lung cancer Do you want consulting provider notified?: Yes, Notify in am 04/23/20 10:55 Consult Physician Routine Consulting Provider: Javi Alberts Consult Reason/Comments: metastatic lung CA; neutropenia Do you want consulting provider notified?: Yes 04/24/20 07:22 Consult Physician Stat Consulting Provider: Lona Tamayo Consult Reason/Comments: New onset afib rvr Do you want consulting provider notified?: Yes Primary care physician: Monica Perez [facility] Course: This is a 64 year old female who was recently diagnosed with metastatic non -small lung cancer to the thoracic, lumbar spine, left femur and right iliac and sacral area, who finished radiation therapy and was started on chemotherapy awaiting the result of check points for her cancer treatment , was brought into the ememergency department at [facility] because of increased shortness of breath and coughing, patient underwent CTA was negative for pulmonary embolism but showed bilateral pneumonic infiltrates in both upper lobes, also right lower lobes, and moderate right sided pleural effusion and small left sided pleural effusion, she was found to have WBCs at 0.5 abd she was started on IV Cefepime 2 gr IVPB Q 8 hours and Vancomycin pharmacy to dose peak and trough, along with pulmonary consult and ID consult Dr. Law, I spoke to the Nurse to move her to the ICU. 04/24: patient developed to have atrial fibrillation with RVR and she was started on cardizem drip and amiodarone drip and was moved to the ICU due to respiratory decompensation and was seen by pulmonary and cardiology and she appeared very ill looking with sever dyspnea at rest, she is saying few words before she gets very short of breath, her code status was changed and I spoke with both daughter and son at the bed side also called her sister and asked her to come and see her as her prognosis is very dismal. 04/25: patient at 645 am today with metastatic non-small lung cancer with acute respiratory failure due to pneumonia and atrial fibrillation with RVR. final diagnoses: 1. Acute hypoxemic respiratory failure due to bilateral possibly gram negative pneumonia with bilateral pleural effusion. 2. New onset atrial fibrillation with RVR. 3. Thrombocytopenia. S/P platelets transfusion. 4. Bilateral pneumonia and pleural effusion. 5. Neutropenia due to chemotherapy. 6. Metastatic non-small lung cancer to the bones and spine. 7. Hypothyroidism. 8. Constipation. 9. Pnacytopenia. due to chemotherapy. 10. Chronic pain. 11. 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 Patient Condition at Discharge: Serious Plan - Discharge Summary Discharge Rx Participant: No New Discharge Prescriptions: No Action Naproxen Sodium [Aleve] 440 mg PO BID PRN PRN Reason: Pain Levothyroxine Sodium [Synthroid] 50 mcg PO DAILY@0630 #30 tab fentaNYL 50MCG/HR PATCH [Duragesic 50MCG/HR] 1 patch TRANSDERM Q72H 3 Days #1 patch Pantoprazole [Protonix] 40 mg PO DAILY #30 tab Magnesium Hydroxide [Milk of Magnesia Concentrate] 2,400 mg PO ONCE PRN PRN Reason: Constipation fentaNYL 25MCG/HR PATCH [Duragesic 25MCG/HR] 1 patch TRANSDERM Q72H dexAMETHasone [Hexadrol] 4 mg PO TID Tamsulosin [Flomax] 0.4 mg PO DAILY Sennosides-Docusate Sodium [Senokot-S] 2 tab PO BID HYDROcodone/APAP 7.5-325MG [[place] 7.5-325] 1 tab PO Q6H PRN PRN Reason: Pain Discharge Medication List Naproxen Sodium [Aleve] 440 mg PO BID PRN 03/05/20 [History] Levothyroxine Sodium [Synthroid] 50 mcg PO DAILY@0630 #30 tab 03/12/20 [Rx] Pantoprazole [Protonix] 40 mg PO DAILY #30 tab 03/15/20 [Rx] fentaNYL 50MCG/HR PATCH [Duragesic 50MCG/HR] 1 patch TRANSDERM Q72H 3 Days #1 patch 07/16/20 [Rx] HYDROcodone/APAP 7.5-325MG [[place] 7.5-325] 1 tab PO Q6H PRN 04/22/20 [History] Magnesium Hydroxide [Milk of Magnesia Concentrate] 2,400 mg PO ONCE PRN 04/22/20 [History] Sennosides-Docusate Sodium [Senokot-S] 2 tab PO BID 04/22/20 [History] Tamsulosin [Flomax] 0.4 mg PO DAILY 04/22/20 [History] dexAMETHasone [Hexadrol] 4 mg PO TID 04/22/20 [History] fentaNYL 25MCG/HR PATCH [Duragesic 25MCG/HR] 1 patch TRANSDERM Q72H 04/22/20 [History] Follow up Appointment(s)/Referral(s): Monica Perez MD [Primary Care Provider] - 1-2 days Activity/Diet/Wound Care/Special Instructions: [facility] - [phone] - patient's daughter to call to inquire about caregiver services
[2020-04-25] MEDS ORDERED: FILGRASTIM-SNDZ 480 MCG/0.8 ML SYRINGE SQ SCH (09:00)
--- NOTE | 2020-04-25 10:05 | ECHOF ---
Referral Reason:afib rvr MEASUREMENTS -------- HEIGHT: 172.7 cm WEIGHT: 72.6 kg BP: 118/58 IVSd: 1.2 cm (0.6 - 1.1) LVIDd: 1.9 cm (3.9 - 5.3) LVPWd: 1.2 cm (0.6 - 1.1) IVSs: 1.2 cm LVIDs: 1.6 cm LVPWs: 1.3 cm LAESV Index (A-L): 23.24 ml/m Ao Diam: 2.4 cm (2.0 - 3.7) AV Cusp: 1.7 cm (1.5 - 2.6) RAP: 5.00 mmHg RVSP: 31.17 mmHg FINDINGS -------- Atrial fibrillation with RVR This was a technically adequate study. The left ventricular size is normal. There is moderate concentric left ventricular hypertrophy. Ov erall left ventricular systolic function is low-normal with, an EF between 50 - 55 %. Left ventricu lar fillimg pressure cannot be estimated due to Atrial fibrillation. The right ventricle is normal in size. Normal LA size by volume 22+/-6 ml/m2. The right atrial size is normal. Interatrial and interventricular septum intact. The aortic valve is trileaflet and appears structurally normal. There is [id number] aortic re gurgitation. There is no evidence of aortic stenosis. The mitral valve is normal. Mild mitral regurgitation is present. Mild tricuspid regurgitation present. Right ventricular systolic pressure is normal at < 35 mmHg. The right ventricular systolic pressure, as measured by Doppler, is 31.17mmHg. Trace/mild (physiologic) pulmonic regurgitation. The aortic root size is normal. IVC Not well visulized. There is no pericardial effusion. CONCLUSIONS -------- 1. There is moderate concentric left ventricular hypertrophy. 2. Overall left ventricular systolic function is low-normal with, an EF between 50 - 55 %. 3. Left ventricular fillimg pressure cannot be estimated due to Atrial fibrillation. 4. Normal LA size by volume 22+/-6 ml/m2. 5. There is [id number] aortic regurgitation. 6. Mild mitral regurgitation is present. 7. Mild tricuspid regurgitation present. 8. Trace/mild (physiologic) pulmonic regurgitation. 9. There is no pericardial effusion. ROLLER MAN: Ami Calloway RDCS
--- NOTE | 2020-04-27 09:14 | CDI ---
Documentation Clarification Form Date: 04/27/2020 08:55:18 AM From: Sandra Randall Phone: If you have a question about this query, please contact Janneth Plasencia [employer] at [phone] between 8am and 5pm. Admit Date: 04/22/2020 07:15:00 PM Patient Name: Yarely Beaulieu Visit Number: [id number] Discharge Date: 04/25/2020 11:04:00 AM ATTENTION: The Clinical Documentation Specialists (CDI) and [facility] Coding Staff appreciate your assistance in clarifying documentation. Please respond to the clarification below the line at the bottom and electronically sign. The CDI & [facility] Coding staff will review the response and follow-up if needed. Please note: Queries are made part of the Legal Health Record. If you have any questions, please contact the author of this message via ITS. Dr. Monica Perez The patient presents with pneumonia, Stage IV Lung CA with pancytopenia due to chemo. Adrenal and bone mets with pain. 04/25 PN documents "Sepsis secondary to Serratia pneumonia in the setting of chemo induced neutropenia. ID consult documents neutropenic sepsis. Please clarify if patient had sepsis and if so was it due to Serratia pneumonia. History/Risk Factors: gram negative pneumonia, Stage IV Lung CA bone and adrenal mets. pancytopenia due to chemo WBC .5 Lactic acid: 3.7 Blood cultures: Positive for serratia Vitals signs on admission: 98.0 F, 136 bpm, 22, 117/75, 96% on NB 15 Treatment: antibiotics ID Consult: neutropenic sepsis Antibiotics: Pharm dose Vancomycin and Cefazolin IV Bolus: yes In your professional opinion, please clarify if these findings signify one of the following conditions, whether the condition is POA, and cause, if known: Condition Sepsis ruled out Serratia Sepsis Sepsis Severe Sepsis Septic Shock Other, please specify Unable to determine Present on Admission Yes No SIRS Criteria (2 or more of the following may indicate SIRS): -Temperature < 96.8F (36C) or > 101.0F (38.3C) -Heart Rate > 90 bpm -Respiratory Rate > 20 breaths/min or PaCO2 < 32 mmHg -White Blood Cell Count > 12,000 or < 4,000 cells/mm3 or > 10% bands -Lactate >2.0 mmol/L (>4.0 is equivalent to septic shock) Serratia sepsis presents on admission MTDD
== END 2020-04-25 11:04 | disposition expired | DRG 871 ==
LOC: EC 16:55 → 3SCARD 19:15 → 2SICU 04-24 10:02
PROVIDERS: ADMIT Internal Medicine; ATTEND Internal Medicine
PROC: 30233R1 Transfusion of Nonautologous Platelets into Peripheral Vein, Percutaneous Approach (ICD-10-PCS; principal; 2020-04-24)
DX: A41.53 Sepsis due to Serratia (principal); J15.6 Pneumonia due to other Gram-negative bacteria; J96.01 Acute respiratory failure with hypoxia; D61.810 Antineoplastic chemotherapy induced pancytopenia; C34.01 Malignant neoplasm of right main bronchus; C79.72 Secondary malignant neoplasm of left adrenal gland; C79.51 Secondary malignant neoplasm of bone; E87.1 Hypo-osmolality and hyponatremia; E87.2 Acidosis; G82.20 Paraplegia, unspecified; J91.8 Pleural effusion in other conditions classified elsewhere; J44.0 Chronic obstructive pulmonary disease with (acute) lower respiratory infection; Z87.891 Personal history of nicotine dependence; E03.9 Hypothyroidism, unspecified; G89.3 Neoplasm related pain (acute) (chronic); I48.91 Unspecified atrial fibrillation; K59.03 Drug induced constipation; Z66 Do not resuscitate; Z20.828 Contact with and (suspected) exposure to other viral communicable diseases; R50.81 Fever presenting with conditions classified elsewhere; T40.2X5A Adverse effect of other opioids, initial encounter; E83.50 Unspecified disorder of calcium metabolism; T45.1X5A Adverse effect of antineoplastic and immunosuppressive drugs, initial encounter; Z74.01 Bed confinement status; Z79.890 Hormone replacement therapy; R26.9 Unspecified abnormalities of gait and mobility; F41.9 Anxiety disorder, unspecified; F32.9 Major depressive disorder, single episode, unspecified; G47.9 Sleep disorder, unspecified; Z82.3 Family history of stroke; Z83.49 Family history of other endocrine, nutritional and metabolic diseases; Z79.899 Other long term (current) drug therapy; Z80.3 Family history of malignant neoplasm of breast; Z82.49 Family history of ischemic heart disease and other diseases of the circulatory system; Z92.3 Personal history of irradiation; M54.10 Radiculopathy, site unspecified; Z79.891 Long term (current) use of opiate analgesic; R94.5 Abnormal results of liver function studies; Z90.89 Acquired absence of other organs
CPT/HCPCS: 36415; 36600; 71045; 71275; 80048; 80053; 80202; 81001; 82553; 82805; 83605; 83880; 84145; 84443; 84484; 85025; 85610; 85730; 86140; 86850; 86900; 86901; 87040; 87077; 87086; 87186; 93005; 93306; 94640; 94760; 96365; 96366; 96368; 99285